=== PATIENT | female | born 1945 | race Caucasian/White ===

== ENCOUNTER → 2018-07-18 01:32 | Outpatient (CLI) | payer MEDICARE, MEDICAID, SELFPAY ==
--- NOTE | 2018-07-18 10:11 | DI.REPORT_ITS ---
SYMPTOM/DIAGNOSIS: SCREENING, Z12.31 MAMMOGRAM: Mammograms were interpreted according to the usual protocol including computer analysis with CAD system, tomosynthesis and C view imaging. Comparison with prior examinations. Breast density B. No masses or microcalcifications are seen. There is nothing to suggest malignancy. IMPRESSION: Negative mammogram. Routine screening is recommended. Category I. MQSA ASSESSMENT OF FINDINGS: Negative. Category 1. Patient will receive a letter notifying them of these results. BI-RADS category B. There are scattered areas of fibroglandular density.
== END ==
PROVIDERS: PCP Family Medicine; Visit Provider Family Medicine
DX: Z12.31 Encounter for screening mammogram for malignant neoplasm of breast (principal)
CPT/HCPCS: 77063; 77067

== ENCOUNTER 2018-08-15 10:25 | Outpatient (CLI) | payer MEDICARE, MEDICAID, SELFPAY ==
[2018-08-15 14:23] LABS: Bilirubin Negative (Negative); Blood Negative (Negative); Clarity Clear; Glucose Negative (Negative); Ketones Negative (Negative); Leukocyte Esterase Negative (Negative); Nitrite Negative (Negative); Urobilinogen 0.2 EU/dL (Up TO 0.2)
== END 2018-08-15 10:45 ==
PROVIDERS: PCP Family Medicine; Visit Provider Family Medicine
DX: R30.0 Dysuria (principal)
CPT/HCPCS: 81003

== ENCOUNTER 2018-08-18 14:23 | Outpatient (CLI) | payer MEDICARE, MEDICAID, SELFPAY ==
[2018-08-18 15:03] LABS: HCT 44.4 % (36.0-46.0); HGB 14.6 g/dL (12.0-15.5); Mean Corp. HGB Concentration 32.9 g/dL (32.0-36.0); Mean Corpuscular Hemoglobin 28.2 pg (27.0-33.0); Mean Corpuscular Volume 85.9 fL (80-95); Mean Platelet Volume 9.8 fL (8.0-11.0); Platelet Count 197 x1000/uL (130-400); RBC 5.17 m/cumm (4.00-5.20); RBC Distribution Width 14.2 % (11.7-14.6); White Blood Cell Count 6.75 k/cumm (4.4-10.8)
[2018-08-18 18:58] LABS: ALT 50 U/L (12-78); AST 33 U/L (15-37); Albumin 4.1 g/dL (3.4-5.0); Alkaline Phosphatase 76 U/L (46-116); Anion Gap 10.8 mmol/L (3-11); BUN 18 mg/dL (7-18); Bilirubin, Total 1.3 mg/dL (0.2-1.0); CO2 28.2 mmol/L (21.0-32.0); CREATININE 0.88 mg/dL (0.55-1.02); Calcium 8.9 mg/dL (8.5-10.1); Chloride 103 mmol/L (98-107); Glucose 118 mg/dL (70-100); Potassium 3.8 mmol/L (3.5-5.1); Sodium 142 mmol/L (136-145); Total Protein 7.2 g/dL (6.4-8.2)
== END 2018-08-18 14:43 ==
PROVIDERS: PCP Family Medicine; Visit Provider Family Medicine
DX: R42 Dizziness and giddiness (principal)
CPT/HCPCS: 36415; 80053; 85027

== ENCOUNTER 2018-08-22 00:48 | Outpatient (CLI) | payer MEDICARE, MEDICAID, SELFPAY ==
--- NOTE | 2018-08-22 13:02 | DI.CT_ITS ---
SYMPTOMS/DIAGNOSIS: PELVIC PAIN ABDOMINAL AND PELVIC CT: CT examination of the abdomen and pelvis was performed with a bolus infusion of 100 cc of Omnipaque 350 and ingestion of dilute barium. Images obtained through the lung bases are unremarkable. Note is made of marked degenerative changes of the lumbosacral spine with multilevel disc degeneration and prominent hypertrophic spurring of the endplates and facet joints. The heart appears enlarged. The liver and spleen are unremarkable in appearance. Gallbladder and bile ducts are CT normal. Pancreas appears normal. Adrenals and kidneys are unremarkable in appearance with no evidence of hydronephrosis or nephrolithiasis. Abdominal aorta is of normal diameter and no major vascular abnormality is seen. No significant abdominal wall hernia is seen. No abdominal or pelvic adenopathy. There is colonic diverticulosis. There is pericolonic fat edema associated with the descending/ sigmoid colon junction region, raising the possibility of acute or chronic diverticulitis. Appendix is unremarkable in appearance. No evidence of bowel obstruction. CONCLUSION: Findings raising the possibility of mild sigmoid/descending colon junction diverticulitis. Please correlate clinically. No additional significant findings.
[2018-08-22] MEDS: Omnipaque 350 MG/ML 100 ML BTL IJ (14:56)
[2018-08-22] MEDS: Omnipaque 350 MG/ML 50 ML BTL PO (14:56)
[2018-08-22] MEDS: Breeza Beverage 473 ML BTL PO ×2 (14:57)
== END 2018-08-22 01:08 ==
PROVIDERS: PCP Family Medicine; Visit Provider Family Medicine
DX: R10.2 Pelvic and perineal pain (principal); K57.32 Diverticulitis of large intestine without perforation or abscess without bleeding; I51.7 Cardiomegaly; K57.30 Diverticulosis of large intestine without perforation or abscess without bleeding
CPT/HCPCS: 74177; J3490; Q9967

== ENCOUNTER 2019-01-11 17:13 | Outpatient (REF) | payer MEDICARE, MEDICAID, SELFPAY ==
[2019-01-11 21:47] LABS: Abs Immature Grans 0.01 k/cumm (0.0-0.09); Absolute Basophil Count 0.01 k/cumm (0.0-0.2); Absolute Eosinophil Count 0.07 k/cumm (0.0-0.7); Absolute Lymphocyte Count 1.09 k/cumm (1.2-3.4); Absolute Monocyte Count 0.57 k/cumm (0.11-0.7); Basophils % 0.1; HCT 43.5 % (36.0-46.0); HGB 14.2 g/dL (12.0-15.5); Immature Grans % 0.1; Lymphocytes % 16.1; Mean Corp. HGB Concentration 32.6 g/dL (32.0-36.0); Mean Corpuscular Hemoglobin 28.1 pg (27.0-33.0); Mean Corpuscular Volume 86.1 fL (80-95); Monocytes % 8.4; Neutrophils % 74.3; Platelet Count 215 x1000/uL (130-400); RBC 5.05 m/cumm (4.00-5.20); RBC Distribution Width 14.3 % (11.7-14.6); White Blood Cell Count 6.75 k/cumm (4.4-10.8)
[2019-01-11 21:59] LABS: Hemoglobin A1C 6.1 % (4.5-6.2)
[2019-01-11 22:06] LABS: ALT 51 U/L (12-78); AST 31 U/L (15-37); Albumin 3.8 g/dL (3.4-5.0); Alkaline Phosphatase 69 U/L (46-116); Anion Gap 9.1 mmol/L (3-11); BUN 21 mg/dL (7-18); Bilirubin, Total 1.1 mg/dL (0.2-1.0); CO2 28.9 mmol/L (21.0-32.0); CREATININE 0.75 mg/dL (0.55-1.02); Calcium 8.8 mg/dL (8.5-10.1); Chloride 103 mmol/L (98-107); Glucose 106 mg/dL (70-100); Potassium 4.2 mmol/L (3.5-5.1); Sodium 141 mmol/L (136-145); TSH (W/Ref FT4) 1.48 uIU/mL (0.358-3.74); Total Protein 7.3 g/dL (6.4-8.2)
[2019-01-13 18:51] LABS: NT-proBNP 1610 pg/mL
== END 2019-01-11 17:33 ==
LOC: NCHCN 17:13
PROVIDERS: PCP Family Medicine; Visit Provider Family Medicine
DX: R06.02 Shortness of breath (principal); R06.09 Other forms of dyspnea; I10 Essential (primary) hypertension; R73.09 Other abnormal glucose
CPT/HCPCS: 80053; 83036; 83880; 84443; 85025

== ENCOUNTER 2019-02-22 11:25 | Outpatient (REF) | payer MEDICARE, MEDICAID, SELFPAY ==
[2019-02-22 12:39] LABS: ALT 52 U/L (12-78); AST 27 U/L (15-37); Albumin 3.8 g/dL (3.4-5.0); Alkaline Phosphatase 66 U/L (46-116); Anion Gap 10.7 mmol/L (3-11); BUN 21 mg/dL (7-18); Bilirubin, Total 1.3 mg/dL (0.2-1.0); CO2 27.3 mmol/L (21.0-32.0); CREATININE 0.75 mg/dL (0.55-1.02); Calcium 8.4 mg/dL (8.5-10.1); Chloride 102 mmol/L (98-107); Glucose 117 mg/dL (70-100); NT-proBNP 519 pg/mL; Potassium 3.9 mmol/L (3.5-5.1); Sodium 140 mmol/L (136-145); Total Protein 6.7 g/dL (6.4-8.2)
== END 2019-02-22 11:45 ==
LOC: NCHCN 11:25
PROVIDERS: PCP Family Medicine; Visit Provider Family Medicine
DX: R06.02 Shortness of breath (principal)
CPT/HCPCS: 80053; 83880

== ENCOUNTER 2019-02-27 00:54 | Outpatient (CLI) | payer MEDICARE, MEDICAID, SELFPAY ==
[2019-02-27] MEDS: Omnipaque 350 MG/ML 100 ML BTL IJ (13:00)
--- NOTE | 2019-02-27 13:00 | DI.CT_ITS ---
SYMPTOMS/DIAGNOSIS: ABDOMINAL DISTENTION, R14.0, ABDOMINAL DISCOMFORT X [address] SCAN OF THE ABDOMEN AND PELVIS: CT scan of the abdomen and pelvis was performed following the uneventful administration of intravenous and oral contrast material. Comparison examination is 08/22/18. Mild dependent atelectatic changes are seen in the lung bases. The liver is unremarkable. No evidence of a hepatic mass is seen. The portal, superior mesenteric and splenic veins are patent. The gallbladder is negative. There is no biliary ductal dilatation. The pancreas, spleen and adrenal glands are unremarkable. Incidental note is made of a small accessory spleen in the hilum. The kidneys are normal in size. Incidental note is made of a duplex right renal collecting system. There is a 2 mm nonobstructing stone in the mid pole of the right kidney. There are bilateral renal cysts. No suspicious solid renal mass is identified. The urinary bladder is intact. The patient appears to be status post hysterectomy. There is atherosclerosis of the abdominal aorta but no aneurysmal dilatation is present. No significant abdominal or pelvic adenopathy, ascites or pneumoperitoneum is present. There is diverticulosis seen throughout the colon, but no evidence of acute diverticulitis is present. There is a normal appendix present. No evidence of bowel obstruction or bowel inflammatory or infectious process is seen. Degenerative changes are seen in the spine. IMPRESSION: 1. No evidence of an acute abdomen. 2. Colonic diverticulosis but no evidence of acute diverticulitis. 3. Right nephrolithiasis. No evidence of hydronephrosis. 4. 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 Bilateral renal cysts.
[2019-02-27] MEDS: Omnipaque 350 MG/ML 50 ML BTL PO (13:01)
[2019-02-27] MEDS: Breeza Beverage 473 ML BTL PO (13:01)
== END 2019-02-27 01:14 ==
PROVIDERS: PCP Family Medicine; Visit Provider Family Medicine
DX: R14.0 Abdominal distension (gaseous) (principal); K57.30 Diverticulosis of large intestine without perforation or abscess without bleeding; N20.0 Calculus of kidney; N28.1 Cyst of kidney, acquired
CPT/HCPCS: 74177; J3490; Q9967

== ENCOUNTER 2019-03-01 21:33 | Outpatient (REF) | payer MEDICARE, MEDICAID, SELFPAY ==
[2019-03-01 21:30] LABS: Abs Immature Grans 0.01 k/cumm (0.0-0.09); Absolute Basophil Count 0.01 k/cumm (0.0-0.2); Absolute Eosinophil Count 0.09 k/cumm (0.0-0.7); Absolute Lymphocyte Count 0.99 k/cumm (1.2-3.4); Absolute Monocyte Count 0.56 k/cumm (0.11-0.7); Absolute Neutrophil Count 4.33 k/cumm (1.2-6.7); Basophils % 0.2; Eosinophils % 1.5; HCT 43.7 % (36.0-46.0); HGB 14.3 g/dL (12.0-15.5); Immature Grans % 0.2; Lymphocytes % 16.5; Mean Corp. HGB Concentration 32.7 g/dL (32.0-36.0); Mean Corpuscular Hemoglobin 27.6 pg (27.0-33.0); Mean Corpuscular Volume 84.2 fL (80-95); Mean Platelet Volume 10.7 fL (8.0-11.0); Monocytes % 9.3; Neutrophils % 72.3; Platelet Count 216 x1000/uL (130-400); RBC 5.19 m/cumm (4.00-5.20); RBC Distribution Width 14.1 % (11.7-14.6); White Blood Cell Count 5.99 k/cumm (4.4-10.8)
[2019-03-01 21:46] LABS: Iron 76 ug/dL (50-175); Total Iron Binding Capacity 348 ug/dL (250-450); Transferrin Sat 22 % (15-50)
[2019-03-01 21:58] LABS: Ferritin 428 ng/mL (8-388); TSH (W/Ref FT4) 1.58 uIU/mL (0.358-3.74)
[2019-03-05 12:07] LABS: CA 125 17 U/mL (0-30)
== END 2019-03-01 21:53 ==
LOC: NCHCN 21:33
PROVIDERS: PCP Family Medicine; Visit Provider Nurse Practitioner Family
DX: R14.0 Abdominal distension (gaseous) (principal); R06.02 Shortness of breath; R19.8 Other specified symptoms and signs involving the digestive system and abdomen; Z12.9 Encounter for screening for malignant neoplasm, site unspecified
CPT/HCPCS: 86304; 82728; 83540; 83550; 84443; 85025

== ENCOUNTER 2019-03-08 01:41 | Outpatient (CLI) | payer MEDICARE, MEDICAID, SELFPAY ==
[2019-03-08] MEDS: Inhaler, Assist Device 1 EACH MC (11:29)
[2019-03-08] MEDS: Albuterol HFA 18 GM 200 PUFF INH IH (11:29)
--- NOTE | 2019-03-12 15:10 | PFT_ITS ---
PULMONARY FUNCTION TEST REPORT DATE OF SERVICE: March 08, 2019 REQUESTING PROVIDER: Edilia Soria N.P. Spirometry shows no evidence of obstructive airways disease, no bronchodilator response. Lung volumes show no evidence of restriction. The slightly low FVC is mostly due to low ERV. This can represent chest wall restriction from underlying obesity or respiratory neuromuscular weakness. Diffusion capacity not measured. Airways resistance mildly elevated. IMPRESSION: No evidence of obstructive airways disease. No evidence of restriction. The slightly low FVC is most likely due to very low ERV. This can be seen in underlying obesity and chest wall restriction, or in respiratory neuromuscular dysfunction. Clinical correlation therefore recommended. MICHEL/shweta D/
== END 2019-03-08 02:01 ==
PROVIDERS: PCP Family Medicine; Visit Provider Nurse Practitioner Family
DX: R06.02 Shortness of breath (principal)
CPT/HCPCS: 94060; 94726

== ENCOUNTER 2019-08-21 00:50 | Emergency (ER) | payer MEDICARE, MEDICAID, SELFPAY ==
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
[2019-08-21 00:55] VITALS: BP 142/80; PULSE 82; RESP 16; TEMP 36.4; O2SAT 98
--- NOTE | 2019-08-21 01:13 | NUR.NOTE ---
Nursing Note: Reports right nare bleeding since 2229 s/p blowing nose.Daily Eliquis and baby asa. Arrives with tissue stuffed in right nare, bleeding controlled. denies posterior bleeding. reports clots when tissue removed. Marcell in to mj, tissue removed from nare with clot, no active bleeding. med a/o.
[2019-08-21 02:06] VITALS: BP 129/83; PULSE 89; RESP 16; O2SAT 98
--- NOTE | 2019-08-21 02:07 | NUR.NOTE ---
Nursing Note: Marcell in to cauterize right nare, no further bleeding. Discharge instructions reviewed with verbal understanding. aware to f/u with pcp as needed, return for new or worsening symptoms. ambulated to exit with steady gait.
== END 2019-08-21 02:04 | disposition home or self-care (01) ==
PROVIDERS: Emergency Provider Emergency Medicine; PCP Nurse Practitioner Family
DX: R04.0 Epistaxis (principal); Z79.01 Long term (current) use of anticoagulants; Z79.82 Long term (current) use of aspirin
CPT/HCPCS: 99282

== ENCOUNTER 2019-08-30 12:18 | Outpatient (REF) | payer MEDICARE, MEDICAID, SELFPAY ==
[2019-08-30 21:57] LABS: ALT 28 U/L (14-59); AST 19 U/L (15-37); Alkaline Phosphatase 63 U/L (46-116); Anion Gap 9.2 mmol/L (3-11); BUN 23 mg/dL (7-18); Bilirubin, Total 1.1 mg/dL (0.2-1.0); CO2 28.8 mmol/L (21.0-32.0); CREATININE 1.04 mg/dL (0.55-1.02); Calcium 8.4 mg/dL (8.5-10.1); Chloride 104 mmol/L (98-107); Glucose 114 mg/dL (70-100); NT-proBNP 888 pg/mL; Potassium 3.6 mmol/L (3.5-5.1); Sodium 142 mmol/L (136-145)
[2019-09-03 11:19] LABS: Hepatitis C Ab w Rflx HCV PCR Negative (NEGAT)
== END 2019-08-30 12:38 ==
LOC: NCHCN 12:18
PROVIDERS: PCP Nurse Practitioner Family; Visit Provider Nurse Practitioner Family
DX: I10 Essential (primary) hypertension (principal); I50.9 Heart failure, unspecified; R06.02 Shortness of breath; R42 Dizziness and giddiness; M19.90 Unspecified osteoarthritis, unspecified site; Z11.59 Encounter for screening for other viral diseases; G89.4 Chronic pain syndrome
CPT/HCPCS: 80053; 86803; 83880

== ENCOUNTER 2019-09-13 00:55 | Outpatient (CLI) | payer MEDICARE, MEDICAID, SELFPAY ==
--- NOTE | 2019-09-13 09:49 | DI.MAMMO_ITS ---
EXAM: MAMMO SCREENING CLINICAL HISTORY: SCREENING Z12.31 TECHNIQUE: Mammograms were interpreted according to the usual protocol including computer analysis w [employer] CAD system, tomosynthesis and C-view imaging. FINDINGS: The breasts are of moderate density with fairly symmetrical distribution of fibroglandular tissue. N o dominant mass or clumped microcalcification is identified either breast. Current examination is co mpared with previous examinations including June 2018 and there has been no gross change in appeara nce in comparison with the previous studies. IMPRESSION: No specific evidence of malignancy at this time. Routine screening examinations are suggested at year ly intervals due to the family history of breast carcinoma. Category 1. Breast density, category B. BI-RADS Cat 1 - Negative. Breast Density - Category B - Scattered areas of fibroglandular density.
== END 2019-09-13 01:15 ==
PROVIDERS: PCP Nurse Practitioner Family; Visit Provider Nurse Practitioner Family
DX: Z12.31 Encounter for screening mammogram for malignant neoplasm of breast (principal); Z80.3 Family history of malignant neoplasm of breast
CPT/HCPCS: 77063; 77067

== ENCOUNTER 2019-12-04 10:59 | Outpatient (REF) | payer MEDICARE, MEDICAID, SELFPAY ==
[2019-12-04 21:20] LABS: Abs Immature Grans 0.01 k/cumm (0.0-0.09); Absolute Basophil Count 0.01 k/cumm (0.0-0.2); Absolute Eosinophil Count 0.08 k/cumm (0.0-0.7); Absolute Lymphocyte Count 1.43 k/cumm (1.2-3.4); Absolute Monocyte Count 0.61 k/cumm (0.11-0.7); Absolute Neutrophil Count 3.99 k/cumm (1.2-6.7); Basophils % 0.2; Eosinophils % 1.3; HCT 44.2 % (36.0-46.0); HGB 14.5 g/dL (12.0-15.5); Immature Grans % 0.2 %; Lymphocytes % 23.3; Mean Corp. HGB Concentration 32.8 g/dL (32.0-36.0); Mean Corpuscular Hemoglobin 28.1 pg (27.0-33.0); Mean Corpuscular Volume 85.7 fL (80-95); Mean Platelet Volume 9.9 fL (8.0-11.0); Platelet Count 232 x1000/uL (130-400); RBC 5.16 m/cumm (4.00-5.20); RBC Distribution Width 14.3 % (11.7-14.6); White Blood Cell Count 6.13 k/cumm (4.4-10.8)
[2019-12-04 21:35] LABS: TSH (W/Ref FT4) 2.75 uIU/mL (0.36-3.74)
[2019-12-04 22:01] LABS: Iron 85 ug/dL (50-170); Total Iron Binding Capacity 336 ug/dL (250-450); Transferrin Sat 25 % (15-50)
== END 2019-12-04 11:19 ==
LOC: NCHCN 10:59
PROVIDERS: PCP Nurse Practitioner Family; Visit Provider Nurse Practitioner Family
DX: I10 Essential (primary) hypertension (principal); R06.02 Shortness of breath; I48.91 Unspecified atrial fibrillation; I50.9 Heart failure, unspecified; G47.00 Insomnia, unspecified; G57.20 Lesion of femoral nerve, unspecified lower limb; E66.9 Obesity, unspecified; G89.4 Chronic pain syndrome
CPT/HCPCS: 83540; 83550; 84443; 85025

== ENCOUNTER 2020-07-11 18:26 | Outpatient (REF) | payer MEDICARE, MEDICAID, SELFPAY ==
[2020-07-11 23:57] LABS: ALT 31 U/L (14-59); AST 19 U/L (15-37); Albumin 4.1 g/dL (3.4-5.0); Alkaline Phosphatase 52 U/L (46-116); Anion Gap 9.4 mmol/L (3-11); BUN 16 mg/dL (7-18); Bilirubin, Total 1.3 mg/dL (0.2-1.0); CO2 29.6 mmol/L (21.0-32.0); CREATININE 0.72 mg/dL (0.55-1.02); Calcium 8.8 mg/dL (8.5-10.1); Chloride 101 mmol/L (98-107); Glucose 106 mg/dL (74-106); Potassium 3.9 mmol/L (3.5-5.1); Sodium 140 mmol/L (136-145); Total Protein 7.1 g/dL (6.4-8.2)
== END 2020-07-11 18:46 ==
LOC: NCHCN 18:26
PROVIDERS: PCP Nurse Practitioner Family; Visit Provider Nurse Practitioner Family
DX: I10 Essential (primary) hypertension (principal); E78.5 Hyperlipidemia, unspecified; R73.03 Prediabetes; I50.9 Heart failure, unspecified; I48.91 Unspecified atrial fibrillation; G57.20 Lesion of femoral nerve, unspecified lower limb; J30.9 Allergic rhinitis, unspecified; E66.9 Obesity, unspecified
CPT/HCPCS: 80053

== ENCOUNTER 2020-10-08 00:53 | Outpatient (CLI) | payer MEDICARE, MEDICAID, SELFPAY ==
--- NOTE | 2020-10-08 | DI.MAMMO_ITS ---
EXAM: MG MAMMO SCREENING CLINICAL HISTORY: SCREENING,Z12.31 TECHNIQUE: Bilateral full field digital CC and MLO mammographic images were obtained with 3D tomosyn thesis and utilizing computer aided detection (CAD). COMPARISON: Available for comparison. FINDINGS: Masses/Architectural Distortion: None seen. Microcalcifications: No suspicious pleomorphic-type are seen. Skin Thickening/Nipple Retraction: None. IMPRESSION: 1. No significant interval change with no specific features of malignancy noted. 2. Unless there is more urgent need, screening mammography is recommended, as per [employer] guidelines. BI-RADS Category 1 - Negative Breast Density - Category B - Scattered areas of fibroglandular density A negative radiographic report should not delay biopsy if a dominant or clinically suspicious mass is present. Up to ten percent of cancers are not identified on mammography. A negative report may reinforce clinical impression. Adenosis and dense breasts may obscure an underlying neoplasm. False positive reports average 6 to 10%. Patient will receive a letter notifying them of these results.
== END 2020-10-08 01:13 ==
PROVIDERS: PCP Nurse Practitioner Family; Visit Provider Nurse Practitioner Family
DX: Z12.31 Encounter for screening mammogram for malignant neoplasm of breast (principal)
CPT/HCPCS: 77063; 77067

== ENCOUNTER 2020-10-14 12:55 | Outpatient (REF) | payer MEDICARE, MEDICAID, SELFPAY ==
[2020-10-14 22:33] LABS: NT-proBNP 1166 pg/mL (<300)
== END 2020-10-14 13:15 ==
LOC: NCHCN 12:55
PROVIDERS: PCP Nurse Practitioner Family; Visit Provider Nurse Practitioner Family
DX: I50.9 Heart failure, unspecified (principal); I10 Essential (primary) hypertension; I48.91 Unspecified atrial fibrillation
CPT/HCPCS: 83880

== ENCOUNTER 2020-10-21 18:46 | Outpatient (REF) | payer MEDICARE, MEDICAID, SELFPAY ==
[2020-10-21 21:19] LABS: Anion Gap 6.6 mmol/L (3-11); BUN 18 mg/dL (7-18); CO2 28.4 mmol/L (21.0-32.0); Calcium 8.8 mg/dL (8.5-10.1); Chloride 105 mmol/L (98-107); Glucose 141 mg/dL (74-106); Potassium 4.2 mmol/L (3.5-5.1); Sodium 140 mmol/L (136-145)
== END 2020-10-21 19:06 ==
LOC: NCHCN 18:46
PROVIDERS: PCP Nurse Practitioner Family; Visit Provider Nurse Practitioner Family
DX: I10 Essential (primary) hypertension (principal); I50.9 Heart failure, unspecified
CPT/HCPCS: 80048

== ENCOUNTER 2020-11-18 18:04 | Outpatient (REF) | payer MEDICARE, MEDICAID, SELFPAY ==
[2020-11-18 21:26] LABS: Anion Gap 6.8 mmol/L (3-11); BUN 21 mg/dL (7-18); CO2 30.2 mmol/L (21.0-32.0); Calcium 8.8 mg/dL (8.5-10.1); Chloride 102 mmol/L (98-107); Glucose 132 mg/dL (74-106); Potassium 3.3 mmol/L (3.5-5.1); Sodium 139 mmol/L (136-145)
== END 2020-11-18 18:24 ==
LOC: NCHCN 18:04
PROVIDERS: PCP Nurse Practitioner Family; Visit Provider Nurse Practitioner Family
DX: J30.9 Allergic rhinitis, unspecified (principal); R60.0 Localized edema; R06.09 Other forms of dyspnea; G89.4 Chronic pain syndrome; E78.5 Hyperlipidemia, unspecified; F32.9 Major depressive disorder, single episode, unspecified; I10 Essential (primary) hypertension
CPT/HCPCS: 80048

== ENCOUNTER 2020-12-04 11:25 | Outpatient (REF) | payer OTHER, MEDICAID, SELFPAY ==
[2020-12-04 13:34] LABS: Potassium 3.7 mmol/L (3.5-5.1)
== END 2020-12-04 11:45 ==
LOC: NCHCN 11:25
PROVIDERS: PCP Nurse Practitioner Family; Visit Provider Nurse Practitioner Family
DX: E87.6 Hypokalemia (principal)
CPT/HCPCS: 84132

== ENCOUNTER 2021-02-12 11:23 | Outpatient (REF) | payer OTHER, MEDICAID, SELFPAY ==
[2021-02-12 13:34] LABS: BUN 18 mg/dL (7-18); CREATININE 0.7 mg/dL (0.55-1.02); Calcium 9.1 mg/dL (8.5-10.1); Chloride 104 mmol/L (98-107); Glucose 124 mg/dL (74-106); Potassium 3.9 mmol/L (3.5-5.1); Sodium 142 mmol/L (136-145)
== END 2021-02-12 11:24 | disposition home or self-care (01) ==
LOC: NCHCN 11:23
PROVIDERS: PCP Nurse Practitioner Family; Visit Provider Nurse Practitioner Family
DX: R53.83 Other fatigue (principal); R73.03 Prediabetes; E87.6 Hypokalemia; I50.9 Heart failure, unspecified
CPT/HCPCS: 80048

== ENCOUNTER 2021-08-21 02:40 | Outpatient (CLI) | payer OTHER, MEDICAID, SELFPAY ==
--- NOTE | 2021-08-21 | DI.RAD_ITS ---
Exam(s) XR SHOULDER RT COMPLETE 2+V EXAM: XR SHOULDER RT COMPLETE 2+V CLINICAL HISTORY: SHOULDER PAIN, M25.511. TECHNIQUE: 2D digital imaging was performed of the right shoulder. Five images were obtained. AP i nternal and external, [place], Y-view and axillary views were obtained. COMPARISON: CR RIGHT SHOULDER COMPLETE from 01/01/2014 CR RIGHT SHOULDER COMPLETE from 01/01/2014 FINDINGS: BONES: No acute fracture is present. No bony destructive lesion is seen. JOINTS: No dislocation present. Moderate degenerative changes are seen at the acromioclavicular joint . Mild degenerative changes are seen at the glenohumeral joint with periarticular spurring present. SOFT TISSUE: Normal. IMPRESSION: Moderate degenerative changes of the right shoulder. DATA REPOSITORY: RADIATION DOSE DELIVERED:
== END 2021-08-21 03:00 ==
PROVIDERS: PCP Nurse Practitioner Family; Visit Provider Family Medicine
DX: M25.511 Pain in right shoulder (principal); M19.011 Primary osteoarthritis, right shoulder
CPT/HCPCS: 73030

== ENCOUNTER 2022-02-14 15:07 | Emergency (ER) | payer MEDICARE, MEDICAID, SELFPAY ==
[2022-02-14] VITALS (16 sets, daily range): BP systolic 118–141; BP diastolic 63–81; PULSE 75–100; RESP 16–26; TEMP 36.6–36.8; O2SAT 95–96
--- NOTE | 2022-02-14 15:15 | RT.EKG_ITS ---
APPROVED REPORT Exam: Resting ECG Reason for Exam: swollen feet Patient Location: E HR:89 bpm ECG Measurements Heart Rate 89 AXIS VA [id number] P [id number] QRSd 83 QRS -8 QT 399 T 44 QTc 485 Conclusion Atrial fibrillation...V-rate 62-102, irreg A-activity. Afib. No STEMI. I have reviewed and interpreted ECG and agree with software generated interpretation.
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
[2022-02-14 15:58] LABS: Abs Immature Grans 0.02 10^3/uL (0.0-0.06); Absolute Basophil Count 0.02 10^3/uL (0.0-0.2); Absolute Eosinophil Count 0.05 10^3/uL (0.0-0.7); Absolute Lymphocyte Count 1.26 10^3/uL (1.2-3.4); Absolute Monocyte Count 0.63 10^3/uL (0.1-0.8); Absolute Neutrophil Count 5.43 10^3/uL (1.2-6.7); Basophils % 0.3; Eosinophils % 0.7; HGB 14.5 g/dL (11.2-15.7); Immature Grans % 0.3; MCH 27.1 pg (27.0-33.0); MCHC 31.5 % (32.0-36.0); MCV 85.8 fL (80-95); MPV 9.6 fL (8.0-11.0); Monocytes % 8.5; Neutrophils % 73.2; Nucleated RBC 0 %; Platelet Count 247 10^3/uL (130-400); RBC 5.36 10^6/uL (3.93-5.22); RDW 13.7 % (11.7-14.6); RDW-SD 42.7 fL; WBC 7.41 10^3/uL (4.4-10.8)
[2022-02-14 16:25] LABS: ALT 36 U/L (14-59); AST 24 U/L (15-37); Albumin 4.2 g/dL (3.4-5.0); Alkaline Phosphatase 68 U/L (46-116); Anion Gap 9.7 mmol/L (3-11); BUN 20 mg/dL (7-18); Bilirubin, Total 1.2 mg/dL (0.2-1.0); CO2 28.3 mmol/L (21.0-32.0); CREATININE 0.8 mg/dL (0.55-1.02); Calcium 9.3 mg/dL (8.5-10.1); Chloride 102 mmol/L (98-107); Glucose 122 mg/dL (74-106); Magnesium 1.8 mg/dL (1.8-2.4); NT-proBNP 849 pg/mL (<300); Potassium 3.9 mmol/L (3.5-5.1); Sodium 140 mmol/L (136-145); Total Protein 8.1 g/dL (6.4-8.2); Troponin I < 50 ng/L (<or=60)
--- NOTE | 2022-02-14 18:23 | DI.RAD_ITS ---
Exam(s) XR CHEST 2V PA LATERAL EXAM: XR CHEST 2V PA LATERAL CLINICAL HISTORY: shortness of breath, r/o acute disease TECHNIQUE: 2D digital imaging was performed. COMPARISON: CR CHEST 2 VIEWS PA,LAT from 07/19/2017 FINDINGS: The heart is enlarged. Leads overlie the chest. There is vascular congestion compared with the prev ious exam. No focal infiltrate, effusion or pneumothorax is seen. IMPRESSION: Cardiomegaly. vascular congestion could indicate mild CHF. DATA REPOSITORY: RADIATION DOSE DELIVERED:
--- NOTE | 2022-02-14 18:55 | DI.VRAD_ITS ---
PROCEDURE INFORMATION: Exam: XR Chest Exam date and time: 02/14/2022 6:10 PM Age: 76 years old Clinical indication: Patient HX: Shortness of breath, R/O acute disease TECHNIQUE: Imaging protocol: XR of the chest. Views: 2 views. COMPARISON: CT CHEST FOR PULMONARY EMBOLUS 07/20/2017 10:13 AM FINDINGS: Lungs: The pulmonary vasculature appears prominent. There is minimal streaky opacity in the left lung base. Pleural spaces: Unremarkable. No pleural effusion. No pneumothorax. Heart/Mediastinum: The cardiac silhouette is enlarged. Bones/joints: Unremarkable. IMPRESSION: 1. Cardiomegaly and pulmonary vascular congestion. 2. Minimal streaky opacity in the left lung base, possibly due to atelectasis or infiltrate. Dictated and Authenticated by: Sanam Orellana MD. Ordering:JAGDISH Galan MD
--- NOTE | 2022-02-14 19:53 | NUR.NOTE ---
referral for leg ultrasound faxed to [facility]. Patient given a copy and instructed to call the number circled on requisition after 7amNursing Note:
== END 2022-02-14 20:34 | disposition home or self-care (01) ==
PROVIDERS: Emergency Provider Physician Assistant; PCP Nurse Practitioner Family
DX: R60.0 Localized edema (principal); R06.02 Shortness of breath; R07.9 Chest pain, unspecified
CPT/HCPCS: 36415; 80053; 93005; 99284; 71046; 83735; 83880; 84484; 85025; 93010

== ENCOUNTER 2022-02-15 10:31 | Outpatient (CLI) | payer MEDICARE, MEDICAID, SELFPAY ==
[2022-02-15 12:49] LABS: Anion Gap 6.8 mmol/L (3-11); BUN 18 mg/dL (7-18); CO2 30.2 mmol/L (21.0-32.0); CREATININE 0.7 mg/dL (0.55-1.02); Calcium 9.4 mg/dL (8.5-10.1); Chloride 101 mmol/L (98-107); Glucose 105 mg/dL (74-106); Potassium 4.2 mmol/L (3.5-5.1); Sodium 138 mmol/L (136-145)
== END 2022-02-15 10:32 | disposition home or self-care (01) ==
LOC: LBO 10:33
PROVIDERS: PCP Nurse Practitioner Family; Visit Provider Nurse Practitioner Family
DX: I10 Essential (primary) hypertension (principal)
CPT/HCPCS: 36415; 80048

== ENCOUNTER 2022-02-15 11:09 | Outpatient (CLI) | payer MEDICARE, MEDICAID, SELFPAY ==
--- NOTE | 2022-02-15 | DI.US_ITS ---
Exam(s) US EXTREMITY VENOUS BI EXAM: US EXTREMITY VENOUS BI CLINICAL HISTORY: AR LEG SWELLING, R22.43. TECHNIQUE: Bilateral lower extremity venous ultrasound performed using grayscale, color-flow, and sp ectral Doppler analysis. COMPARISON: No exams were available for comparison FINDINGS: Exam is somewhat limited by patient body habitus. The bilateral common femoral, femoral and poplitea l veins demonstrate normal compressibility, augmentation, and color Doppler. The posterior tibial vei ns are patent. IMPRESSION: Right: Negative for DVT Left: Negative for DVT DATA REPOSITORY:
== END 2022-02-15 11:29 ==
PROVIDERS: PCP Nurse Practitioner Family; Visit Provider Physician Assistant
DX: R22.43 Localized swelling, mass and lump, lower limb, bilateral (principal)
CPT/HCPCS: 93970

== ENCOUNTER 2022-02-15 12:37 | Emergency (ER) | payer MEDICARE, MEDICAID, SELFPAY ==
[2022-02-15 12:41] VITALS: BP 118/74; PULSE 85; RESP 16; TEMP 36; O2SAT 96
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
== END 2022-02-15 13:13 | disposition home or self-care (01) ==
PROVIDERS: Emergency Provider Physician Assistant; PCP Nurse Practitioner Family
DX: R60.0 Localized edema (principal)

== ENCOUNTER 2022-02-23 17:40 | Outpatient (REF) | payer MEDICARE, MEDICAID, SELFPAY ==
[2022-02-23 21:25] LABS: Anion Gap 15.6 mmol/L (3-11); BUN 25 mg/dL (7-18); CO2 29.4 mmol/L (21.0-32.0); CREATININE 0.8 mg/dL (0.55-1.02); Chloride 98 mmol/L (98-107); Glucose 149 mg/dL (74-106); Potassium 3.1 mmol/L (3.5-5.1); Sodium 143 mmol/L (136-145)
== END 2022-02-23 17:41 | disposition home or self-care (01) ==
LOC: NCHCN 17:40
PROVIDERS: PCP Nurse Practitioner Family; Visit Provider Nurse Practitioner Family
DX: I50.9 Heart failure, unspecified (principal); R60.0 Localized edema; I89.0 Lymphedema, not elsewhere classified
CPT/HCPCS: 80048

== ENCOUNTER 2022-03-01 20:38 | Outpatient (REF) | payer MEDICARE, MEDICAID, SELFPAY ==
[2022-03-01 21:15] LABS: Anion Gap 7.2 mmol/L (3-11); BUN 26 mg/dL (7-18); CO2 30.8 mmol/L (21.0-32.0); CREATININE 0.8 mg/dL (0.55-1.02); Calcium 9.1 mg/dL (8.5-10.1); Chloride 102 mmol/L (98-107); Glucose 155 mg/dL (74-106); Potassium 4.2 mmol/L (3.5-5.1); Sodium 140 mmol/L (136-145)
== END 2022-03-01 20:39 | disposition home or self-care (01) ==
LOC: NCHCN 20:38
PROVIDERS: PCP Nurse Practitioner Family; Visit Provider Nurse Practitioner Family
DX: E87.6 Hypokalemia (principal)
CPT/HCPCS: 80048

== ENCOUNTER 2022-03-19 13:37 | Outpatient (REF) | payer MEDICARE, MEDICAID, SELFPAY | END 2022-03-19 13:38 | disposition home or self-care (01) | LOC: NCHCN 13:37 | PROVIDERS: PCP Nurse Practitioner Family; Visit Provider Nurse Practitioner Family ==

== ENCOUNTER 2022-04-16 12:28 | Outpatient (CLI) | payer MEDICARE, MEDICAID, SELFPAY ==
[2022-04-16 13:08] LABS: Hemoglobin A1C 6.4 % (<5.7)
== END 2022-04-16 12:29 | disposition home or self-care (01) ==
LOC: LBO 12:31
PROVIDERS: PCP Nurse Practitioner Family; Visit Provider Nurse Practitioner Family
DX: R73.03 Prediabetes (principal); E66.9 Obesity, unspecified
CPT/HCPCS: 36415; 83036

== ENCOUNTER → 2022-06-03 01:37 | Outpatient (CLI) | payer MEDICARE, MEDICAID, SELFPAY | PROVIDERS: PCP Nurse Practitioner Family; Visit Provider Nurse Practitioner Family ==

== ENCOUNTER 2022-11-30 17:42 | Outpatient (REF) | payer MEDICARE, MEDICAID, SELFPAY ==
[2022-11-30 16:20] LABS: Anion Gap 5.6 mmol/L (3-11); BUN 18 mg/dL (7-18); CO2 31.4 mmol/L (21.0-32.0); CREATININE 0.8 mg/dL (0.55-1.02); Calcium 9.2 mg/dL (8.5-10.1); Chloride 102 mmol/L (98-107); Estimated GFR 75.84 (mL/min/1.73m2); Glucose 116 mg/dL (74-106); Potassium 4.4 mmol/L (3.5-5.1); Sodium 139 mmol/L (136-145)
== END 2022-11-30 17:43 | disposition home or self-care (01) ==
LOC: NCHCN 17:42
PROVIDERS: PCP Nurse Practitioner Family; Visit Provider Family Medicine
DX: E87.6 Hypokalemia (principal)
CPT/HCPCS: 80048

== ENCOUNTER 2022-12-13 10:21 | Emergency (ER) | payer MEDICARE, MEDICAID, SELFPAY ==
[2022-12-13 10:30] VITALS: BP 138/75; PULSE 101; RESP 18; TEMP 36.8; O2SAT 96
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
[2022-12-13 12:19] VITALS: BP 135/70; PULSE 83; RESP 16; O2SAT 97
== END 2022-12-13 12:15 | disposition home or self-care (01) ==
PROVIDERS: Emergency Provider Nurse Practitioner Family; PCP Family Medicine
DX: R04.0 Epistaxis (principal); I48.91 Unspecified atrial fibrillation; Z79.01 Long term (current) use of anticoagulants
CPT/HCPCS: 30901; 99282

== ENCOUNTER 2022-12-14 07:33 | Emergency (ER) | payer MEDICARE, MEDICAID, SELFPAY ==
[2022-12-14 07:36] VITALS: BP 154/74; PULSE 103; RESP 18; TEMP 36.3; O2SAT 97
[2022-12-14 08:27] LABS: Abs Immature Grans 0.02 10^3/uL (0.0-0.06); Absolute Basophil Count 0.02 10^3/uL (0.0-0.2); Absolute Eosinophil Count 0.04 10^3/uL (0.0-0.7); Absolute Lymphocyte Count 0.95 10^3/uL (1.2-3.4); Absolute Monocyte Count 0.54 10^3/uL (0.1-0.8); Absolute Neutrophil Count 5.71 10^3/uL (1.2-6.7); Basophils % 0.3; Eosinophils % 0.5; HCT 44.3 % (36.0-46.0); HGB 14.3 g/dL (11.2-15.7); Immature Grans % 0.3; MCH 27.9 pg (27.0-33.0); MCHC 32.3 % (32.0-36.0); MCV 86 fL (80-95); MPV 9.6 fL (8.0-11.0); Monocytes % 7.4; Neutrophils % 78.5; Platelet Count 237 10^3/uL (130-400); RBC 5.13 10^6/uL (3.93-5.22); WBC 7.28 10^3/uL (4.4-10.8)
[2022-12-14 08:41] LABS: INR 1.2 (0.9-1.1); PTT Activated 27.9 sec (21.0-27.5); Prothrombin Time 11.8 sec (9.3-11.0)
[2022-12-14 08:42] LABS: ALT 28 U/L (14-59); AST 22 U/L (15-37); Albumin 4.2 g/dL (3.4-5.0); Alkaline Phosphatase 72 U/L (46-116); Anion Gap 8.5 mmol/L (3-11); BUN 18 mg/dL (7-18); Bilirubin, Total 1.4 mg/dL (0.2-1.0); CO2 29.5 mmol/L (21.0-32.0); CREATININE 0.8 mg/dL (0.55-1.02); Calcium 9.5 mg/dL (8.5-10.1); Chloride 100 mmol/L (98-107); Estimated GFR 75.84 (mL/min/1.73m2); Glucose 164 mg/dL (74-106); Potassium 3.9 mmol/L (3.5-5.1); Sodium 138 mmol/L (136-145); Total Protein 7.8 g/dL (6.4-8.2)
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
--- NOTE | 2022-12-14 10:08 | NUR.NOTE ---
Nursing Note: Referral faxed to [facility] ENT for epistaxis; 3 days, patient want Tuesday appt.
[2022-12-14 10:10] VITALS: BP 118/72; PULSE 69; RESP 18; TEMP 36.4; O2SAT 97
--- NOTE | 2022-12-15 15:17 | NUR.NOTE ---
patient called stating rocket rhino was coming out of nares. attempted to return patient's call x 2 with no results. left message regarding possible options to remedy this (i.e. Urgent care, return to ED.)
== END 2022-12-14 10:16 | disposition home or self-care (01) ==
PROVIDERS: Emergency Provider Nurse Practitioner Family; PCP Family Medicine
DX: R04.0 Epistaxis (principal); E80.7 Disorder of bilirubin metabolism, unspecified; R73.9 Hyperglycemia, unspecified; Z79.01 Long term (current) use of anticoagulants
CPT/HCPCS: 36415; 80053; 99283; 85025; 85610; 85730; 99284

== ENCOUNTER 2022-12-15 17:20 | Emergency (ER) | payer MEDICARE, MEDICAID, SELFPAY ==
[2022-12-15 17:24] VITALS: BP 168/70; PULSE 83; RESP 20; TEMP 36.6; O2SAT 97
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
[2022-12-15 18:23] VITALS: BP 147/81; PULSE 93; RESP 20; O2SAT 96
[2022-12-15 21:30] VITALS: RESP 15
== END 2022-12-15 18:26 | disposition home or self-care (01) ==
PROVIDERS: Emergency Provider Registered Nurse Emergency; PCP Family Medicine
DX: R04.0 Epistaxis (principal); I48.91 Unspecified atrial fibrillation; Z79.01 Long term (current) use of anticoagulants
CPT/HCPCS: 99281; 99282

== ENCOUNTER 2023-03-07 16:30 | Outpatient (REF) | payer MEDICARE, MEDICAID, SELFPAY | END 2023-03-07 16:31 | disposition home or self-care (01) | LOC: LBN 16:30 | PROVIDERS: PCP Family Medicine; Visit Provider Nurse Practitioner Family | DX: N30.01 Acute cystitis with hematuria (principal) | CPT/HCPCS: 87077; 87086; 87186 ==

== ENCOUNTER 2023-03-24 15:06 | Outpatient (REF) | payer MEDICARE, MEDICAID, SELFPAY | END 2023-03-24 15:07 | disposition home or self-care (01) | LOC: NCHCN 15:06 | PROVIDERS: PCP Family Medicine; Visit Provider Family Medicine | DX: R30.0 Dysuria (principal); R30.9 Painful micturition, unspecified | CPT/HCPCS: 87077; 87086; 87186 ==

== ENCOUNTER 2023-03-30 00:55 | Outpatient (CLI) | payer MEDICARE, MEDICAID, SELFPAY ==
--- NOTE | 2023-03-30 11:10 | DI.RAD_ITS ---
Exam(s) XR KNEE RT 3V AP,LAT,JUANCARLOS EXAM: XR KNEE RT 3V AP,LAT,JUANCARLOS CLINICAL HISTORY: RT KNEE PAIN, M25.561, S/P TKR. TECHNIQUE: 2D digital imaging was performed. Three views. COMPARISON: CR RIGHT KNEE 3 VIEWS from 04/03/2015 CR LEFT KNEE 3 VIEW COMPLETE from 04/03/2015 CR RIGHT KNEE 3 VIEWS from 04/29/2017 FINDINGS: BONES: There has been no change in the alignment of the knee prosthesis. There are no surrounding ab normal lucencies. No acute fracture is present. No bony destructive lesion is seen. JOINTS: The knee is normally aligned. No joint effusion is seen. A calcification is seen adjacent t o the lower pole of the patella not seen previously. SOFT TISSUE: Anterior edema. IMPRESSION: stable appearance of total knee prosthesis. Calcification now seen beneath the patella. DATA REPOSITORY: RADIATION DOSE DELIVERED:
== END 2023-03-30 01:15 ==
PROVIDERS: PCP Family Medicine; Visit Provider Family Medicine
DX: M25.561 Pain in right knee (principal); M61.461 Other calcification of muscle, right lower leg
CPT/HCPCS: 73562

== ENCOUNTER 2023-06-23 18:56 | Outpatient (REF) | payer MEDICARE, MEDICAID, SELFPAY ==
[2023-06-23 17:07] LABS: ALT 28 U/L (14-59); AST 24 U/L (15-37); Albumin 3.9 g/dL (3.4-5.0); Alkaline Phosphatase 67 U/L (46-116); Anion Gap 5.2 mmol/L (3-11); BUN 17 mg/dL (7-18); Bilirubin, Total 1.2 mg/dL (0.2-1.0); C-Reactive Protein 0.29 mg/dL (0.0-0.3); CO2 28.8 mmol/L (21.0-32.0); CREATININE 0.8 mg/dL (0.55-1.02); Calcium 9.2 mg/dL (8.5-10.1); Chloride 104 mmol/L (98-107); Estimated GFR 75.84 (mL/min/1.73m2); Glucose 136 mg/dL (74-106); NT-proBNP 892 pg/mL (<300); Potassium 4.9 mmol/L (3.5-5.1); Sodium 138 mmol/L (136-145); Total Protein 7.5 g/dL (6.4-8.2)
[2023-06-23 17:14] LABS: Hemoglobin A1C 6.6 % (<5.7)
== END 2023-06-23 18:57 | disposition home or self-care (01) ==
LOC: NCHCN 18:56
PROVIDERS: PCP Family Medicine; Visit Provider Family Medicine
DX: R73.03 Prediabetes (principal); I50.9 Heart failure, unspecified; I10 Essential (primary) hypertension; I25.10 Atherosclerotic heart disease of native coronary artery without angina pectoris; I27.20 Pulmonary hypertension, unspecified
CPT/HCPCS: 80053; 83036; 83880; 86140

== ENCOUNTER → 2023-06-27 08:57 | Outpatient (BNVA) | payer MEDICARE, MEDICAID, SELFPAY | PROVIDERS: PCP Family Medicine; Referring Provider Family Medicine; Visit Provider Student in an Organized Health Care Education/Training Program | DX: M25.561 Pain in right knee (principal); Z96.653 Presence of artificial knee joint, bilateral; R60.0 Localized edema; I50.9 Heart failure, unspecified; I07.1 Rheumatic tricuspid insufficiency; I48.91 Unspecified atrial fibrillation; Z79.01 Long term (current) use of anticoagulants | CPT/HCPCS: 99213 ==

== ENCOUNTER → 2023-07-13 02:10 | Outpatient (CLI) | payer MEDICARE, MEDICAID, SELFPAY ==
--- NOTE | 2023-07-13 07:30 | DI.CT_ITS ---
Exam(s) CT LOWER EXTREMITY RT WO EXAM: CT LOWER EXTREMITY RT WO CLINICAL HISTORY: PAIN,? LOOSENING,t84.84xa. TECHNIQUE: Imaging Protocol: Axial computed tomography images with coronal and sagittal reformatted images were created and reviewed. COMPARISON: CR XR KNEE RT 3V AP,LAT,JUANCARLOS from 03/30/2023 FINDINGS: There is artifact from the patient's total knee replacement. No suspicious lucencies are seen around the orthopedic hardware to suggest loosening. Bones: The osseous structures are intact. Bony alignment is satisfactory. No cellulitic or osteomy elitic changes are identified. There is no joint effusion. No lytic or sclerotic lesions are identi fied. Soft Tissues: There is fatty atrophy of the posterior thigh musculature. No soft tissue mass is appr eciated. IMPRESSION: No CT evidence to suggest loosening or infection. RADIATION DOSE DELIVERED: 331.1mGy.cm Total DLP 331.1mGy.cm Total DLP DATA REPOSITORY: All CT scans at this facility are submitted to the National Radiology Data Registry (NRDR) Dose Index Registry (DIR) with the [employer] (A[employer]). RADIATION OPTIMIZATION: All CT scans at this facility use at least one of these dose optimization te chniques: automated exposure control; mA and/or kV adjustment per patient size (includes targeted exa ms where dose is matched to clinical indication); or iterative reconstruction.
--- NOTE | 2023-07-13 07:30 | DI.NM_ITS ---
Exam(s) NM BONE SCAN 3 PHASE EXAM: DE BONE SCAN 3 PHASE CLINICAL HISTORY: PAIN,?LOOSENING,t84.84xa. TECHNIQUE: Injected Dose: 24 mCi Tc-99m MDP COMPARISON: DE MPI RESTING AND STRESS from 09/12/2017 CR,XR XR CHEST 2V PA LATERAL from 02/14/2022 CR XR KNEE RT 3V AP,LAT,JUANCARLOS from 03/30/[address] LOWER EXTREMITY RT WO from 07/13/2023 FINDINGS: Perfusion: Symmetric. Blood Pool: Symmetric. Delayed: There is a single focus of increased radiotracer uptake appreciated on the frontal view of t he right knee. On the lateral images it appears to lie at the inferior aspect of the patella. Photo penic areas are seen in the knees bilaterally consistent with bilateral total knee replacements. The re is also focus of increased radiotracer uptake overlying the right sternum or right sternoclavicula r joint region. There are foci of increased radiotracer uptake in the feet bilaterally which may be degenerative in nature. There are no comparison x-rays. IMPRESSION: 1. Focus of increased radiotracer uptake on the delayed images over the right knee. On the lateral v iew it appears to lie at the inferior aspect of the patella. The right femoral and tibial components show no abnormal uptake. 2. Increased radiotracer uptake seen at the right sternoclavicular region. Correlation with x-ray of the sternoclavicular joint or CT scan is recommended. DATA REPOSITORY:
[2023-07-13 10:56] LABS: ESR 23 mm/hr (0-30)
[2023-07-13 11:57] LABS: C-Reactive Protein 0.31 mg/dL (0.0-0.3)
== END ==
PROVIDERS: PCP Family Medicine; Visit Provider Student in an Organized Health Care Education/Training Program
DX: T84.84XA Pain due to internal orthopedic prosthetic devices, implants and grafts, initial encounter (principal); Z98.890 Other specified postprocedural states
CPT/HCPCS: 85652; 73700; 78315; 86140

== ENCOUNTER 2023-08-01 12:01 | Outpatient (CLI) | payer MEDICARE, SELFPAY ==
--- NOTE | 2023-08-01 11:09 | DI.RAD_ITS ---
Exam(s) XR PELVIS AP EXAM: XR PELVIS AP CLINICAL HISTORY: eval R hip/thigh pain. TECHNIQUE: 2D digital imaging was performed. AP upright view performed. Patient was unable to lie flat due to vertigo. COMPARISON: CR LUMBAR SPINE AP, LAT from 03/29/2018 FINDINGS: Exam is extremely limited 5 upright imaging and patient body habitus. There is no evidence of displaced fracture. SI joints and pubic symphysis are not widened. There is no gross destructive bony lesion. The hip joint spaces are maintained. There are advanced degenera tive changes well as scoliosis in the lower lumbar spine. IMPRESSION: Severely limited exam. Scoliosis and degenerative changes of the lower lumbar spine. No abnormality of the hips. DATA REPOSITORY: RADIATION DOSE DELIVERED:
== END 2023-08-01 12:02 | disposition home or self-care (01) ==
LOC: DIORS 12:01
PROVIDERS: PCP Family Medicine; Referring Provider Family Medicine; Visit Provider Student in an Organized Health Care Education/Training Program
DX: M70.61 Trochanteric bursitis, right hip (principal); R29.898 Other symptoms and signs involving the musculoskeletal system; T84.84XA Pain due to internal orthopedic prosthetic devices, implants and grafts, initial encounter; Z96.651 Presence of right artificial knee joint
CPT/HCPCS: 99214; 72170

== ENCOUNTER 2023-09-15 12:11 | Outpatient (REF) | payer MEDICARE, SELFPAY | END 2023-09-15 12:12 | disposition home or self-care (01) | LOC: NCHCN 12:11 | PROVIDERS: PCP Family Medicine; Visit Provider Family Medicine | DX: R35.0 Frequency of micturition (principal) | CPT/HCPCS: 87086 ==

== ENCOUNTER → 2023-09-26 10:46 | Outpatient (BNVA) | payer MEDICARE, SELFPAY | PROVIDERS: PCP Family Medicine; Visit Provider Student in an Organized Health Care Education/Training Program | DX: T84.84XA Pain due to internal orthopedic prosthetic devices, implants and grafts, initial encounter (principal); Z96.651 Presence of right artificial knee joint; R29.898 Other symptoms and signs involving the musculoskeletal system; M70.61 Trochanteric bursitis, right hip | CPT/HCPCS: 99213 ==

== ENCOUNTER → 2024-02-29 12:57 | Outpatient (BNVA) | payer MEDICARE, SELFPAY | PROVIDERS: PCP Family Medicine; Referring Provider Family Medicine; Visit Provider Podiatrist | DX: L60.3 Nail dystrophy (principal); L84 Corns and callosities; R60.0 Localized edema; I87.2 Venous insufficiency (chronic) (peripheral); B35.1 Tinea unguium; M89.8X7 Other specified disorders of bone, ankle and foot; M79.672 Pain in left foot | CPT/HCPCS: 11055; 11720 ==

== ENCOUNTER → 2024-03-05 04:18 | Outpatient (CLI) | payer MEDICARE, SELFPAY ==
--- NOTE | 2024-03-05 07:45 | DI.RAD_ITS ---
Exam(s) XR HEEL RT OS CALCIS EXAM: XR HEEL RT OS CALCIS CLINICAL HISTORY: Posterior exostosis,M89,8X7. TECHNIQUE: 2D digital imaging was performed. Two views. COMPARISON: CR XR HEEL LT OS CALCIS from 03/05/2024 FINDINGS: BONES: No acute fracture is present. No bony destructive lesion is seen. Small plantar calcaneal spu r. JOINTS: No dislocation present. SOFT TISSUE: Normal. IMPRESSION: Small plantar calcaneal spur. DATA REPOSITORY: RADIATION DOSE DELIVERED:
--- NOTE | 2024-03-05 07:45 | DI.RAD_ITS ---
Exam(s) XR HEEL LT OS CALCIS EXAM: XR HEEL LT OS CALCIS CLINICAL HISTORY: Posterior exostosis,M89.8X7. TECHNIQUE: 2D digital imaging was performed. COMPARISON: No exams were available for comparison FINDINGS: BONES: No acute fracture is present. No bony destructive lesion is seen. Moderate plantar calcaneal spur. Small dorsal talar beak. JOINTS: [id number] degenerative changes of the intertarsal joint seen on the lateral view. SOFT TISSUE: Normal. IMPRESSION: Plantar calcaneal spur. DATA REPOSITORY: RADIATION DOSE DELIVERED:
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
== END ==
PROVIDERS: PCP Family Medicine; Visit Provider Podiatrist
DX: M89.8X7 Other specified disorders of bone, ankle and foot (principal)
CPT/HCPCS: 73650

== ENCOUNTER 2024-04-06 13:39 | Outpatient (REF) | payer MEDICARE, SELFPAY ==
[2024-04-06 15:14] LABS: HCT 45.7 % (36.0-46.0); HGB 14.4 g/dL (11.2-15.7)
[2024-04-06 15:38] LABS: Hemoglobin A1C 6.6 % (<5.7)
[2024-04-06 15:53] LABS: ALT 37 U/L (14-59); AST 23 U/L (15-37); Alkaline Phosphatase 78 U/L (46-116); Anion Gap 2.7 mmol/L (3-11); BUN 28 mg/dL (7-18); Bilirubin, Total 1.5 mg/dL (0.2-1.0); CO2 33.3 mmol/L (21.0-32.0); CREATININE 0.7 mg/dL (0.55-1.02); Calcium 9.2 mg/dL (8.5-10.1); Calculated LDL 83 mg/dL (<100); Chloride 107 mmol/L (98-107); Cholesterol 146 mg/dL (<200); Estimated GFR 88.47 (mL/min/1.73m2); Glucose 155 mg/dL (74-106); HDL Cholesterol 52 mg/dL (40-60); Sodium 143 mmol/L (136-145); Total Protein 7.2 g/dL (6.4-8.2); Triglyceride 56 mg/dL (<150)
== END 2024-04-06 13:40 | disposition home or self-care (01) ==
LOC: NCHCN 13:39
PROVIDERS: PCP Family Medicine; Visit Provider Family Medicine
DX: E78.5 Hyperlipidemia, unspecified (principal); R73.03 Prediabetes; I10 Essential (primary) hypertension
CPT/HCPCS: 80053; 80061; 83036; 85014; 85018

== ENCOUNTER 2024-04-19 18:19 | Outpatient (REF) | payer MEDICARE, SELFPAY ==
[2024-04-19 21:38] LABS: Anion Gap 11.7 mmol/L (3-11); BUN 17 mg/dL (7-18); CO2 27.3 mmol/L (21.0-32.0); CREATININE 0.9 mg/dL (0.55-1.02); Calcium 9.1 mg/dL (8.5-10.1); Chloride 103 mmol/L (98-107); Estimated GFR 65.44 (mL/min/1.73m2); Glucose 149 mg/dL (74-106); Potassium 4.4 mmol/L (3.5-5.1); Sodium 142 mmol/L (136-145)
== END 2024-04-19 18:20 | disposition home or self-care (01) ==
LOC: NCHCN 18:19
PROVIDERS: PCP Family Medicine; Visit Provider Family Medicine
DX: I10 Essential (primary) hypertension (principal)
CPT/HCPCS: 80048

== ENCOUNTER → 2024-06-27 10:31 | Outpatient (BNVA) | payer MEDICARE, SELFPAY | PROVIDERS: PCP Family Medicine; Referring Provider Family Medicine; Visit Provider Podiatrist | DX: L60.3 Nail dystrophy (principal); L84 Corns and callosities; M79.674 Pain in right toe(s); M79.675 Pain in left toe(s); R60.0 Localized edema; I87.2 Venous insufficiency (chronic) (peripheral); B35.1 Tinea unguium; M89.8X7 Other specified disorders of bone, ankle and foot | CPT/HCPCS: 11721 ==

== ENCOUNTER 2024-08-10 15:19 | Outpatient (REF) | payer MEDICARE, SELFPAY ==
--- NOTE | 2024-08-10 12:40 | SKI_PTH ---
PATIENT: Lisa Worley LOC: [facility]#:[id number] AGE/SX: 79/F ROOM: RE08/10/[address]: Elena Lora V : 1945 BED: DIS: 08/10/2024 SPEC #: [id number] RECD: 08/10/24 18:07 STATUS: BRITANY REJenny #: [id number] DEBBY: 08/10/24 12:[address]: Elena Lora V DEPT: Surgical Specimen RECD BY: Allison Young Tissues: 1 - SKIN BIOPSY(SHAVE/PUNCH) Procedures: SKIN LEVEL 4 Comments: [id number]
--- OUTSIDE RECORDS SUMMARY | 2024-08-10 15:25 | XMS_ITS | Encounter Summary ---
Author Organization [facility] Address [facility] [place] [address] Care Team Providers Care Edi Programmer Analyst Name Role Phone Yana Turner MD Primary Care Provider Encounter Details Date Type Department Care Team (Late st Contact Info) Description 05/05/2022 11:20 AM EDT Office Visit Cardiology at [address] [phone] Christiano Hamlin MD [facility] [place] [address] Chronic atrial fibrillation; MADRIGAL (dyspnea on exertion) Social History Tobacco Use Types Packs/Day Years Used Date Smoking Tobacco: Never Smokeless Tobacco: Never Alcohol Use Standard Drinks/Week Comments Never 0 (1 standard drink = 0.6 oz pur e alcohol) Sex and Gender Information Value Date Recorded Sex Assigned at Not on file Gender Identity Not on file Sexual Orientation Not on file documented as of this encounter Last Filed Vital Signs Vital Sign Reading Time Taken Comments Blood Pressure 105/58 05/05/2022 11:06 AM EDT Pulse 84 05/05/2022 11:06 AM EDT Temperature - - Respiratory Rate - - Oxygen Saturation 97% 05/05/2022 11: 06 AM EDT Inhaled Oxygen Concentration - - Weight 102.5 kg (226 lb) 05/05/2022 11: 06 AM EDT pt stated. refuse wt Height 162.6 cm (5' 4) 05/05/2022 11:0 6 AM EDT Body Mass Index 38.79 05/05/2022 11:06 AM EDT documented in this encounter Progress Notes * Christiano Hamlin MD - 05/05/2022 11:20 AM EDT Images from the original note were not included. [facility] [place] [address] [address] CARDIOLOGY OUTPATIENT FOLLOW-UP NOTE Lisa Worley [id number] PCP: Yana Turner MD 05/05/2022 PRIMARY CARE PROVIDER: Yana Turner MD PROBLEM LIST: Patient Active Problem List Diagnosis ??? Atrial fibrillation ?? Status post cardioversion February 19, 2009 ?? Recurrent atrial fibrillation documented July 17, 2019 initially with rapid ventricular rate ?? Rx with apixaban and diltiazem ??? MADRIGAL (dyspnea on exertion) ?? Onset about July, and accompanied by mild chest pain ?? Echocardiogram through [facility] August 12, 2017 showing mild LVH with normal LV systolic function and ejection fraction of 60-65%; normally sized and functioning right ventricle; severely dilated left atrium; moderate tricuspid regurgitation; moderate to severe pulmonary hypertension with PA systolic pressure 45-55 mmHg ?? Nuclear stress test [facility] September 12, 2017 showing small in size moderately intense partially reversible defect involving the inferolateral jasso suggesting ischemia in the distribution of the left circumflex; calculated ejection fraction of 64% with no wall motion a bnormalities ?? Chest x-ray reportedly unremarkable ??? Hypertension ??? OA (osteoarthritis) ??? Mixed incontinence MEDICATIONS: Current Outpatient Medications: ??? chlorthalidone (Hygroten) 50 mg Tablet, TAKE 1 TABLET BY MOUTH DAILY, Disp: , Rfl: ??? potassium chloride (MICRO-K) 10 mEq Capsule, Sustained Release, TAKE ONE CAPSULE BY MOUTH TWICEDAILY, Disp: , Rfl: ??? dilTIAZem (TIAZAC) 240 mg Capsule,Sustained Action 24 hr, Take 1 capsule by mouth daily., Disp:90 capsule, Rfl: 3 ??? hydroCHLOROthiazide (HYDRODIURIL) 25 mg Tablet, Take 25 mg by mouth daily., Disp: , Rfl: 0 ??? apixaban (ELIQUIS) 5 mg Tablet, Take 1 tablet by mouth 2 times daily., Disp: 60 tablet, Rfl: 3 ??? metoprolol succinate (TOPROL-XL) 100 mg Tablet Sustained Release 24 hr, Take 1.5 tablets by mouth daily., Disp: 135 tablet, Rfl: 3 ??? nitroGLYcerin (NITROSTAT) 0.4 mg Tablet, Sublingual, Place 1 tablet under the tongue every 5 minutes as needed for Chest pain., Disp: 25 tablet, Rfl: 11 ??? acetaminophen (TYLENOL) 325 mg Tablet, Take 650 mg by mouth every 4 hours as needed for Pain., Disp: , Rfl: ??? melatonin 3 mg Tablet, Take 3 mg by mouth nightly as needed., Disp: , Rfl: ??? atorvastatin (LIPITOR) 10 mg Tablet, Take 10 mg by mouth daily., Disp: , Rfl: ??? hydroCODone-acetaminophen (VICODIN) 5-500 mg per tablet, Take 1 tablet by mouth every 6 hours as needed., Disp: , Rfl: SUBJECTIVE: This 76-year-old woman comes for follow-up visit. She has chronic atrial fibrillation for which she is on diltiazem and apixaban. She has longstanding and somewhat unexplained exertional dyspnea. She has had a significantly elevated proBNP so there is a suspicion that she may have diasto lic issues leading to heart failure with preserved ejection fraction. She has been prescribed a diuretic but does not take it regularly. She also has hypertension and arthritis. She has a lot of social stresses. She comes today indicating that things are largely unchanged. She is enjoying her new home. She continues to be somewhat estranged from one of her sons and this makes things difficult. She says her breathing is unchanged and still problematic. Her right leg is weak and achy and this also tends to slow her down and may be contributing to some component of deconditioning. Her weight, unfortunately,has increased and she has had a difficult time turning this around. She reports only rare chest pain and this occurs with no particular pattern or provocation. ROS: CardioVascular Pre Appointment Symptom Review 07/17/2019 Angina (chest discomfort) Frequency: None Shortness of breath: - Palpitations (skipped beats): - Leg swelling: - Dizziness/light headedness: - Loss of consciousness: - Difficulty lying flat (because of breathing): - Chills: - Fatigue: - Fever: - Unintended weight change: - Nosebleeds: - Difficulty swallowing: - Visual disturbances: - Frequent cough: - Wheezing: - Snoring: - Abdominal pain: - Diarrhea: - Blood in bowel movement: - Black, tarry bowel movement: - Nausea/vomiting: - Heat/cold intolerance: - Problems urinating: - Joint pains: - Muscle pain: - Rash: - Weakness/numbness: - Speech problems: - Easy bruising/bleeding: - Depression: - Anxiety: - Poor sleep: - OBJECTIVE: Vital Signs: BP 105/58 Pulse 84 Ht 162.6 cm (5' 4) Wt 102.5 kg (226 lb) Comment: pt stated. refuse wt SpO2 97% BMI 38.79 kg/m?? Physical Exam: On examination today she appeared in no acute distress. She was breathing comfortably at rest. Her vital signs are documented above and were essentially normal. Her neck was notable for an elevated jugular venous pressure. Her lungs were clear. Her heart exam revealed an irregularly irregular rhythm at a controlled rate. She had no murmurs or gallops. Her abdomen was soft and nontender. She had 2+ edema below the knees bilaterally. ASSESSMENT: 1. Chronic atrial fibrillation: This seems fairly stable. She has very little awareness of her heart rhythm other than some rapid beating when she first lays down at night. She is tolerating apixabanand has had no symptoms to suggest stroke or TIA. We reviewed this problem. I recommended no changes for now. 2. Longstanding exertional dyspnea: This continues to be present. She does appear fluid overloaded and this, along with an elevated proBNP in the past, please be feeling that more aggressive use of adiuretic may be helpful. She has a prescription for hydrochlorothiazide and says that it works quite well when she takes it but she tends not to want to take it very often because of the need to urinate frequently. We reviewed this. I strongly suggested that she take the diuretic more often and perhaps regularly for at least a week to see if this provides some relief to her dyspnea. PLAN: 1. Increase frequency of diuretic administration 2. Continue other medications 3. Cardiology follow-up in 6 months documented in this encounter Plan of Treatment Upcoming Encounters Date Type Department Care Team (Late st Contact Info) Description 08/13/2024 11:20 AM EDT Office Visit Cardiology at [address] [phone] Christiano Hamlin MD [facility] [place] [address] documented as of this encounter Visit Diagnoses Diagnosis Chronic atrial fibrillation Atrial fibrillation MADRIGAL (dyspnea on exertion) Other dyspnea and respiratory abnormality documented in this encounter Care Teams Edi Programmer Analyst Relationship Specialty Start Date End Date Yana Turner MD [address] [place] [id number] PCP - General Family Medicine 12/26/18 documented as of this encounter
--- OUTSIDE RECORDS SUMMARY | 2024-08-10 15:25 | XMS_ITS | Encounter Summary ---
Author Organization [facility] [place] [address] Care Team Providers Care Product Support Technician Name Role Phone Yana Turner MD Primary Care Provider [phone] Encounter Details Date Type Department Care Team (Late st Contact Info) Description 08/01/2019 1:30 PM EDT Office Visit Cardiology at [address] [phone] Paroxysmal atrial fibrillation (Primary Dx) Social History Tobacco Use Types Packs/Day Years [...] Sign Reading Time Taken Comments Blood Pressure 123/74 08/01/2019 1:21 PM EDT Pulse 72 08/01/2019 1:21 PM EDT Temperature - - Respiratory Rate - - Oxygen Saturation 98% 08/01/2019 1:21 PM EDT Inhaled Oxygen Concentration - - Weight 102.7 kg (226 lb 8 oz) 08/01/2019 1:21 PM EDT Height 163.8 cm (5' 4.5) 08/01/2019 1:21 PM EDT Body Mass Index 38.28 08/01/2019 1:21 PM EDT documented in this encounter Progress Notes * Hayley Colon RN - 08/01/2019 1:30 PM EDT Nurse visit completed as requested by Dr Hamlin re: increasing diltiazem from 120 mg once daily to180 mg oral once daily,this increase was effective 07/26/19. States she takes this medication between 7-8 am each morning,last dose this morning. ?? She continues to deny lightheadedness,no chest pressure,admits to noting shortness of breath with ambulation not at rest and not worse. She also continues to note epigastric area fluttering sensations,this too is not new for her and occurs only with activity and when lying in bed. No increased edema. She continues to admit to increased stressors and anxiety,we had discussed relaxation techniques ather last Nurse visit,she has not made much progress with this and admits to 2-3 glasses of red wineeach night. Discussed depressant effect of alcohol and the importance of decreasing intake,she is open to considering this,will start by not exceeding 2 glasses per night and work towards a goal of wine only on the weekends and again <2 glasses. She is in the process of establishing with new PCP. ?? EKG completed. Atrial fibrillation (no RVR ) noted today. Ventricular rate 80 BPM ( was 111 BMP 07/25/19). Instructed in importance of ongoing medication compliance,she voices good understanding. The following is his plan for this patient: ?? Plan: 1)Continue diltiazem 180 mg oral once daily. 2) instruct patient to take medications as ordered on day of office visit ,pt expresses good understanding and is agreeable. 3) office visit with Dr Hamlin 08/15/19,she will call sooner with any questions or concerns. documented in this encounter Plan of Treatment Upcoming Encounters Date Type Department Care Team (Late st Contact Info) Description 08/13/2024 11:20 AM EDT Office Visit Cardiology at [address] [phone] Christiano Hamlin MD [facility] [place] [address] documented as of this encounter Procedures Procedure Name Priority Date/Time Associated Diagnosis Comments EKG 12-LEAD Routine 08/01/2019 1:30 PM EDT Paroxysmal atrial fibrillation documented in this encounter Results * EKG 12 Lead (08/01/2019 1:30 PM EDT) Ventricular rate 80 BPM MUSE SYSTEM Atrial Rate 394 BPM MUSE SYSTEM QRS Duration 78 ms MUSE SYSTEM Q-T Interval 390 ms MUSE SYSTEM QTC Calculated (Bezet) 449 ms MUSE SYSTEM Calculated R [place] -11 degrees MUSE SYSTEM Calculated T [place] -102 degrees MUSE SYSTEM INTERPRETATION Atrial fibrillation Nonspecific ST and T wave abnormality , probably digitalis effect Abnormal ECG When compared with ECG of 25-JUL-2019 09:51, No significant change was found Confirmed by MD Dileep, Guillermo ([id number]) on 08/01/2019 2:08:06 PM MUSE SYSTEM 08/01/2019 1:30 PM EDT 08/01/2019 2:08 PM EDT Christiano Hamlin MD ECG ORDERABLES MUSE SYSTEM documented in this encounter Visit Diagnoses Diagnosis Paroxysmal atrial fibrillation- Primary Atrial fibrillation documented in this encounter Care Teams Product Support Technician Relationship Specialty Start Date End Date Yana Turner MD [address] [place] [address] PCP - General Family Medicine 12/26/18 documented as of this encounter
--- OUTSIDE RECORDS SUMMARY | 2024-08-10 15:25 | XMS_ITS | Encounter Summary ---
[place] [address] Care Team Providers Care Construction Site Crossing Guard Name Role Phone Yana Turner MD Primary Care Provider [phone] Reason for Visit * Reason Onset Date Comments Other 02/05/2020 medication quest ion Encounter Details Date Type Department Care Team (Late Contact Info) Description 02/05/2020 Telephone Cardiology at [address] [phone] Hayley Colon RN Other (medication question) Social History Tobacco Use Types Packs/Day Years Used Date Smoking Tobacco: Never Smokeless Tobacco: Never Alcohol Use Standard Drinks/Week Comments Never 0 (1 standard drink = 0.6 oz pur e alcohol) Sex and Gender Information Value Date Recorded Sex Assigned at Not on file Gender Identity Not on file Sexual Orientation Not on file documented as of this encounter Miscellaneous Notes * Telephone Encounter - Hayley Colon RN - 02/05/2020 11:24 AM EDT Call from Mer Collins RN with Olivia Mei [employer] [facility] [place] [phone],requesting current documented dose of metoprolol succinate this patient is taking. Return call to Mer GREEN,voice message left re:documented dose of metoprolol succinate 100 mg take 1.5 tabs daily . Request return call to this RN with any questions or concerns . documented in this encounter Plan of Treatment Upcoming Encounters Date Type Department Care Team (Late st Contact Info) Description 08/13/2024 11:20 AM EDT Office Visit Cardiology at [address] [phone] Christiano Hamlin MD [facility] [place] [address] documented as of this encounter Visit Diagnoses Not on filedocumented in this encounter Care Teams Construction Site Crossing Guard Relationship Specialty Start Date End Date Yana Turner MD [address] [place] [id number] PCP - General Family Medicine 12/26/18 documented as of this encounter
--- OUTSIDE RECORDS SUMMARY | 2024-08-10 15:25 | XMS_ITS | Encounter Summary ---
Author Organization [facility] Address [facility] [place] [address] Care Team Providers Care Subsurface Augmentee Operator Name Role Phone Yana Turner MD Primary Care Provider Encounter Details Date Type Department Care Team (Late st Contact Info) Description 12/01/2020 Orders Only Cardiology at [address] [phone] Rema Scott RN Persistent atrial fibrillation Social History Tobacco Use Types Packs/Day Years Used Date Smoking Tobacco: Never Smokeless Tobacco: Never Alcohol Use Standard Drinks/Week Comments Never 0 (1 standard drink = 0.6 oz pur e alcohol) Sex and Gender Information Value Date Recorded Sex Assigned at Not on file Gender Identity Not on file Sexual Orientation Not on file documented as of this encounter Plan of Treatment Upcoming Encounters Date Type Department Care Team (Late st Contact Info) Description 08/13/2024 11:20 AM EDT Office Visit Cardiology at [address] [phone] Christiano Hamlin MD [facility] [place] [address] documented as of this encounter Results * EKG 12 Lead (12/03/2020 1:38 PM EST) Ventricular rate 61 BPM MUSE SYSTEM Atrial Rate 300 BPM MUSE SYSTEM QRS Duration 84 ms MUSE SYSTEM Q-T Interval 410 ms MUSE SYSTEM QTC Calculated (Bezet) 412 ms MUSE SYSTEM Calculated R [place] -13 degrees MUSE SYSTEM Calculated T [place] -90 degrees MUSE SYSTEM INTERPRETATION Atrial fibrillation Poor R wave progression Nonspecific ST and T wave abnormality Abnormal ECG When compared with ECG of 15-AUG-2019 14:08, No significant change was found Confirmed by Dunia Delcid ([id number]) on 12/03/2020 5:11:33 PM MUSE SYSTEM 12/03/2020 1:38 PM EST 12/03/2020 5:11 PM EST Christiano Hamlin MD ECG ORDERABLES MUSE SYSTEM documented in this encounter Visit Diagnoses Diagnosis Persistent atrial fibrillation Atrial fibrillation documented in this encounter Care Teams Subsurface Augmentee Operator Relationship Specialty Start Date End Date Yana Turner MD [address] [place] [address] PCP - General Family Medicine 12/26/18 documented as of this encounter
--- OUTSIDE RECORDS SUMMARY | 2024-08-10 15:25 | XMS_ITS | Encounter Summary ---
Author Organization Count Includes [facility] Address [facility] [place] [address] Care Team Providers Care Implementation Technician Name Role Phone Yana Turner MD Primary Care Provider [phone] Encounter Details Date Type Department Care Team (Late st Contact Info) Description 10/23/2021 Orders Only Cardiology at [address] [phone] Christiano Hamlin MD [facility] [place] [address] Atrial fibrillation, unspecified type; Hypertension, unspecified type Social History Tobacco Use Types Packs/Day Years [...] 11:20 AM EDT Office Visit Cardiology at [address] [phone] Christiano Hamlin MD [facility] [place] [address] documented as of this encounter Visit Diagnoses Diagnosis Atrial fibrillation, unspecified type Hypertension, unspecified type documented in this encounter Care Teams Implementation Technician Relationship Specialty Start Date End Date Yana Turner MD [address] [place] [address] PCP - General Family Medicine 12/26/18 documented as of this encounter
--- OUTSIDE RECORDS SUMMARY | 2024-08-10 15:25 | XMS_ITS | Encounter Summary ---
Author Organization [facility] Address [facility] [place] [address] Care Team Providers Care Product Marketer Name Role Phone Yana Turner MD Primary Care Provider [phone] Encounter Details Date Type Department Care Team (Late st Contact Info) Description 08/15/2019 2:00 PM EDT Office Visit Cardiology at [address] [address] Christiano Hamlin MD [facility] [place] [address] Persistent atrial fibrillation; MADRIGAL (dyspnea on exertion) Social [...] Sign Reading Time Taken Comments Blood Pressure 111/77 08/15/2019 1:58 PM EDT Pulse 68 08/15/2019 1:58 PM EDT Temperature - - Respiratory Rate - - Oxygen Saturation 99% 08/15/2019 1:58 PM EDT Inhaled Oxygen Concentration - - Weight 101.6 kg (224 lb) 08/15/2019 1:58 PM EDT Height 163.8 cm (5' 4.5) 08/15/2019 1:58 PM EDT Body Mass Index 37.86 08/15/2019 1:58 PM EDT documented in this encounter Progress Notes * Christiano Hamlin MD - 08/15/2019 2:00 PM EDT Images from the original note were not included. [facility] [place] [address] CARDIOLOGY OUTPATIENT FOLLOW-UP NOTE Lisa Worley [id number] PCP: Yana Turner MD 08/15/2019 PRIMARY CARE PROVIDER: Yana Turner MD PROBLEM LIST: Patient Active Problem List Diagnosis ??? Atrial fibrillation ?? Status post cardioversion February 19, 2009 ?? Recurrent atrial fibrillation documented July 17, 2019 initially with rapid ventricular rate ?? Rx with apixaban and diltiazem ??? MADRIGAL (dyspnea on exertion) ?? Onset about July, and accompanied by mild chest pain ?? Echocardiogram through [facility] August 12, 2017 showing mild LVH with normal LV systolic function and ejection fraction of 60-65%; normally sized and functioning right ventricle; severely dilated left atrium; moderate tricuspid regurgitation; moderate to severe pulmonary hypertension with PA systolic pressure 45-55 mmHg ?? Nuclear stress test [facility] September 12, 2017 showing small in size moderately intense partially reversible defect involving the inferolateral jasso suggesting ischemia in the distribution of the left circumflex; calculated ejection fraction of 64% with no wall motion a bnormalities ?? Chest x-ray reportedly unremarkable ??? Hypertension ??? OA (osteoarthritis) ??? Mixed incontinence MEDICATIONS: Current Outpatient Medications Medication Sig Dispense Refill ??? DILT-XR 180 mg Capsule,Degradable Cnt Release Take 180 mg by mouth daily. 0 ??? hydroCHLOROthiazide (HYDRODIURIL) 25 mg Tablet Take 25 mg by mouth daily. 0 ??? apixaban (ELIQUIS) 5 mg Tablet Take 1 tablet by mouth 2 times daily. 60 tablet 3 ??? metoprolol succinate (TOPROL-XL) 100 mg Tablet Sustained Release 24 hr Take 1.5 tablets by mouth daily. 135 tablet 3 ??? nitroGLYcerin (NITROSTAT) 0.4 mg Tablet, Sublingual Place 1 tablet under the tongue every 5 minutes as needed for Chest pain. 25 tablet 11 ??? acetaminophen (TYLENOL) 325 mg Tablet Take 650 mg by mouth every 4 hours as needed for Pain. ??? melatonin 3 mg Tablet Take 3 mg by mouth nightly as needed. ??? atorvastatin (LIPITOR) 10 mg Tablet Take 10 mg by mouth daily. ??? aspirin 81 mg Tablet, Delayed Release (E.C.) Take 81 mg by mouth daily. ??? hydroCODone-acetaminophen (VICODIN) 5-500 mg per tablet Take 1 tablet by mouth every 6 hours asneeded. No current facility-administered medications for this visit. SUBJECTIVE: This 74-year-old woman comes for follow-up visit. She has paroxysmal atrial fibrillation and was cardioverted back in February and was found to have recurrent atrial fibrillation associated with a rapid ventricular rate during a visit in June. Through a couple of outpatient nursing visits we adjusted her diltiazem and she is currently on 180 mg daily with an adequate ventricular rate. She tells me that she is doing only marginally. She continues to have shortness of breath and feelsfatigued. She has occasional tightness in her chest although she was noted to have normal coronary arteries on a relatively recent heart catheterization. ROS: CardioVascular Pre Appointment Symptom Review 07/17/2019 [...] Poor sleep: - OBJECTIVE: Vital Signs: BP 111/77 Pulse 68 Ht 163.8 cm (5' 4.5) Wt 101.6 kg (224 lb) SpO2 99% BMI 37.86 kg/m?? Physical Exam: On exam today she appeared in no acute distress. Her vital signs are documented above. Head exam was generally normal. There was no scleral icterus or corneal arcus. Mucus membranes were moist. Neck was supple and without jugular venous distension, thyromegaly, or carotid bruits. Carotids were easily palpable bilaterally. There was no adenopathy. Lungs were clear to auscultation and percussion, and with normal diaphragmatic excursion. No wheezes or rales were noted. Her heart exam revealed an irregularly irregular rhythm at a controlled rate. She had no peripheral edema. 12 Lead ECG: This showed atrial fibrillation with a mean ventricular rate of 78. She had nonspecific ST and T wave changes. ASSESSMENT: Overall she seems more stable. Her rate control has improved significantly. She is tolerating anticoagulation. We talked about long-term strategies and she would prefer to avoid antiarrhythmic drugs based on the potential risks. PLAN: 1. Continue current medications 2. Cardiology follow-up in 6 months documented in this encounter Plan of Treatment Upcoming Encounters Date Type Department Care Team (Late st Contact Info) Description 08/13/2024 11:20 AM EDT Office Visit Cardiology at [address] [address] Christiano Hamlin MD [facility] [place] [address] documented as of this encounter Procedures Procedure Name Priority Date/Time Associated Diagnosis Comments EKG 12-LEAD Routine 08/15/2019 2:08 PM EDT Persistent atrial fibrillation MADRIGAL (dyspnea on exertion) documented in this encounter Results * EKG 12 Lead (08/15/2019 2:08 PM EDT) Ventricular rate 78 BPM MUSE SYSTEM Atrial Rate 441 BPM MUSE SYSTEM QRS Duration 78 ms MUSE SYSTEM Q-T Interval 344 ms MUSE SYSTEM QTC Calculated (Bezet) 392 ms MUSE SYSTEM Calculated R [place] -10 degrees MUSE SYSTEM Calculated T [place] 126 degrees MUSE SYSTEM INTERPRETATION Atrial fibrillation Nonspecific ST and T wave abnormality Abnormal ECG When compared with ECG of 01-AUG-2019 13:30, No significant change was found Confirmed by MD Dileep, Guillermo ([id number]) on 08/15/2019 2:16:39 PM MUSE SYSTEM 08/15/2019 2:08 PM EDT 08/15/2019 2:16 PM EDT Christiano Hamlin MD ECG ORDERABLES [place] SYSTEM documented in this encounter Visit Diagnoses Diagnosis Persistent atrial fibrillation Atrial fibrillation MADRIGAL (dyspnea on exertion) Other dyspnea and respiratory abnormality documented in this encounter Care Teams Product Marketer Relationship Specialty Start Date End Date Yana Turner MD [address] [place] [address] PCP - General Family Medicine 12/26/18 documented as of this encounter
--- OUTSIDE RECORDS SUMMARY | 2024-08-10 15:25 | XMS_ITS | Encounter Summary ---
Author Organization [facility] Address [facility] [place] [address] Care Team Providers Care Truck Body Repairer Name Role Phone Yana Turner MD Primary Care Provider [phone] Reason for Visit * Reason Onset Date Comments Other 12/01/2020 when is her foll ow up visit Encounter Details Date Type Department Care Team (Late st Contact Info) Description 12/01/2020 Telephone Cardiology at [address] [phone] Ana Rosa Hernandez RN Other (when is her follow up visit) Social History Tobacco Use Types Packs/Day Years [...] encounter Miscellaneous Notes * Telephone Encounter - Ana Rosa Hernandez RN - 12/01/2020 3:39 PM EST Returned Lisa's call- appointment time given. Teach back method. Ana Rosa Hernandez RN 4A Cardiology documented in this encounter Plan of Treatment Upcoming Encounters Date Type Department Care Team (Late st Contact Info) Description 08/13/2024 11:20 AM EDT Office Visit Cardiology at [address] [phone] Christiano Hamlin MD [facility] [place] [address] documented as of this encounter Visit Diagnoses Not on filedocumented in this encounter Care Teams Truck Body Repairer Relationship Specialty Start Date End Date Yana Turner MD [address] [place] [address] PCP - General Family Medicine 12/26/18 documented as of this encounter
--- OUTSIDE RECORDS SUMMARY | 2024-08-10 15:25 | XMS_ITS | Encounter Summary ---
Author Organization [facility] Address [facility] [place] [address] Care Team Providers Care Commercial Parts Professional Name Role Phone Yana Turner MD Primary Care Provider [phone] Encounter Details Date Type Department Care Team (Late st Contact Info) Description 12/03/2020 1:40 PM EST Office Visit Cardiology at [address] [phone] Christiano Hamlin MD [facility] [place] [address] Persistent atrial fibrillation; MADRIGAL (dyspnea on exertion) [...] Sign Reading Time Taken Comments Blood Pressure 127/77 12/03/2020 1:40 PM EST Pulse 78 12/03/2020 1:40 PM EST Temperature - - Respiratory Rate - - Oxygen Saturation 96% 12/03/2020 1:40 PM EST Inhaled Oxygen Concentration - - Weight 103 kg (227 lb) 12/03/2020 1:40 PM EST Height 162.6 cm (5' 4) 12/03/2020 1:40 PM EST Body Mass Index 38.96 12/03/2020 1:40 PM EST documented in this encounter Progress Notes * Christiano Hamlin MD - 12/03/2020 1:40 PM EST Images from the original note were not included. [facility] [place] [address] [place] [address] CARDIOLOGY OUTPATIENT FOLLOW-UP NOTE Lisa Worley [id number] PCP: Yana Turner MD 12/03/2020 PRIMARY CARE PROVIDER: Yana Turner MD PROBLEM LIST: Patient Active Problem List Diagnosis ??? Atrial fibrillation ?? Status post cardioversion February 19, 2009 ?? Recurrent atrial fibrillation documented July 17, 2019 initially with rapid ventricular rate ?? Rx with apixaban and diltiazem ??? MADRIGAL (dyspnea on exertion) ?? Onset about July, and accompanied by mild chest pain ?? Echocardiogram through [facility] August 12, 2017 showing mild LVH with normal LV systolic function and ejection fraction of 60-65%; normally sized and functioning right ventricle; severely dilated left atrium; moderate tricuspid regurgitation; moderate to severe pulmonary hypertension with PA systolic pressure 45-55 mmHg ?? Nuclear stress test [facility] September 12, 2017 showing small in size [...] mouth daily., Disp:90 capsule, Rfl: 3 ??? apixaban (ELIQUIS) 5 mg Tablet, Take [...] 6 hours as needed., Disp: , Rfl: ??? hydroCHLOROthiazide (HYDRODIURIL) 25 mg Tablet, Take 25 mg by mouth daily., Disp: , Rfl: 0 SUBJECTIVE: This 75-year-old woman comes for follow-up visit. She has atrial fibrillation and somewhat unexplained exertional dyspnea as her main issues. She is managed with apixaban, diltiazem, and metoprolol for her atrial fibrillation. She has had some lower extremity edema and issues with her breathing and has been on hydrochlorothiazide. Since her last visit with me she has been switched from hydrochlorothiazide to chlorthalidone. This seems to be working better for her. Today she says that she is doing generally well. Her blood pressure has been better and her heart generally stable. She was thought to be in normal sinus rhythm when last seen by her PCP. She says she is still dyspnea particular with climbing stairs although says this is unchanged. She reports occasional discomfort in her lower chest which has been occurring for quite a while and occurs with no provocation and is not exertional. ROS: CardioVascular Pre Appointment Symptom Review 07/17/2019 [...] Poor sleep: - OBJECTIVE: Vital Signs: BP 127/77 Pulse 78 Ht 162.6 cm (5' 4) Wt 103 kg (227 lb) SpO2 96% BMI 38.96kg/m?? Physical Exam: On exam today she appeared in no acute distress. Her vital signs are documented above. Neck was without JVD. Lungs were clear. Her heart exam revealed an irregularly irregular rhythm at a controlled rate. She had no murmurs, rubs, or gallops. Her abdomen was soft and nontender. She had at most a trace to 1+ lower extremity edema below the knees bilaterally. Twelve lead ECG: This revealed atrial fibrillation with a borderline slow heart rate of 61. She hadsome nonspecific ST and T wave changes. ASSESSMENT: In the big picture, she seems fairly stable. Her main issue is fatigue and fairly stable exertional dyspnea. Her heart rate is on the low side and I wonder if she might benefit with a slight decrease in her beta-ramon (this has already been suggested by her primary care provider, Olivia Soria). PLAN: 1. Agree with recommendation to reduce metoprolol succinate from 150 mg daily to 100 mg daily 2. Continue other medications 3. Cardiology follow-up in 6 months documented in this encounter Plan of Treatment Upcoming Encounters Date Type Department Care Team (Late st Contact Info) Description 08/13/2024 11:20 AM EDT Office Visit Cardiology at [address] [phone] Christiano Hamlin MD [facility] [place] [address] documented as of this encounter Procedures Procedure Name Priority Date/Time Associated Diagnosis Comments EKG 12-LEAD Routine 12/03/2020 1:38 PM EST Persistent atrial fibrillation documented in this encounter Results * EKG 12 Lead (12/03/2020 1:38 PM EST) Ventricular rate 61 BPM MUSE SYSTEM Atrial Rate 300 BPM MUSE SYSTEM QRS Duration 84 ms MUSE SYSTEM Q-T Interval 410 ms MUSE SYSTEM QTC Calculated (Bezet) 412 ms MUSE SYSTEM Calculated R [place] -13 degrees MUSE SYSTEM Calculated T [place] -90 degrees MUSE SYSTEM INTERPRETATION Atrial fibrillation Poor R wave progression Nonspecific ST and T wave abnormality Abnormal ECG When compared with ECG of 15-AUG-2019 14:08, No significant change was found Confirmed by Dunia Delcid ([id number]) on 12/03/2020 5:11:33 PM MUSE SYSTEM 12/03/2020 1:38 PM EST 12/03/2020 5:11 PM EST Christiano Hamlin MD ECG ORDERABLES MUSE SYSTEM documented in this encounter Visit Diagnoses Diagnosis Persistent atrial fibrillation Atrial fibrillation MADRIGAL (dyspnea on exertion) Other dyspnea and respiratory abnormality documented in this encounter Care Teams Commercial Parts Professional Relationship Specialty Start Date End Date Yana Turner MD [address] [place] [id number] PCP - General Family Medicine 12/26/18 documented as of this encounter
--- OUTSIDE RECORDS SUMMARY | 2024-08-10 15:25 | XMS_ITS | Encounter Summary ---
Author Organization [facility] [place] [address] Care Team Providers Care Hims Manager Name Role Phone Yana Turner MD Primary Care Provider [phone] Encounter Details Date Type Department Care Team (Latest Contact Info) Description 03/09/2023 Travel Social History Tobacco Use Types Packs/Day Years [...] 11:20 AM EDT Office Visit Cardiology at [address] [phone] Christiano Hamlin MD [facility] [place] [address] documented as of this encounter Visit Diagnoses Not on filedocumented in this encounter Care Teams Hims Manager Relationship Specialty Start Date End Date Yana Turner MD [address] [place] [address] PCP - General Family Medicine 12/26/18 documented as of this encounter
--- OUTSIDE RECORDS SUMMARY | 2024-08-10 15:25 | XMS_ITS | Encounter Summary ---
Author Organization [facility] Address [facility] [place] [address] Care Team Providers Care Home Theater Installer Name Role Phone Yana Turner MD Primary Care Provider [phone] Encounter Details Date Type Department Care Team (Late st Contact Info) Description 10/27/2021 2:40 PM EST Office Visit Cardiology at [address] [phone] Christiano Hamlin MD [facility] [place] [address] Atrial fibrillation, unspecified type; Hypertension, unspecified type; MADRIGAL (dyspnea on exertion) Social History Tobacco [...] Sign Reading Time Taken Comments Blood Pressure 125/65 10/27/2021 2:37 PM EST Pulse 87 10/27/2021 2:37 PM EST Temperature - - Respiratory Rate - - Oxygen Saturation 97% 10/27/2021 2:37 PM EST Inhaled Oxygen Concentration - - Weight 97.5 kg (215 lb) 10/27/2021 2:37 PM EST Height 162.6 cm (5' 4) 10/27/2021 2:37 PM EST Body Mass Index 36.9 10/27/2021 2:37 PM EST documented in this encounter Progress Notes * Christiano Hamlin MD - 10/27/2021 2:40 PM EST Images from the original note were not included. [facility] [place] [address] CARDIOLOGY OUTPATIENT FOLLOW-UP NOTE Lisa Worley [id number] PCP: Yana Turner MD 10/27/2021 PRIMARY CARE PROVIDER: Yana Turner MD PROBLEM LIST: Patient Active Problem List Diagnosis ??? Atrial fibrillation ?? Status post cardioversion February 19, 2009 ?? Recurrent atrial fibrillation documented July 17, 2019 initially with rapid ventricular rate ?? Rx with apixaban and diltiazem ??? MADRIGAL (dyspnea on exertion) ?? Onset about July, and accompanied by mild chest pain ?? Echocardiogram through [facility] August 12, 2017 showing mild LVH with normal LV systolic function and ejection fraction of 60-65%; normally sized and functioning right ventricle; severely dilated left atrium; moderate tricuspid regurgitation; moderate to severe pulmonary hypertension with PA systolic pressure 45-55 mmHg ?? Nuclear stress test [facility] September 12, 2017 showing small in [...] SUBJECTIVE: This 76-year-old woman comes for follow-up visit today. She has chronic atrial fibrillation and a somewhat unexplained exertional dyspnea. Today she tells me that she is doing fairly well. Since her last visit with me she sold her house of many years and moved into another [facility] and is extremely happy with her new living situation. She says that she is suffering from a lot of aches and pains and has problems with her knees and hips. She says her breathing is unchanged and is still an issue. She does fine at rest but with most activities gets winded. She admits to being fairlyinactive. She ambulates with the assistance of a rolling walker. She is free of chest pain. She reports palpitations only when in bed and sometimes with activities. ROS: CardioVascular Pre Appointment Symptom Review 07/17/2019 [...] Poor sleep: - OBJECTIVE: Vital Signs: BP 125/65 Pulse 87 Ht 162.6 cm (5' 4) Wt 97.5 kg (215 lb) SpO2 97% BMI 36.90 kg/m?? Physical Exam: On exam she appeared in good health and spirits. Vital signs as documented. Skin warm and dry and without overt rashes. Neck without JVD. Lungs clear. Her heart exam revealed an irregularly irregular rhythm without murmurs. Abdomen unremarkable and without evidence of organomegaly, masses, or abdominal aortic enlargement. Twelve lead ECG: This revealed atrial fibrillation with a mean ventricular rate of 82. ASSESSMENT: Overall, she seems stable. I suspect her dyspnea is multifactorial with components related to her atrial fibrillation, her age, her deconditioning, and her overweight condition. I recommended no changes at this point. She may need a dental extraction. I do not think she is at risk of cardiac complications with minorsurgery. If necessary, her Eliquis can be held for 3 to 4 days prior to surgery and should be resumed when feasible thereafter. PLAN: 1. Continue current medications 2. If needed for dental extractions, her Eliquis can be held for 3 to 4 days prior to her surgery and should be resumed when feasible thereafter 3. Cardiology follow-up to reassess in 6 months documented in this encounter Plan of Treatment Upcoming Encounters Date Type Department Care Team (Late st Contact Info) Description 08/13/2024 11:20 AM EDT Office Visit Cardiology at [address] [phone] Christiano Hamlin MD [facility] [place] [address] documented as of this encounter Procedures Procedure Name Priority Date/Time Associated Diagnosis Comments EKG 12-LEAD Routine 10/27/2021 2:42 PM EST Atrial fibrillation, unspecified type Hypertension, unspecified type documented in this encounter Results * EKG 12 Lead (10/27/2021 2:42 PM EST) Ventricular rate 82 BPM MUSE SYSTEM QRS Duration 78 ms MUSE SYSTEM Q-T Interval 386 ms MUSE SYSTEM QTC Calculated (Bezet) 450 ms MUSE SYSTEM Calculated R [place] 17 degrees MUSE SYSTEM Calculated T [place] 69 degrees MUSE SYSTEM INTERPRETATION Atrial fibrillation Nonspecific ST and T wave abnormality Abnormal ECG When compared with ECG of 03-DEC-2020 13:38, No significant change was found Confirmed by MD Cristina, Kamari Geronimo ([id number]) on 10/27/2021 3:07:57 PM MUSE SYSTEM 10/27/2021 2:42 PM EST 10/27/2021 3:07 PM EST Christiano Hamlin MD ECG ORDERABLES MUSE SYSTEM documented in this encounter Visit Diagnoses Diagnosis Atrial fibrillation, unspecified type Hypertension, unspecified type MADRIGAL (dyspnea on exertion) Other dyspnea and respiratory abnormality documented in this encounter Care Teams Home Theater Installer Relationship Specialty Start Date End Date Yana Turner MD [address] [place] [address] PCP - General Family Medicine 12/26/18 documented as of this encounter
--- OUTSIDE RECORDS SUMMARY | 2024-08-10 15:25 | XMS_ITS | Encounter Summary ---
Author Organization Formerly [facility] Address [facility] [place] [address] Care Team Providers Care Security Intern Name Role Phone Yana Turner MD Primary Care Provider [phone] Encounter Details Date Type Department Care Team (Late st Contact Info) Description 07/17/2019 11:00 AM EDT Office Visit Cardiology at [address] [phone] Christiano Hamlin MD [facility] [place] [address] Paroxysmal atrial fibrillation Social History Tobacco Use Types [...] Sign Reading Time Taken Comments Blood Pressure 120/73 07/17/2019 10:53 AM EDT Pulse 51 07/17/2019 10:53 AM EDT 40-5 1 Temperature - - Respiratory Rate - - Oxygen Saturation 99% 07/17/2019 10:53 AM EDT Inhaled Oxygen Concentration - - Weight 101.6 kg (224 lb) 07/17/2019 10:53 AM EDT Height 157.5 cm (5' 2) 07/17/2019 10:53 AM EDT Body Mass Index 40.97 07/17/2019 10:53 AM EDT documented in this encounter Progress Notes * Christiano Hamlin MD - 07/17/2019 11:00 AM EDT Images from the original note were not included. [facility] [place] [address] CARDIOLOGY OUTPATIENT FOLLOW-UP NOTE Lisa Worley [id number] PCP: Yana Turner MD 07/17/2019 PRIMARY CARE PROVIDER: aYna Turner MD PROBLEM LIST: Patient Active Problem List Diagnosis ??? Atrial fibrillation ??? MADRIGAL (dyspnea on exertion) ?? Onset about July, and accompanied by mild chest pain ?? Echocardiogram through [facility] August 12, 2017 showing mild LVH [...] Outpatient Medications Medication Sig Dispense Refill ??? hydroCHLOROthiazide (HYDRODIURIL) 25 mg Tablet Take 25 mg by mouth daily. 0 ??? apixaban (ELIQUIS) 5 mg Tablet Take 1 tablet by mouth 2 times daily. 60 tablet 3 ??? metoprolol succinate (TOPROL-XL) 100 mg Tablet Sustained Release 24 hr Take 1.5 tablets by mouth daily. 135 tablet 3 ??? furosemide (LASIX) 40 mg Tablet Take 1 tablet by mouth 2 times daily. 180 tablet 3 ??? nitroGLYcerin (NITROSTAT) 0.4 mg [...] facility-administered medications for this visit. SUBJECTIVE: This 73-year-old woman comes for follow-up visit. She has unexplained exertional dyspnea, a history of atrial fibrillation for which he underwent outpatient cardioversion, and other problems as listed in her formal problem list. She comes today as a result of recurrent atrial fibrillation. She thinks this may have started when she was in [place] in late April. Since present, shehas noticed her heart pounding, particular at night. She is short of breath with activities and this is not usual for her. She denies any chest pain, lightheadedness, or syncope. She denies any nocturnal breathing problems. ROS: CardioVascular Pre Appointment Symptom Review 07/17/2019 [...] Poor sleep: - OBJECTIVE: Vital Signs: BP 120/73 Pulse 51 Comment: 40-51 Ht 157.5 cm (5' 2) Wt 101.6 kg (224 lb) SpO2 99% BMI 40.97 kg/m?? Physical Exam: Her exam today is notable for a lack of overt distress. Her vital signs are documented above. Her pulse is clearly inaccurate as it did not correlate with my physical exam or her EKG. Her jugular venous pressures appeared normal. Her lungs were clear. Her heart exam revealed an irregularly irregular rhythm at a rapid rate. She had no murmurs. Her abdomen was soft and nontender. Shehad no peripheral edema. Twelve-lead EKG: This revealed atrial fibrillation with a rapid ventricular rate of about 149 bpm. ASSESSMENT: Unfortunately, her atrial fibrillation has recurred. Her rate control is not ideal. Fortunately, she is not feeling much from the arrhythmia other than some mild exertional dyspnea. PLAN: 1. Addition of a long-acting diltiazem 120 mg daily 2. Nursing visit in 1 week with EKG and nursing assessment to determine impact of Cardizem on rate control plan follow-up with me in about 1 month documented in this encounter Plan of Treatment Upcoming Encounters Date Type Department Care Team (Late st Contact Info) Description 08/13/2024 11:20 AM EDT Office Visit Cardiology at [address] [phone] Christiano Hamlin MD [facility] [place] [address] Scheduled Orders Name Type Priority Associated Diagnoses Orde r Schedule EKG 12 Lead ECG Routine Paroxysmal atrial fibrillation Ordered: 07/17/2019 documented as of this encounter Procedures Procedure Name Priority Date/Time Associated Diagnosis Comments EKG 12-LEAD Routine 07/17/2019 10:58 AM EDT Paroxysmal atrial fibrillation documented in this encounter Results * EKG 12 Lead (07/17/2019 10:58 AM EDT) Ventricular rate 149 BPM MUSE SYSTEM Atrial Rate 159 BPM MUSE SYSTEM QRS Duration 80 ms MUSE SYSTEM Q-T Interval 296 ms MUSE SYSTEM QTC Calculated (Bezet) 466 ms MUSE SYSTEM Calculated R [place] 8 degrees MUSE SYSTEM Calculated T [place] 175 degrees MUSE SYSTEM INTERPRETATION Atrial fibrillation with rapid ventricular response with premature ventricular or aberrantly conducted complexes ST depression, consider subendocardial injury or digitalis effect Abnormal QRS-T angle, consider primary T wave abnormality Abnormal ECG When compared with ECG of 14-MAR-2019 12:19, Atrial fibrillation has replaced Sinus rhythm Vent. rate has increased BY [address] now depressed in Inferior leads ST now depressed in Lateral leads Confirmed by MD Hamlin Jon ([id number]) on 07/17/2019 3:30:08 PM MUSE SYSTEM 07/17/2019 10:5 8 AM EDT 07/17/2019 3:30 PM EDT Christiano Hamlin MD ECG ORDERABLES Mobile Location, IP SYSTEM documented in this encounter Visit Diagnoses Diagnosis Paroxysmal atrial fibrillation Atrial fibrillation documented in this encounter Care Teams Security Intern Relationship Specialty Start Date End Date Yana Turner MD [address] [place] [address] PCP - General Family Medicine 12/26/18 documented as of this encounter
--- OUTSIDE RECORDS SUMMARY | 2024-08-10 15:25 | XMS_ITS | Encounter Summary ---
Author Organization [facility] Address [facility] [place] [address] Care Team Providers Care Script Artist Name Role Phone Yana Turner MD Primary Care Provider [phone] Encounter Details Date Type Department Care Team (Late st Contact Info) Description 07/13/2019 Orders Only Cardiology at [address] [phone] Christiano Hamlin MD [facility] [place] [address] Paroxysmal atrial fibrillation (Primary Dx) Social History [...] 11:20 AM EDT Office Visit Cardiology at [address] [phone] Christiano Hamlin MD [facility] [place] [address] documented as of this encounter Results * EKG 12 Lead (07/17/2019 10:58 AM EDT) Ventricular rate 149 BPM MUSE SYSTEM Atrial Rate 159 BPM MUSE SYSTEM QRS Duration 80 ms MUSE SYSTEM Q-T Interval 296 ms MUSE SYSTEM QTC Calculated (Bezet) 466 ms MUSE SYSTEM Calculated R [place] 8 degrees MUSE SYSTEM Calculated T [place] 175 degrees MUSE SYSTEM INTERPRETATION Atrial fibrillation [...] depressed in Lateral leads Confirmed by MD Yakelin, Christiano ([id number]) on 07/17/2019 3:30:08 PM MUSE SYSTEM 07/17/2019 10:5 8 AM EDT 07/17/2019 3:30 PM EDT Christiano Hamlin MD ECG ORDERABLES MUSE SYSTEM documented in this encounter Visit Diagnoses Diagnosis Paroxysmal atrial fibrillation- Primary Atrial fibrillation documented in this encounter Care Teams Script Artist Relationship Specialty Start Date End Date Yana Turner MD [address] [place] [address] PCP - General Family Medicine 12/26/18 documented as of this encounter
--- OUTSIDE RECORDS SUMMARY | 2024-08-10 15:25 | XMS_ITS | Encounter Summary ---
Author Organization [facility] [place] [address] Care Team Providers Care Barbering Instructor Name Role Phone Yana Turner MD Primary Care Provider [phone] Reason for Visit * Reason Onset Date Comments Advice Only 10/20/2020 CHF Encounter Details Date Type Department Care Team (Late st Contact Info) Description 10/20/2020 Telephone Cardiology at [address] [phone] Ana Rosa Hernandez, sneller hand Only (CHF) Social History Tobacco Use Types Packs/Day Years [...] Notes * Telephone Encounter - Ana Rosa Hernandez, RN - 10/20/2020 12:13 PM EST Lengthy VM from Lisa reporting a new diagnosis of HF for which her PCP is changing her medications around. She has asked her PCP to send the records and is calling to request an appointment sooner than 12-03-20. Chart reviewed. Returned call to Lisa. Clear connection established. She was stopped on her HCTZ and placed on Lasix which she was unable to tolerate and is being placed on a new medication today- name unknown- all done by her PCP. She agrees to weigh herself daily, to limit salt intake. She will have all her labs and recent PCP notes faxed to [facility], number given. She is having more lab work done tomorrow in [place], [place]. Meds reviewed and voiced her compliance. Her last ECHO was 01-31-19 Teach back method done on s/sx/tx including emergency for CHF and voices her agreement. Has an appointment scheduled and refuses to see another provider but will route to scheduling to see about earlier availability and to assist with collecting outside records. Ana Rosa Hernandez RN 4A Cardiology documented in this encounter Plan of Treatment Upcoming Encounters Date Type Department Care Team (Late st Contact Info) Description 08/13/2024 11:20 AM EDT Office Visit Cardiology at [address] [phone] Christiano Hamlin MD [facility] [place] [address] documented as of this encounter Visit Diagnoses Not on filedocumented in this encounter Care Teams Barbering Instructor Relationship Specialty Start Date End Date Yana Turner MD [address] [place] [address] PCP - General Family Medicine 12/26/18 documented as of this encounter
--- OUTSIDE RECORDS SUMMARY | 2024-08-10 15:25 | XMS_ITS | Encounter Summary ---
Author Organization [facility] [place] [address] Care Team Providers Care Hairspring Setter Name Role Phone Yana Turner MD Primary Care Provider [phone] Encounter Details Date Type Department Care Team (Late st Contact Info) Description 01/21/2021 Telephone Cardiology at [address] [phone] Rema Scott RN Social History Tobacco Use Types Packs/Day Years [...] encounter Miscellaneous Notes * Telephone Encounter - Rema Hernandez RN - 01/21/2021 4:07 PM EST RTC to pt who called today to ask if she should get the vaccine? Spoke with this pt at length and advised of recommendations to get the vaccine. Pt is satisfied with recommendation and will have her son who got his first vaccine today, help her get in touch with the [place] [facility] health and her PCP toarrange to get the vaccine. No further questions at this time. documented in this encounter Plan of Treatment Upcoming Encounters Date Type Department Care Team (Late st Contact Info) Description 08/13/2024 11:20 AM EDT Office Visit Cardiology at [address] [phone] Christiano Hamlin MD [facility] [address] documented as of this encounter Visit Diagnoses Not on filedocumented in this encounter Care Teams Hairspring Setter Relationship Specialty Start Date End Date Yana Turner MD [address] [place] [address] PCP - General Family Medicine 12/26/18 documented as of this encounter
--- OUTSIDE RECORDS SUMMARY | 2024-08-10 15:25 | XMS_ITS | Encounter Summary ---
Author Organization [facility] [address] Care Team Providers Care International Sales Representative Name Role Phone Yana Turner MD Primary Care Provider [phone] Reason for Visit * Reason Onset Date Comments Atrial Fibrillation 12/13/2022 Encounter Details Date Type Department Care Team (Late st Contact Info) Description 12/13/2022 Telephone Cardiology at [address] [phone] Ana Rosa Hernandez, RN Atrial Fibrillation Social History Tobacco Use Types Packs/Day Years [...] Encounter - Ana Rosa Hernandez RN - 12/13/2022 2:49 PM EST VM that Lisa's appointment was changed to the from the due to weather concerns. She requests a call to discuss the issues she is having with her afib. Chart reviewed. 05-05-[address] Hamlin Call returned. Lisa voices her displeasure that she cannot speak with Dr. Hamlin. She reports vs perfect unable to be more specific, does not know if her breathing or legs are worse since her last visit. Did report an episode of epistaxis and she had to go in to a local ED. She reports also calling PCP but was not able to speak with provider so would not leave a message. Ana Rosa Hernandez RN 4A Cardiology She refuses to see any other provider documented in this encounter Plan of Treatment Upcoming Encounters Date Type Department Care Team (Late st Contact Info) Description 08/13/2024 11:20 AM EDT Office Visit Cardiology at [address] [phone] Christiano Hamlin MD [facility] [place] [address] documented as of this encounter Visit Diagnoses Not on filedocumented in this encounter Care Teams International Sales Representative Relationship Specialty Start Date End Date Yana Turner MD [address] [place] [address] PCP - General Family Medicine 12/26/18 documented as of this encounter
--- OUTSIDE RECORDS SUMMARY | 2024-08-10 15:25 | XMS_ITS | Encounter Summary ---
Author Organization [facility] [place] [address] Care Team Providers Care Advisory Services Associate Name Role Phone Yana Turner MD Primary Care Provider Encounter Details Date Type Department Care Team (Late st Contact Info) Description 2019 9:30 AM EDT Office Visit Cardiology at [address] [phone] Paroxysmal atrial fibrillation (Primary Dx) Social History [...] Sign Reading Time Taken Comments Blood Pressure 132/64 2019 11:09 AM EDT Pulse 112 2019 9:39 AM EDT Temperature - - Respiratory Rate - - Oxygen Saturation 97% 2019 9:39 AM EDT Inhaled Oxygen Concentration - - Weight - - Height - - Body Mass Index - - documented in this encounter Patient Instructions * Patient Instructions* Hayley Colon RN - 2019 9:30 AM EDT See office note documented in this encounter Progress Notes * Hayley Colon RN - 2019 9:30 AM EDT Nurse visit completed as requested by Dr Hmalin,this is a follow up from initiating diltiazem(dilacor XR)120 mg oral once daily on 07/17/19. Lisa states the only medication she took today was the am dose of apixaban. She denies lightheadedness,no chest pressure,admits to noting shortness of breath with ambulation not at rest and not worse. She also continues to note epigastric area fluttering sensations,this too is not new for her and occurs only with activity and when lying in bed. No increased edema. She does admit to increased stressors and anxiety,this was discussed in terms of relaxation techniques and need to establish with new PCP,agreeable to this plan. EKG completed. Manual B/P 132/64 re-assessed 20 minutes following initial reading. Discussed above and reviewed today's ECG with Dr Hamlin and the following is his plan for this patient. Plan: 1) increase diltiazem ( dilacor XR) to 180 mg oral once daily. 2) instruct patient to take medications as ordered on day of office visit ,pt expresses good understanding and is agreeable. 3) schedule Nurse visit in 1 week to assess status. documented in this encounter Plan of Treatment Upcoming Encounters Date Type Department Care Team (Late st Contact Info) Description 08/13/2024 11:20 AM EDT Office Visit Cardiology at [address] [phone] Christiano Hamlin MD [facility] [place] [address] documented as of this encounter Procedures Procedure Name Priority Date/Time Associated Diagnosis Comments EKG 12-LEAD Routine 2019 9:51 AM EDT documented in this encounter Results * EKG 12 Lead (2019 9:51 AM EDT) Ventricular rate 111 BPM MUSE SYSTEM Atrial Rate 111 BPM MUSE SYSTEM QRS Duration 78 ms MUSE SYSTEM Q-T Interval 332 ms MUSE SYSTEM QTC Calculated (Bezet) 451 ms MUSE SYSTEM Calculated R [place] 0 degrees MUSE SYSTEM Calculated T [place] 117 degrees MUSE SYSTEM INTERPRETATION Atrial fibrillation with rapid ventricular response with premature ventricular or aberrantly conducted complexes Nonspecific ST and T wave abnormality Abnormal ECG When compared with ECG of 17-JUL-2019 10:58, Nonspecific T wave abnormality no longer evident in Inferior leads Confirmed by MD Yakelin, Christiano ([id number]) on 2019 12:35:39 PM MUSE SYSTEM 2019 9:51 AM EDT 2019 12:35 PM EDT Unknown ECG ORDERABLES MUSE SYSTEM documented in this encounter Visit Diagnoses Diagnosis Paroxysmal atrial fibrillation- Primary Atrial fibrillation documented in this encounter Care Teams Advisory Services Associate Relationship Specialty Start Date End Date Yana Turner MD [address] [place] [address] PCP - General Family Medicine 12/26/18 documented as of this encounter
--- OUTSIDE RECORDS SUMMARY | 2024-08-10 15:25 | XMS_ITS | Encounter Summary ---
Author Organization [facility] Address [facility] [place] [address] Care Team Providers Care Rn On Site Name Role Phone Yana Turner MD Primary Care Provider [phone] Reason for Visit * Reason Onset Date Comments Medication Refill 08/20/2019 Encounter Details Date Type Department Care Team (Late st Contact Info) Description 08/20/2019 Refill Cardiology at [address] [phone] Christiano Hamlin MD [facility] [place] [address] Medication Refill Social History Tobacco Use Types Packs/Day Years [...] 11:20 AM EDT Office Visit Cardiology at [address] [phone] Christiano Hamlin MD [facility] [place] [address] documented as of this encounter Visit Diagnoses Not on filedocumented in this encounter Care Teams Rn On Site Relationship Specialty Start Date End Date Yana Turner MD [address] [place] [address] PCP - General Family Medicine 12/26/18 documented as of this encounter
--- OUTSIDE RECORDS SUMMARY | 2024-08-10 15:25 | XMS_ITS | Encounter Summary ---
[place] [address] Care Team Providers Care Insulator Tester Name Role Phone Yana Turner MD Primary Care Provider [phone] Reason for Visit * Reason Onset Date Comments Other 03/24/2020 requesting telep anna visit Encounter Details Date Type Department Care Team (Late st Contact Info) Description 03/24/2020 Telephone Cardiology at [address] [phone] Hayley Colon, RN Other (requesting telephone visit ) Social History Tobacco Use Types Packs/Day Years [...] Miscellaneous Notes * Telephone Encounter - Hayley Colon, RN - 03/24/2020 2:40 PM EDT Call from Lisa,states she spoke to a Cardiology Seismic Observer earlier today cancelling a visit w/Dr Hamlin as she wanted to be assessed by her PCP first. Lisa states she was told by her PCP she is in afib,Lisa would like to discuss this with Dr Hamlin once PCP office visit note and ECG from today have been scanned in to her EMR. She is aware she should seek urgent care should she note sudden worsening of her symptoms and/or note sudden onset of chest pain or pressure or increased shortness of breath. PCP Olivia Mei APRN [facility] [place] [phone] Forward above message to Latonya Davenport team Gypsy,request PCP name and contact # be changed in EMR and PCP office notes and ECG be scanned into EMR. Telephone visit will also need to be arranged with Dr Hamlin ,hopefully for tomorrow 03/25/20. Request Gypsy contact Lisa to confirm. documented in this encounter Plan of Treatment Upcoming Encounters Date Type Department Care Team (Late st Contact Info) Description 08/13/2024 11:20 AM EDT Office Visit Cardiology at [address] [phone] Christiano Hamlin MD [facility] [place] [address] documented as of this encounter Visit Diagnoses Not on filedocumented in this encounter Care Teams Insulator Tester Relationship Specialty Start Date End Date Yana Turner MD [address] [place] [address] PCP - General Family Medicine 12/26/18 documented as of this encounter
--- OUTSIDE RECORDS SUMMARY | 2024-08-10 15:25 | XMS_ITS | Encounter Summary ---
Author Organization [facility] Address [facility] [place] [address] Care Team Providers Care Cyber Security Administrator Name Role Phone Yana Turner MD Primary Care Provider [phone] Encounter Details Date Type Department Care Team (Late st Contact Info) Description 08/13/2019 Orders Only Cardiology at [address] [phone] Christiano Hamlin MD [facility] [place] [address] Paroxysmal atrial fibrillation (Primary Dx); MADRIGAL (dyspnea on exertion) Social History Tobacco [...] 11:20 AM EDT Office Visit Cardiology at [address] [phone] Christiano Hamlin MD [facility] [place] [address] documented as of this encounter Results * EKG 12 Lead (08/15/2019 2:08 PM EDT) Ventricular rate 78 BPM MUSE SYSTEM Atrial Rate 441 BPM MUSE SYSTEM QRS Duration 78 ms MUSE SYSTEM Q-T Interval 344 ms MUSE SYSTEM QTC Calculated (Bezet) 392 ms MUSE SYSTEM Calculated R [place] -10 degrees MUSE SYSTEM Calculated T [place] 126 degrees MUSE SYSTEM INTERPRETATION Atrial fibrillation [...] Diagnosis Paroxysmal atrial fibrillation- Primary Atrial fibrillation MADRIGAL (dyspnea on exertion) Other dyspnea and respiratory abnormality documented in this encounter Care Teams Cyber Security Administrator Relationship Specialty Start Date End Date Yana Turner MD [address] [place] [address] PCP - General Family Medicine 12/26/18 documented as of this encounter
--- OUTSIDE RECORDS SUMMARY | 2024-08-10 15:25 | XMS_ITS | Continuity of Care Document ---
Author Organization [place] - [facility], [facility] Address [address] [place] [address] Assessment No assessment recorded. Plan of Treatment Reminders Order Date Submit Date Provider Last Modified By Organization Details Last Modified Time Details Appointments Procedure 40 2023 11:20A M Not available Not available Not available Follow Up 30 2023 11:30A M Not available Not available Not available Lab None recorded. Referral None recorded. Procedures None recorded. Surgeries None recorded. Imaging None recorded. Medication Orders None recorded. Patient TargetsNo targets recorded. Patient InstructionsNo instructions recorded. 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 Referring Physician: Family Emilie Medicine, Encounter Date: 04/06/2024 Physical Therapist Referral for Pain in right lower limb Patient requests to see Tamra Referring Physician: Dank Lora [facility] Medicine, Encounter Date: 05/29/2024 Results Created Date Observation Date Name Description Value Unit Range Abnormal Flag Note LastModifiedBy Organization Detail LastModifiedTime 08/06/20 24 01/31/2019 imagi ng/di agnos tic resul t No observ ation record ed. Not Available 08/06 01:23:51 08/06/20 24 06/28/2019 imagi ng/di agnos tic resul t No observ ation record ed. Not Available 08/06 01:23:54 08/06/20 24 03/28/2020 imagi ng/di agnos tic resul t No observ ation record ed. Not Available 08/06 01:23:55 08/06/20 24 02/14/2022 imagi ng/di agnos tic resul t No observ ation record ed. Not Available 08/06 01:25:43 08/06/20 24 02/14/2022 imagi ng/di agnos tic resul t No observ ation record ed. Not Available 08/06 01:27:53 08/06/20 24 02/15/2022 imagi ng/di agnos tic resul t No observ ation record ed. Not Available 08/06 01:28:19 08/06/20 24 07/13/2023 imagi ng/di agnos tic resul t No observ ation record ed. Not Available 08/06 01:28:20 08/06/20 24 02/27/2019 CT, abdom en No observ ation record ed. Not Available 08/06 01:28:21 08/06/20 24 01/26/2022 XR, shoul khadar No observ ation record ed. Not Available 08/06 01:28:22 08/06/20 24 09/13/2019 MAMMO sen No observ ation record ed. 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 Not Available 08/06 01:28:24 08/06/20 24 07/13/2023 imagi ng/di agnos tic resul t No observ ation record ed. Not Available 08/06 01:28:29 08/06/20 24 08/23/2021 imagi ng/di agnos tic resul t No observ ation record ed. Not Available 08/06 01:28:38 08/06/20 24 02/15/2022 imagi ng/di agnos tic resul t No observ ation record ed. Not Available 08/06 01:28:39 08/06/20 24 03/30/2023 imagi ng/di agnos tic resul t No observ ation record ed. Not Available 08/06 01:28:40 08/06/20 24 08/01/2023 imagi ng/di agnos tic resul t No observ ation record ed. Not Available 08/06 01:28:41 Result Notes None recorded. Problems Name Problem SNOMED Code Status Onset Date Resolution Date Notes Provider Name and Address Organization Details Recorded Time Mixed urinary incontin ence 099397105 Active 201806/27/20 23 - Comments only - Dank Lora MD - , Needs to use pads chronic basis. Problem Code: N39.46; Problem Code Type: ICD-10; Not Available [facility] 4 01:25:21 Osteoart hritis 946618922 Active 2018 Problem Code: M19.90; Problem Code Type: ICD-10; Not Available [facility] 4 01:25:21 Essentia l hyperten luis 15910853 Active 2018 Problem Code: I10; Problem Code Type: ICD-10; Not Available [facility] 4 01:25:22 Dyspnea 267750614 Active 201806/27/20 23 - Comments only - Dank Lora MD - Most likely cardiac related, known pulmonar y hyperten luis. PFTs historic ally showed a slightly low FVC, thought to be potentia lly related to obesity or chest wall muscle abnormal ity. There was no evidence of obstruct ion or restrict ion. Problem Code: R06.09; Problem Code Type: ICD-10; Not Available [facility] 4 01:25:20 Major depressi on, single episode 25153086 Active 2018 Problem Code: F32.9; Problem Code Type: ICD-10; Not Available [facility] 4 01:25:21 Onychomy cosis due to dermatop hyte 525832385 Active 2018 Problem Code: B35.1; Problem Code Type: ICD-10; Not Available [facility] 4 01:25:21 Neck pain 54159640 Active 2018 Problem Code: M54.2; Problem Code Type: ICD-10; Not Available [facility] 4 01:25:22 Low back pain 379312106 Active 2018 Problem Code: M54.5; Problem Code Type: ICD-10; Not Available [facility] 4 01:25:21 Hyperlip idemia 65820696 Active 2018 Problem Code: E78.5; Problem Code Type: ICD-10; Not Available [facility] 4 01:25:22 Shoulder joint pain 176932752 Active 2018 Problem Code: M25.519; Problem Code Type: ICD-10; Not Available [facility] 4 01:25:20 Sensorin eural hearing loss of bilatera l ears 354646929 Active 2018 Problem Code: H90.3; Problem Code Type: ICD-10; Not Available [facility] 4 01:25:20 Dizzines s and giddines s 263789555 Active 201812/03/19 23 - Comments only - Dank Lora MD - will ask PT to work with her on this also. Problem Code: R42; Problem Code Type: ICD-10; Not Available [facility] 4 01:25:20 Insomnia 991823035 Active 2018 Problem Code: G47.00; Problem Code Type: ICD-10; Not Available [facility] 4 01:25:20 Electroc ardiogra m abnormal 190216425 Active 2018 Problem Code: R94.31; Problem Code Type: ICD-10; Not Available [facility] 4 01:25:19 Pain in right hip joint 15672498751 9102 Active 201801/18/20 19 - Comments only - Yana Turner MD - Patient has a history of chronic right hip pain she states that for the most part she can ignore it more during the day when she lays down at night and keeps her awake and she will take 1 Vicodin at bedtime when I last saw her there was a mistake in the prescrip tion she was given 1 for the 300/5 mg her insuranc e does not cover that brand she needs to have this 5/325 scriptio n was given to her today for 20 tablets. 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 Also radicula r symptoms of RLE. She manages the pain during the day with movement /distrac tion. Uses the hydrocod one on occasion :has used about 20 tabs in the past 3 months.. PT to be initiate d which I am hoping will help. 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 Clinical ly this is remainin g stable. She continue s on diltiaze m, metoprol ol, Eliquis. Historic ally she has not tolerate d furosemi de. She has chlortha lidone that she uses as needed currentl y. Problem Code: I48.91; Problem Code Type: ICD-10; Not Available [facility] 4 01:25:21 Heart failure 29519682 Active 201806/07/20 19 - Comments only - Dexter Jones - Patient has some shortnes s of breath on exertion and slight pitting pedal edema on exam. Has experien rahul no angina or neurolog ic symptoms . BP and HR today are acceptab le. Is currentl y taking beta ramon, diuretic , statin, aspirin, and is being followed by cardiolo derrick. Plan to follow, but continue current medicati ons. She should call if she notices swelling in her legs, raid weight gain, orthopne a, or signific ant shortnes s of breath. Problem Code: I50.9; Problem Code Type: ICD-10; Not Available [facility] 4 01:25:22 Simba peguero Completed 201801/21/2019 01/11/20 19 - Comments only - Yana Turner MD - LISA MARTINEZ comes in today to mir galindo herself as a new patient. She is decided to change her primary care because this is much closer to home. She states that her age is more difficul t to get out and about. She has a history of recent onset of atrial fibrilla tion and is being followed by cardiolo gy. She does have an appointm ent to have an echocard iogram done next week. I discusse d with her that her recent shortnes s of breath and fatigue is probably related to the atrial fibrilla tion and she needs to take that up with her cardiolo gist. Her rate is well controll ed at this point. She does have a fair amount of edema in her abdomen and on her her lower limbs. We are going to go ahead and draw some blood work today. She does not have any JVD which she certainl y has some of the signs and symptoms of congesti ve heart failure. We will go ahead and draw a BNP today complete metaboli c profile her thyroid to make sure there is nothing else going on. I will see her back in 1 week after all this blood work is been done and she will call her cardiolo gist if she has any increasi ng shortnes s of breath or chest pain. We discusse d some of her other health concerns includin g her medicati ons and her lipids. She is going to stop the hydrochl orothiaz adalberto for this week and take one half of the Lasix which will be 20 mg every morning. We discusse d keeping her legs elevated . That can be very helpful in helping the fluid to be better processe d. Problem Code: Z71.89; Problem Code Type: ICD-10; Not Available [facility] 3 04:12:29 Abdomina l distensi on, gaseous 918990514 Active 201812/03/19 23 - Comments only - Dank Lora MD - , with a fairly unremark able abd/pelv ic CT in 2019. SHe has a rt renal stone and duplicat e collecti ng system on that side. No evidence of liver steatosi s or other abnormal ity besides diveritu lar dz. I assume this is obesity. Problem Code: R14.0; Problem Code Type: ICD-10; Not Available [facility] 4 01:25:20 Screenin g for cancer Active 2018 Problem Code: Z12.9; Problem Code Type: ICD-10; Not Available [facility] 4 01:25:20 Digestiv e system finding 999504462 Active 2018 Problem Code: R19.8; Problem Code Type: ICD-10; Not Available [facility] 4 01:25:21 Obesity 704767354 Active 201803/04/20 23 - Comments only - Dank Lora MD - She is aware of the importan ce of weight loss. Discusse d some dietary changes she might be able to make. Again I encourag ed her to enroll in PT or cardiac rehab in the future. Problem Code: E66.9; Problem Code Type: ICD-10; Not Available [facility] 4 01:25:21 Screenin g mammogra phy Active 2018 Problem Code: Z12.31; Problem Code Type: ICD-10; Not Available [facility] 4 01:25:20 Acute upper respirat ory infectio n 08800239 Completed 201801/05/2020 10/05/20 19 - Comments only - Edilia Soria APRN - Due to duration , physical findings , comorbid ities suspect this is bacteria l in origin. Is penicill in allergic . Treat with doxycycl ine 100 mg twice a day for 10 days. Tessalon Perles for the cough. Reviewed common side effects of both medicati ons. [facility] ed symptom manageme nt with normal saline sprays, salt water gargles, Vicks VapoRub, vitamin C, good hydratio n, good hand hygiene, adequate rest. Problem Code: J06.9; Problem Code Type: ICD-10; Not Available [facility] 3 04:12:30 Prediabe patricia 494891826 Active 201906/27/20 23 - Comments only - Dank Lora MD - Due for an A1c. Problem Code: R73.03; Problem Code Type: ICD-10; Not Available [facility] 4 01:25:22 Allergic rhinitis 42685341 Active 2019 Problem Code: J30.9; Problem Code Type: ICD-10; Not Available [facility] 4 01:25:22 Localize d edema 270601333 Active 201906/02/20 20 - Comments only - Edilia Soria APRN - suspect that this is a combinat ion of venous stasis, heart failure, possibly r/t previous knee surgery. Encoruag ed compress ion socks; moderate compress ion, knee high. If not improvin g, consider lac hydrin. After discussi on, she will consider referral to derm but not ready yet. Problem Code: R60.0; Problem Code Type: ICD-10; Not Available [facility] 4 01:25:20 Hypokale chandni 18743969 Active 201909/01/20 22 - Comments only - Dank Lora MD - these were WNL in February with her 10mEq of KCl daily. Problem Code: E87.6; Problem Code Type: ICD-10; Not Available [facility] 4 01:25:21 Fatigue 19137576 Active 202009/01/20 22 - Comments only - Dank Lora MD - which was partly stress related, improjanice g. Hg in the spring was WNL. TSH was checked a few years ago and WNL. Problem Code: R53.83; Problem Code Type: ICD-10; Not Available [facility] 4 01:25:22 Pain of right shoulder joint 82104223199 855000 Active 2020 Problem Code: M25.511; Problem Code Type: ICD-10; Not Available [facility] 4 01:25:20 Lung field abnormal 245173352 Active 2021 Problem Code: R91.8; Problem Code Type: ICD-10; Not Available [facility] 4 01:25:20 Lymphede ma 870608327 Active 202103/28/20 23 - Comments only - Dank Lora MD - Again, partly related to cardiac issues as above. I am not sure if there is a componen t of venous insuffic iency as well. As above we will consider trialing her on Lasix. Problem Code: I89.0; Problem Code Type: ICD-10; Not Available [facility] 4 01:25:20 Pulmonar y hyperten luis 68407239 Active 2022 Problem Code: I27.20; Problem Code Type: ICD-10; Not Available [facility] 4 01:25:22 Abnormal results of cardiova scular function studies 917484121 Active 2022 Problem Code: R94.39; Problem Code Type: ICD-10; Not Available [facility] 4 01:25:20 Atherosc lerosis of coronary artery without angina pectoris 15434381379 4103 Active 202206/27/20 23 - Comments only - Dank Lora MD - /Atrial fibrilla tion/pul monary hyperten luis. She does follow with cardiolo gy at [facility]. Currentl y on metoprol ol, diltiaze m, Lipitor, Eliquis, uses chlortha lidone as needed for her edema. She has had adverse reaction s to furosemi de historic ally. I suggeste d adding an lisinopr il when I saw her last but she is a little hesitant , wants to have her echo done and have me touch base with her cardiolo gist. I think she would also benefit from spironol actone and may be using Entresto instead of lisinopr il. Will contact them once her echo results are availabl e. Use of torsemid e may also be helpful. Will check a BNP and BMP. Problem Code: I25.10; Problem Code Type: ICD-10; Not Available [facility] 4 01:25:21 Reduced mobility 7639914 Active 202206/27/20 23 - Comments only - Dank Lora MD - Due to chronic lower extremit y joint pain. Now working with PT and she is feeling that that is going well. She is hoping to be able to improve her mobility and pain level. She continue s to use the hydrocod one sparingl y, mostly before PT sessions and sometime s at at bedtime. Problem Code: Z74.09; Problem Code Type: ICD-10; Not Available [facility] 4 01:25:22 History of fall 309300374 Active 2022 Problem Code: Z91.81; Problem Code Type: ICD-10; Not Available [facility] 4 01:25:21 Disorder of skin and/or subcutan eous tissue 13250635 Active 202212/25/19 23 - Comments only - Dank Lora MD - /Scab overlyin g area where she had a fluid blister. Concerne d that this could become an ulcer. She was amenable to placing an Unna boot today between the ankle and knee. We will have her come back at the beginn g of the week to have it changed, reevalua tanika. Encour ed her to use her chlortha lidone daily to try and have better improvem ent of fluid status. We may need to switch her to furosemi de. Problem Code: L98.9; Problem Code Type: ICD-10; Not Available [facility] 4 01:25:22 Dysuria 56977636 Active 2022 Problem Code: R30.9; Problem Code Type: ICD-10; Not Available [facility] 4 01:25:22 Acute cystitis 09004939 Active 202203/28/20 23 - Comments only - Dank Lora MD - , Inadequa tely treated. Repeat urine culture done today. That did ended up showing Proteus again. I sent in Cipro for her, low-dose . She does have normal renal function currentl y. If she develops any side effects she will let me know. Problem Code: N30.01; Problem Code Type: ICD-10; Not Available [facility] 4 01:25:22 Pain of right knee joint 74063141301 4100 Active 2022 Problem Code: M25.561; Problem Code Type: ICD-10; Not Available [facility] 4 01:25:21 Pain of right thigh 42687657536 9107 Active 2022 Problem Code: M79.651; Problem Code Type: ICD-10; Not Available [facility] 4 01:25:21 Adult health examinat ion Active 202203/28/20 23 - Comments only - Dank Gonzalez is due for mammogra m, ordered. We discusse d the DEXA scan, she wants to hold off on that for the moment. She is not currentl y a good candidat e to undergo colonosc opy given her cardiac status. We will discuss Cologuar d with her at her next appointm ent. Problem Code: Z00.00; Problem Code Type: ICD-10; Not Available [facility] 4 01:25:20 Aftercar e Active 2022 Problem Code: Z51.89; Problem Code Type: ICD-10; Not Available [facility] 4 01:25:21 Pain in lower limb 19020881 Active 2022 Problem Code: M79.606; Problem Code Type: ICD-10; Not Available [facility] 4 01:25:20 Impaired fasting glycemia 077342622 Completed 201908/17/2023 Problem Code: R73.01; Problem Code Type: ICD-10; Not Available [facility] 3 04:12:38 Hypergly cemia 51787181 Completed 202104/20/2022 Problem Code: R73.9; Problem Code Type: ICD-10; Not Available [facility] 3 04:12:39 Cat scratch Completed 202107/23/2022 Problem Code: W55.03xA ; Problem Code Type: ICD-10; Not Available [facility] 3 04:12:39 Dyspnea 625970026 Completed 201807/11/2020 Problem Code: R06.02; Problem Code Type: ICD-10; Not Available [facility] 3 04:12:39 Cellulit is of left lower limb 55177578194 859136 Completed 202107/23/2022 Problem Code: L03.116; Problem Code Type: ICD-10; Not Available [facility] 3 04:12:39 Conjunct ival hemorrha ge of right eye 06579990118 9101 Completed 201907/11/2020 Problem Code: H11.31; Problem Code Type: ICD-10; Not Available [facility] 3 04:12:40 Bleeding from nose 370234879 Completed 201804/20/2022 Problem Code: R04.0; Problem Code Type: ICD-10; Not Available [facility] 3 04:12:40 Exposure to communic able disease Completed 202002/12/2021 Problem Code: Z20.9; Problem Code Type: ICD-10; Not Available [facility] 3 04:12:40 Increase d frequenc y of urinatio n 490553559 Active 202209/15/20 23 - Comments only - Dank Lora MD - We will follow-u p on urine micro. This is likely related to urge incontin ence. Discusse d Kegel exercise s today and provided her some instruct ions. Told her it can take up to a couple of months of doing the exercise s to notice improvem ent. Problem Code: R35.0; Problem Code Type: ICD-10; Not Available [facility] 4 01:25:20 Acute upper respirat ory infectio n 63976254 Active 2022 Problem Code: J06.9; Problem Code Type: ICD-10; Not Available [facility] 4 01:25:22 Chronic vertigo 95787510837 105 Active [address], [place], [address] , [facility] 4 06:24:27 Kandace neil 653905663 Active [address], [place], [address] , [facility] 4 05:35:08 Notes:Some problems listed i n Documents: #[id number], #[id number], #[id number] could not be added to this patient's chart. Please review these documents and add these problems to the patient's chart manually as needed. Problem Notes None recorded. Procedures Surgical History Date Name Laterality Status Provider Name and Address Organization Details Recorded Time 4 Suture/Staple removal completed Sekou Pillai MA [facility] 05/28/2024 10:23:38 4 Excision and closure completed MD [address], [place], [address], [facility] 05/21/2024 05:34:30 Imaging Results None recorded. Procedure Notes None recorded. Medical Equipment None Reported. Medications Name Sig Start Date Stop Date Status Note LastModified by Organization Details LastModified Time Prescript ion - Renewal active DILT-XR 240 mg capsule, ext.rel 24h degradab le[RxRsp ] Not Available Not Available Not Available furosemid e 40 mg tablet Take 2 tabs in the morning and one in the afternoo n. 2018 active Not Available Not Available Not Avai lable potassium chloride ER 10 mEq capsule,e xtended release TAKE TWO CAPSULES BY MOUTH EVERY DAY 04/23 completed Not Available Not Available Not Available acetamino phen 325 mg tablet 2 tabs by mouth q 4 hrs as needed for mild pain. Do not exceed 3 g/day 2018 active Not Available Not Available Not Avai lable doxycycli ne hyclate 100 mg capsule 1 capsule by mouth twice a day 05/29 completed Not Available Not Available Not Available atorvasta tin 10 mg tablet TAKE ONE TABLET BY MOUTH IN THE EVENING active Not Available Not Available No t Available metoprolo l succinate ER 50 mg tablet,ex tended release 24 hr Take 1 tab by mouth daily 2018 active Not Available Not Available Not Avai lable hydrocodo ne 5 mg-acetam inophen 325 mg tablet TAKE 1 TABLET BY MOUTH NEEDED FOR PAIN, SHE CAN TAKE UP TO 4 TABLETS A DAY IF NEEDED active Not Available Not Available No t Available metoprolo l succinate ER 100 mg tablet,ex tended release 24 hr TAKE ONE TABLET BY MOUTH EVERY DAY active Not Available Not Available No t Available Pyridium 200 mg tablet Take 1 tablet by mouth three times a day as needed for burning with urinatio n 03/11 completed Not Available Not Available Not Available potassium chloride ER 10 mEq tablet,ex tended release TAKE TWO TABLETS BY MOUTH EVERY DAY DIRECTED 04/23 completed Not Available Not Available Not Available melatonin 3 mg tablet Take 1 tablet by mouth at bedtime 11/30 completed Not Available Not Available Not Available chlorthal idone 50 mg tablet TAKE ONE TABLET BY MOUTH EVERY DAY active Not Available Not Available No t Available spironola ctone 25 mg tablet Take 1 tablet every day by oral route in the morning. 2023 active Not Available Not Available Not Avai lable Macrobid 100 mg capsule 1 capsule by mouth twice a day 03/12 completed Not Available Not Available Not Available Nitrostat 0.4 mg sublingua l tablet Place 1 tablet under tongue as directed as needed for chest pain. Call 911 after first dose. 1 tablet every 5 minutes, max 3 doses. 2021 active Not Available Not Available Not Avai lable meclizine 25 mg tablet Take 1 tablet by mouth every eight hours as needed for vertigo, can also use before somethin g that might precipta te the vertigo 2022 active Not Available Not Available Not Avai lable benzonata te 100 mg capsule TAKE ONE CAPSULE BY MOUTH THREE TIMES A DAY NEEDED FOR COUGH active Not Available Not Available No t Available cephalexi n 500 mg capsule Take 1 capsule by mouth twice a day for 7 days 03/16 completed Not Available Not Available Not Available hydrochlo rothiazid e 25 mg tablet Take 1 tab by mouth daily 10/14 completed Not Available Not Available Not Available furosemid e 20 mg tablet Take 0.5 tab by mouth once daily 10/20 completed Not Available Not Available Not Available Aspir-81 mg tablet,de layed release Take 1 tab by mouth daily 07/11 completed Not Available Not Available Not Available Cipro 250 mg tablet Take 1 tablet by mouth twice a day 04/01 completed Not Available Not Available Not Available ketoconaz ole 2 % topical cream APPLY TO TOENAILS ONCE DAILY active Not Available Not Available No t Available cefdinir 300 mg capsule TAKE ONE CAPSULE BY MOUTH TWICE A DAY FOR 5 DAYS 01/06 completed Not Available Not Available Not Available lisinopri l 2.5 mg tablet Take 1 tablet by mouth once a day 09/20 completed Not Available Not Available Not Available doxycycli ne hyclate 100 mg tablet Take 1 tab by mouth twice daily 10/15 completed Not Available Not Available Not Available Mucinex 600 mg tablet, extended release 1 tablet by mouth twice a day 01/07 completed Not Available Not Available Not Available DILT-XR 180 mg capsule, extended release Take 1 cap by mouth daily 2018 active [facility] cardiolo gy Not Available Not Available Not Available DILT-XR 240 mg capsule, extended release TAKE ONE CAPSULE BY MOUTH EVERY DAY active Not Available Not Available No t Available Vicodin 5 mg-300 mg tablet q 6 hrs as needed 2018 active Not Available Not Available Not Avai lable Eliquis 5 mg tablet TAKE ONE TABLET BY MOUTH TWICE A DAY active Not Available Not Available No t Available Flonase Allergy Relief 50 mcg/actua tion nasal spray,[facility] [place] 1 spray into both nostrils twice a day 08/31 completed Not Available Not Available Not Available Pads For Women Use 1 each as directed four times a day Change when soiled. Always Medium Number 4 (day) active Not Available Not Available No t Available Lifestyle Comfort Socks Large Apply 1 each as directed once a day On in the morning and off at bedtime 2021 active Not Available Not Available Not Avai lable Vitals None Recorded Social History Question Answer Notes LastModified by Organizat ion Details LastModified Time Tobacco Smoking Status Never Smoker Sekou Pillai MA null, [place] - [facility]. 01/06/2024 11:55:57 What Was The Date Of Your Most Recent Tobacco Screening? 01/06/2024 [email or web address] Information not available 01/06/2024 Has Tobacco Cessation Counseling Been Provided? No [email or web address] Information not available 01/06/2024 Do You Or Have You Ever Used Any Other Forms Of Tobacco Or Nicotine? No [email or web address] Information not available 01/06/2024 Sex: Female Functional Status None recorded. Mental Status None recorded. Family History Relationship Description Onset Age of this Age Resolved Age Notes LastModified by Organization Details LastModified Time Mother Family history of Hypertension [email or web address] Not available 08/2023 03:57:20 Mother Family history of acute medical disorder palpit ations Not available 09/30/2023 03:57:20 Sister Family history of malignant neoplasm unknow n type Not available 09/30/2023 03:57:20 Brother Family history of diabetes mellitus type 1 [email or web address] Not available 2022 03:57:20 Daughter Family history of breast cancer 1 gene mutation [email or web address] Not available 2022 03:57:20 Notes:*Problem: Mom in her 90's - heart issues (may have a-fib, had palpitations), HTN, no h/o MIs Dad late 80's - not sure of medical problems. Sister , 80, with breast CA, in remission, maybe BP problem Another sister is 84 - recent dx of DM, otherwise healthy Brother is 87 - DJD, joint replacements, open heart surgery (not sure what for) Brother due to colon CA Daughter also had breast CA, in remission Medical History No medical history recorded. Gynecological HistoryNo gynecological history recorded. Obstetrics History GPAL:G 0 P 0 0 0 0 Immunizations Vaccine Type Date Status Provider Name and Address Organization Details Recorded Time Tdap 08/31/2015 completed Not Available [facility] 01:25:22 zoster live 05/06/2020 completed Not Available [facility] 12/15/2023 01:25:22 zoster live 06/19/2015 completed Not Available [facility] 12/15/2023 01:25:22 Pneumococcal conjugate PCV 13 01/18/2019 completed Not Available [facility] 12/15/2023 01:25:22 Influenza, high-dose, trivalent, PF 01/11/2019 completed Not Available [facility] 12/15/2023 01:25:22 Influenza, high-dose, trivalent, PF 11/01/2019 completed Not Available [facility] 12/15/2023 01:25:23 Td(adult) unspecified formulation 05/04/2005 completed Not Available [facility] 12/15/2023 01:25:22 zoster recombinant 11/01/2019 completed Not Available [facility] 12/15/2023 01:25:22 Influenza, high-dose, quadrivalent, PF 09/18/2021 completed Not Available [facility] 12/15/2023 01:25:22 Influenza, high-dose, quadrivalent, PF 10/14/2020 completed Not Available [facility] 12/15/2023 01:25:22 COVID-19, mRNA, LNP-S, PF, 100 mcg/0.5mL dose or 50 mcg/0.25mL dose 02/17/2021 completed Not Available [facility] 12/15/2023 01:25:22 COVID-19, mRNA, LNP-S, PF, 100 mcg/0.5mL dose or 50 mcg/0.25mL dose 03/17/2021 completed Not Available [facility] 12/15/2023 01:25:22 pneumococcal polysaccharide PPV23 10/03/2012 completed Not Available [facility] 2023 01:25:22 influenza, unspecified formulation 08/10/2016 completed Not Available [facility] 12/15/2023 01:25:22 Past Encounters Encounter ID Performer Location Encounter Start Date Encounter Closed Date Diagnosis/Indication Diagnosis SNOMED-CT Code Diagnosis ICD10 Code [id number] DANK LORA MD [address] [address] 05/18/2024 10:46:00 05/18/2024 12:22:16 [place] 729261354 D23.9 Localized edema 18459962 4 R60.0 Disorder o f skin and/or subcutaneous tissue 98773874 L98.9 [id number] Sekou Pillai MA [facility] [address] [place] [address] 05/28/2024 09:48:28 05/28/2024 10:31:15 Health Concerns Section Related Observation LastModified by Organization Detai ls LastModified Time None Recorded Concern Status LastModified by Organization Details LastModified Time None Recorded Payers Encounter Date Sequence Insurance Name Policy Number Policy Vazquez Covered Member ID Vazquez Member ID Guarantor Name 05/28/2024 1 [facility] (MEDICARE REPLACEMENT/A DVANTAGE - HMO) [id number] Lisa Martinez [id number] Lisa Martinez OBGyn Episode No OBEpisode recorded.
--- OUTSIDE RECORDS SUMMARY | 2024-08-10 15:25 | XMS_ITS | Encounter Summary ---
Author Organization Replaced By [facility] Address [facility] [place] [address] Care Team Providers Care Psychologist Social Name Role Phone Yana Turner MD Primary Care Provider [phone] Encounter Details Date Type Department Care Team (Late st Contact Info) Description 03/09/2023 11:20 AM EDT Office Visit Cardiology at [address] [address] Christiano Hamlin MD [facility] [address] Chronic atrial fibrillation; MADRIGAL (dyspnea on exertion); Chronic heart failure with preserved ejection fraction Social History Tobacco Use Types Packs/Day Years [...] Sign Reading Time Taken Comments Blood Pressure 125/71 03/09/2023 11:33 AM EDT Pulse 84 03/09/2023 11:33 AM EDT Temperature - - Respiratory Rate - - Oxygen Saturation 95% 03/09/2023 11:33 AM EDT Inhaled Oxygen Concentration - - Weight 99.8 kg (220 lb) 03/09/2023 11:33 AM EDT reported Height 163.8 cm (5' 4.5) 03/09/2023 11:33 AM ED T reported Body Mass Index 37.18 03/09/2023 11:33 AM EDT documented in this encounter Progress Notes * Christiano Hamlin MD - 03/09/2023 11:20 AM EDT Images from the original note were not included. [facility] [place] [address] [address] CARDIOLOGY OUTPATIENT FOLLOW-UP NOTE Lisa Worley [id number] PCP: Yana Turner MD 03/09/2023 PRIMARY CARE PROVIDER: Yana Turner MD PROBLEM LIST: Patient Active Problem List Diagnosis ??? Atrial fibrillation ?? Status post cardioversion February 19, 2009 ?? Recurrent atrial fibrillation documented July 17, 2019 initially with rapid ventricular rate ?? Rx with apixaban and diltiazem ??? MADRIGAL (dyspnea on exertion) ?? Onset about July, and accompanied by mild chest pain ?? Echocardiogram through [facility] August 12, 2017 showing mild LVH with normal LV systolic function and ejection fraction of 60-65%; normally sized and functioning right ventricle; severely dilated left atrium; moderate tricuspid regurgitation; moderate to severe pulmonary hypertension with PA systolic pressure 45-55 mmHg ?? Nuclear stress test [facility] September 12, 2017 showing small [...] 24 hr, Take 1.5 tablets by mouth daily. (Patient taking differently: Take 100 mg by mouth daily.), Disp: 135 tablet, Rfl: 3 ??? nitroGLYcerin [...] as needed., Disp: , Rfl: SUBJECTIVE: This 77-year-old woman comes for follow-up visit. She has no friends. She has atrial fibrillation and is status post cardioversion in February 2009 but had a recurrence. She is managed with Eliquis and metoprolol. She has longstanding exertional dyspnea and is thought to have heart failurewith preserved ejection fraction. She had elevated proBNP. I tried her on escalating doses of furosemide and 40 mg daily she seemed to feel better but had a hard time with the frequent urination back to her chlorthalidone. Today she tells me that her breathing continues to be an issue. It is slightly worse than it was a year ago. She says that the she understands that her deconditioning and overweight condition may also be contributing. She does not have at rest or nocturnal dyspnea. She has moderate lower extremity edema. She reports occasional chest pain but that she feels is fairly superficial in her chest and wonders if this is in her breast. She does not have typical exertional chest discomfort. She had an episode of epistaxis earlier in the year but this has not recurred. ROS: 07/17/2019 10:53 AM CardioVascular Pre Appointment Symptom Review Angina (chest discomfort) Frequency: None OBJECTIVE: Vital Signs: BP 125/71 (BP Location (NBP): Left arm, Patient Position: Sitting) Pulse 84 Ht 163.8 cm (5' 4.5) Comment: reported Wt 99.8 kg (220 lb) Comment: reported SpO2 95% BMI 37.18 kg/m?? Physical Exam: On examination today she appeared in no acute distress. Her vital signs are documented above. She had no JVD. Her lungs were clear. Her heart exam revealed an irregularly irregular rhythm without murmurs. She had 2+ edema below the knees bilaterally. ASSESSMENT: Although generally stable, she continues to struggle with exertional dyspnea. I think this is related to diastolic heart failure. We discussed again the possibility of using a more potentdiuretic regimen but she was reluctant given all of her urinary tract issues. She is about to have another grandchild and inquired about the safety of flying to [place]. I told her that I do not have a problem without although she will need a lot of logistical support given her relative weakness, exertional dyspnea, and need to ambulate with a walker. PLAN: 1. If breathing worsens, consider switching to a more potent diuretic (in the past she has done better on furosemide 40 mg daily) 2. If she can work out the logistics, I do not see any major issues with air travel 3. Cardiology follow-up to reassess in 1 year documented in this encounter Plan of Treatment Upcoming Encounters Date Type Department Care Team (Late st Contact Info) Description 08/13/2024 11:20 AM EDT Office Visit Cardiology at [address] [address] Christiano Hamlin MD [facility] [place] [address] documented as of this encounter Visit Diagnoses Diagnosis Chronic atrial fibrillation Atrial fibrillation MADRIGAL (dyspnea on exertion) Other dyspnea and respiratory abnormality Chronic heart failure with preserved ejection fraction documented in this encounter Care Teams Psychologist Social Relationship Specialty Start Date End Date Yana Turner MD [address] [place] [address] PCP - General Family Medicine 12/26/18 documented as of this encounter
--- OUTSIDE RECORDS SUMMARY | 2024-08-10 15:25 | XMS_ITS | Clinical Summary ---
Author Organization [facility] Address [facility] [place] [address] Care Team Providers Care Material Checker Name Role Phone Yana Turner MD Primary Care Provider [phone] Allergies Active Allergy Reactions Criticality Noted Date Comments Penicillins Other (See Comments) Unknown Medications Medication Sig Dispensed Refills Start Date End Date Status hydroCODone-acetam inophen (VICODIN) 5-500 mg per tablet Take 1 tablet by mouth every 6 hours as needed. Active atorvastatin (LIPITOR) 10 mg Tablet Take 10 mg by mouth daily. Active acetaminophen (TYLENOL) 325 mg Tablet Take 650 mg by mouth every 4 hours as needed for Pain. Active melatonin 3 mg Tablet Take 3 mg by mouth nightly as needed. Active nitroGLYcerin (NITROSTAT) 0.4 mg Tablet, Sublingual Place 1 tablet under the tongue every 5 minutes as needed for Chest pain. 25 tablet 11 12/26/2018 Active metoprolol succinate (TOPROL-XL) 100 mg Tablet Sustained Release 24 hr Take 1.5 tablets by mouth daily. 135 tablet 3 01/31/2019 Active Additional Information Patient taking differently: 100 mgOral DAILY, Reported on 03/09/2023 apixaban (ELIQUIS) 5 mg Tablet Take 1 tablet by mouth 2 times daily. 60 tablet 3 04/26/2019 Active hydroCHLOROthiazid e (HYDRODIURIL) 25 mg Tablet Take 25 mg by mouth daily. 0 04/04/2019 Active dilTIAZem (TIAZAC) 240 mg Capsule,Sustained Action 24 hr Take 1 capsule by mouth daily. 90 capsule 3 03/25/2020 Active chlorthalidone (Hygroten) 50 mg Tablet TAKE 1 TABLET BY MOUTH DAILY 11/18/2020 Active potassium chloride (MICRO-K) 10 mEq Capsule, Sustained Release TAKE ONE CAPSULE BY MOUTH TWICE DAILY 11/19/2020 Active Active Problems Problem Noted Date Diagnosed Date Atrial fibrillation 01/29/2019 Overview (08/15/2019): ?? Status post cardioversion February 19, 2009 ?? Recurrent atrial fibrillation documented July 17, 2019 initially with rapid ventricular rate ?? Rx with apixaban and diltiazem MADRIGAL (dyspnea on exertion) 09/27/2017 Overview (09/27/2017): ?? Onset about July, and accompanied by mild chest pain ?? Echocardiogram through [facility] August 12, 2017 showing mild LVH with normal LV systolic function and ejection fraction of 60- 65%; normally sized and functioning right ventricle; severely dilated left atrium; moderate tricuspid regurgitation; moderate to severe pulmonary hypertension with PA systolic pressure 45-55 mmHg ?? Nuclear stress test [facility] September 12, 2017 showing small in size moderately intense partially reversible defect involving the inferolateral jasso suggesting ischemia in the distribution of the left circumflex; calculated ejection fraction of 64% with no wall motion abnormalities ?? Chest x-ray reportedly unremarkable Hypertension 09/27/2017 OA (osteoarthritis) 09/27/2017 Mixed incontinence 02/27/2012 Immunizations Name Administration Dates Next Due TD Adult 05/04/2005 Social History Tobacco Use Types Packs/Day Years Used Date Smoking Tobacco: Never Smokeless Tobacco: Never Alcohol Use Standard Drinks/Week Comments Never 0 (1 standard drink = 0.6 oz pur e alcohol) Sex and Gender Information Value Date Recorded Sex Assigned at Not on file Gender Identity Not on file Sexual Orientation Not on file Last Filed Vital Signs Vital Sign Reading Time Taken Comments Blood Pressure 125/71 03/09/2023 11:33 AM EDT Pulse 84 03/09/2023 11:33 AM EDT Temperature 36.4 ??C (97.5 ??F) 02/19/2019 10:30 AM E DT Respiratory Rate 16 02/19/2019 11:00 AM EDT Oxygen Saturation 95% 03/09/2023 11:33 AM EDT Inhaled Oxygen Concentration - - Weight 99.8 kg (220 lb) 03/09/2023 11:33 AM EDT reported Height 163.8 cm (5' 4.5) 03/09/2023 11:33 AM ED T reported Body Mass Index 37.18 03/09/2023 11:33 AM EDT Plan of Treatment Upcoming Encounters Date Type Department Care Team (Late st Contact Info) Description 08/13/2024 11:20 AM EDT Office Visit Cardiology at [address] [place] [address] Christiano Hamlin MD [facility] [place] [address] Health Maintenance Due Date Last Done Comments Hepatitis C Screening 1963 Tdap adult 1964 Zoster vaccine (1 of 2) 1995 Advance Directive 2000 Bone Density Scan 2010 Pneumoccocal Vaccine: 65+ (1 of 1 - PCV) 2010 Tetanus vaccine 05/04/2015 05/04/2005 Covid-19 Vaccine ( - season) 2024 Influenza (Flu) vaccine (1 o f 1 - Influenza standard series) 07/22/2024 Advance Directives * Full Code (Latest Code Status on File) Date Activated Date Inactivated Comments 02/19/2019 9:04 AM 02/19/2019 1:43 PM Question Answer Comments Does patient have capacity to make decision: Yes * Full Code Date Activated Date Inactivated Comments 10/11/2017 10:08 AM 10/11/2017 4:38 PM Question Answer Comments Does patient have capacity to make decision: Yes Care Teams Material Checker Relationship Specialty Start Date End Date Yana Turner MD [address] [place] [address] PCP - General Family Medicine 12/26/18
--- OUTSIDE RECORDS SUMMARY | 2024-08-10 15:25 | XMS_ITS | Data Portability ---
Author Organization [place] - [facility], [facility] [place] [address] Assessment No assessment recorded. Plan of Treatment Reminders Order Date Submit Date Provider Last Modified By Organization Details Last Modified Time Details Appointments Procedure 40 2023 11:20A M Not available Not available Not available Follow Up 30 2023 11:30A M Not available Not available Not available Lab HbA1c (hemoglob in A1c), blood 2023 024 [facility] (Registration ), [address] [place] [address] [place], [address], 04/06/2024 13:35:28 CMP, serum or plasma 2023 024 [facility] (Registration ), [address] [place] [address] [place], [address], 04/06/2024 15:58:07 hemoglobi n + hematocri t, blood 2023 024 [facility] (Registration ), [address] [place] [address] [place], [address], 04/06/2024 15:25:40 lipid panel, serum 2023 024 [facility] (Registration ), [address] [place] [address] [place], [address], 04/06/2024 13:35:28 BMP, serum or plasma 2023 024 [facility] (Registration ), [address] [place] [address] [place], [address], 04/19/2024 15:32:24 Referral cardiolog ist referral 2023 024 [email or web address] Christiano Hamlin MD [facility], [address] [place], [address], 07/12/2024 15:42:59 Procedures None recorded. Surgeries None recorded. Imaging None recorded. Medication Orders spironola ctone 25 mg tablet 2023 024 [id number], [address] [place], [address], 04/06/2024 17:09:59 Patient TargetsNo targets recorded. Patient Instructions Encounter Date Encounter Id Patient Instructions Last Modified By Organization Details Last Modified Time 04/06/2024 [id number] Try the probioti c Start the spironolactone 25mg every morning. You can continue the chlorthalidone every AM. If you haven't heard from cardiology in 2 weeks then call them. anamaria Not available 04/06/2024 11:19:25 Lab addendum - I called Lisa - lab results she her K=5.0. Instructed to stop the KCl. She will start the spironolactone in the next few days. Her CMP overall is appropriate. Her A1c is 6.6 - she will continue to monitor her carbs. Lipids under excellent control on the atorvastatin. H/H WNL. anamaria Not available 04/06/2024 17:22:06 Reason for Referral Alterations Sewer Referral for Pred iabetes Referring Physician: Dank Lora, Family Medicine, Encounter Date: 12/16/2023 Stock Speculator Referral for Pu lmonary hypertension she needs f/u for her pulmonary HTN, CHF/MADRIGAL. Referring Physician: Dank Lora Family Medicine, Encounter Date: 04/06/2024 Physical Therapist Referral for Pain in right lower limb Patient requests to see Tamra Referring Physician: Dank Lora Family Medicine, Encounter Date: 05/29/2024 Results Created Date Observation Date Name Description Value Unit Range Abnormal Flag Note LastModifiedBy Organization Detail LastModifiedTime 04/06/20 24 04/06/2024 HEMOG LOBIN /JENNA TOCRI T HGB 14.4 g/dL 11.2-1 5.7 normal Not Available [address] [place] [place], [address] 04/06/2024 15:25:40 04/06/20 24 04/06/2024 HEMOG LOBIN /JENNA TOCRI T HCT 45.7 % 36.0-4 6.0 normal Not Available [address] [place] [place], [address] 04/06/2024 15:25:40 04/06/20 24 04/06/2024 HEMOG LOBIN A1C hemoglobin A1C 6.6 % <5.7 high Refer ence Range s <5.7 Roxana l 5.7-6 .4% Predi abete s 6.5% or great er Diagn ostic for diabe patricia (if confi rmed) Refer ences : 1. Ameri can Diabe patricia Assoc iatio n. Clas sific ation and Diagn osis of Diabe patricia. Diabe patricia Care 2018 2(Sup pleme nt 1):S1 3-s28 . Not Available [address] [place], [address] 04/06/2024 15:40:42 04/06/20 24 04/06/2024 COMPR EHENS JULIA METAB OLIC PANEL calcium 9.2 mg/dL 8.5-10 .1 normal Not Available [address] [place], [address] 04/06/2024 15:58:07 04/06/20 24 04/06/2024 COMPR EHENS JULIA METAB OLIC PANEL glucose 155 mg/dL 74-106 high Not Available Joellen bernstein [address], [address] 04/06/2024 15:58:07 04/06/20 24 04/06/2024 COMPR EHENS JULIA METAB OLIC PANEL BUN 28 mg/dL 7-18 high Not Available Joellen bernstein [address], [address] 04/06/2024 15:58:07 04/06/20 24 04/06/2024 COMPR EHENS JULIA METAB OLIC PANEL creatinine 0.7 mg/dL 0.55-1 .02 normal Not Available [address] [place], [address] 04/06/2024 15:58:07 04/06/20 24 04/06/2024 COMPR EHENS JULIA METAB OLIC PANEL estimated GFR 88.47 mL/min /1.73m 2 The eGFR is calcu lated from a serum creat inine using the CKD-E PI 2020 equat ion. Other varia bles requi red for the equat ion are gende r and age; this equat ion does not inclu de a race coeff icien t. This equat ion has simil ar overa ll perfo rmanc e to previ ous equat ions excep t value s may diffe r, in parti cular , in patie nts with highe r value s of eGFR and young er-ag ed adult s. Not Available [address] [place], [address] 04/06/2024 15:58:07 04/06/20 24 04/06/2024 COMPR EHENS JULIA METAB OLIC PANEL total protein 7.2 g/dL 6.4-8. 2 normal Not Available [address] [place], [address] 04/06/2024 15:58:07 04/06/20 24 04/06/2024 COMPR EHENS JULIA METAB OLIC PANEL albumin 4.0 g/dL 3.4-5. 0 normal Not Available [address] [place], [address] 04/06/2024 15:58:07 04/06/20 24 04/06/2024 COMPR EHENS JULIA METAB OLIC PANEL bilirubin, total 1.5 mg/dL 0.2-1. 0 high Not Available [address] [place] [place], [address] 04/06/2024 15:58:07 04/06/20 24 04/06/2024 COMPR EHENS JULIA METAB OLIC PANEL alk phos 78 U/L 46-116 normal Not Available [address] [place], [address] 04/06/2024 15:58:07 04/06/20 24 04/06/2024 COMPR EHENS JULIA METAB OLIC PANEL sodium 143 mmol/ L 136-14 5 normal Not Available [address] [place], [address] 04/06/2024 15:58:07 04/06/20 24 04/06/2024 COMPR EHENS JULIA METAB OLIC PANEL potassium 5.0 mmol/ L 3.5-5. 1 normal Not Available [address] [place], [address] 04/06/2024 15:58:07 04/06/20 24 04/06/2024 COMPR EHENS JULIA METAB OLIC PANEL chloride 107 mmol/ L 98-107 normal Not Available [address] [place] [place], [address] 04/06/2024 15:58:07 04/06/20 24 04/06/2024 COMPR EHENS JULIA METAB OLIC PANEL CO2 33.3 mmol/ L 21.0-3 2.0 high Not Available [address] [place], [address] 04/06/2024 15:58:07 04/06/20 24 04/06/2024 COMPR EHENS JULIA METAB OLIC PANEL anion gap 2.7 mmol/ L 3-11 low Not Available [address] [place] [place], [address] 04/06/2024 15:58:07 04/06/20 24 04/06/2024 COMPR EHENS JULIA METAB OLIC PANEL AST 23 U/L 15-37 normal Not Available Joellen bernstein [address], [address] 04/06/2024 15:58:07 04/06/20 24 04/06/2024 COMPR EHENS JULIA METAB OLIC PANEL ALT 37 U/L 14-59 normal Not Available Joellen bernstein [address], [address] 04/06/2024 15:58:07 04/06/20 24 04/06/2024 LIPID 2 cholesterol 146 mg/dL <200 Not Available Shawn wilde [address], [address] 04/06/2024 15:58:08 04/06/20 24 04/06/2024 LIPID 2 triglyceride 56 mg/dL <150 Not Available [address] [place], [address] 04/06/2024 15:58:08 04/06/20 24 04/06/2024 LIPID 2 HDL cholesterol 52 mg/dL 40-60 Not Available Asia palmer[address] [place], [address] 04/06/2024 15:58:08 04/06/20 24 04/06/2024 LIPID 2 calculated LDL 83 mg/dL <100 Natio nal Demetria stero l Educa tion Progr am (NCEP -ATPI II) class ifica tions : Demetria stero l <200 mg/dL Ruth able Demetria stero l 200-2 39 mg/dL Borde rline High Demetria stero l >or=2 40 mg/dL High HDL <40 mg/dL Low HDL >or=6 0 mg/dL High LDL <100 mg/dL Optim al LDL 100-1 29 mg/dL Near Optim al/Ab ove Optim al LDL 130-1 59 mg/dL Borde rline High LDL 160-1 89 mg/dL High LDL >or=1 90 mg/dL Very High *The above refer ence range is for adult s 18 years or older . Not Available [address] [place], [address] 04/06/2024 15:58:08 04/19/20 24 04/19/2024 BASIC METAB OLIC PANEL calcium 9.1 mg/dL 8.5-10 .1 normal Not Available [address] [place], [address] 04/19/2024 21:42:04 04/19/20 24 04/19/2024 BASIC METAB OLIC PANEL glucose 149 mg/dL 74-106 high Not Available Joellen [address] [place], [address] 04/19/2024 21:42:04 0504/19/2024 BASIC METAB OLIC PANEL BUN 17 mg/dL 7-18 normal Not Available Joellen bernstein [address], [address] 04/19/2024 21:42:04 04/19/2004/19/2024 BASIC METAB OLIC PANEL creatinine 0.9 mg/dL 0.55-1 .02 normal Not Available [address] [place], [address] 04/19/2024 21:42:04 04/19/20 24 04/19/2024 BASIC METAB OLIC PANEL estimated GFR 65.44 mL/min /1.73m 2 The eGFR is calcu lated from a serum creat inine using the CKD-E PI 2020 equat ion. Other varia bles requi red for the equat ion are gende r and age; this equat ion does not inclu de a race coeff icien t. This equat ion has simil ar overa ll perfo rmanc e to previ ous equat ions excep t value s may diffe r, in parti cular , in patie nts with highe r value s of eGFR and young er-ag ed adult s. Not Available [address] [place], [address] 04/19/2024 21:42:04 04/19/20 24 04/19/2024 BASIC METAB OLIC PANEL sodium 142 mmol/ L 136-14 5 normal Not Available [address] [place], [address] 04/19/2024 21:42:04 04/19/20 24 04/19/2024 BASIC METAB OLIC PANEL potassium 4.4 mmol/ L 3.5-5. 1 normal Not Available [address] [place], [address] 04/19/2024 21:42:04 04/19/20 24 04/19/2024 BASIC METAB OLIC PANEL chloride 103 mmol/ L 98-107 normal Not Available [address] [place] [place], [address] 04/19/2024 21:42:04 04/19/20 24 04/19/2024 BASIC METAB OLIC PANEL CO2 27.3 mmol/ L 21.0-3 2.0 normal Not Available [place] [address] [facility] [place], [address] 04/19/2024 21:42:04 04/19/20 24 04/19/2024 BASIC METAB OLIC PANEL anion gap 11.7 mmol/ L 3-11 high Not Available [place] [address] [facility] [place], [address] 04/19/2024 21:42:04 08/06/20 24 01/31/2019 imagi ng/di agnos tic [...] Not Available 08/06 01:28:22 08/06/20 24 09/13/2019 MAMMsen Motta No observ ation record ed. Not Available 08/06 01:28:23 08/06/20 24 10/08/2020 MAMMO sen No observ ation record ed. Not Available 08/06 01:28:24 08/06/20 24 07/13/2023 imagi ng/di agnos tic resul t No observ ation record ed. Not Available 08/06 01:28:29 08/06/2008/23/2021 imagi ng/di agnos tic resul t No [...] Details Recorded Time Mixed urinary incontin ence 600975744 Active 201806/27/20 23 - Comments only - Dank Lora MD - , Needs to use pads chronic basis. Problem Code: N39.46; Problem Code Type: ICD-10; Not Available [facility] 4 01:25:21 Osteoart hritis 156668104 Active 2018 Problem Code: M19.90; Problem Code Type: ICD-10; Not Available [facility] 4 01:25:21 Essentia l hyperten luis 44859051 Active 2018 Problem Code: I10; Problem Code Type: ICD-10; Not Available [facility] 4 01:25:22 Dyspnea 764880467 Active 201806/27/20 23 - Comments only - Dank Lora MD - Most likely cardiac related, known pulmonar y hyperten luis. PFTs historic ally showed a slightly low FVC, thought to be potentia lly related to obesity or chest wall muscle abnormal ity. There was no evidence of obstruct ion or restrict ion. Problem Code: R06.09; Problem Code Type: ICD-10; Not Available [facility] 4 01:25:20 Major depressi on, single episode 76366134 Active 2018 Problem Code: F32.9; Problem Code Type: ICD-10; Not Available [facility] 4 01:25:21 Onychomy cosis due to dermatop hyte 995998018 Active 2018 Problem Code: B35.1; Problem Code Type: ICD-10; Not Available [facility] 4 01:25:21 Neck pain 38097062 Active 2018 Problem Code: M54.2; Problem Code Type: ICD-10; Not Available [facility] 4 01:25:22 Low back pain 266191432 Active 2018 Problem Code: M54.5; Problem Code Type: ICD-10; Not Available [facility] 4 01:25:21 Hyperlip idemia 52404960 Active 2018 Problem Code: E78.5; Problem Code Type: ICD-10; Not Available [facility] 4 01:25:22 Shoulder joint pain 590447364 Active 2018 Problem Code: M25.519; Problem Code Type: ICD-10; Not Available [facility] 4 01:25:20 Sensorin eural hearing loss of bilatera l ears 381895172 Active 2018 Problem Code: H90.3; Problem Code Type: ICD-10; Not Available [facility] 4 01:25:20 Dizzines s and giddines s 772126048 Active 201812/03/19 23 - Comments only - Dank Lora MD - will ask PT to work with her on this also. Problem Code: R42; Problem Code Type: ICD-10; Not Available [facility] 4 01:25:20 Insomnia 494660204 Active 2018 Problem Code: G47.00; Problem Code Type: ICD-10; Not Available [facility] 4 01:25:20 Electroc ardiogra m abnormal 512781812 Active 2018 Problem Code: R94.31; Problem Code Type: ICD-10; Not Available [facility] 4 01:25:19 Pain in right hip joint 68715685391 9102 Active 201801/18/20 19 - Comments only [...] M25.551; Problem Code Type: ICD-10; Not Available [facility] 4 01:25:21 Chronic pain syndrome 533386745 Active 201812/03/19 23 - Comments only - [...] G89.4; Problem Code Type: ICD-10; Not Available [facility] 4 01:25:21 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 Clinical ly this is remainin g stable. She continue s on diltiaze m, metoprol ol, Eliquis. Historic ally she has not tolerate d furosemi de. She has chlortha lidone that she uses as needed currentl y. Problem Code: I48.91; Problem Code Type: ICD-10; Not Available [facility] 4 01:25:21 Heart failure 14193581 Active 201806/07/20 19 - Comments only - Dexter Jones - Patient has some shortnes s of breath on exertion and slight pitting pedal edema on exam. Has experien rahul no angina or neurolog ic symptoms . BP and HR today are acceptab le. Is currentl y taking beta ramon, diuretic , statin, aspirin, and is being followed by cardiolo gy. Plan to follow, but continue current medicati ons. She should call if she notices swelling in her legs, raid weight gain, orthopne a, or signific ant shortnes s of breath. Problem Code: I50.9; Problem Code Type: ICD-10; Not Available [facility] 4 01:25:22 Counseli sudhir Completed 201801/21/2019 01/11/20 19 - Comments only - Yana Turner MD - LISA WORLEY comes in today to mir galindo herself [...] echocard iogram done next week. I discusse brandyn with her that her recent shortnes s [...] of breath or chest pain. We discusse brandyn some of her other health concerns includin g her medicati ons and her lipids. She is going to stop the hydrochl orothiaz adalberto for this week and take one half of the Lasix which will be 20 mg every morning. We discusse brandyn keeping her legs elevated . That can be very helpful in helping the fluid to be better processe brandyn. Problem Code: Z71.89; Problem Code Type: ICD-10; Not Available [facility] 3 04:12:29 Abdomina l distensi on, gaseous 534589122 Active 201812/03/19 23 - Comments only - [...] R14.0; Problem Code Type: ICD-10; Not Available [facility] 4 01:25:20 Screenin g for cancer Active 2018 Problem Code: Z12.9; Problem Code Type: ICD-10; Not Available [facility] 4 01:25:20 Digestiv e system finding 520159972 Active 2018 Problem Code: R19.8; Problem Code Type: ICD-10; Not Available [facility] 4 01:25:21 Obesity 727197321 Active 201803/04/20 23 - Comments only - Dank Lora MD - She is aware of the importan ce of weight loss. Discusse d some dietary changes she might be able to make. Again I [facility] ed her to enroll in PT or cardiac rehab in the future. Problem Code: E66.9; Problem Code Type: ICD-10; Not Available [facility] 4 01:25:21 Screenin g mammogra phy Active 2018 Problem Code: Z12.31; Problem Code Type: ICD-10; Not Available [facility] 4 01:25:20 Acute upper respirat ory infectio n 02543707 Completed 201801/05/2020 10/05/20 19 - Comments only - Edilia Soria MEDICAL SURGERY NURSE - Due to duration , physical findings , comorbid ities suspect this is bacteria l in origin. Is penicill in allergic . Treat with doxycycl ine 100 mg twice a day for 10 days. Tessalon Perles for the cough. Reviewed common side effects of both medicati ons. [facility] ed symptom manageme nt with normal saline sprays, salt water gargles, Vicks VapoRub, vitamin C, good hydratio n, good hand hygiene, adequate rest. Problem Code: J06.9; Problem Code Type: ICD-10; Not Available [facility] 3 04:12:30 Prediabe patricia 589046395 Active 201906/27/20 23 - Comments only - Dank Lora MD - Due for an A1c. Problem Code: R73.03; Problem Code Type: ICD-10; Not Available [facility] 4 01:25:22 Allergic rhinitis 47115484 Active 2019 Problem Code: J30.9; Problem Code Type: ICD-10; Not Available [facility] 4 01:25:22 Localize d edema 616937832 Active 201906/02/20 20 - Comments only - Edilia Soria MEDICAL SURGERY NURSE - suspect that this is a combinat ion of venous stasis, heart failure, possibly r/t previous knee surgery. Encoruag ed compress ion socks; moderate compress ion, knee high. If not improvin g, consider lac hydrin. After discussi on, she will consider referral to derm but not ready yet. Problem Code: R60.0; Problem Code Type: ICD-10; Not Available [facility] 4 01:25:20 Hypokale chandni 69714950 Active 201909/01/20 22 - Comments only - Dank Lora MD - these were WNL in February with her 10mEq of KCl daily. Problem Code: E87.6; Problem Code Type: ICD-10; Not Available [facility] 4 01:25:21 Fatigue 04224989 Active 202009/01/20 22 - Comments only - Dank Lora MD - which was partly stress related, juan manuel g. Hg in the spring was WNL. TSH was checked a few years ago and WNL. Problem Code: R53.83; Problem Code Type: ICD-10; Not Available [facility] 4 01:25:22 Pain of right shoulder joint 25421350128 456774 Active 2020 Problem Code: M25.511; Problem Code Type: ICD-10; Not Available [facility] 4 01:25:20 Lung field abnormal 232565342 Active 2021 Problem Code: R91.8; Problem Code Type: ICD-10; Not Available [facility] 4 01:25:20 Lymphede ma 683932879 Active 202103/28/20 23 - Comments only - Dank Lora MD - Again, partly related to cardiac issues as above. I am not sure if there is a componen t of venous insuffic iency as well. As above we will consider trialing her on Lasix. Problem Code: I89.0; Problem Code Type: ICD-10; Not Available [facility] 4 01:25:20 Pulmonar y hyperten luis 24723309 Active 2022 Problem Code: I27.20; Problem Code Type: ICD-10; Not Available [facility] 4 01:25:22 Abnormal results of cardiova scular function studies 977623524 Active 2022 Problem Code: R94.39; Problem Code Type: ICD-10; Not Available [facility] 4 01:25:20 Atherosc lerosis of coronary artery without angina pectoris 68782595457 4103 Active 202206/27/20 23 - Comments only - Dank Lora MD - /Atrial fibrilla tion/pul monary hyperten luis. She does follow with cardiolo gy at [facility] y on metoprol ol, diltiaze m, Lipitor, [...] I25.10; Problem Code Type: ICD-10; Not Available [facility] 4 01:25:21 Reduced mobility 2067362 Active 202206/27/20 23 - Comments only - Dank Loar MD - Due to chronic lower extremit [...] Z74.09; Problem Code Type: ICD-10; Not Available [facility] 4 01:25:22 History of fall 294322095 Active 2022 Problem Code: Z91.81; Problem Code Type: ICD-10; Not Available [facility] 4 01:25:21 Disorder of skin and/or subcutan eous tissue 96970167 Active 202212/25/19 23 - Comments only - Dank Lora MD - /Scab overlyin g area where she had a fluid blister. Concerne d that this could become an ulcer. She was amenable to placing an Unna boot today between the ankle and knee. [facility], reevalua tanika. Encour ed her to use her chlortha lidone daily to try and have better improvem ent of fluid status. We may need to switch her to furosemi de. Problem Code: L98.9; Problem Code Type: ICD-10; Not Available [facility] 4 01:25:22 Dysuria 65084038 Active 2022 Problem Code: R30.9; Problem Code Type: ICD-10; Not Available [facility] 4 01:25:22 Acute cystitis 47890523 Active 202203/28/20 23 - Comments only - Dank Lora MD - , Josea televelina treated. Repeat urine culture done today. That did ended up showing Proteus again. I sent in Cipro for her, low-dose . She does have normal renal function currentl y. If she develops any side effects she will let me know. Problem Code: N30.01; Problem Code Type: ICD-10; Not Available [facility] 4 01:25:22 Pain of right knee joint 37611026010 4100 Active 2022 Problem Code: M25.561; Problem Code Type: ICD-10; Not Available [facility] 4 01:25:21 Pain of right thigh 69534333751 9107 Active 2022 Problem Code: M79.651; Problem Code Type: ICD-10; Not Available [facility] 4 01:25:21 Adult health examinat ion Active 202203/28/20 23 - Comments only - Dank Lora MD - [place] is due for mammogra m, ordered. We discusse d the DEXA scan, she wants to hold off on that for the moment. She is not currentl y a good candidat e to undergo colonosc opy given her cardiac status. We will discuss Cologuar d with her at her next appointm ent. Problem Code: Z00.00; Problem Code Type: ICD-10; Not Available [facility] 4 01:25:20 Aftercar e Active 2022 Problem Code: Z51.89; Problem Code Type: ICD-10; Not Available [facility] 4 01:25:21 Pain in lower limb 66157149 Active 2022 Problem Code: M79.606; Problem Code Type: ICD-10; Not Available [facility] 4 01:25:20 Impaired fasting glycemia 186860722 Completed 201908/17/2023 Problem Code: R73.01; Problem Code Type: ICD-10; Not Available [facility] 3 04:12:38 Hypergly cemia 66555414 Completed 202104/20/2022 Problem Code: R73.9; Problem Code Type: ICD-10; Not Available [facility] 3 04:12:39 Cat scratch Completed 202107/23/2022 Problem Code: W55.03xA ; Problem Code Type: ICD-10; Not Available [facility] 3 04:12:39 Dyspnea 715756513 Completed 201807/11/2020 Problem Code: R06.02; Problem Code Type: ICD-10; Not Available [facility] 3 04:12:39 Cellulit is of left lower limb 09110226428 138366 Completed 202107/23/2022 Problem Code: L03.116; Problem Code Type: ICD-10; Not Available [facility] 3 04:12:39 Conjunct ival hemorrha ge of right eye 17554403875 9101 Completed 201907/11/2020 Problem Code: H11.31; Problem Code Type: ICD-10; Not Available [facility] 3 04:12:40 Bleeding from nose 867233855 Completed 201804/20/2022 Problem Code: R04.0; Problem Code Type: ICD-10; Not Available [facility] 3 04:12:40 Exposure to communic able disease Completed 202002/12/2021 Problem Code: Z20.9; Problem Code Type: ICD-10; Not Available [facility] 3 04:12:40 Increase d frequenc y of urinatio n 564154860 Active 202209/15/20 23 - Comments only - Dank Lora MD - We will follow-u p on urine micro. This is likely related to urge incontin ence. Discusse d Eliegel exercise s today and provided her some instruct ions. Told her it can take up to a couple of months of doing the exercise s to notice improvem ent. Problem Code: R35.0; Problem Code Type: ICD-10; Not Available [facility] 4 01:25:20 Acute upper respirat ory infectio n 50512276 Active 2022 Problem Code: J06.9; Problem Code Type: ICD-10; Not Available [facility] 4 01:25:22 Chronic vertigo 48538389046 105 Active [address], [place] [phone] , [facility] 4 06:24:27 Kandace a 614226930 Active [address], [place] [address] , [facility] 4 05:35:08 Notes:Some problems listed i n Documents: #[id number], #[id number], #[id number] could not be added to this patient's chart. Please review these documents and add these problems to the patient's chart manually as needed. Problem Notes None recorded. Procedures Surgical History Date Name Laterality Status Provider Name and Address Organization Details Recorded Time 4 Suture/Staple removal completed Sekou Pillai MA [facility] 05/28/2024 10:23:38 4 Excision and closure completed MD Alfredo [address], [facility] [address], [facility] 05/21/2024 05:34:30 Imaging Results Imaging Date Name Status [facility] Details LastModified Time 01/31/2019 imaging/diagno stic result completed Information not available 08/06/2024 01:23:51 06/28/2019 imaging/diagno stic result completed Information not available 08/06/2024 01:23:54 03/28/2020 imaging/diagno stic result completed Information not available 08/06/2024 01:23:55 02/14/2022 imaging/diagno stic result completed Information not available 08/06/2024 01:25:43 02/14/2022 imaging/diagno stic result completed Information not available 08/06/2024 01:27:53 02/15/2022 imaging/diagno stic result completed Information not available 08/06/2024 01:28:19 07/13/2023 imaging/diagno stic result completed Information not available 08/06/2024 01:28:20 02/27/2019 CT, abdomen completed Information n ot available 08/06/2024 01:28:21 01/26/2022 XR, shoulder completed Information not available 08/06/2024 01:28:22 09/13/2019 MAMMO, screening completed Information not available 08/06/2024 01:28:23 10/08/2020 MAMMO, screening completed Information not available 08/06/2024 01:28:24 07/13/2023 imaging/diagno stic result completed Information not available 08/06/2024 01:28:29 08/23/2021 imaging/diagno stic result completed Information not available 08/06/2024 01:28:38 02/15/2022 imaging/diagno stic result completed Information not available 08/06/2024 01:28:39 03/30/2023 imaging/diagno stic result completed Information not available 08/06/2024 01:28:40 08/01/2023 imaging/diagno stic result completed Information not available 08/06/2024 01:28:41 Procedure Notes None recorded. Medical Equipment None [...] 1 cap by mouth daily 2018 active [facility] cardiolo gy Not Available [...] 50 mcg/actua tion nasal spray,mary b[facility] [place] 1 spray into both nostrils twice a [...] Available Not Available Not Avai lable Vitals Date Recorded Body height Oxygen saturation Oxygen saturation in Arterial blood by Pulse oximetry Heart rate Systolic blood pressure Diastolic blood pressure Provider Name and Address Organization Details Last Updated DateTime 4 159.385 cm 94 % 94 % 76 /min 104 mm[Hg] 60 mm[Hg] Sekou Pillai MA [facility], [facility]. 4 10:28:51 Date Recorded Body height Body mass index (BMI) Body weight Oxygen saturation Oxygen saturation in Arterial blood by Pulse oximetry Heart rate Systolic blood pressure Diastolic blood pressure Provider Name and Address Organization Details Last Updated DateTime 4 159.385 cm 38.6 kg/m2 38037.3 9 g 94 % 94 % 63 /min 100 mm[Hg] 60 mm[Hg] Sekou Pillai MA [facility], [facility]. 4 11:01:21 Date Recorded Body height Oxygen saturation Oxygen saturation in Arterial blood by Pulse oximetry Heart rate Systolic blood pressure Diastolic blood pressure Provider Name and Address Organization Details Last Updated DateTime 4 159.385 cm 95 % 95 % 65 /min 110 mm[Hg] 54 mm[Hg] Sekou Pillai MA [facility] 11:53:20 Social History Question Answer Notes LastModified by Organizat ion Details LastModified Time Tobacco Smoking Status Never Smoker Sekou Pillai MA null, [facility] 01/06/2024 11:55:57 What Was The Date Of Your Most Recent Tobacco Screening? 01/06/2024 [email or web address] Information not available 01/06/2024 Has Tobacco Cessation Counseling Been Provided? No [email or web address] Information not available 01/06/2024 Do You Or Have You Ever Used Any Other Forms Of Tobacco Or Nicotine? No [email or web address] Information not available 01/06/2024 Sex: Female Functional [...] Recorded Time Tdap 08/31/2015 completed Not Available [facility] 01:25:22 zoster live 05/06/2020 completed Not Available [facility] 12/15/2023 01:25:22 zoster live 06/19/2015 completed Not Available [facility] 12/15/2023 01:25:22 Pneumococcal conjugate PCV 13 01/18/2019 completed Not Available [facility] 12/15/2023 01:25:22 Influenza, high-dose, trivalent, PF 01/11/2019 completed Not Available [facility] 12/15/2023 01:25:22 Influenza, high-dose, trivalent, PF 11/01/2019 completed Not Available [facility] 12/15/2023 01:25:23 Td(adult) unspecified formulation 05/04/2005 completed Not Available [facility] 12/15/2023 01:25:22 zoster recombinant 11/01/2019 completed Not Available [facility] 12/15/2023 01:25:22 Influenza, high-dose, quadrivalent, PF 09/18/2021 completed Not Available [facility] 12/15/2023 01:25:22 Influenza, high-dose, quadrivalent, PF 10/14/2020 completed Not Available [facility] 12/15/2023 01:25:22 COVID-19, mRNA, LNP-S, PF, 100 mcg/0.5mL dose or 50 mcg/0.25mL dose 02/17/2021 completed Not Available [facility] 12/15/2023 01:25:22 COVID-19, mRNA, LNP-S, PF, 100 mcg/0.5mL dose or 50 mcg/0.25mL dose 03/17/2021 completed Not Available [facility] 12/15/2023 01:25:22 pneumococcal polysaccharide PPV23 10/03/2012 completed Not Available [facility] 2023 01:25:22 influenza, unspecified formulation 08/10/2016 completed Not Available [facility] 12/15/2023 01:25:22 Past Encounters Encounter ID Performer Location Encounter Start Date Encounter Closed Date Diagnosis/Indication Diagnosis SNOMED-CT Code Diagnosis ICD10 Code [id number] DANK LORA MD [address] [address] 01/06/2024 11:41:50 01/06/2024 12:53:43 Pulmonary hypertension 15206744 I48.20 Essential hypertension 97615971 I10 Lymphedema 278366821 I89 .0 Pain in ri ght hip joint 4204755577 97957 M25.551 Chronic vertigo 16458557 11 9105 R42 Prediabetes 335805940 R7 3.03 [id number] DANK LORA MD [address] [address] 04/06/2024 10:19:47 04/06/2024 11:53:46 Pulmonary hypertension 09883572 I48.20 Essential hypertension 91881433 I10 Lymphedema 442481326 I89 .0 Prediabetes 654212620 R7 3.03 Hyperlipidemia 22898121 E78.5 [id number] Elvia Jin RN [address] [address] 04/19/2024 14:17:36 04/19/2024 14:52:48 Essential hypertension 70424136 I10 [id number] DANK LORA MD [address] [address] 05/18/2024 10:46:00 05/18/2024 12:22:16 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 Localized edema 11027792 4 R60.0 Disorder o f skin and/or subcutaneous tissue 90821035 L98.9 [id number] Sekou Pillai MA [address] [address] 05/28/2024 09:48:28 05/28/2024 10:31:15 [id number] DANK LORA MD [address] [address] 08/10/2024 11:02:10 08/10/2024 13:00:49 Disorder of skin and/or subcutaneous tissue 76121509 L98.9 Pulmonary hypertension 24256427 I48.20 Prediabetes 012626581 R7 3.03 Health Concerns Section Related Observation LastModified by Organization Detai ls LastModified Time None Recorded Concern Status LastModified by Organization Details LastModified Time None Recorded Advance Directives Directive None Recorded Payers Encounter Date Sequence Insurance Name Policy Number Policy Vazquez Covered Member ID Vazquez Member ID Guarantor Name 04/06/2024 1 [facility] (MEDICARE REPLACEMENT/A DVANTAGE - HMO) [id number] Lisa Worley [id number] Lisa Worley 04/19/2024 1 [facility] (MEDICARE REPLACEMENT/A DVANTAGE - HMO) [id number] Lisa Worley [id number] Lisa Worley 05/18/2024 1 [facility] (MEDICARE REPLACEMENT/A DVANTAGE - HMO) [id number] Lisa Worley [id number] Lisa Worley 05/28/2024 1 [facility] (MEDICARE REPLACEMENT/A DVANTAGE - HMO) [id number] Lisa Worley [id number] Lisa Worley Notes Date Note Type Note Provider Name and Address Organization Details Recorded Time 04/06/2024 text/html HPI Notes: Vargas here today for follow-up of hypertension, A-fib, chronic vertigo, incontinence MD Alfredo [address], [place], [address], [facility]. 04/06/2024 17:22:22 05/18/2024 text/html HPI Notes: Charles evans here today for excision of sebaceous cyst on scalp, following up regarding lower extremity edema MD Alfredo [address], [place], [address], [facility]. 05/21/2024 05:41:09 OBGyn Episode No OBEpisode recorded.
--- OUTSIDE RECORDS SUMMARY | 2024-08-10 15:25 | XMS_ITS | Encounter Summary ---
Author Organization [facility] Address [facility] [place] [address] Care Team Providers Care Supervisory Clerk Name Role Phone Yana Turner MD Primary Care Provider [phone] Encounter Details Date Type Department Care Team (Latest Contact Info) Description 03/25/2020 1:40 PM EDT TH Visit (TeleHealth) Cardiology at [address] [address] Christiano Hamlin MD [facility] [place] [address] Chronic atrial fibrillation; Palpitations Social History Tobacco Use Types Packs/Day Years Used Date Smoking Tobacco: Never Smokeless Tobacco: Never Alcohol Use Standard Drinks/Week Comments Never 0 (1 standard drink = 0.6 oz pur e alcohol) Sex and Gender Information Value Date Recorded Sex Assigned at Not on file Gender Identity Not on file Sexual Orientation Not on file documented as of this encounter Progress Notes * Christiano Hamlin MD - 03/25/2020 1:40 PM EDT Images from the original note were not included. CARDIOLOGY VIRTUAL VISIT NOTE Lisa Worley 03/25/20 [id number] PRIMARY CARE PROVIDER: Yana Turner MD VISIT PARAMETERS: 1. The patient consented to this being a virtual visit 2. The visit took place using a telephone CLINICAL HISTORY: This 74-year-old woman was evaluated during a telephone encounter because of the COVID-19 pandemic. She has a chronic persistent atrial fibrillation, hypertension, arthritis, and exertional dyspnea. She is managed with apixaban, diltiazem, and metoprolol succinate for her atrial fibrillation rate control. She has been reluctant to use antiarrhythmic drugs after she failed her first cardioversion back in February 2019. Today she tells me that she is doing okay. She says she is hanging in there. She shares the frustration of most people these days and being isolated in her home. She does leave to go shopping and is getting a lot of support from her children. She apparently feels occasional thumping in her chest,particular at night when she lays down. Because of this, she saw her PCP yesterday who documented that she remains in atrial fibrillation (not unexpected). She is tolerating her apixaban without bleeding problems. She reports no unexplained neurologic symptoms. She says her breathing is basically unchanged and not terrible. MEDICATIONS: Current Outpatient Medications Medication Sig Dispense Refill ??? DILT-XR 180 mg Capsule,Degradable Cnt Release Take 1 capsule by mouth daily. 30 capsule 11 ??? hydroCHLOROthiazide (HYDRODIURIL) 25 mg Tablet Take [...] tablet by mouth every 6 hours asneeded. OBJECTIVE DATA: Home Vital Signs if available: Not Available Other Data: No additional data ASSESSMENT: I reviewed her EKG from yesterday and it continues to show atrial fibrillation. If she is feeling about the same as usual but for the fact that she does have occasional awareness of her heart rhythm, particular at night. We reviewed this. We talked about the possibility of use of an antiarrhythmic drug to sustained sinus rhythm (she would need to be cardioverted again) but she did notwant to go this direction being aware of the fact that there are some risks associated with antiarrhythmic drugs. I suggested that we push her medicines a little bit and see if this might make her atrial fibrillation less symptomatic. She was agreeable to this. PLAN: 1. Increase diltiazem to 240 mg daily 2. Continue other medications 3. Cardiology follow-up in 6 months Christiano Hamlin MD, [facility], [facility] Time Attestation: I spent a total of 15 minutes associated with this encounter, including chart review, the patient encounter, and documentation. documented in this encounter Plan of Treatment Upcoming Encounters Date Type Department Care Team (Late st Contact Info) Description 08/13/2024 11:20 AM EDT Office Visit Cardiology at [address] [address] Christiano Hamlin MD [facility] [place] [address] documented as of this encounter Visit Diagnoses Diagnosis Chronic atrial fibrillation Atrial fibrillation Palpitations documented in this encounter Care Teams Supervisory Clerk Relationship Specialty Start Date End Date Yana Turner MD [address] [place] [address] PCP - General Family Medicine 12/26/18 documented as of this encounter
--- OUTSIDE RECORDS SUMMARY | 2024-08-10 15:26 | XMS_ITS | Encounter Summary ---
Author Organization [facility] Address [facility] [place] [address] Care Team Providers Care Vmware Systems Administrator Name Role Phone Alissa Baxter MD Primary Care Provider [phone] Encounter Details Date Type Department Care Team (Late st Contact Info) Description 11/20/2018 Orders Only Cardiology at [address] [phone] Christiano Hamlin MD [facility] [place] [address] Hypertension, unspecified type (Primary Dx); MADRIGAL (dyspnea on exertion) Social History Tobacco Use Types Packs/Day Years Used Date Smoking Tobacco: Never Smokeless Tobacco: Never Sex and Gender Information Value Date Recorded Sex Assigned at Not on file Gender Identity Not on file Sexual Orientation Not on file documented as of this encounter Plan of Treatment Upcoming Encounters Date Type Department Care Team (Late st Contact Info) Description 08/13/2024 11:20 AM EDT Office Visit Cardiology at [address] [address] Christiano Hamlin MD [facility] [place] [address] documented as of this encounter Visit Diagnoses Diagnosis Hypertension, unspecified type- Primary MADRIGAL (dyspnea on exertion) Other dyspnea and respiratory abnormality documented in this encounter Care Teams Vmware Systems Administrator Relationship Specialty Start Date End Date Alissa Baxter MD [address] [place] [address] [address] [place] [address] PCP - General 10/13/10 12/25/18 documented as of this encounter
--- OUTSIDE RECORDS SUMMARY | 2024-08-10 15:26 | XMS_ITS | Encounter Summary ---
Author Organization [facility] Address [facility] [address] Care Team Providers Care Senior Geotechnical Engineer Name Role Phone Alissa Baxter MD Primary Care Provider [phone] Reason for Visit * Reason Onset Date Comments Medication Refill 12/13/2018 Encounter Details Date Type Department Care Team (Late st Contact Info) Description 12/13/2018 Refill Cardiology at [address] [address] Christiano Hamlin MD [facility] [place] [address] Medication Refill Social History Tobacco Use Types [...] AM EDT Office Visit Cardiology at [address] [address] Christiano Hamlin MD [facility] [place] [address] documented as of this encounter Visit Diagnoses Not on filedocumented in this encounter Care Teams Senior Geotechnical Engineer Relationship Specialty Start Date End Date Alissa Baxter MD [address] [place] [id number] PCP - General 10/13/10 12/25/18 documented as of this encounter
--- OUTSIDE RECORDS SUMMARY | 2024-08-10 15:26 | XMS_ITS | Encounter Summary ---
Author Organization [facility] Address [facility] [place] [address] Care Team Providers Care Riveter Pneumatic Name Role Phone Yana Turner MD Primary Care Provider [phone] Encounter Details Date Type Department Care Team (Late st Contact Info) Description 02/16/2019 Orders Only Cardiology at [address] [phone] Michael Babin PA [facility] [place] [address] Atrial fibrillation, unspecified type Social History Tobacco Use Types [...] 11:20 AM EDT Office Visit Cardiology at [address] [phone] Christiano Hamlin MD [facility] [place] [address] documented as of this encounter Results * EKG 12 Lead (02/19/2019 8:27 AM EDT) Ventricular rate 94 BPM MUSE SYSTEM Atrial Rate 94 BPM MUSE SYSTEM QRS Duration 78 ms MUSE SYSTEM Q-T Interval 366 ms MUSE SYSTEM QTC Calculated (Bezet) 457 ms MUSE SYSTEM Calculated R [place] 6 degrees MUSE SYSTEM Calculated T [place] 46 degrees MUSE SYSTEM INTERPRETATION Atrial fibrillation Nonspecific ST and T wave abnormality Abnormal ECG When compared with ECG of 31-JAN-2019 14:27, No significant change was found I personally reviewed the tracing and edited the fellows interpretation Confirmed by fellow MD Garcia, Alpa Meehan ([id number]) on 02/19/2019 12:39:41 PM Confirmed by MD Kb, Donovan ([id number]) on 02/19/2019 5:19:18 PM MUSE SYSTEM 02/19/2019 8:27 AM EDT 02/19/2019 5:19 PM EDT Saman Honeycutt MD ECG ORDERABLES Performing Organization Address City/[facility]/ZIP Co de Phone Number MUSE SYSTEM * Magnesium (02/19/2019 7:36 AM EDT) Magnesium 0.85 0.69 - 1.07 mmol/L [facility] Blood specimen (specimen) 02/19/2019 7:36 AM EDT 02/19/2019 7:43 AM EDT Narrative Resulting Agency Comment Spec In Lab Saman Honeycutt MD CHEMISTRY ORDERABLES Performing Organization Address City/[facility] Co de Phone Number [facility] [place] [address] * (ABNORMAL) Basic Metabolic Panel (non-fasting) (02/19/2019 7:36 AM EDT) Glucose 128 65 - 199 mg/dL [facility] Comment:Diabetes: >=200 mg/d L plus symptoms Blood Urea Nitrogen 23(H) 8 - 18 mg/dL [facility] Creatinine 0.71 0.70 - 1.20 mg/dL [facility] Sodium 142 135 - 145 mmol/L [facility] Potassium 4.4 3.5 - 5.0 mmol/L [facility] Comment: Please note: ??Patients with WBC >100,000 may have falsely elevated Potassium levels. ??For accurate Potassium quantification in these patients send serum separator tube (gold top) for subsequent determinations. ??Contact the Clinical Chemistry Laboratory if there are any questions. Chloride 102 98 - 107 mmol/L [facility] Carbon Dioxide 28 22 - 31 mmol/L [facility] Anion Gap 12 5 - 15 mmol/L [facility] Calcium 8.8 8.5 - 10.5 mg/dL [facility] Est Glomerular Filtration Rate 84 >=60 mL/min/1. 73 m?? [facility] Comment: The eGFR was calculated using the CKD-EPI equation. As with all creatinine based estimates of kidney function, eGFR values calculated with the CKD-EPI equation are not accurate in patients with acute kidney failure, extremes of body mass or the acutely ill. http://CHNL/[employer] Carenkf eGFR 98 >=60 mL/min/1. 73 m?? [facility] Comment: The eGFR was calculated using the CKD-EPI equation. As with all creatinine based estimates of kidney function, eGFR values calculated with the CKD-EPI equation are not accurate in patients with acute kidney failure, extremes of body mass or the acutely ill. [email or web address]/DHnkf Blood specimen (specimen) 02/19/2019 7:36 AM EDT 02/19/2019 7:43 AM EDT Narrative Resulting Agency Comment Spec In Lab Saman Honeycutt MD CHEMISTRY ORDERABLES [facility] [place] [address] documented in this encounter Visit Diagnoses Diagnosis Atrial fibrillation, unspecified type documented in this encounter Care Teams Riveter Pneumatic Relationship Specialty Start Date End Date Yana Turner MD [address] [place] [address] PCP - General Family Medicine 12/26/18 documented as of this encounter
--- OUTSIDE RECORDS SUMMARY | 2024-08-10 15:26 | XMS_ITS | Encounter Summary ---
Author Organization [facility] [place] [address] Care Team Providers Care Digital Marketing Apprentice Name Role Phone Yana Turner MD Primary Care Provider [phone] Encounter Details Date Type Department Care Team (Late st Contact Info) Description 02/01/2019 Telephone Cardiology at [address] [phone] Nina Lyons RN Social History Tobacco Use Types Packs/Day Years Used Date Smoking Tobacco: Never Smokeless Tobacco: Never Sex and Gender Information Value Date Recorded Sex Assigned at Not on file Gender Identity Not on file Sexual Orientation Not on file documented as of this encounter Miscellaneous Notes * Telephone Encounter - Nina Lyons RN - 02/21/2019 3:07 PM EDT Patient is calling again wondering if she has HF. She says she already had her blood test but no one got back to her about the results. She says she spoke to another nurse yesterday a couple of timesbut did not get a call back and a note does not appear to have been put in chart. Nina Lyons library circulation technician [facility] General Team-[place] * Telephone Encounter - Christiano Hamlin MD - 02/15/2019 4:19 PM EDT An order for a pro-BNP was placed in eD-H. * Telephone Encounter - Nina Lyons RN - 02/01/2019 10:04 AM EDT Patient called and reported that she had her appt.yesterday with Dr. Hamlin and her kids wereupset with her because she didn't have or ask for heart failure labs. It was explained to patient that there did not appear to be any mention of labs in OV note yesterday. Also that labs and procedures are not ordered based on family member wishes, they need to be directed by the provider and be medically necessary. Patient will also be scheduled for a cardioversion soon. Patient was assured message would be sent to checking clerk for review. Nina Lyons library circulation technician [facility] General Team-[place] documented in this encounter Plan of Treatment Upcoming Encounters Date Type Department Care Team (Late st Contact Info) Description 08/13/2024 11:20 AM EDT Office Visit Cardiology at [address] [address] Christiano Hamlin MD [facility] [place] [address] documented as of this encounter Results * (ABNORMAL) pro-Brain Natriuretic Peptide (02/19/2019 7:36 AM EDT) NT-proBNP 1,436(H) <=125 pg/mL [facility] Blood specimen (specimen) 02/19/2019 7:36 AM EDT 02/19/2019 7:43 AM EDT Narrative Resulting Agency Comment Spec In Lab Christiano Hamlin MD CHEMISTRY ORDERABLES [facility] [place] [address] documented in this encounter Visit Diagnoses Diagnosis MADRIGAL (dyspnea on exertion) Other dyspnea and respiratory abnormality documented in this encounter Care Teams Digital Marketing Apprentice Relationship Specialty Start Date End Date Yana Turner MD [address] [place] [address] PCP - General Family Medicine 12/26/18 documented as of this encounter
--- OUTSIDE RECORDS SUMMARY | 2024-08-10 15:26 | XMS_ITS | Encounter Summary ---
Author Organization [facility] Address [address] [place] [address] Care Team Providers Care Logistics Planner Name Role Phone Unavailable Primary Care Provider Unavailabl e Encounter Details Date Type Department Care Team (Late st Contact Info) Description 09/07/2011 Results Only [facility] ([facility]) [address], [place] [id number] Anju Yip MD [address] [place] [address] Social History Tobacco Use Types Packs/Day Years Used Date Smoking Tobacco: Never Assessed Sex and Gender Information Value Date Recorded Sex Assigned at Not on file Gender Identity Not on file Sexual Orientation Not on file documented as of this encounter Plan of Treatment Not on file documented as of this encounter Procedures Procedure Name Priority Date/Time Associated Diagnosis Comments SURGICAL PATHOLOGY Routine 09/07/2011 0:00 EDT documented in this encounter Results * SURGICAL PATHOLOGY (09/07/2011 0:00 EDT) Pathology Report: SURGICAL PATHOLOGY REPORT Reports generated via electronic interface contain original data; however they are lacking the format of the original report. Caution should be taken when reading/interpreting unformatted reports. Name: ? LISA MARTINEZ ? Accession #: ? [id number] ? : ? 1945 (Age: 66) ??F ? Collect Date: ? 09/07/2011 ? Location: ? [facility] ? Receive Date: ? 09/08/2011 ? Provider: ANJU YIP MD Copy to: ? Final Pathologic Diagnosis: ? Soft tissue of wrist, left, resection: - Ganglion cyst with focal brown pigment deposition, favor hemosiderin pigment. Comment: ? This case has been reviewed at intradepartmental consultation conference. (Dr. Lofton)/ Document reviewed and electronically signed by: Cornelius Lofton MD Report ??Date: 09/09/2011 17:06 By the signature above, the attending physician certifies that he/she has personally conducted a gross and/or microscopic examination of the described specimens and rendered or confirmed the above diagnosis. Specimen(s) Received: ? Mass left wrist Clinical History: ? Looks like ganglion cyst, but some darker area; clinical diagnosis code: 719.63 Gross Description: ? Received in formalin labelled Martinez, Lisa and mass left wrist are four espinoza-white fibrous unoriented soft tissues ranging from 0.2 x 0.2 x 0.2 cm to 0.7 x 0.5 x 0.3 cm. ??The specimen is inked and entirely submitted in one cassette. ??(Sonia Allen)/[facility] End of Report RAFAEL HUANG 09/07/2011 09/08/2011 8:5 2 EDT Anju Yip MD PATHOLOGY ORDERABLES RAFAEL HUANG [address] [place] [address] documented in this encounter Visit Diagnoses Not on filedocumented in this encounter
--- OUTSIDE RECORDS SUMMARY | 2024-08-10 15:26 | XMS_ITS | Encounter Summary ---
Author Organization [facility] Address [facility] [place] [address] Care Team Providers Care Airways Control Specialist Name Role Phone Alissa Baxter MD Primary Care Provider [phone] Encounter Details Date Type Department Care Team (Late st Contact Info) Description 12/06/2017 11:20 AM EST Office Visit Cardiology at [address] [address] Christiano Hamlin MD [facility] [place] [address] MADRIGAL (dyspnea on exertion) Social History Tobacco Use Types Packs/Day Years Used Date Smoking Tobacco: Never Smokeless Tobacco: Never Sex and Gender Information Value Date Recorded Sex Assigned at Not on file Gender Identity Not on file Sexual Orientation Not on file documented as of this encounter Last Filed Vital Signs Vital Sign Reading Time Taken Comments Blood Pressure 150/69 12/06/2017 11:04 AM EST Pulse 77 12/06/2017 11:04 AM EST Temperature - - Respiratory Rate - - Oxygen Saturation 97% 12/06/2017 11:04 AM EST room air Inhaled Oxygen Concentration - - Weight 98.4 kg (217 lb) 12/06/2017 11:04 AM EST Height 162.6 cm (5' 4) 12/06/2017 11:04 AM EST Body Mass Index 37.25 12/06/2017 11:04 AM EST documented in this encounter Progress Notes * Christiano Hamlin MD - 12/06/2017 11:20 AM EST Images from the original note were not included. [facility] [place] [address] [address] CARDIOLOGY OUTPATIENT FOLLOW-UP NOTE Lisa Worley [id number] PCP: Alissa Baxter MD 12/06/2017 PRIMARY CARE PROVIDER: Alissa Baxter MD PROBLEM LIST: Patient Active Problem List Diagnosis ??? MADRIGAL (dyspnea on exertion) ?? Onset [...] (osteoarthritis) ??? Mixed incontinence MEDICATIONS: Current Outpatient Prescriptions Medication Sig Dispense Refill ??? acetaminophen (TYLENOL) 325 mg Tablet Take 650 mg by mouth every 4 hours as needed for Pain. ??? melatonin 3 mg Tablet Take by mouth nightly as needed. ??? atorvastatin (LIPITOR) 10 mg Tablet Take 10 mg by mouth daily. ??? meTOPROLOL succinate (TOPROL-XL) 50 mg Tablet Sustained Release 24 hr Take 50 mg by mouth daily. ??? aspirin 81 mg Tablet, Delayed Release (E.C.) Take 81 mg by mouth daily. ??? hydroCODone-acetaminophen (VICODIN) 5-500 mg per tablet Take 1 tablet by mouth every 6 hours asneeded. ??? nitroGLYcerin (NITROSTAT) 0.4 mg Tablet, Sublingual Place 0.4 mg under the tongue every 5 minutes as needed for Chest pain. No current facility-administered medications for this visit. SUBJECTIVE: This 72-year-old woman comes for follow-up visit. She has unexplained exertional dyspnea and some chest discomfort. She was evaluated with an echocardiogram which showed moderate mitral regurgitation and some pulmonary hypertension. A nuclear stress test showed inferolateral ischemia. She was set up for heart catheterization which took place at [facility] on October 11, 2017. This was surprisingly unremarkable. Her filling pressures were low with a wedge of 6 and a LVEDP of 15. Her cardiac output and index were normal at 6 3 respectively. Her coronary arteries were essentially normal with the exception of the right coronary artery which had some mild diffuse disease. She comes today indicating that she is fairly stable. She still experiences some dyspnea, sometimeswith exertion and sometimes at rest. She has increasingly come to realize that she is very stressed. Ever since her she has been fairly overwhelmed with issues related to her home and property. She knows she needs to sell her house but there are a lot of complications at this point. OBJECTIVE: Vital Signs: BP 150/69 Pulse 77 Ht 162.6 cm (5' 4) Wt 98.4 kg (217 lb) SpO2 97% Comment: room air BMI 37.25 kg/m2 Physical Exam: On exam she appeared in good health and spirits. Vital signs as documented. Skin warm and dry and without overt rashes. Neck without JVD. Lungs clear. Heart exam notable for regular rhythm, normal sounds and absence of murmurs, rubs or gallops. Abdomen unremarkable and without evidence of organomegaly, masses, or abdominal aortic enlargement. Extremities non-edematous. ASSESSMENT: Overall she is doing well. On the basis of her heart catheterization findings, I think it highly unlikely that her exertional dyspnea and chest discomfort are related to underlying cardiac issues. We reviewed the situation in detail. We specifically reviewed her heart catheterization findings. I suspect that anxiety is, in fact, a component of her symptom complex. PLAN: 1. Increase metoprolol to 75 mg daily (blood pressure little elevated and heart sometimes pounds) 2. Routine cardiology follow-up in 6 months documented in this encounter Plan of Treatment Upcoming Encounters Date Type Department Care Team (Late st Contact Info) Description 08/13/2024 11:20 AM EDT Office Visit Cardiology at [address] [place] [address] Christiano Hamlin MD [facility] [place] [address] documented as of this encounter Visit Diagnoses Diagnosis MADRIGAL (dyspnea on exertion) Other dyspnea and respiratory abnormality documented in this encounter Care Teams Airways Control Specialist Relationship Specialty Start Date End Date Alissa Baxter MD [address] [place] [address] PCP - General 10/13/10 12/25/18 documented as of this encounter
--- OUTSIDE RECORDS SUMMARY | 2024-08-10 15:26 | XMS_ITS | Encounter Summary ---
Author Organization [facility] [place] [place] [address] Care Team Providers Care Commercial Production Editor Name Role Phone Yana Turner MD Primary Care Provider [phone] Encounter Details Date Type Department Care Team (Latest Contact Info) Description 02/19/2019 8:59 AM EDT - 02/19/2019 11:35 AM EDT Hospital Encounter [place] [id number] Christiano Hamlin MD [facility] [place] [address] Paroxysmal atrial fibrillation; Atrial fibrillation, unspecified type Discharge Disposition: Home Social History Tobacco Use Types Packs/Day Years [...] Sign Reading Time Taken Comments Blood Pressure 114/74 02/19/2019 11:00 AM EDT Pulse 55 02/19/2019 11:00 AM EDT Temperature 36.4 ??C (97.5 ??F) 02/19/2019 10:30 AM E DT Respiratory Rate 16 02/19/2019 11:00 AM EDT Oxygen Saturation 97% 02/19/2019 11:00 AM EDT Inhaled Oxygen Concentration - - Weight - - Height - - Body Mass Index - - documented in this encounter Discharge Instructions * Discharge Instructions* Marie Langley RN - 02/19/2019 11:20 AM EDT CARDIOVERSION INFORMATION What are the risks of cardioversion? Cardioversion is a frequently performed procedure with a low risk of serious side effects. Serious complications occur in less than one out of a hundred patients. These complications include: ? A very slow heartbeat (bradycardia) ? A very fast heartbeat (tachycardia) ? Stroke ? Pneumonia You may have redness, burning, stinging, or itching on the skin where the pads were placed. If you go home and are uncomfortable, there are several ointments that you can purchase over the counter touse on your skin. For example: ? Anesthetic ointment, such as Lanacaine ? Hydrocortisone 1% (steroid) cream in the form of Cortaid or Kericort Some patients report that applying ice packs to the pad sites decreases the discomfort. Call the cardiologists who performed the test if you need a prescription for a stronger medication. What instructions should I follow for the next few days after the cardioversion? Activity: ? Rest after the procedure. You may be sleepy for several hours. ? Be careful on the stairs during the remainder of the day; you may be unsteady on your feet. ? Do not smoke at home if you are alone for 24 hours following your procedure. ? Do not drive, operate machinery, drink alcoholic beverages, or make important decisions for 24 hours. The medications may change your reaction time or judgment without your awareness. Diet: ? Follow your regular diet as tolerated. If nausea occurs, start with clear liquids, and progress slowly to your regular diet. Medications: ? Your heart medications may not be the same after your cardioversion. Check with your doctor aboutwhat medicines to take. Follow-up care: ? If you have return of the symptoms associated with your abnormal heartbeat, contact your doctor. ? If you need a stronger medicine to treat your skin where the adhesive pads were placed, call the polymerization oven tender television technician at . ? We will schedule a follow-up appointment with the polymerization oven tender here, or you will be scheduled to see your local doctor soon. Any specific instructions that apply to you will be given to you prior to discharge from the hospital. If you have any questions about this procedure, call the Cardiology Department at: Tuesday through Tuesday 8:00 a.m. to 4:30 p.m. documented in this encounter Medications at Time of Discharge Medication Sig Dispensed Refills Start Date End Date metoprolol succinate (TOPROL-XL) 100 mg Tablet Sustained Release 24 hr Take 1.5 tablets by mouth daily. 135 tablet 3 01/31/2019 nitroGLYcerin (NITROSTAT) 0.4 mg Tablet, Sublingual Place 1 tablet under the tongue every 5 minutes as needed for Chest pain. 25 tablet 11 12/26/2018 acetaminophen (TYLENOL) 325 mg Tablet Take 650 mg by mouth every 4 hours as needed for Pain. melatonin 3 mg Tablet Take 3 mg by mouth nightly as needed. atorvastatin (LIPITOR) 10 mg Tablet Take 10 mg by mouth daily. hydroCODone-acetaminoph en (VICODIN) 5-500 mg per tablet Take 1 tablet by mouth every 6 hours as needed. furosemide (LASIX) 40 mg Tablet Take 1 tablet by mouth 2 times daily. 180 tablet 3 01/31/2019 08/15/2019 apixaban (ELIQUIS) 5 mg Tablet Take 1 tablet by mouth 2 times daily. 60 tablet 3 12/26/2018 04/26/2019 aspirin 81 mg Tablet, Delayed Release (E.C.) Take 81 mg by mouth daily. 12/03/2020 documented as of this encounter Progress Notes * Marie Langley RN - 02/19/2019 11:34 AM EDT Post CV EKG ordered and obtained. reviewed EKG and came to see pt. Pt continues to have slight SOB; denies CP, N/V. AVS reviewed with pt and family. All acknowledged understanding of d/c instructions. Pt d/c'd to home with all belongings. documented in this encounter Procedure Notes * Blanca Copeland PA - 02/19/2019 10:17 AM EDTAssociated Order(s): CARDIOVERSION-OR Procedure(s): CARDIOVERSION-OR Pre-Procedure Diagnose(s): PAF (paroxysmal atrial fibrillation) Post-Procedure Diagnose(s): Paroxysmal atrial fibrillation Direct Current Cardioversion Procedure Note: Date of Procedure: 02/19/2019 Attending: Saman Honeycutt MD PA: Blanca Copeland PA-C; Michael Babin PA-C Indication: Atrial fibrillation, paroxysmal Patient Active Problem List Diagnosis ??? Atrial fibrillation ??? MADRIGAL (dyspnea on exertion) ?? Onset about July, and accompanied by mild chest pain ?? Echocardiogram through [facility] August 12, 2017 showing mild LVH with normal LV systolic function and ejection fraction of 60-65%; normally sized and functioning right ventricle; severely dilated left atrium; moderate tricuspid regurgitation; moderate to severe pulmonary hypertension with PA systolic pressure 45-55 mmHg ?? Nuclear stress test [facility] September 12, 2017 showing small in size moderately intense partially reversible defect involving the inferolateral jasso suggesting ischemia in the distribution of the left circumflex; calculated ejection fraction of 64% with no wall motion a bnormalities ?? Chest x-ray reportedly unremarkable ??? Hypertension ??? OA (osteoarthritis) ??? Mixed incontinence The patient was brought to the procedure room in the fasting state with an intravenous line in place. A time-out was conducted just before the start of the procedure to verify the correct patient andprocedure, and relevant critical information, including allergies. After answering all of the patient's questions and assuring informed consent, and with the anesthesiology service assisting with sedation and airway management, the patient transiently was anesthetized. The electrode pads were placed in the following position: ([]) Right anterior, left scapular ([]) Left anterior, left scapular ([]) Right upper parasternal and apical ([]) Other: central sternal anterior, posterior left scapular The patient received #1synchronized discharge(s) and the maximal discharge at 200 joules. NSR restored successfully: ([x]) Yes, to NSR in the high 50s-low 60s ([]) Yes, but with early relapse ([]) No Complications: The patient subsequently awoke with no memory of the cardioversion, and there were no apparent complications. Provider Instructions: A follow up 12-lead ECG will be obtained. DICK Rutledge 10:19 AM 02/19/19 documented in this encounter Nursing Notes * Dave Moreno, RN - 02/19/2019 10:12 AM EDT 1009 DCCV at 200J x1 SR Pad sites pink blanchable documented in this encounter Plan of Treatment Upcoming Encounters Date Type Department Care Team (Late st Contact Info) Description 08/13/2024 11:20 AM EDT Office Visit Cardiology at [address] [address] Christiano Hamlin MD [facility] [place] [address] Scheduled Orders Name Type Priority Associated Diagnoses Orde r Schedule EKG 12 Lead ECG STAT Atrial fibrillation, unspecified type One Time for 1 Occurrences starting 02/19/2019 until 02/19/2019 documented as of this encounter Procedures Procedure Name Priority Date/Time Associated Diagnosis Comments EKG 12-LEAD STAT 02/19/2019 10:38 AM EDT Paroxysmal atrial fibrillation CARDIOVERSION-OR Routine 02/19/2019 10:1 7 AM EDT CARDIOVERSION-ELEC TIVE (WRVU 2) 02/19/2019 9:59 AM EDT atrial fibrillation documented in this encounter Results * EKG 12 Lead (02/19/2019 10:38 AM EDT) Ventricular rate 54 BPM MUSE SYSTEM Atrial Rate 54 BPM MUSE SYSTEM P-R Interval 176 ms MUSE SYSTEM QRS Duration 84 ms MUSE SYSTEM Q-T Interval 502 ms MUSE SYSTEM QTC Calculated (Bezet) 476 ms MUSE SYSTEM Calculated P [place] 85 degrees MUSE SYSTEM Calculated R [place] -7 degrees MUSE SYSTEM Calculated T [place] -3 degrees MUSE SYSTEM INTERPRETATION Electronic artifact present Sinus bradycardia with Premature supraventricular complexes Nonspecific T wave abnormality Abnormal ECG When compared with ECG of 19-FEB-2019 08:27, (unconfirmed) Sinus rhythm has replaced Atrial fibrillation Vent. rate has decreased BY ??40 BPM I personally reviewed the tracing and edited the fellows interpretation Confirmed by fellow MD Price, Belén ([id number]) on 02/19/2019 12:15:19 PM Confirmed by MD Kb, Donovan ([id number]) on 02/19/2019 5:19:54 PM MUSE SYSTEM 02/19/2019 10:3 8 AM EDT 02/19/2019 5:19 PM EDT Saman Honeycutt MD ECG ORDERABLES MUSE SYSTEM documented in this encounter Visit Diagnoses Diagnosis Paroxysmal atrial fibrillation Atrial fibrillation Atrial fibrillation, unspecified type documented in this encounter Active and Recently Administered Medications Care Teams Commercial Production Editor Relationship Specialty Start Date End Date Yana Turner MD [address] [place] [address] PCP - General Family Medicine 12/26/18 documented as of this encounter
--- OUTSIDE RECORDS SUMMARY | 2024-08-10 15:26 | XMS_ITS | Encounter Summary ---
Author Organization [facility] Address [facility] [place] [address] Care Team Providers Care Bull Wheel Worker Name Role Phone Alissa Baxter MD Primary Care Provider Reason for Visit * Reason Comments Shortness of Breath Chest Pain * Consultation (Urgent) - Closed Specialty Diagnoses / Procedures Referred By Contac t Referred To Contact Cardiology Diagnoses abnormal stress test, pulmonary HTN, tricuspid valve insufficiency Alissa Baxter MD [address] [place] [address] [address] [place] [address] Christiano Hamlin MD [facility] [place] [address] Referral ID Status Reason Start Date Expiration Date V isits Requested Visits Authorized [id number] Closed Consult, [facility] 09/14/2017 09/14/2018 1 1 Encounter Details Date Type Department Care Team (Late st Contact Info) Description 09/27/2017 11:00 AM EST Office Visit Cardiology at [address] [place] [address] Christiano Hamlin MD [facility] [place] [address] Abnormal stress test; MADRIGAL (dyspnea on exertion); Chest pain, unspecified type Social History Tobacco Use Types Packs/Day Years Used Date Smoking Tobacco: Never Smokeless Tobacco: Never Sex and Gender Information Value Date Recorded Sex Assigned at Not on file Gender Identity Not on file Sexual Orientation Not on file documented as of this encounter Last Filed Vital Signs Vital Sign Reading Time Taken Comments Blood Pressure 144/80 09/27/2017 11:01 AM EST Pulse 73 09/27/2017 11:01 AM EST Temperature - - Respiratory Rate - - Oxygen Saturation 99% 09/27/2017 11:01 AM EST room air Inhaled Oxygen Concentration - - Weight 98.9 kg (218 lb) 09/27/2017 11:01 AM EST Height 162.6 cm (5' 4) 09/27/2017 11:01 AM EST Body Mass Index 37.42 09/27/2017 11:01 AM EST documented in this encounter Patient Instructions * Patient Instructions* Christiano Hamlin MD - 09/27/2017 11:00 AM EST 1. No change in medications 2. No food or fluids after midnight 10/10 (OK to take meds with a sip of water) 3. Arrive Same Day Program at [facility] at 8:00 am on 10/11/17 Procedure: Heart Catheterization Shroudman: Greg Mason MD documented in this encounter Progress Notes * Christiano Hamlin MD - 09/27/2017 11:00 AM EST Images from the original note were not included. [facility] [place] [address] CARDIOLOGY OUTPATIENT CONSULTATION [facility] Mat Office Lisa Worley [id number] 09/27/2017 REFERRING PROVIDER: Alissa Baxter CHIEF COMPLAINT: Chief Complaint Patient presents with ??? Shortness of Breath ??? Chest Pain PROBLEM LIST Patient Active Problem List Diagnosis ??? MADRIGAL (dyspnea on exertion) ?? Onset about July, and accompanied by mild chest pain ?? Echocardiogram through [facility] August 12, 2017 showing mild LVH with normal LV systolic function and ejection fraction of 60-65%; normally sized and functioning right ventricle; severely dilated left atrium; moderate tricuspid regurgitation; moderate to severe pulmonary hypertension with PA systolic pressure 45-55 mmHg ?? Nuclear stress test [facility] September 12, 2017 showing small in size moderately intense partially reversible defect involving the inferolateral jasso suggesting ischemia in the distribution of the left circumflex; calculated ejection fraction of 64% with no wall motion a bnormalities ?? Chest x-ray reportedly unremarkable ??? Hypertension ??? OA (osteoarthritis) ??? Mixed incontinence HISTORY OF PRESENT ILLNESS: This 72-year-old woman was kindly referred by Dr. Alissa Baxter for evaluation of shortness of breath. She said her symptoms started about 2 months ago. She says they are most noticeable climbing stairs, walking up hills, and other moderate activities. Her shortness ofbreath is sometimes accompanied by some discomfort in her chest. She has been okay at rest and nocturnally. After her symptoms were brought to the attention of her PCP, arrangements were made for a chest x-ray which was apparently unremarkable. She had an echocardiogram which showed moderate mitralregurgitation, moderate pulmonary hypertension, and some mild LVH. A nuclear stress test was done at [facility] and showed inferolateral ischemia. Her medicines are largely stable. She has been switched from atenolol to metoprolol and does take ababy aspirin and atorvastatin. She has no prior history of heart issues. She has long-term secondhand smoke exposure, hypertension, and hyperlipidemia as her risk factors. PAST MEDICAL HISTORY: Reviewed and updated as appropriate in the medical record. Please refer to detailed Problem List above for current listing of active medical problems. MEDICATIONS: Current Outpatient Prescriptions Medication Sig Dispense Refill ??? atorvastatin (LIPITOR) 10 mg Tablet Take 10 mg by mouth daily. ??? meTOPROLOL succinate (TOPROL-XL) 50 mg Tablet Sustained Release 24 hr Take 50 mg by mouth daily. ??? aspirin 81 mg Tablet, Delayed Release (E.C.) Take 81 mg by mouth daily. ??? gabapentin (NEURONTIN) 100 mg Capsule Take 100 mg by mouth 3 times daily. ??? hydroCODone-acetaminophen (VICODIN) 5-500 mg per tablet Take 1 tablet by mouth every 6 hours asneeded. ??? nitroGLYcerin (NITROSTAT) 0.4 mg Tablet, Sublingual Place 0.4 mg under the tongue every 5 minutes as needed for Chest pain. No current facility-administered medications for this visit. ALLERGIES: Penicillins SOCIAL HISTORY: She is (her was a former patient of mine). And lives in [place], [place]. 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 She never smoked although had significant secondhand smoke exposure through her . She enjoys drinking 2 glasses of wine on a nightly basis. She typically has1 caffeinated beverage per day. FAMILY HISTORY: Her father of old age at 82. Her mother at 95. She lost a brother to colon cancer and has another brother who is undergone open heart surgery for some type of valvular disease. She has 2 sisters who are healthy. She has 4 children, all healthy. REVIEW OF SYSTEMS: General: [No weight loss, fatigue, anorexia, insomnia, or fever.] Eyes: [No visual loss, double vision, drainage, eye pain, or dry eyes.] ENT: [No sore throat or dry mouth.] Pulmonary: Shortness of breath as described above. She denies cough or hemoptysis. Hem/Lymph: [No swollen glands, fever, or bleeding.] GI: [No abdominal pain, change in bowel habits, melena, nausea, vomiting or dysphagia.] : [No urethral discharge, dysuria, frequency, or nocturia.] Endocrine: [No hot spells, cold spells.] Musculoskeletal: [No limb pain, joint pain, or joint swelling.] Neuro: [No focal weakness, ataxia, confusion, paresthesias or headache.] Skin: [No rashes or dry skin.] Psych: [No depression, anxiety, suicidal ideation.] Cardiac: See HPI PHYSICAL EXAMINATION: Vital Signs: BP 144/80 Pulse 73 Ht 162.6 cm (5' 4) Wt 98.9 kg (218 lb) SpO2 99% Comment: room air BMI 37.42 kg/m2 Exam Details: On physical examination she was a moderately overweight elderly woman in no acute distress. Her vital signs are summarized above. Head exam was generally normal. There was no scleral icterus or corneal arcus. Mucus membranes were moist. Neck was supple and without jugular venous distension, thyromegaly, or carotid bruits. Carotids were easily palpable bilaterally. There was no adenopathy. Lungs were clear to auscultation and percussion, and with normal diaphragmatic excursion. No wheezes or rales were noted. Cardiac exam revealed the PMI to be normally situated and sized. The rhythm was regular and no extrasystoles were noted during several minutes of auscultation. The first and second heart sounds were normal and physiologic splitting of the second heart sound was noted. There were no murmurs, rubs, clicks, or gallops. Her abdomen was soft and nontender. She had no significant peripheral edema. DATA: Lead EKG: This revealed normal sinus rhythm at a rate of 75 ASSESSMENT: In summary, this is a 72-year-old woman with about 2 months of new and unexplained exertional dyspnea. She has moderate tricuspid regurgitation and moderate pulmonary hypertension on echocardiographic evaluation but no evidence of systolic or diastolic issues involving her left ventricle. She has a reported inferolateral ischemia on a stress test. It is certainly possible that her dysp xochilt is an ischemic equivalent. It is conceivable, as well, that she has pulmonary hypertension and this is contributing to her dyspnea. RECOMMENDATIONS: 1. No change in medications 2. Routine pre-heart catheterization labs today at [facility] 3. She is formally scheduled for right and left heart catheterization on October 11, 2017 with an 8 AM arrival time Thank you for requesting this consultation. For questions, please feel free to contact me via any of the following mechanisms: Email: [email or web address] documented in this encounter Miscellaneous Notes * Addendum Note - Kenyatta Ulloa - 09/27/2017 12:11 PM ESTAddended by: KENYATTA ULLOA on: 09/27/2017 12:11 PM Modules accepted: Orders documented in this encounter Plan of Treatment Upcoming Encounters Date Type Department Care Team (Late st Contact Info) Description 08/13/2024 11:20 AM EDT Office Visit Cardiology at [address] [address] Christiano Hamlin MD [facility] [place] [address] documented as of this encounter Procedures Procedure Name Priority Date/Time Associated Diagnosis Comments CARDIAC CATHETERIZATION Routine 10/11/20 11:35 AM EST Abnormal stress test MADRIGAL (dyspnea on exertion) Chest pain, unspecified type HEMOGRAM Routine 09/27/2017 12:23 PM EST Abnormal stress test MADRIGAL (dyspnea on exertion) Chest pain, unspecified type DIFFERENTIAL, AUTOMATED Routine 09/27/20 12:23 PM EST Abnormal stress test MADRIGAL (dyspnea on exertion) Chest pain, unspecified type PROTHROMBIN TIME Routine 09/27/2017 12:2 3 PM EST Abnormal stress test MADRIGAL (dyspnea on exertion) Chest pain, unspecified type CBC (WITH DIFF) Routine 09/27/2017 12:23 PM EST Abnormal stress test MADRIGAL (dyspnea on exertion) Chest pain, unspecified type BASIC METABOLIC PANEL Routine 09/27/2017 12:23 PM EST Abnormal stress test MADRIGAL (dyspnea on exertion) Chest pain, unspecified type EKG 12-LEAD Routine 09/27/2017 11:10 AM EST Abnormal stress test documented in this encounter Results * CARDIAC CATHETERIZATION (10/11/2017 11:35 AM EST) Anatomical Region Laterality Modality Other Narrative 10/11/2017 11:53 AM EST ?[facility] ? Cardiac Catheterization/Intervention Report ? Patient Name: Worley, Lisa ? Procedure Date: 10/11/2017 ? A #: [id number] ? Primary Physician: Greg Mason ? Case #: [id number] ? File Name: [id number] ? Catheterization Order Number: [id number] ? [facility] ? Final Report [place], [place] ? Patient Name: ? Lisa Worley ? ID#: ?[id number] ? : ?1945 ? Procedure Date: ? October 11, 2017 ?Case #: ? [id number] ? Room: ? 5 ? Case Physician: ? Greg Mason M.D. ? Start: ?10:33 ?Fellow: ? Jorge Le M.D. ? Admission: ??10/11/2017 ?Milka De Paz D.O. ? Referring Physician: ??Alissa Baxter M.D. ? Procedures: ?* Coronary Angiography ?* Left Heart Catheterization ?* Right Heart Catheterization ?* Oximetry ? History ?Lisa Worley is a 72 year old woman. She has hypertension. The patient ?has hypercholesterolemia managed with lipid therapy. She has atypical ?symptoms for coronary artery disease. The patient has a history of ?dyspnea with NYHA functional class III and pulmonary hypertension. She ?has tricuspid regurgitation. The patient also has a history of an ?abnormal stress test and an abnormal echocardiogram. Prior to the ?initiation of this procedure, the patient was designated as ASA Class II. ? Patient Status at Catheterization: ?The patient presented with: stable angina (w/i [address]). [place] ?Cardiovascular Society angina class was III. This patient was on beta ?blockers prior to the procedure. A SPECT stress test was performed and ?results were Positive and Unavailable ischemia assessment. ? Technique: ?A 6 SLFr sheath was inserted in the right radial artery utilizing the ?Seldinger technique. A 7Fr sheath was inserted in the right median ?antecubital vein utilizing the Seldinger technique. The left coronary ?artery was injected utilizing a 5Fr TIG 4.0 catheter. A 5Fr JR 4 catheter ?was used to inject the right coronary artery. Right heart catheterization ?was performed utilizing a 7Fr Altamont-Scooby catheter. Left ventricular ?pressure was performed with a 5Fr TIG 4.0 catheter. 5,000 units of ?heparin were administered. A total of 100cc of Omnipaque were opened, ?85cc of Omnipaque were administered and 15cc of Omnipaque were wasted. ?Radiation: Fluoro time was 9.2 minutes, dose area product was 54,078 ?mGYcm2 and air kerma was 1,383 mGY. ?The patient received the following medications prior to and during the ?procedure: Aspirin (any) and Unfractionated Heparin (any). ? Hemodynamics: ?Right Heart Pressures ? Hemodynamics: ? Syst Diast ? EDP ?a ?v ? m ?RA ? 8 ?6 ? 3 ?RV 35 ?5 ?PA 30 ?12 ?17 ?PCW ?8 ?9 ? 6 ? Hemodynamic Profile: ?Profile 1 ? Profile 2 ?CO ? 6.18 ?6.91 ?CI ? 3.04 ?3.40 ?TSR ? 1,294 ? 1,158 ?SVR ? 1,256 ? 1,123 ?TPR ?220 ? 197 ?PVR ?142 ? 127 ?Technique ?Estimated Roger ?Thermodilution ?Left Heart Pressures ? Resting: ? Syst Diast ? EDP ?a ?v ? m ?Ao 142 ?? 70 ?100 ?LV 142 ? 15 ? Oximetry: ?Location ? %Sat ?Location ?%Sat ?Superior Vena Cava ? 74.0 ?Main Pulmonary Artery ?? 72.0 ?Peripheral Arterial ?94.0 ?No evidence of a significant shunt was noted. ? Coronary Angiography: ?Dominance: Right ?Left Main ? The left main was normal. ?Left Anterior Descending ? The left anterior descending (LAD) was normal. ?Left Circumflex ? The left circumflex (LCX) was normal. ?Right Coronary Artery ? There was mild diffuse disease of the entire vessel segment of the ? right coronary artery (RCA). ??The RCA was large. ? Indication for Selected Procedures: ?Right Heart catheterization was initiated for Pulmonary Hypertension ?(127.2). ? Vascular Access: ?Vascular Access Management: ? Manual Compression of the right median antecubital vein access site ? was performed. ? Mechanical Compression of the right radial artery access site was ? performed. ? Conclusions: ?* Nonobstructive coronary artery disease ?* No evidence of a significant shunt ?* Normal right heart pressures and PCWP. ? Complications/Events: ?The patient had no complications during these procedures. ?The attending physician was present for the entire procedure. ?Dr. Greg Mason M.D. was present during the moderate sedation ?intraservice time as documented by the sedation nurse. ??Case time = 00:43. ?Dr. Greg Mason M.D. performed the coronary angiography, left heart ?catheterization, right heart catheterization and oximetry. ? Greg Mason M.D. ? Electronically Signed by: Greg Mason M.D. ? Report Finalized: 10/11/2017 ??11:41 ? Procedure Note Greg Mason MD - 10/11/2017 [facility] Cardiac Catheterization/Intervention Report Patient Name: Lisa Worley Procedure Date: 10/11/2017 A #: [id number] Primary Physician: Greg Mason Case #: [id number] File Name: [id number] Catheterization Order Number: [id number] [facility] FinalReport [place], [place] Patient Name: Lisa Worley ID#:[id number] :1945 Procedure Date: October 11, 2017 Case #: [id number] Room: 5 Case Physician: Greg Mason M.D. Start: 10:33 Fellow: Jorge Le M.D. Admission:10/11/2017 Milka De Paz D.O. Referring Physician: Alissa Baxter M.D. Procedures: * Coronary Angiography * Left Heart Catheterization * Right Heart Catheterization * Oximetry History Lisa Worley is a 72 year old woman. She has hypertension. Thepatient has hypercholesterolemia managed with lipid therapy. She hasatypical symptoms for coronary artery disease. The patient has a history of dyspnea with NYHA functional class III and pulmonary hypertension.She has tricuspid regurgitation. The patient also has a history of an abnormal stress test and an abnormal echocardiogram. Prior to the initiation of this procedure, the patient was designated as ASAClass II. Patient Status at Catheterization: The patient presented with: stable angina (w/i 42 days). [place] Cardi[employer] Society angina class was III. This patient was onbeta blockers prior to the procedure. A SPECT stress test was performedand results were Positive and Unavailable ischemia assessment. Technique: A 6 SLFr sheath was inserted in the right radial artery utilizingthe Seldinger technique. A 7Fr sheath was inserted in the right median antecubital vein utilizing the Seldinger technique. The leftcoronary artery was injected utilizing a 5Fr TIG 4.0 catheter. A 5Fr JR 4catheter was used to inject the right coronary artery. Right heartcatheterization was performed utilizing a 7Fr Altamont-Scooby catheter. Left ventricular pressure was performed with a 5Fr TIG 4.0 catheter. 5,000 units of heparin were administered. A total of 100cc of Omnipaque wereopened, 85cc of Omnipaque were administered and 15cc of Omnipaque werewasted. Radiation: Fluoro time was 9.2 minutes, dose area product was 54,078 mGYcm2 and air kerma was 1,383 mGY. The patient received the following medications prior to and duringthe procedure: Aspirin (any) and Unfractionated Heparin (any). Hemodynamics: Right Heart Pressures Hemodynamics: Syst Diast EDP a v m RA 8 6 3 RV 35 5 PA 30 12 17 PCW 8 9 6 Hemodynamic Profile: Profile 1 Profile 2 CO 6.18 6.91 CI 3.04 3.40 TSR 1,294 1,158 SVR 1,256 1,123 TPR 220 197 PVR 142 127 Technique Estimated Roger Thermodilution Left Heart Pressures Resting: Syst Diast EDP a v m Ao 142 70 100 LV 142 15 Oximetry: Location %Sat Location %Sat Superior Vena Cava 74.0 Main Pulmonary Artery 72.0 Peripheral Arterial 94.0 No evidence of a significant shunt was noted. Coronary Angiography: Dominance: Right Left Main The left main was normal. Left Anterior Descending The left anterior descending (LAD) was normal. Left Circumflex The left circumflex (LCX) was normal. Right Coronary Artery There was mild diffuse disease of the entire vessel segment ofthe right coronary artery (RCA). The RCA was large. Indication for Selected Procedures: Right Heart catheterization was initiated for Pulmonary Hypertension (127.2). Vascular Access: Vascular Access Management: Manual Compression of the right median antecubital vein accesssite was performed. Mechanical Compression of the right radial artery access sitewas performed. Conclusions: * Nonobstructive coronary artery disease * No evidence of a significant shunt * Normal right heart pressures and PCWP. Complications/Events: The patient had no complications during these procedures. The attending physician was present for the entire procedure. Dr. Greg Mason M.D. was present during the moderate sedation intraservice time as documented by the sedation nurse. Case time =00:43. Dr. Grge Mason M.D. performed the coronary angiography, left heart catheterization, right heart catheterization and oximetry. Greg Mason M.D. Electronically Signed by: Greg Mason M.D. Report Finalized: 10/11/2017 11:41 Christiano Hamlin MD CARDIAC CATH ORDERAB LES * Differential, Automated (09/27/2017 12:23 PM EST) Neutrophil % 69.3 % [facility] Neutrophil Absolute 4.72 1.70 - 6.10 x10(3)/[facility] Lymph % 19.9 % [facility] Lymphocytes Abs 1.4 0.9 - 3.2 x10(3)/[facility] Monocyte % 8.8 % [facility] Monocyte Abs 0.6 0.3 - 0.9 x10(3)/[facility] Eos % 1.3 % [facility] Eosinophils Abs 0.1 0.0 - 0.4 x10(3)/[facility] Basophil % 0.3 % [facility] Baso Absolute 0.0 0.0 - 0.1 x10(3)/[facility] Immature Gran % 0.40 % [facility] Comment: Immature granulocytes(IG's)percentage and absolute count will include metamyelocytes, myelocytes, and promyelocytes. Blood smears from CBCs yielding IG's will be scanned manually for concordance. If this scan disagrees with the automated IG or if promyelocytes are noted, a manual differential will be performed. Immature Gran Absolute 0.03 0.00 - 0.04 x10(3)/[facility] Blood specimen (specimen) 09/27/2017 12:23 PM EST 09/27/2017 12:32 PM EST Narrative Resulting Agency Comment Spec In Lab Christiano Hamlin MD HEMATOLOGY ORDERABLE S [facility] [place] [address] * Hemogram (09/27/2017 12:23 PM EST) [facility] White Blood Cell 6.8 4.0 - 9.5 x10(3)/[facility] Red Blood Cell 5.18 4.00 - 5.21 x10(6)/[facility] Hemoglobin 14.6 11.7 - 15.5 gm/dL [facility] Hematocrit 44.4 35.7 - 45.8 % [facility] Mean Cell Volume 85.7 82.6 - 94.4 fL [facility] Mean Cell Hemoglobin 28.2 27.1 - 32.0 pg [facility] Mean Cell Hemoglobin Concentration 32.9 31.7 - 35.0 gm/dL [facility] Platelet 204 145 - 357 x10(3)/[facility] RDW Standard Deviation 40.9 37.0 - 46.0 [facility] RDW coefficient of variation 13.0 11.5 - 14.1 % [facility] Mean Platelet Volume 9.6 7.6 - 12.9 [facility] NRBC% auto 0.0 % [facility] NRBC Absolute 0.000 0.000 - 0.000 x10(3)/[facility] Blood specimen (specimen) 09/27/2017 12:23 PM EST 09/27/2017 12:32 PM EST Narrative Resulting Agency Comment Spec In Lab Christiano Hamlin MD HEMATOLOGY ORDERABLE S [facility] [place] [address] * Basic Metabolic Panel (non-fasting) (09/27/2017 12:23 PM EST) [facility] Glucose 101 65 - 199 mg/dL [facility] Comment:Diabetes: >=200 mg/d L plus symptoms Blood Urea Nitrogen 17 8 - 18 mg/dL [facility] Creatinine 0.74 0.70 - 1.20 mg/dL [facility] Sodium 139 135 - 145 mmol/L [facility] Potassium 4.2 3.5 - 5.0 mmol/L [facility] Comment: Please note: ??Patients with WBC >100,000 may have falsely elevated Potassium levels. ??For accurate Potassium quantification in these patients send serum separator tube (gold top) for subsequent determinations. ??Contact the Clinical Chemistry Laboratory if there are any questions. Chloride 99 98 - 107 mmol/L [facility] Carbon Dioxide 25 22 - 31 mmol/L [facility] Anion Gap 15 5 - 15 mmol/L [facility] Calcium 9.3 8.5 - 10.5 mg/dL [facility] Est Glomerular Filtration Rate >60 >=60 [facility] Comment: The reported eGFR should be multiplied by 1.2 for patients. The MDRD is not an appropriate measure of renal function for patients with body mass extremes or in patients with acute kidney failure. http://[employer]DHnkdep [email or web address]://[employer]/DHMCnkf Blood specimen (specimen) 09/27/2017 12:23 PM EST 09/27/2017 12:32 PM EST Narrative Resulting Agency Comment Spec In Lab Christiano Hamlin MD CHEMISTRY ORDERABLES [facility] [place] [address] * Prothrombin Time (09/27/2017 12:23 PM EST) Prothrombin Time 14.0 11.8 - 14.0 sec [facility] International Normalization Ratio 1.1 0.9 - 1.1 [facility] Comment: An INR <2.0 indicates adequate procoagulant activity for hemostasis in most patients without underlying bleeding disorders, though the INR may not adequately reflect hemostatic capacity in patients with liver disease and synthetic impairment. The recommended target INR range for therapeutic anticoagulation is 2.0 ? 3.0 for most applications, though lower and higher ranges may be appropriate depending on clinical circumstances. Blood specimen (specimen) 09/27/2017 12:23 PM EST 09/27/2017 12:33 PM EST Narrative Resulting Agency Comment Spec In Lab Christiano Hamlin MD HEMATOLOGY ORDERABLE S Performing Organization Address [facility] Co de Phone Number [facility] [place] [address] * EKG 12 Lead (09/27/2017 11:10 AM EST) Ventricular rate 75 BPM MUSE SYSTEM Atrial Rate 75 BPM MUSE SYSTEM P-R Interval 178 ms MUSE SYSTEM QRS Duration 72 ms MUSE SYSTEM Q-T Interval 394 ms MUSE SYSTEM QTC Calculated (Bezet) 439 ms MUSE SYSTEM Calculated P [place] 57 degrees MUSE SYSTEM Calculated R [place] -16 degrees MUSE SYSTEM Calculated T [place] 47 degrees MUSE SYSTEM INTERPRETATION Normal sinus rhythm Normal ECG No previous ECGs available Confirmed by MD ALEXANDRIA, WANG ([id number]) on 09/27/2017 5:08:42 PM MUSE SYSTEM 09/27/2017 11:1 0 AM EST 09/27/2017 5:08 PM EST Christiano Hamlin MD ECG ORDERABLES Performing Organization Address [facility] Co de Phone Number MUSE SYSTEM documented in this encounter Visit Diagnoses Diagnosis Abnormal stress test Other nonspecific abnormal cardiovascular system function study MADRIGAL (dyspnea on exertion) Other dyspnea and respiratory abnormality Chest pain, unspecified type MADRIGAL (dyspnea on exertion) Other dyspnea and respiratory abnormality Abnormal stress test Other nonspecific abnormal cardiovascular system function study Chest pain, unspecified type documented in this encounter Care Teams Bull Wheel Worker Relationship Specialty Start Date End Date Alissa Baxter MD [address] [place] [address] PCP - General 10/13/10 12/25/18 documented as of this encounter
--- OUTSIDE RECORDS SUMMARY | 2024-08-10 15:26 | XMS_ITS | Encounter Summary ---
Author Organization [facility] Address [facility] [place] [address] Care Team Providers Care Pain Management Nurse Practitioner Name Role Phone Yana Turner MD Primary Care Provider [phone] Encounter Details Date Type Department Care Team (Late st Contact Info) Description 01/31/2019 2:20 PM EDT Office Visit Cardiology at [address] [phone] Christiano Hamlin MD [facility] [place] [address] Atrial fibrillation, unspecified type (Primary Dx); Hypertension, unspecified type; MADRIGAL (dyspnea on exertion) Social History Tobacco Use Types Packs/Day Years Used Date Smoking Tobacco: Never Smokeless Tobacco: Never Sex and Gender Information Value Date Recorded Sex Assigned at Not on file Gender Identity Not on file Sexual Orientation Not on file documented as of this encounter Last Filed Vital Signs Vital Sign Reading Time Taken Comments Blood Pressure 116/64 01/31/2019 2:19 PM EDT Pulse 91 01/31/2019 2:19 PM EDT Temperature - - Respiratory Rate - - Oxygen Saturation 98% 01/31/2019 2:19 PM EDT Inhaled Oxygen Concentration - - Weight - - Height 163.8 cm (5' 4.5) 01/31/2019 2:19 PM EDT Body Mass Index - - documented in this encounter Patient Instructions * Patient Instructions* Christiano Hamlin MD - 01/31/2019 2:20 PM EDT 1. Increase furosemide to 40 mg twice daily (morning and mid afternoon) 2. Increase metoprolol to 150 mg daily 3. Cardioversion to be scheduled (you will get a call from scheduling regarding timing) documented in this encounter Progress Notes * Christiano Hamlin MD - 01/31/2019 2:20 PM EDT Images from the original note were not included. [facility] [place] [address] [address] CARDIOLOGY OUTPATIENT FOLLOW-UP NOTE Lisa Worley [id number] PCP: Yana Turner MD 01/31/2019 PRIMARY CARE PROVIDER: Yana Turner MD PROBLEM LIST: Patient Active Problem List Diagnosis ??? Atrial fibrillation ??? MADRIGAL (dyspnea on exertion) ?? Onset about July, and accompanied by mild chest pain ?? Echocardiogram through [facility] August 12, 2017 showing mild [...] Outpatient Medications Medication Sig Dispense Refill ??? furosemide (LASIX) 40 mg Tablet take 1 tablet by mouth once daily 0 ??? nitroGLYcerin (NITROSTAT) 0.4 mg Tablet, Sublingual Place 1 tablet under the tongue every 5 minutes as needed for Chest pain. 25 tablet 11 ??? metoprolol succinate (TOPROL-XL) 100 mg Tablet Sustained Release 24 hr Take 1 tablet by mouth daily. 90 tablet 3 ??? apixaban (ELIQUIS) 5 mg Tablet Take 1 tablet by mouth 2 times daily. 60 tablet 3 ??? acetaminophen (TYLENOL) 325 mg Tablet Take [...] by mouth every 6 hours asneeded. ??? hydroCHLOROthiazide (HYDRODIURIL) 25 mg Tablet Take 25 mg by mouth daily. No current facility-administered medications for this visit. SUBJECTIVE: This 73-year-old woman comes for follow-up visit. She has chronic somewhat unexplained exertional dyspnea. Beginning around Homero her breathing worsened and she developed abdominal bloating and lower extremity edema. She initially responded to some furosemide but for unexplained reasons was later put back on hydrochlorothiazide. When I last saw her on December 26, 2018 she appearedfluid overloaded and was in atrial fibrillation with a slightly rapid ventricular rate of 112. She was advised to increase her metoprolol from 50-100 mg daily for rate control, was started on apixaban, and was scheduled for this follow-up visit with an echocardiogram. She comes today indicating that she is doing only marginally. She is still short of breath. She is a particular bothered by abdominal bloating. When walking and engage in activities, she can feel fluid sloshing around in her belly. She is free of chest pain. She denies orthopnea or PND. She has a vigorous response to the Lasix in the morning. OBJECTIVE: Vital Signs: BP 116/64 Pulse 91 Ht 163.8 cm (5' 4.5) SpO2 98% BMI 37.52 kg/m?? Physical Exam: On exam today she appeared in no acute distress. Her color was good. Her vital signsare documented above. She had a mildly elevated jugular venous pressure of about 12 cm water. Her lungs were clear. Her heart exam revealed an irregularly irregular rhythm at a slightly rapid rate. Her abdomen was protruded and nontender. She had 1+-2+ edema below the legs bilaterally. Twelve-lead EKG: This revealed atrial fibrillation with a ventricular rate of 107. It was otherwisenotable only for some minimal nonspecific T wave changes. Echo (today): SUMMARY: ?? 1. The left ventricular chamber size is normal. There is mild septal hypertrophy of the left ventricle. There is no evidence of LVOT obstruction. There are no left ventricular segmental wall motion abnormalities. There is normal global left ventricular systolic function. Ejection fraction is estimated to be 55%. 2. The right ventricle is normal in size. Right ventricular wall thickness is normal. Right ventricular global systolic function is mildly reduced. 3. The left atrium is mildly dilated. The right atrium is mildly dilated. 4. There is no hemodynamically significant valve disease. 5. The estimated pulmonary artery systolic pressure is 29 mmHg plus right atrial pressure. 6. See remainder of report for additional findings. ?? ASSESSMENT: Unfortunately, she remains in atrial fibrillation and her rate control is still not ideal. She is clearly fluid overloaded. Whether the atrial fibrillation was a cause or consequence of her fluid overload is not entirely clear. PLAN: 1. Double Lasix to 40 mg twice daily 2. Increase metoprolol to 150 mg daily for rate control 3. Continue apixaban 3. She was scheduled for outpatient cardioversion with the timing to be determined and the patient will be notified about this 4. Cardiology follow-up a few weeks after cardioversion documented in this encounter Plan of Treatment Upcoming Encounters Date Type Department Care Team (Late st Contact Info) Description 08/13/2024 11:20 AM EDT Office Visit Cardiology at [address] [phone] Christiano Hamlin MD [facility] [place] [address] documented as of this encounter Procedures Procedure Name Priority Date/Time Associated Diagnosis Comments EKG 12-LEAD Routine 01/31/2019 2:27 PM EDT Hypertension, unspecified type MADRIGAL (dyspnea on exertion) Atrial fibrillation, unspecified type documented in this encounter Results * CARDIOVERSION-OR (02/19/2019 10:17 AM EDT) Narrative Blanca Copeland PA - 02/19/2019 10:17 AM EDT Blanca Coepland PA ? 02/19/2019 10:19 AM Direct Current Cardioversion Procedure Note: Date of Procedure: 02/19/2019 Attending: Saman Honeycutt MD PA: Blanca Copeland PA-C; Michael Babin PA-C Indication: Atrial fibrillation, paroxysmal Patient Active Problem List Diagnosis ? ? Atrial fibrillation ? ? MADRIGAL (dyspnea on exertion) ? Onset about July, and accompanied by mild chest pain ?? Echocardiogram through [facility] August 12, 2017 showing mild [...] motion abnormalities ?? Chest x-ray reportedly unremarkable ? ? Hypertension ? ? OA (osteoarthritis) ? ? Mixed incontinence The patient was brought to the procedure room in the fasting state with an intravenous line in place. A time-out was conducted just before the start of the procedure to verify the correct patient and procedure, and relevant critical information, including allergies. After [...] Other: central sternal anterior, posterior left scapular ? The patient received #1synchronized discharge(s) and the [...] be obtained. DICK Rutledge 10:19 AM 02/19/19 Christiano Hamlin MD GENSURG ORDERS NO PO STOP PAIN QUESTION * EKG 12 Lead (01/31/2019 2:27 PM EDT) Ventricular rate 107 BPM MUSE SYSTEM Atrial Rate 113 BPM MUSE SYSTEM QRS Duration 76 ms MUSE SYSTEM Q-T Interval 338 ms MUSE SYSTEM QTC Calculated (Bezet) 451 ms MUSE SYSTEM Calculated R [place] 3 degrees MUSE SYSTEM Calculated T [place] 59 degrees MUSE SYSTEM INTERPRETATION Atrial fibrillation with rapid ventricular response with premature ventricular or aberrantly conducted complexes Nonspecific ST and T wave abnormality Abnormal ECG When compared with ECG of 26-DEC-2018 12:49, Nonspecific T wave abnormality, worse in Inferior leads Confirmed by MD Dileep, Guillermo ([id number]) on 01/31/2019 2:49:49 PM MUSE SYSTEM 01/31/2019 2:27 PM EDT 01/31/2019 2:49 PM EDT Christiano Hamlin MD ECG ORDERABLES MUSE SYSTEM documented in this encounter Visit Diagnoses Diagnosis Atrial fibrillation, unspecified type- Primary Hypertension, unspecified type MADRIGAL (dyspnea on exertion) Other dyspnea and respiratory abnormality documented in this encounter Care Teams Pain Management Nurse Practitioner Relationship Specialty Start Date End Date Yana Turner MD [address] [place] [address] PCP - General Family Medicine 12/26/18 documented as of this encounter
--- OUTSIDE RECORDS SUMMARY | 2024-08-10 15:26 | XMS_ITS | Encounter Summary ---
Author Organization [facility] Address [facility] [place] [address] Care Team Providers Care Head Gauge Unit Operator Name Role Phone Yana Turner MD Primary Care Provider [phone] Reason for Referral * Diagnostic Test (Routine) - Closed Specialty Diagnoses / Procedures Referred By Contac t Referred To Contact Cardiology Diagnoses MADRIGAL (dyspnea on exertion) Hypertension, unspecified type Atrial fibrillation, unspecified type Procedures Echocardiogram Transthoracic(Leb) Christiano Hamlin MD [facility] [place] [address] [facility] [place] [address] Referral ID Status Reason Start Date Expiration Date V isits Requested Visits Authorized [id number] Closed Specialty Service Requested 12/26/2018 12/26/2019 1 1 Reason for Visit * Diagnostic Test (Routine) - Closed Specialty Diagnoses / Procedures Referred By Contac t Referred To Contact Cardiology Diagnoses MADRIGAL (dyspnea on exertion) Hypertension, unspecified type Atrial fibrillation, unspecified type Procedures Echocardiogram Transthoracic(Leb) Christiano Hamlin MD [facility] [place] [address] [facility] [place] [address] Referral ID Status Reason Start Date Expiration Date V isits Requested Visits Authorized [id number] Closed Specialty Service Requested 12/26/2018 12/26/2019 1 1 Encounter Details Date Type Department Care Team (Latest Contact Info) Description 01/31/2019 11:25 AM EDT - 01/31/2019 11:59 PM EDT Hospital Encounter Non-Invasive Cardiology Lab [facility] [address] Christiano Hamlin MD [facility] [place] [address] MADRIGAL (dyspnea on exertion); Hypertension, unspecified type; Atrial fibrillation, unspecified type Discharge Disposition: Home Social History Tobacco Use Types Packs/Day Years Used Date Smoking Tobacco: Never Smokeless Tobacco: Never Sex and Gender Information Value Date Recorded Sex Assigned at Not on file Gender Identity Not on file Sexual Orientation Not on file documented as of this encounter Medications at Time of Discharge [...] times daily. 180 tablet 3 01/31/2019 08/15/2019 hydroCHLOROthiazide (HYDRODIURIL) 25 mg Tablet Take 25 mg by mouth daily. 02/16/2019 apixaban (ELIQUIS) 5 mg Tablet Take 1 tablet by mouth 2 times daily. 60 tablet 3 12/26/2018 04/26/2019 aspirin 81 mg Tablet, Delayed Release (E.C.) Take 81 mg by mouth daily. 12/03/2020 documented as of this encounter Plan of Treatment Upcoming Encounters Date Type Department Care Team (Late st Contact Info) Description 08/13/2024 11:20 AM EDT Office Visit Cardiology at [address] [phone] Christiano Hamlin MD [facility] [place] [address] documented as of this encounter Procedures Procedure Name Priority Date/Time Associated Diagnosis Comments ECHO COMPLETE W CONTRAST Routine 01/31/2019 1:02 PM EDT MADRIGAL (dyspnea on exertion) Hypertension, unspecified type Atrial fibrillation, unspecified type documented in this encounter Results * ECHO COMPLETE W CONTRAST (01/31/2019 1:02 PM EDT) EF 55 HEARTLAB SYSTEM Anatomical Region Laterality Modality Other 01/31/2019 Narrative 01/31/2019 1:16 PM EDT Procedure: ?Transthoracic Echocardiogram Patient: ?MICHELLE RDZ ?(Age): 1945(73y) Med Rec#: ? [id number] ?Sex: ?F ? [place] [facility] [place]Ht / Wt: ??163(cm)/100(kg) Pt. Loc: ?Echo Lab ?BSA: ?2.04 Study Date: ?? 01/31/2019 ?Pt. Type: Outpatient Tape: ? Referring: FRED Reading: Kamari Wade ([id number]) Speech Correction Assistant: Dafne Bradley [facility] Nurse: Jessica Ventura Diagnosis: *Other forms of dyspnea (R06.09) *Essential (primary) hypertension (I10) *Unspecified atrial fibrillation (I48.91) BP: ? 158/100 SUMMARY: 1. The left ventricular chamber size is normal. There is mild septal hypertrophy of the left ventricle. ??There is no evidence of LVOT obstruction. There are no left ventricular segmental wall motion abnormalities. There is normal global left ventricular systolic function. ??Ejection fraction is estimated to be 55%. 2. [...] See remainder of report for additional findings. Findings ? : Study Quality: ? Technically limited Left Ventricle: ? The left ventricular chamber size is normal. ?There is mild septal hypertrophy of the left ventricle. ?There is no evidence of LVOT obstruction. ?There is normal global left ventricular systolic function. ??Ejection fraction is estimated to be 55%. ?There are no left ventricular segmental wall motion abnormalities. ?Left ventricular diastolic function is probably normal. Left Atrium: ? The left atrium is mildly dilated. Right Ventricle: ? The right ventricle is normal in size. ?Right ventricular wall thickness is normal. ?Right ventricular global systolic function is mildly reduced. ?The estimated pulmonary artery systolic pressure is 29 mmHg.plus RAP. ?? Right Atrium: ? The right atrium is mildly dilated. Aortic Valve: ? The aortic valve is not well visualized. ?The aortic valve is tricuspid. ?The aortic valve leaflets are mildly thickened. ?Systolic excursion of the aortic valve is normal. ?There is no evidence of aortic valve stenosis. ?There is no evidence of aortic regurgitation. Mitral Valve: ? The mitral valve leaflets appear normal. ?There is trace mitral regurgitation present. Tricuspid Valve: ? The tricuspid valve leaflets are morphologically normal. ?There is trace tricuspid regurgitation present. Pulmonic Valve: ? The pulmonic valve is not well visualized. Pericardium: ? The pericardium appears normal and there is no evidence of a pericardial effusion. Aorta: ? The aortic root is normal in size. ?There is mild dilatation of the ascending aorta. Pulmonary Artery: ? The main pulmonary artery appears normal. Venous: ? The inferior vena cava is poorly visualized. Misc: ? Two-dimensional echo, spectral Doppler and color Doppler performed. ?Definity contrast (one 1.5 ml vial)was used to enhance endocardial definition. Excess contrast was discarded. Chambers 2D ?Value ?Units (Range) ? IVSd (2D) ? 1.4 ?cm ? LVPWd (2D) ?1 ?cm ? IVS:LVPW ratio (2D) 1.4 ?ratio ? RWT (2D) ?0.6 ?ratio ? RWT PW (2D) ? 0.5 ?ratio ? LVIDd (2D) ?3.9 ?cm ? LVIDs (2D) ?3.1 ?cm ? LVIDd (2D) index ?1.9 ?cm/m2 ? LVIDs (2D) index ?1.5 ?cm/m2 ? LV FS (2D) ?22 ? % ? EF Teichholz (2D) ?? 46 ? % ? Ao root diameter (2D3 ?cm (2.1 - 3.6) ? Ascending Ao ?3.6 ?cm (2 - 3.5) ? Volumes/Mass ?Value ?Units (Range) ? LA Area 4 CH ?27 ? cm2 (<21) ? LA ESV BP (A/L) inde33.8 ? ml/m2 ? RA AREA 4CH ? 21.3 ? cm2 ? LA ESV BP (MOD) inde39.3 ? ml/m2 ? LV mass (2D) ?154.1 ?g ? LV mass (2D) index ??75.5 ? g/m2 ? Diastolic/Systolic Function ?Value ?Units (Range) ? MV E-wave Vmax ?0.9 ?m/sec ? LV septal e' Vmax ?? 0.1 ?m/sec ? LV lateral e' Vmax ??0.1 ?m/sec ? LV average e' Vmax ??0.1 ?m/sec ? LV E:e' septal ratio13.1 ? ratio ? LV E:e' lateral rati9.2 ?ratio ? LV average E:e' rati11.5 ? ratio ? Tricuspid Valve ?Value ?Units (Range) ? TR Vmax ? 2.7 ?m/sec ? TR peak gradient ?28.5 ? mmHg ? RVSP ?29 ? mmHg ? Wall Motion: Segment Name ?Rest ? Base-Anteroseptal ?? Normal ? Base-Anterior ? Normal ? Base-Anterolateral ??Normal ? Base-Posterolateral Normal ? Base-Inferior ? Normal ? Base-Inferoseptal ?? Normal ? Mid-Anteroseptal ?Normal ? Mid-Anterior ?Normal ? Mid-Anterolateral ?? Normal ? Mid-Posterolateral ??Normal ? Mid-Inferior ?Normal ? Mid-Inferoseptal ?Normal ? [place]-Septal ? Normal ? [place]-Anterior ? Normal ? [place]-Lateral ?Normal ? [place]-Inferior ? Normal ? [place]-Tip ?Normal ? This report has been electronically signed by: Kamari Wade MD ? 01/31/2019 13:15:37 Images reviewed and interpretation verified [facility] Procedure Note Kamari Wade MD - 01/31/2019 Procedure: Transthoracic Echocardiogram Patient: MICHELLE MARY(Age): 1945(73y) [facility] Rec#: [id number] Sex: F [place] [facility] [place]t / Wt: 163(cm)/100(kg) Pt. Loc: Echo Lab BSA: 2.04 Study Date: 01/31/2019 Pt. Type: Outpatient Tape: Referring: FRED Reading: Kamari Wade ([id number]) Speech Correction Assistant: Dafne Bradley [facility] Nurse: Jessica Ventura Diagnosis: *Other forms of dyspnea (R06.09) *Essential (primary) hypertension (I10) *Unspecified atrial fibrillation (I48.91) BP: 158/100 SUMMARY: 1. The left ventricular chamber size is [...] See remainder of report for additional findings. Findings : Study Quality: Technically limited Left Ventricle: The left ventricular chamber size is normal. There is mild septal hypertrophy of the left ventricle. There is no evidence of LVOT obstruction. There is normal global left ventricular systolic function. Ejection fraction is estimated to be 55%. There are no left ventricular segmental wall motion abnormalities. Left ventricular diastolic function is probably normal. Left Atrium: The left atrium is mildly dilated. Right Ventricle: The right ventricle is normal in size. Right ventricular wall thickness is normal. Right ventricular global systolic function is mildly reduced. The estimated pulmonary artery systolic pressure is 29 mmHg.plus RAP. Right Atrium: The right atrium is mildly dilated. Aortic Valve: The aortic valve is not well visualized. The aortic valve is tricuspid. The aortic valve leaflets are mildly thickened. Systolic excursion of the aortic valve is normal. There is no evidence of aortic valve stenosis. There is no evidence of aortic regurgitation. Mitral Valve: The mitral valve leaflets appear normal. There is trace mitral regurgitation present. Tricuspid Valve: The tricuspid valve leaflets are morphologically normal. There is trace tricuspid regurgitation present. Pulmonic Valve: The pulmonic valve is not well visualized. Pericardium: The pericardium appears normal and there is no evidence of a pericardial effusion. Aorta: The aortic root is normal in size. There is mild dilatation of the ascending aorta. Pulmonary Artery: The main pulmonary artery appears normal. Venous: The inferior vena cava is poorly visualized. Misc: Two-dimensional echo, spectral Doppler and color Doppler performed. Definity contrast (one 1.5 ml vial)was used to enhance endocardial definition. Excess contrast was discarded. Chambers 2D Value Units (Range) IVSd (2D) 1.4 cm LVPWd (2D) 1 cm IVS:LVPW ratio (2D) 1.4 ratio RWT (2D) 0.6 ratio RWT PW (2D) 0.5 ratio LVIDd (2D) 3.9 cm LVIDs (2D) 3.1 cm LVIDd (2D) index 1.9 cm/m2 LVIDs (2D) index 1.5 cm/m2 LV FS (2D) 22 % EF Teichholz (2D) 46 % Ao root diameter (2D3 cm (2.1 - 3.6) Ascending Ao 3.6 cm (2 - 3.5) Volumes/Mass Value Units (Range) LA Area 4 CH 27 cm2 (<21) LA ESV BP (A/L) inde33.8 ml/m2 RA AREA 4CH 21.3 cm2 LA ESV BP (MOD) inde39.3 ml/m2 LV mass (2D) 154.1 g LV mass (2D) index 75.5 g/m2 Diastolic/Systolic Function Value Units (Range) MV E-wave Vmax 0.9 m/sec LV septal e' Vmax 0.1 m/sec LV lateral e' Vmax 0.1 m/sec LV average e' Vmax 0.1 m/sec LV E:e' septal ratio13.1 ratio LV E:e' lateral rati9.2 ratio LV average E:e' rati11.5 ratio Tricuspid Valve Value Units (Range) TR Vmax 2.7 m/sec TR peak gradient 28.5 mmHg RVSP 29 mmHg Wall Motion: Segment Name Rest Base-Anteroseptal Normal Base-Anterior Normal Base-Anterolateral Normal Base-Posterolateral Normal Base-Inferior Normal Base-Inferoseptal Normal Mid-Anteroseptal Normal Mid-Anterior Normal Mid-Anterolateral Normal Mid-Posterolateral Normal Mid-Inferior Normal Mid-Inferoseptal Normal [place]-Septal Normal [place]-Anterior Normal [place]-Lateral Normal [place]-Inferior Normal [place]-Tip Normal This report has been electronically signed by: Kamari Wade MD 01/31/2019 13:15:37 Images reviewed and interpretation verified [facility] Christiano Hamlin MD ECHO ORDERABLES documented in this encounter Visit Diagnoses Diagnosis MADRIGAL (dyspnea on exertion) Other dyspnea and respiratory abnormality Hypertension, unspecified type Atrial fibrillation, unspecified type documented in this encounter Administered Medications Inactive Administered Medications - up to 3 most recent administrations Medication Order MAR Action Action Date Dose Rate Site perflutren lipid microspheres (DEFINITY) injection 0.8 mL 0.8 mL (rounded from 0.75 mL), Intravenous, ONCE PRN, 1 dose, Starting on Tue01/31/19 at 1302, Until Tue01/31/19 at 1200, Other, Routine Given 01/31/2019 12:00 PM EDT 0.8 mLs documented in this encounter Care Teams Head Gauge Unit Operator Relationship Specialty Start Date End Date Yana Turner MD [address] [place] [address] PCP - General Family Medicine 12/26/18 documented as of this encounter
--- OUTSIDE RECORDS SUMMARY | 2024-08-10 15:26 | XMS_ITS | Encounter Summary ---
Author Organization [facility] Address [address] [place] [address] Care Team Providers Care Potash Flaker Name Role Phone Unavailable Primary Care Provider Unavailabl e Encounter Details Date Type Department Care Team (Late st Contact Info) Description 03/07/2003 Results Only [facility] conversion [address] [place] [address] Marshall Starks MD [address] [place] [id number] Social History Tobacco Use Types Packs/Day Years Used Date Smoking Tobacco: Never Assessed Sex and Gender Information Value Date Recorded Sex Assigned at Not on file Gender Identity Not on file Sexual Orientation Not on file documented as of this encounter Plan of Treatment Not on file documented as of this encounter Procedures Procedure Name Priority Date/Time Associated Diagnosis Comments CYTOPATHOLOGY Routine 03/07/2003 0:00 EDT SURGICAL PATHOLOGY Routine 03/07/2003 0:00 EDT documented in this encounter Results * CYTOPATHOLOGY (03/07/2003 0:00 EDT) Pathology Report: CYTOPATHOLOGY REPORT Reports generated via electronic interface contain original data; however they are lacking the format of the original report. Caution should be taken when reading/interpreti ng unformatted reports. Name: ? LISA MARTINEZ ? Accession #: ? [id number] : ? 1945 (Age: 57) ??F ?Collect Date: ? 03/07/2003 Location: ? [facility] ? Receive Date: ? 03/08/2003 Provider: ? MARSHALL STARKS MD Copy to: ?LEANN BELTRÁN MD ? CYTOLOGIC DIAGNOSIS: ? Breast, left, palpable mass at 6:00, fine needle aspiration: - Abundant hemosiderin laden macrophages and old blood. ??See comment. ? COMMENT: ? The specimen consists entirely of histiocytes and degenerated blood. Several of the histiocytes contain hemosiderin. ??There are no epithelial cells identified. ??The pattern is not typical of fibrocystic change and, therefore, clinical correlation is recommended. ??See also the concurrent core biopsy ([id number]) (Dr. Urbina)/[facility] Document reviewed and electronically signed by: ? Araseli Urbina MD Report Date: ??03/12/2003 09:50 By the signature above, the attending physician certifies that he/she has personally conducted a gross and/or microscopic examination of the described specimens and rendered or confirmed the above diagnosis. Specimen Type: ? Left Breast, Fine Needle Aspiration Clinical History: ? Palpable mass 6 o'clock 1cm from areolar margin left breast. ? Gross Description: ? 1 tube of Cytolyt was received and processed by concentration technique. ? End of Report [facility] 03/07/2003 03/08/2003 15: 17 EDT Marshall Starks MD PATHOLOGY ORDERABLE S Performing Organization Address City/State/[place] Co de Phone Number [facility] [address] [place] [address] * SURGICAL PATHOLOGY (03/07/2003 0:00 EDT) Pathology Report: SURGICAL PATHOLOGY REPORT Reports generated via electronic interface contain original data; however they are lacking the format of the original report. Caution should be taken when reading/interpreting unformatted reports. Name: ? LISA MARTINEZ ? Accession #: ? [id number] ? : ? 1945 (Age: 57) ??F ? Collect Date: ? 03/07/2003 ? Location: ? [facility] ? Receive Date: ? 03/08/2003 ? Provider: MARSHALL STARKS MD Copy to: LEANN WEEKS MD ? Final Pathologic Diagnosis: ? Breast, left, needle core biopsy: 1. ?Marked chronic inflammation with granulation tissue formation. 2. ?Cholesterol granuloma with associated hemorrhage. 3. ?Foci of fat regeneration. 4. ?One apocrine duct. Comment: ? Changes are compatible with the results of old hemorrhage. ??This case was reviewed at the intradepartmental consultation conference. ??(Dr. Lezama)/[facility] Document reviewed and electronically signed by: HAWA LEZAMA MD Report ??Date: 03/11/2003 17:27 By the signature above, the attending physician certifies that he/she has personally conducted a gross and/or microscopic examination of the described specimens and rendered or confirmed the above diagnosis. Specimen(s) Received: ? L breast core bx, 6 o' clock, 1.0 cm from areolar margin Clinical History: ? Palp mass, ? mammo status, U/S -> indeterminate; clinical diagnosis code: 611.72 Gross Description: ? Received in formalin labelled Martinez and left breast core biopsy are three cylindrical cores of fibrofatty breast tissue ranging from 0.9 x 0.1 x 0.1 cm to 1.3 x 0.1 x 0.1 cm. ??One core is fragmented. ??Entirely submitted in one cassette. ??(Ailyn Sullivan/[facility] End of Report [facility] 03/07/2003 03/08/2003 14: 58 EDT Marshall Starks MD PATHOLOGY ORDERABLE S [facility] [address] [place] [address] documented in this encounter Visit Diagnoses Not on filedocumented in this encounter
--- OUTSIDE RECORDS SUMMARY | 2024-08-10 15:26 | XMS_ITS | Encounter Summary ---
Author Organization [facility] Address [facility] [place] [address] Care Team Providers Care Cnc Milling Machine Operator Name Role Phone Yana Turner MD Primary Care Provider [phone] Encounter Details Date Type Department Care Team (Latest Contact Info) Description 02/19/2019 7:35 AM EDT Laboratory Appointment Lab [address] [place] [phone] MADRIGAL (dyspnea on exertion); Atrial fibrillation, unspecified type Social History Tobacco [...] 11:20 AM EDT Office Visit Cardiology at [address] [phone] Christiano Hamlin MD [facility] [place] [address] documented as of this encounter Procedures Procedure Name Priority Date/Time Associated Diagnosis Comments PRO-BRAIN NATRIURETIC PEPTIDE Routine 02/19/2019 7:36 AM EDT MADRIGAL (dyspnea on exertion) MAGNESIUM Routine 02/19/2019 7:36 AM EDT Atrial fibrillation, unspecified type BASIC METABOLIC PANEL Routine 02/19/2019 7:36 AM EDT Atrial fibrillation, unspecified type documented in this encounter Results * (ABNORMAL) Basic Metabolic Panel (non-fasting) (02/19/2019 7:36 AM EDT) Glucose 128 65 - 199 mg/dL [facility] Comment:Diabetes: >=200 mg/d L plus symptoms Blood Urea Nitrogen 23(H) 8 - 18 mg/dL [facility] Creatinine 0.71 0.70 - 1.20 mg/dL [facility] Sodium 142 135 - 145 mmol/L [facility] Potassium 4.4 3.5 - 5.0 mmol/L [facility] Comment: Please note: ??Patients with WBC >100,000 may have falsely elevated Potassium levels. ??For accurate Potassium quantification in these patients send serum separator tube (gold top) for subsequent determinations. ??Contact the Clinical Chemistry Laboratory if there are any questions. Chloride 102 98 - 107 mmol/L [facility] Carbon Dioxide 28 22 - 31 mmol/L [facility] Anion Gap 12 5 - 15 mmol/L [facility] Calcium 8.8 8.5 - 10.5 mg/dL [facility] Est Glomerular Filtration Rate 84 >=60 mL/min/1. 73 m?? [facility] Comment: The eGFR was calculated using the CKD-EPI equation. As with all creatinine based estimates of kidney function, eGFR values calculated with the CKD-EPI equation are not accurate in patients with acute kidney failure, extremes of body mass or the acutely ill. http://[employer]/[facility] eGFR 98 >=60 mL/min/1. 73 m?? [facility] Comment: The eGFR was calculated using the CKD-EPI equation. As with all creatinine based estimates of kidney function, eGFR values calculated with the CKD-EPI equation are not accurate in patients with acute kidney failure, extremes of body mass or the acutely ill. http://[employer]/[facility] Blood specimen (specimen) 02/19/2019 7:36 AM EDT 02/19/2019 7:43 AM EDT Narrative Resulting Agency Comment Spec In Lab Saman Honeycutt MD CHEMISTRY ORDERABLES Performing Organization Address City/[facility]/ZIP Co de Phone Number [facility] [place] [address] * Magnesium (02/19/2019 7:36 AM EDT) Magnesium 0.85 0.69 - 1.07 mmol/L [facility] Blood specimen (specimen) 02/19/2019 7:36 AM EDT 02/19/2019 7:43 AM EDT Narrative Resulting Agency Comment Spec In Lab Saman Honeycutt MD CHEMISTRY ORDERABLES Performing Organization Address [facility] Co de Phone Number [facility] [place] [address] * (ABNORMAL) pro-Brain Natriuretic Peptide (02/19/2019 7:36 AM EDT) NT-proBNP 1,436(H) <=125 pg/mL [facility] Blood specimen (specimen) 02/19/2019 7:36 AM EDT 02/19/2019 7:43 AM EDT Narrative Resulting Agency Comment Spec In Lab Christiano Hamlin MD CHEMISTRY ORDERABLES Performing Organization Address City/[facility] Co de Phone Number [facility] [place] [address] documented in this encounter Visit Diagnoses Diagnosis MADRIGAL (dyspnea on exertion) Other dyspnea and respiratory abnormality Atrial fibrillation, unspecified type documented in this encounter Care Teams Cnc Milling Machine Operator Relationship Specialty Start Date End Date Yana Turner MD [address] [place] [address] PCP - General Family Medicine 12/26/18 documented as of this encounter
--- OUTSIDE RECORDS SUMMARY | 2024-08-10 15:26 | XMS_ITS | Encounter Summary ---
Author Organization [facility] Address [address] [place] [address] Care Team Providers Care Ladle Liner Helper Name Role Phone Unavailable Primary Care Provider Unavailabl e Encounter Details Date Type Department Care Team (Late st Contact Info) Description 04/04/2003 Results Only [facility] conversion [address] [place] [address] Marshall Starks MD [address] [place] [phone] Social History Tobacco Use Types Packs/Day Years Used Date Smoking Tobacco: Never Assessed Sex and Gender Information Value Date Recorded Sex Assigned at Not on file Gender Identity Not on file Sexual Orientation Not on file documented as of this encounter Plan of Treatment Not on file documented as of this encounter Procedures Procedure Name Priority Date/Time Associated Diagnosis Comments SURGICAL PATHOLOGY Routine 04/04/2003 0:00 EDT documented in this encounter Results * SURGICAL PATHOLOGY (04/04/2003 0:00 EDT) Pathology Report: SURGICAL PATHOLOGY REPORT Reports generated via electronic interface contain original data; however they are lacking the format of the original report. Caution should be taken when reading/interpreti ng unformatted reports. Name: ? LISA MARTINEZ ? Accession #: ? [id number] ? : ? 1945 (Age: 57) ??F ? Collect Date: ? 04/04/2003 ? Location: ? [facility] ? Receive Date: ? 04/05/2003 ? Provider: MARSHALL STARKS MD Copy to: LEANN WEEKS MD ? Final Pathologic Diagnosis: ? Left breast, 6 o' clock, excisional biopsy: 1. ?Fibrocystic changes with moderate epithelial hyperplasia, apocrine metaplasia, cyst formation, and fibrosis. 2. ?Localized old hematoma with chronic inflammation and giant cell reaction. ??See comment. Comment: ? These results were telephoned to Dr. Marshall Starks at his office on April 08, 2003 at approximately 3:15 pm. ??(Dr. Dykes)/[facility] Document reviewed and electronically signed by: KIKO DYKES MD Report ??Date: 04/08/2003 16:38 By the signature above, the attending physician certifies that he/she has personally conducted a gross and/or microscopic examination of the described specimens and rendered or confirmed the above diagnosis. Specimen(s) Received: ? L breast mass 6 o' clock, 8 cm from areola Clinical History: ? L breast mass core bx benign but not consistent with hx Gross Description: ? Received in formalin labelled Martinez and left breast mass biopsy is a 3.2 x 2.1 x 1.5 cm, 6.0 gram portion of fibrofatty breast tissue. ??The specimen is sectioned revealing an ill-defined, 1.5 x 1.0 x 0.9 cm, espinoza-clemens nodule with central areas of hemorrhage. ??The adipose tissue surrounding the nodule is indurated with areas of degeneration. ??The nodule extends to an inked margin. No other lesions or masses are grossly evident. ??The specimen is serially sectioned and entirely submitted sequentially as blocks (A1) ??(A8). ??(Ailyn Villagomez)/[facility]idi End of Report [facility] 04/04/2003 04/05/2003 9:2 3 EDT Marshall Starks MD PATHOLOGY ORDERABLE S Performing Organization Address City/State/[facility] Co de Phone Number [facility] [address] [place] [address] documented in this encounter Visit Diagnoses Not on filedocumented in this encounter
--- OUTSIDE RECORDS SUMMARY | 2024-08-10 15:26 | XMS_ITS | Encounter Summary ---
Author Organization [facility] Address [facility] [place] [address] Care Team Providers Care Animal Rescuer Name Role Phone Alissa Baxter MD Primary Care Provider [phone] Encounter Details Date Type Department Care Team (Late st Contact Info) Description 09/26/2017 Orders Only Cardiology at [address] [phone] Christiano Hamlin MD [facility] [place] [address] Abnormal stress test Social History Tobacco Use Types Packs/Day Years Used Date Smoking Tobacco: Never Sex and Gender Information Value Date Recorded Sex Assigned at Not on file Gender Identity Not on file Sexual Orientation Not on file documented as of this encounter Plan of Treatment Upcoming Encounters Date Type Department Care Team (Late st Contact Info) Description 08/13/2024 11:20 AM EDT Office Visit Cardiology at [address] [phone] Christiano Hamlin MD [facility] [place] [address] documented as of this encounter Results * EKG 12 Lead (09/27/2017 11:10 AM EST) Ventricular rate 75 BPM MUSE SYSTEM Atrial Rate 75 BPM MUSE SYSTEM P-R Interval 178 ms MUSE SYSTEM QRS Duration 72 ms MUSE SYSTEM Q-T Interval 394 ms MUSE SYSTEM QTC Calculated (Bezet) 439 ms MUSE SYSTEM Calculated P [place] 57 degrees MUSE SYSTEM Calculated R [place] -16 degrees MUSE SYSTEM Calculated T [place] 47 degrees MUSE SYSTEM INTERPRETATION Normal sinus rhythm Normal ECG No previous ECGs available Confirmed by MD ALEXANDRIA, WANG ([id number]) on 09/27/2017 5:08:42 PM MUSE SYSTEM 09/27/2017 11:1 0 AM EST 09/27/2017 5:08 PM EST Christiano Hamlin MD ECG ORDERABLES MUSE SYSTEM documented in this encounter Visit Diagnoses Diagnosis Abnormal stress test Other nonspecific abnormal cardiovascular system function study documented in this encounter Care Teams Animal Rescuer Relationship Specialty Start Date End Date Alissa Baxter MD [address] [place] [address] PCP - General 10/13/10 12/25/18 documented as of this encounter
--- OUTSIDE RECORDS SUMMARY | 2024-08-10 15:26 | XMS_ITS | Encounter Summary ---
Author Organization [facility] Address [facility] [place] [address] Care Team Providers Care Urgent Care Nurse Practitioner Name Role Phone Yana Turner MD Primary Care Provider [phone] Reason for Referral * Diagnostic Test (Routine) - Closed Specialty Diagnoses / Procedures Referred By Contac t Referred To Contact Cardiology Diagnoses MADRIGAL (dyspnea on exertion) Hypertension, unspecified type Atrial fibrillation, unspecified type Procedures Echocardiogram Transthoracic(Leb) Christiano Hamlin MD [facility] [place] [address] [facility] [place] [address] Referral ID Status Reason Start Date Expiration Date V isits Requested Visits Authorized [id number] Closed Specialty Service Requested 12/26/2018 12/26/2019 1 1 Encounter Details Date Type Department Care Team (Late st Contact Info) Description 12/26/2018 1:00 PM EST Office Visit Cardiology at [address] [phone] Christiano Hamlin MD [facility] [place] [address] MADRIGAL (dyspnea on exertion); Hypertension, unspecified type; Atrial fibrillation, unspecified type Social History Tobacco Use Types Packs/Day Years Used Date Smoking Tobacco: Never Smokeless Tobacco: Never Sex and Gender Information Value Date Recorded Sex Assigned at Not on file Gender Identity Not on file Sexual Orientation Not on file documented as of this encounter Last Filed Vital Signs Vital Sign Reading Time Taken Comments Blood Pressure 138/80 12/26/2018 12:41 PM EST Pulse 82 12/26/2018 12:41 PM EST Temperature - - Respiratory Rate - - Oxygen Saturation 95% 12/26/2018 12:41 PM EST Inhaled Oxygen Concentration - - Weight 100.7 kg (222 lb) 12/26/2018 12:41 PM EST Height 162.6 cm (5' 4) 12/26/2018 12:41 PM EST Body Mass Index 38.11 12/26/2018 12:41 PM EST documented in this encounter Patient Instructions * Patient Instructions* Christiano Hamlin MD - 12/26/2018 1:00 PM EST 1. Increase metoprolol to 100 mg daily 2. Begin apixaban (Eliquis) 5 mg twice daily for blood thinning and stroke prevention 3. Echocardiogram and follow-up appointment in one month documented in this encounter Progress Notes * Christiano Hamlin MD - 12/26/2018 1:00 PM EST Images from the original note were not included. [facility] [place] [phone] CARDIOLOGY OUTPATIENT FOLLOW-UP NOTE Lisa Worley [id number] PCP: Yana Turner MD 12/26/2018 PRIMARY CARE PROVIDER: Yana Turner MD PROBLEM LIST: Patient Active Problem List Diagnosis ??? MADRIGAL (dyspnea on exertion) ?? Onset about July, and accompanied by mild chest pain ?? Echocardiogram through [facility] August 12, 2017 showing mild LVH with normal LV systolic function and ejection fraction of 60-65%; normally sized and functioning right ventricle; severely dilated left atrium; moderate tricuspid regurgitation; moderate to severe pulmonary hypertension with PA systolic pressure 45-55 mmHg ?? Nuclear stress test [facility] September 12, 2017 showing small [...] Tablet Take 25 mg by mouth daily. ??? nitroGLYcerin (NITROSTAT) 0.4 mg Tablet, Sublingual Place 1 tablet under the tongue every 5 minutes as needed for Chest pain. 25 tablet 11 ??? metoprolol succinate (TOPROL-XL) 100 mg Tablet Sustained Release 24 hr Take 1 tablet by mouth daily. 90 tablet 3 ??? acetaminophen (TYLENOL) 325 mg [...] by mouth every 6 hours asneeded. ??? apixaban (ELIQUIS) 5 mg Tablet Take 1 tablet by mouth 2 times daily. 60 tablet 3 No current facility-administered medications for this visit. SUBJECTIVE: Incontinence, osteoarthritis, and dyspnea. The workup for her dyspnea had been relatively unremarkable and she had normal LV function with a dilated left atrium on her last echo a year and a half ago. I tried her on some hydrochlorothiazide without any great improvement. Her PCP at the time later stopped this and put her on a combination of metoprolol and Lipitor. She did not feel anydifferent on this. Just before Riddle her breathing became acutely worsened and she had abdominal bloating and edema. She saw her PCP and was given furosemide daily over the weekend and improved fairly dramatically.She was later put back on the hydrochlorothiazide. She continues to be wicked short of breath. She reports occasional chest pain. She denies orthopnea or PND. She has no specific awareness of her heart rhythm. OBJECTIVE: Vital Signs: BP 138/80 Pulse 82 Ht 162.6 cm (5' 4) Wt 100.7 kg (222 lb) SpO2 95% BMI 38.11 kg/m?? Physical Exam: On exam today she appeared in no acute distress. Her vital signs are documented above. She had no JVD. Her lungs were clear. Her heart exam revealed an irregularly irregular rhythm at a somewhat rapid rate. She had a benign abdomen and a trace to 1+ lower extremity edema. Twelve-lead EKG: This revealed atrial fibrillation with a mean ventricular rate of 112. She has some nonspecific ST segment changes. ASSESSMENT: 1. Newly diagnosed atrial fibrillation: To my knowledge, this is a new diagnosis for her. This is likely contributing to her dyspnea and possibly contributed to the heart failure she experienced backin October. Her rate control is not ideal. She has an elevated STACQ1Ibnw score. She needs better rate control, anticoagulation, and consideration for cardioversion. 2. Dyspnea: This is likely related to heart failure, possibly aggravated by her atrial fibrillation. PLAN: 1. Increase metoprolol succinate to 100 mg daily for better rate control 2. Begin apixaban 5 mg twice daily 3. Schedule follow-up and echocardiogram in 1 month or so 4. Eventual cardioversion 5. There will likely be a role for use of a more potent diuretic, but I do not want to change too much at one time documented in this encounter Plan of Treatment Upcoming Encounters Date Type Department Care Team (Late st Contact Info) Description 08/13/2024 11:20 AM EDT Office Visit Cardiology at [address] [address] Christiano Hamlin MD [facility] [place] [address] documented as of this encounter Procedures Procedure Name Priority Date/Time Associated Diagnosis Comments EKG 12-LEAD Routine 12/26/2018 12:49 PM EST MADRIGAL (dyspnea on exertion) Hypertension, unspecified type documented in this encounter Results * ECHO COMPLETE W CONTRAST (01/31/2019 1:02 PM EDT) EF 55 [facility] Anatomical Region Laterality Modality Other 01/31/2019 Narrative 01/31/2019 1:16 PM EDT Procedure: ?Transthoracic Echocardiogram Patient: ?MICHELLE RDZ ?(Age): 1945(73y) Med Rec#: ? [id number] ?Sex: ?F ? Site Loc: ? [facility] ?Ht / Wt: ??163(cm)/100(kg) Pt. Loc: ?Echo Lab ?BSA: ?2.04 Study Date: ?? 01/31/2019 ?Pt. Type: Outpatient Tape: ? Referring: FRED Reading: Kamari Wade ([id number]) Buckle Sewer Machine: Dafne Bradley Nurse: Jessica Ventura Diagnosis: *Other forms of [...] ? Mid-Inferior ?Normal ? Mid-Inferoseptal ?Normal ? Louise-Septal ? Normal ? Louise-Anterior ? Normal ? Louise-Lateral ?Normal ? Louise-Inferior ? Normal ? Louise-Tip ?Normal ? This report has been electronically signed by: Kamari Wade MD ? 01/31/2019 13:15:37 Images reviewed and interpretation verified [facility] Cardiac Ultrasound Laboratory Procedure Note Kamari Wade MD - 01/31/2019 Procedure: Transthoracic Echocardiogram Patient: MICHELLE MARY(Age): 1945(73y) Med Rec#: [id number] Sex: F Site Loc: [facility] Ht / Wt: 163(cm)/100(kg) Pt. Loc: Echo Lab BSA: 2.04 Study Date: 01/31/2019 Pt. Type: Outpatient Tape: Referring: FRED Reading: Kamari Wade ([id number]) Buckle Sewer Machine: Dafne Bradley Nurse: Jessica Ventura Diagnosis: *Other forms of [...] Normal Mid-Posterolateral Normal Mid-Inferior Normal Mid-Inferoseptal Normal Louise-Septal Normal Louise-Anterior Normal Louise-Lateral Normal Louise-Inferior Normal Louise-Tip Normal This report has been electronically signed by: Kamari Wade MD 01/31/2019 13:15:37 Images reviewed and interpretation verified [facility] Cardiac Ultrasound Laboratory Christiano Hamlin MD ECHO ORDERABLES * EKG 12 Lead (12/26/2018 12:49 PM EST) Ventricular rate 112 BPM MUSE SYSTEM Atrial Rate 102 BPM MUSE SYSTEM QRS Duration 80 ms MUSE SYSTEM Q-T Interval 342 ms MUSE SYSTEM QTC Calculated (Bezet) 466 ms MUSE SYSTEM Calculated R [place] 2 degrees MUSE SYSTEM Calculated T [place] 77 degrees MUSE SYSTEM INTERPRETATION Atrial fibrillation with rapid ventricular response with premature ventricular or aberrantly conducted complexes Nonspecific ST and T wave abnormality , probably digitalis effect Abnormal ECG When compared with ECG of 27-SEP-2017 11:10, Atrial fibrillation has replaced Sinus rhythm Vent. rate has increased BY ??37 BPM Nonspecific T wave abnormality now evident in Lateral leads Confirmed by MD Yakelin, Christiano ([id number]) on 12/26/2018 4:36:00 PM MUSE SYSTEM 12/26/2018 12:4 9 PM EST 12/26/2018 4:36 PM EST Christiano Hamlin MD ECG ORDERABLES MUSE SYSTEM documented in this encounter Visit Diagnoses Diagnosis MADRIGAL (dyspnea on exertion) Other dyspnea and respiratory abnormality Hypertension, unspecified type Atrial fibrillation, unspecified type MADRIGAL (dyspnea on exertion) Other dyspnea and respiratory abnormality Hypertension, unspecified type Atrial fibrillation, unspecified type documented in this encounter Care Teams Urgent Care Nurse Practitioner Relationship Specialty Start Date End Date Yana Turner MD [address] [place] [address] PCP - General Family Medicine 12/26/18 documented as of this encounter
--- OUTSIDE RECORDS SUMMARY | 2024-08-10 15:26 | XMS_ITS | Encounter Summary ---
Author Organization [facility] Address [facility] [place] [address] Care Team Providers Care Ear Muff Assembler Name Role Phone Alissa Baxter MD Primary Care Provider [phone] Encounter Details Date Type Department Care Team (Late st Contact Info) Description 11/02/2018 Orders Only Cardiology at [address] [phone] Christiano Hamlin MD [facility] [address] Hypertension, unspecified type (Primary Dx) Social History Tobacco Use Types [...] 11:20 AM EDT Office Visit Cardiology at [address] [address] Christiano Hamlin MD [facility] [place] [address] documented as of this encounter Visit Diagnoses Diagnosis Hypertension, unspecified type- Primary documented in this encounter Care Teams Ear Muff Assembler Relationship Specialty Start Date End Date Alissa Baxter MD [address] [place] [address] PCP - General 10/13/10 12/25/18 documented as of this encounter
--- OUTSIDE RECORDS SUMMARY | 2024-08-10 15:26 | XMS_ITS | Referral Summary ---
Author Organization [facility] Address [address] [place] [address] Care Team Providers Care Accounts Payable Payroll Coordinator Name Role Phone Alissa Baxter MD Primary Care Provider [phone] Social History Tobacco Use Types Packs/Day Years Used Date Smoking Tobacco: Never Assessed Sex and Gender Information Value Date Recorded Sex Assigned at Not on file Gender Identity Not on file Sexual Orientation Not on file Plan of Treatment Not on file Care Teams Accounts Payable Payroll Coordinator Relationship Specialty Start Date End Date Alissa Baxter MD [address] [place] [address] [address] [place] [id number] PCP - General 02/27/14
--- OUTSIDE RECORDS SUMMARY | 2024-08-10 15:26 | XMS_ITS | Encounter Summary ---
Author Organization [facility] Address [address] [place] [address] Care Team Providers Care Crime Data Specialist Name Role Phone Unavailable Primary Care Provider Unavailabl e Encounter Details Date Type Department Care Team (Late st Contact Info) Description 08/29/2001 Results Only [facility] Medicine [address] [id number] Leidy Agarwal MD [address] [place] [id number] Social History Tobacco Use Types Packs/Day Years Used Date Smoking Tobacco: Never Assessed Sex and Gender Information Value Date Recorded Sex Assigned at Not on file Gender Identity Not on file Sexual Orientation Not on file documented as of this encounter Plan of Treatment Not on file documented as of this encounter Procedures Procedure Name Priority Date/Time Associated Diagnosis Comments CYTOPATHOLOGY Routine 08/29/2001 0:00 EDT documented in this encounter Results * CYTOPATHOLOGY (08/29/2001 0:00 EDT) Pathology Report: CYTOPATHOLOGY REPORT Reports generated via electronic interface contain original data; however they are lacking the format of the original report. Caution should be taken when reading/interpreti ng unformatted reports. Name: ? LISA MARTINEZ ? Accession #: ? [id number] : ? 1945 (Age: 56) ??F ?Collect Date: ? 08/29/2001 Location: ? [facility] ? Receive Date: ? 08/31/2001 Provider: ?LEIDY AGARWAL MD Copy to: ? Specimen/Source: ?ThinPrep Pap Test, Vagina Last Menstrual Period: ? Treatment History: ? TITA Other: ? Additional clinical information: Nodule left superior vaginal fornix HPVL - HPV testing requested if LSIL/ASCUS/SHALINI on the current ThinPrep Pap test. Colposcopy Pap and/or biopsy in progress ? SPECIMEN ADEQUACY ? Satisfactory for evaluation. GENERAL CATEGORIZATION ? Within Normal Limits ? Document reviewed and electronically signed by: ? NOE Rivera(ASCP) ? Report Date: ??08/31/2001 15:00 End of Report RAFAEL HUANG 08/29/2001 08/31/2001 Leidy Agarwal MD PATHOLOGY ORDERABLES RAFAEL HUANG [address] [place] [address] documented in this encounter Visit Diagnoses Not on filedocumented in this encounter
--- OUTSIDE RECORDS SUMMARY | 2024-08-10 15:26 | XMS_ITS | Encounter Summary ---
Author Organization [facility] Address [facility] [place] [address] Care Team Providers Care Access Representative Name Role Phone Alissa Baxter MD Primary Care Provider [phone] Encounter Details Date Type Department Care Team (Late st Contact Info) Description 10/11/2017 9:00 AM EST - 10/11/2017 10:00 AM EST Surgery [employer] [place] [id number] Greg Mason MD [facility] [place] [address] CARDIAC CATHETERIZATION Social History Tobacco Use Types Packs/Day Years Used Date Smoking Tobacco: Never Smokeless Tobacco: Never Sex and Gender Information Value Date Recorded Sex Assigned at Not on file Gender Identity Not on file Sexual Orientation Not on file documented as of this encounter Last Filed Vital Signs Vital Sign Reading Time Taken Comments Blood Pressure 163/89 10/11/2017 8:24 AM EST Pulse 91 10/11/2017 8:24 AM EST Temperature 36.7 ??C (98.1 ??F) 10/11/2017 8:24 AM ES T Respiratory Rate 16 10/11/2017 8:24 AM EST Oxygen Saturation 98% 10/11/2017 8:24 AM EST Inhaled Oxygen Concentration - - Weight 98.9 kg (218 lb) 10/11/2017 8:24 AM EST Height 162.6 cm (5' 4) 10/11/2017 8:24 AM EST Body Mass Index 37.42 10/11/2017 8:24 AM EST documented in this encounter Discharge Instructions * Discharge Instructions* Heidy Robertson RN - 10/11/2017 1:29 PM EST Activity If you are discharged the same day as your procedure, do not drive yourself home. Arrange to have another person drive. You may walk around when you get home, but keep your activity at a minimum until the morning. Do not bend over, strain, or lift heavy objects for 24 hours after the procedure. Do not participate in active sports for 48 hours. You may engage in sexual activity after 48 hours. These restrictions will not apply if the catheter was placed in a blood vessel in your arm. Catheter Insertion Area Care Take the band-aid off the catheter insertion area the morning following the procedure. You may takea shower if you wish. Wash the area with soap and water. Look for signs of infection over the next several days. A little spot of blood at the catheter insertion area is not unusual. A bruise or small lump under the skin is normal; they generally disappear in 3-4 days. For the first several days at home if you cough or sneeze, hold your groin to help prevent bleeding. Expect some mild tenderness over the area where the catheter was inserted. You will notice this after the local anesthetic (numbing medicine) wears off. This should improve during the 24-48 hours after the procedure. Take tylenol if needed. Contact your doctor if the discomfort worsens. Problems to Watch For If there is bright red blood flowing from the catheter insertion area: *stop what you are doing and lie down *Hold pressure steadily on the area for 15 minutes *Call for Help *If the bleeding does not stop in 15 minutes call 911 for an ambulance. If there is swelling with black and blue color at the catheter insertion area, there may be bleeding inside. Contact the doctor if there is any increase in size. Look at the insertion site for the first few days at home. Signs of infection are: *redness *Swelling *Yellow, white, green or brown foul smelling drainage. *increased soreness If you think there is an infection, take your temperature. Then call your doctor. The limb on the side where you had your catheterization should look and feel normal in its color, sensation, and temperature. If your leg becomes cool, pale, blue or changing color with numbness and tingling, contact your doctor. If you feel faint or dizzy, lie down with your feet elevated. Have someone call the doctor. If you are alert, drink fluids. How to Deal with Chest pain If you had only the cardiac catheterization, treat any angina or chest discomfort as instructed. Stop what you are doing, and sit or lie down. If prescribed, take nitroglycerin under your tongue. If the angina isn't relieved, take another nitroglycerine in 5 minutes. After another 5 minutes, a third nitroglycerine may be taken. If the angina isn't improved you should call for an ambulance to bring you to the nearest hospital emergency room. If your angina is more frequent or more sever than before, contact your doctor. We usually would not expect to have angina after an angioplasty. If you do get angina, treat it as you did before but also contact your doctor. Return to Work The doctor will usually have told you when to return to work. If you do not perform heavy physical labor, most people can return to work in a few days. Diet Follow your previous diet unless otherwise instructed. Cardiac Risk Factors If you have coronary artery disease, it is important that you help control it by reducing your cardiac risk factors. If you smoke, we urge you to stop now. If you think this is going to be a problem,let us know so that we may help you. We have dieticians who can help you learn about low fat, low cholesterol diet. Cardiac rehabilitation programs can help you set up a regular exercise program. Work with your doctor if you have high blood pressure or sugar diabetes to keep these under control. Medications ____Take your usual medications ____Medication changes: If you are taking medicines prescribed by your doctor, do not take any qscr-tqt-acrnedp medicines or herbal preparations without first discussing this with your doctor or pharmacist. There is the possibility of side effect and interactions when these are combined. Follow up Care Who to Call with Questions or Problems If there are any questions or problems that you think might be related to your cardiac cath or angioplasty, contact the trading analyst guest relations officer by calling [facility] at . POST ANESTHESIA INSTRUCTIONS Go home, rest, use caution on stairs. Change positions slowly. Do not smoke if you are alone. Diet light to regular as tolerated today. If nausea occurs start with clear liquids and progress slowly. No driving, operating machinery, alcoholic beverages and no important decisions for 24 hours. Monitor IV site for signs and symptoms of infection: increasing redness, swelling, foul drainage, if occurs contact M.D. Patients who have had endotrachial tubes (this tube, used by anesthesia department, is passed down your throat after you are asleep, to ensure safe air passage during your operation). A sore throat is normal due to the tube. Cold liquids or soothing lozenges will help ease the discomfort. The generalized muscle aches are due to the medication given to you just before the tube is inserted. As the medication wears off, you may develop muscle soreness, which usually goes away in 12-24 hours. documented in this encounter Medications at Time of Discharge Medication Sig Dispensed Refills Start Date End Date atorvastatin (LIPITOR) 10 mg Tablet Take 10 mg by mouth daily. hydroCODone-acetaminophe n (VICODIN) 5-500 mg per tablet Take 1 tablet by mouth every 6 hours as needed. meTOPROLOL succinate (TOPROL-XL) 50 mg Tablet Sustained Release 24 hr Take 50 mg by mouth daily. 12/06/2017 aspirin 81 mg Tablet, Delayed Release (E.C.) Take 81 mg by mouth daily. 12/03/2020 gabapentin (NEURONTIN) 100 mg Capsule Take 100 mg by mouth 3 times daily. 12/06/2017 nitroGLYcerin (NITROSTAT) 0.4 mg Tablet, Sublingual Place 0.4 mg under the tongue every 5 minutes as needed for Chest pain. 12/26/2018 documented as of this encounter Progress Notes * Heidy Robertson RN - 10/11/2017 1:59 PM EST 1400- dc instructions reviewed with patient and patients children. Pt verbalized understanding. Pt denies pain or nausea. Tolerating po. Dressings are CDI. 2+ pulse to right radial. * Neema Leon RN - 10/11/2017 8:38 AM EST Images from the original note were not included. Patient Name: Lisa Worley Patient Age: 72 y.o. Birthdate: 1945 Admit date: 10/11/2017 Attending Physician: Greg Mason MD Skin: documented in this encounter H&P Notes * Jorge Le MD - 10/11/2017 10:08 AM EST Lisa Worley is a 72 y.o. female with hx of Htn and HLD who is referred for cardiac catheterizationby Dr. Hamlin for evaluation of exertional chest discomfort. She reports a progressively worsening dyspnea on exertion over the past 12 months, which has been notably worsening in the past 6 months. She denies any chest discomfort with exertion. She was subsequently referred for a nuclear stress test which demonstrated inferolateral ischemia. An echocardiogram demonstrated moderate TR with suggested pulmonary hypertension (PASP 45-55mmHg) and a normal LVEF at 65% with no RWMA. She is now referred for right and left heart catheterization with coronary angiography for further assessment of cardiac filling pressures, cardiac output, and coronary anatomy and disease. There have not been any changes in health status since last seen in clinic. No fevers, no chills, no bleeding. Outpatient Prescriptions Marked as Taking for the 10/11/17 encounter (Hospital Encounter) Medication Sig Dispense Refill ??? atorvastatin (LIPITOR) 10 mg Tablet Take 10 mg by mouth daily. ??? aspirin 81 mg Tablet, Delayed Release (E.C.) Take 81 mg by mouth daily. ??? gabapentin (NEURONTIN) 100 mg Capsule Take 100 mg by mouth 3 times daily. ??? hydroCODone-acetaminophen (VICODIN) 5-500 mg per tablet Take 1 tablet by mouth every 6 hours asneeded. BP 163/89 Pulse 91 Temp 36.7 ??C (98.1 ??F) (Temporal) Resp 16 Ht 162.6 cm (5' 4) Wt 98.9 kg (218 lb) SpO2 98% BMI 37.42 kg/m2 Gen: Alert, comfortable appearing, WF in NAD HEENT: EOMI, MMM, Mallampati Class II Neck: Supple, no JVD CV: RRR, no M/R/G appreciated, normal S1/S2, PMI not palpated Resp: CTAB, no W/R/R Abd: Soft, NT/ND, +BS Ext: No edema, clubbing, or cyanosis. Warm and well perfused. Neuro: CN grossly intact, moving all extremities Psych: Appropriate affect Pulses: 2+ bilateral radial pulses, Type B Barbeau test on the right, 2+ bilateral femoral pulses, no femoral bruit appreciated, 2+ bilateral DP pulses Labs reviewed and notable for: Lab Results Component Value Date WBC 6.8 09/27/2017 HGB 14.6 09/27/2017 HCT 44.4 09/27/2017 MCV 85.7 09/27/2017 PLATELET 204 09/27/2017 Lab Results Component Value Date CREATININE 0.74 09/27/2017 BUN 17 09/27/2017 NA 139 09/27/2017 K 4.2 09/27/2017 CL 99 09/27/2017 CO2 25 09/27/2017 Lab Results Component Value Date INR 1.1 09/27/2017 A/P 72 y.o. female here for cardiac catheterization for evaluation of exertional dyspnea. Will proceed with right and left heart catheterization with coronary angiography for further assessment of cardiac filling pressures, cardiac output, and coronary anatomy and disease. - proceed as planned - consent signed - FULL code Jorge Le MD Fellow, Interventional Cardiology 10/11/2017 10:12 AM documented in this encounter Plan of Treatment Upcoming Encounters Date Type Department Care Team (Late st Contact Info) Description 08/13/2024 11:20 AM EDT Office Visit Cardiology at [address] [phone] Christiano Hamlin MD [facility] [place] [address] documented as of this encounter Visit Diagnoses Diagnosis Abnormal stress test Other nonspecific abnormal cardiovascular system function study MADRIGAL (dyspnea on exertion) Other dyspnea and respiratory abnormality Chest pain, unspecified type MADRIGAL (dyspnea on exertion) Other dyspnea and respiratory abnormality Abnormal stress test Other nonspecific abnormal cardiovascular system function study Chest pain, unspecified type documented in this encounter Administered Medications Inactive Administered Medications - up to 3 most recent administrations Medication Order MAR Action Action Date Dose Rate Site fentaNYL 50 mcg/mL multi-dose injection ONCE PRN, Starting on Tue10/11/17 at 1032, Until Tue10/11/17 at 1131, Intra-Operative (Intra-Procedure), Routine Given 10/11/2017 10:32 AM EST 25 mcg heparin (porcine) injection ONCE PRN, Starting on Tue10/11/17 at 1104, Until Tue10/11/17 at 1131, Cath (Intra-Procedure), Routine Given 10/11/2017 11:04 AM EST 5,000 Units iohexol (OMNIPAQUE) 350 mg/mL solution ONCE PRN, Starting on Tue10/11/17 at 1130, Until Tue10/11/17 at 1131, Cath (Intra-Procedure), Routine Given 10/11/2017 11:30 AM EST 85 mLs lidocaine (XYLOCAINE) 10 mg/mL (1 %) injection 3 mg 3 mg (0.3 mL), Subcutaneous, ONCE PRN, 1 dose, Starting on Tue10/11/17 at 0830, Until Tue10/11/17 at 1633, with discomfort with PIV insertion, Cath (Day of Procedure), Routine midazolam (PF) (VERSED) 1 mg/mL multi-dose injection ONCE PRN, Starting on Tue10/11/17 at 1032, Until Tue10/11/17 at 1131, Cath (Intra-Procedure), Routine Given 10/11/2017 10:32 AM EST 1 mg nitroGLYcerin 100 mcg/mL intracoronary dilution ONCE PRN, Starting on Tue10/11/17 at 1047, Until Tue10/11/17 at 1131, Cath (Intra-Procedure), Routine Given 10/11/2017 10:47 AM EST 150 mcg sodium chloride 0.9 % flush 5 mL 5 mL, Intravenous, EVERY 12 HOURS, First dose on Tue10/11/17 at 0900, Until Discontinued, Cath (Day of Procedure), Routine Given 10/11/2017 9:00 AM EST 5 mLs sodium chloride 0.9 % flush 5-20 mL 5-20 mL, Intravenous, EVERY 1 MIN PRN, Starting on Tue10/11/17 at 0830, Until Tue10/11/17 at 1633, flush, Flush pertains to all indwelling lines. Flush per protocol found in the job aid using the link provided on this medication record., Cath (Day of Procedure), Routine sodium chloride 0.9% infusion 200 mL/hr, Intravenous, CONTINUOUS, Starting on Tue10/11/17 at 0900, Until Tue10/11/17 at 1633, Cath (Day of Procedure) Rate/Dose Verify 10/11/2017 1:19 PM EST 125 mL/hr 125 mL/hr Rate/Dose Change 10/11/2017 12:15 PM EST 125 mL/hr 125 mL /hr New Bag 10/11/2017 9:00 AM EST 200 mL/hr 200 mL/hr sodium chloride 0.9% infusion 100 mL/hr, Intravenous, CONTINUOUS, Starting on Tue10/11/17 at 1215, Until Tue10/11/17 at 1414, Recovery (Recovery-Hospital Unit) New Bag 10/11/2017 12:15 PM EST 100 mL/hr 100 m L/hr sodium chloride 0.9% infusion 125 mL/hr, Intravenous, CONTINUOUS, Starting on Tue10/11/17 at 1430, Until Tue10/11/17 at 1633, Recovery (Recovery-Hospital Unit) verapamil (ISOPTIN) injection ONCE PRN, Starting on Tue10/11/17 at 1047, Until Tue10/11/17 at 1131, Administer over 2 Minutes, Cath (Intra-Procedure) Given 10/11/2017 10:47 AM EST 2.5 mg documented in this encounter Active and Recently Administered Medications Times are shown in EST. Scheduled Medication Order 10/09/2017 10/10/2017 10/11/2017 sodium chloride 0.9 % flush 5 mL 5 mL, Intravenous, EVERY 12 HOURS, First dose on Tue10/11/17 at 0900, Until Discontinued, Cath (Day of Procedure), Routine 0900 (Given - Provid er: Neema Leon RN) Continuous Medication Order 10/09/2017 10/10/2017 10/11/2017 sodium chloride 0.9% infusion 200 mL/hr, Intravenous, CONTINUOUS, Starting on Tue10/11/17 at 0900, Until Tue10/11/17 at 1633, Cath (Day of Procedure) 0900 (New Bag - Prov ider: Neema Leon RN)1215 (Rate/Dose Change - Provider: Heidy Robertson RN)1319 (Rate/Dose Verify - Provider: Heidy Robertson RN) sodium chloride 0.9% infusion 100 mL/hr, Intravenous, CONTINUOUS, Starting on Tue10/11/17 at 1215, Until Tue10/11/17 at 1414, Recovery (Recovery-Hospital Unit) 1215 (New Bag - Prov ider: Sonam Jasso RN) sodium chloride 0.9% infusion 125 mL/hr, Intravenous, CONTINUOUS, Starting on Tue10/11/17 at 1430, Until Tue10/11/17 at 1633, Recovery (Recovery-Hospital Unit) 1430 (Due) PRN Medication Order 10/09/2017 10/10/2017 10/11/2017 fentaNYL 50 mcg/mL multi-dose injection (CANCELED) ONCE PRN, Starting on Tue10/11/17 at 1032, Until Tue10/11/17 at 1131, Intra-Operative (Intra-Procedure), Routine 1032 (Given - Provid er: Shantelle Hebert RN) heparin (porcine) injection (CANCELED) ONCE PRN, Starting on Tue10/11/17 at 1104, Until Tue10/11/17 at 1131, Cath (Intra-Procedure), Routine 1104 (Given - Provid er: Jorge Le MD) iohexol (OMNIPAQUE) 350 mg/mL solution (CANCELED) ONCE PRN, Starting on Tue10/11/17 at 1130, Until Tue10/11/17 at 1131, Cath (Intra-Procedure), Routine 1130 (Given - Provid er: Greg Mason MD) lidocaine (XYLOCAINE) 10 mg/mL (1 %) injection 3 mg 3 mg (0.3 mL), Subcutaneous, ONCE PRN, 1 dose, Starting on Tue10/11/17 at 0830, Until Tue10/11/17 at 1633, with discomfort with PIV insertion, Cath (Day of Procedure), Routine midazolam (PF) (VERSED) 1 mg/mL multi-dose injection (CANCELED) ONCE PRN, Starting on Tue10/11/17 at 1032, Until Tue10/11/17 at 1131, Cath (Intra-Procedure), Routine 1032 (Given - Provid er: Shantelle Hebert RN) nitroGLYcerin 100 mcg/mL intracoronary dilution (CANCELED) ONCE PRN, Starting on Tue10/11/17 at 1047, Until Tue10/11/17 at 1131, Cath (Intra-Procedure), Routine 1047 (Given - Provid er: Jorge Le MD) sodium chloride 0.9 % flush 5-20 mL 5-20 mL, Intravenous, EVERY 1 MIN PRN, Starting on Tue10/11/17 at 0830, Until Tue10/11/17 at 1633, flush, Flush pertains to all indwelling lines. Flush per protocol found in the job aid using the link provided on this medication record., Cath (Day of Procedure), Routine verapamil (ISOPTIN) injection (CANCELED) ONCE PRN, Starting on Tue10/11/17 at 1047, Until Tue10/11/17 at 1131, Administer over 2 Minutes, Cath (Intra-Procedure) 1047 (Given - Provid er: Jorge Le MD) documented in this encounter Care Teams Access Representative Relationship Specialty Start Date End Date Alissa Baxter MD [address] [place], [place] [id number] [facility] [address] [place] [address] PCP - General 10/13/10 12/25/18 documented as of this encounter
--- OUTSIDE RECORDS SUMMARY | 2024-08-10 15:26 | XMS_ITS | Encounter Summary ---
Author Organization [facility] Address [facility] [place] [address] Care Team Providers Care Front Counter Attendant Name Role Phone Alissa Baxter MD Primary Care Provider [phone] Reason for Referral * Physical Therapy (Routine) - Closed Specialty Diagnoses / Procedures Referred By Feng colindres Referred To Contact Physical Therapy Diagnoses Urinary incontinence Myla Laguerre MD [facility] [place] [address] [place] [address] [facility] [place] [address] Referral ID Status Reason Start Date Expiration Date V isits Requested Visits Authorized [id number] Closed Evaluate and Treat 02/22/2012 08/20/2012 1 1 Reason for Visit * Reason Comments Urinary Incontinence Encounter Details Date Type Department Care Team (Late st Contact Info) Description 02/22/2012 1:30 PM EDT [place] [address] Myla Laguerre MD [facility] [place] [place] [address] Urinary incontinence (Primary Dx); Mixed incontinence Discharge Disposition: Home Social History Tobacco Use Types Packs/Day Years Used Date Smoking Tobacco: Never Sex and Gender Information Value Date Recorded Sex Assigned at Not on file Gender Identity Not on file Sexual Orientation Not on file documented as of this encounter Last Filed Vital Signs Vital Sign Reading Time Taken Comments Blood Pressure 136/74 02/22/2012 1:38 PM EDT Pulse 59 02/22/2012 1:38 PM EDT Temperature - - Respiratory Rate - - Oxygen Saturation - - Inhaled Oxygen Concentration - - Weight 90.7 kg (200 lb) 02/22/2012 1:38 PM EDT Height 162.6 cm (5' 4) 02/22/2012 1:38 PM EDT Body Mass Index 34.33 02/22/2012 1:38 PM EDT documented in this encounter Patient Instructions * Patient Instructions* Myla Laguerre MD - 02/22/2012 2:26 PM EDT We will set you up to see the physical therapist here for pelvic muscle exercise teaching. It is important that you improve the pelvic floor before we consider an operation. I will see you back in 6 months after you have learned how and have done the exercises for at least4-5 months. documented in this encounter Progress Notes * Myla Laguerre MD - 02/22/2012 2:11 PM EDT Urinary Incontinence New Patient Workup - Female Reason for Visit: This is a female 66 y.o. seen at the request of ALISSA BAXTER MD with incontinence times 26 years. She had a hysterectomy soon after her last delivery 26 yr ago in [facility] by Dr. Abreu. She has been wet since. Notes from ALISSA BAXTER MD on file have been received and reviewed. She has seen Dr. Castellano and Dr. Rhodes in the past. Dr. Rhodes discussed pelvic muscle exercises with her in 2007. She did them. HPI Features of incontinence: The patient leaks with the following stress maneuvers: coughing , laughing, sneezing, lifting and straining. She does not leak when walking, when getting out of a chair and when bending over. The patient has features of urge including: leakage without warning, leakage on the way to the toilet and when full. She does not leak around water and in cold weather. Pad use: Type: pads- mini pad Number: 2 -3 per day; 1 per night. Frequency: Every 1 hour(s). Nocturia: x q 30 min - up to 3 hr. Nocturnal enuresis: No. Usual Fluid Intake: Type of Fluid Quantity Consumed Unit Coffee 1 Large cups per day Tea 0 cups per day Coke 1 cans per day Juice 1 glasses per day Water 4 Very large glasses per day Last UTI: None recently. Bowel Problems: Normal - daily BM Gyne: G 4 P 4 # 4 Menopause: age 40 hysterectomy - ovaries retained , has hot flashes occasionally. HRT: No. No past medical history on file. Depression Hypertension No past surgical history on file. 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 Smokes none Etoh - quit 1 month ago- was having 2+ or more per night. Review of Systems: General Health: fair. 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 RS - No cough or breathing difficulties. CVS No chest pain or MADRIGAL. No claudication. GI - Normal appetite and bowels. MUSCULOSKELETAL:arthritis/bursitis -hip Physical Exam Pleasant woman in no acute distress. Oriented to Person, place and time. Healthy appearance. Color normal. No significant skin lesions. Abdomen: The abdomen is soft, non-tender, without masses or organomegaly. There is no hepatosplenomegaly. The bladder is not palpable. There is no CV angle tenderness. Pelvic: The external genitalia are normal with normal hair distribution and no lesions. The meatus is in a normal location with a normal configuration. There is min mobility of the bladder neck. The urethra is not tender. There are no urethral masses. The patient leaks in the supine position with valsalva and with coughing. There is a Gr. 0 cystocele and a Gr. 1 rectocele. There are no pelvic masses. The patient cannot Kegel effectively. The uterus and adenexa are absent. The uterus is well supported. Rectal: The anus and perineum are normal. Rectal sphincter tone is normal. There are no rectal masses. PVR: 0 cc measured in the supine position with the bladder scanner shortly after the patient had voided. U/A: positive for RBC. - not enough to send Impression: Pt with poor ability to do pelvic muscle exercises and stress and urge incontinence. She leaks with a valsalva Plan: Refer to PT RTC 6 months documented in this encounter Plan of Treatment Upcoming Encounters Date Type Department Care Team (Late st Contact Info) Description 08/13/2024 11:20 AM EDT Office Visit Cardiology at [address] [phone] Christiano Hamlin MD [facility] [place] [address] Scheduled Referrals Name Type Priority Associated Diagnoses Orde r Schedule REFERRAL TO PHYSICAL THERAPY Outpatient Referral Routine Urinary incontinence Ordered: 02/22/2012 documented as of this encounter Visit Diagnoses Diagnosis Urinary incontinence- Primary Unspecified urinary incontinence Mixed incontinence Mixed incontinence urge and stress (male)(female) documented in this encounter Care Teams Front Counter Attendant Relationship Specialty Start Date End Date Alissa Baxter MD [address] [place] [address] [address] PCP - General 10/13/10 12/25/18 documented as of this encounter
--- OUTSIDE RECORDS SUMMARY | 2024-08-10 15:26 | XMS_ITS | Encounter Summary ---
Author Organization [facility] Address [facility] [place] [address] Care Team Providers Care Starbucks Barista Name Role Phone Yana Turner MD Primary Care Provider [phone] Reason for Visit * Reason Onset Date Comments Medication Refill 04/26/2019 Encounter Details Date Type Department Care Team (Late st Contact Info) Description 04/26/2019 Refill Cardiology at [address] [phone] Christiano Hamlin MD [facility] [place] [address] Medication Refill Social History Tobacco Use Types [...] AM EDT Office Visit Cardiology at [address] [phone] Christiano Hamlin MD [facility] [place] [address] documented as of this encounter Visit Diagnoses Not on filedocumented in this encounter Care Teams Starbucks Barista Relationship Specialty Start Date End Date Yana Turner MD [address] [place] [address] PCP - General Family Medicine 12/26/18 documented as of this encounter
--- OUTSIDE RECORDS SUMMARY | 2024-08-10 15:26 | XMS_ITS | Encounter Summary ---
Author Organization [facility] Address [facility] [place] [address] Care Team Providers Care Geomagnetician Name Role Phone Alissa Baxter MD Primary Care Provider [phone] Encounter Details Date Type Department Care Team (Latest Contact Info) Description 10/11/2017 8:06 AM EST - 10/11/2017 2:33 PM EST Hospital En[place] [address] Greg Mason MD [facility] [address] Abnormal stress test; MADRIGAL (dyspnea on exertion); Chest pain, unspecified type Discharge Disposition: Home Social History Tobacco Use Types Packs/Day Years Used Date Smoking Tobacco: Never Smokeless Tobacco: Never Sex and Gender Information Value Date Recorded Sex Assigned at Not on file Gender Identity Not on file Sexual Orientation Not on file documented as of this encounter Last Filed Vital Signs Vital Sign Reading Time Taken Comments Blood Pressure 179/95 10/11/2017 1:45 PM EST Pulse 77 10/11/2017 1:15 PM EST Temperature 36.8 ??C (98.2 ??F) 10/11/2017 1:15 PM ES T Respiratory Rate 18 10/11/2017 2:00 PM EST Oxygen Saturation 96% 10/11/2017 2:00 PM EST Inhaled Oxygen Concentration - - [...] by your doctor, do not take any wsft-iph-tnucpbs medicines or herbal preparations without first discussing this with your doctor or pharmacist. There is the possibility of side effect and interactions when these are combined. Follow up Care Who to Call with Questions or Problems If there are any questions or problems that you think might be related to your cardiac cath or angioplasty, contact the child and family counselor chronic manager by calling [facility] at . POST ANESTHESIA INSTRUCTIONS [...] 11:20 AM EDT Office Visit Cardiology at [address] [phone] Christiano Hamlin MD [facility] [address] documented as of this encounter Visit Diagnoses Diagnosis Abnormal stress test Other nonspecific abnormal cardiovascular system function study MADRIGAL (dyspnea on exertion) Other dyspnea and respiratory abnormality Chest pain, unspecified type documented in this encounter Administered Medications Inactive Administered Medications - up to 3 most recent administrations Medication Order MAR Action Action Date Dose Rate Site lidocaine (XYLOCAINE) 10 mg/mL (1 %) injection 3 mg 3 mg (0.3 mL), Subcutaneous, ONCE PRN, 1 dose, Starting on Tue10/11/17 at 0830, Until Tue10/11/17 at 1633, with discomfort with PIV insertion, Cath (Day of Procedure), Routine sodium chloride 0.9 % flush 5 mL [...] Until Tue10/11/17 at 1633, Recovery (Recovery-Hospital Unit) documented in this encounter Active and Recently [...] 0900 (New Bag - Prov ider: Neema Leon, PETER)1215 (Rate/Dose Change - Provider: Heidy Robertson, RN)1319 (Rate/Dose Verify - Provider: Heidy Robertson [...] MD) documented in this encounter Care Teams Geomagnetician Relationship Specialty Start Date End Date Alissa Baxter MD [address] [place], [place] [address]Y [facility] [address] [place] [address] PCP - General 10/13/10 12/25/18 documented as of this encounter
--- OUTSIDE RECORDS SUMMARY | 2024-08-10 15:26 | XMS_ITS | Clinical Summary ---
Author Organization [facility] Address [address] [place] [address] Care Team Providers Care Vertical Punch Operator Name Role Phone Alissa Baxter MD Primary Care Provider [phone] Social History Tobacco Use Types Packs/Day Years Used Date Smoking Tobacco: Never Assessed Sex and Gender Information Value Date Recorded Sex Assigned at Not on file Gender Identity Not on file Sexual Orientation Not on file Plan of Treatment Health Maintenance Due Date Last Done Comments Hepatitis C Screen 1945 RSV Immunization ( o r 60+ Years) (1 - 1-dose 60+ series) 2005 Fall Risk Screening 2010 COVID-19 Vaccine (2022-24 season) 2023 Care Teams Vertical Punch Operator Relationship Specialty Start Date End Date Alissa Baxter MD [address] [place] [address] [address] [place] [address] PCP - General 02/27/14
--- OUTSIDE RECORDS SUMMARY | 2024-08-10 15:26 | XMS_ITS | Encounter Summary ---
Author Organization [facility] Address [address] [place] [address] Care Team Providers Care Cdl Service Technician Name Role Phone Unavailable Primary Care Provider Unavailabl e Encounter Details Date Type Department Care Team (Late st Contact Info) Description 04/17/2009 Orders Only [facility] Laboratory Services - [facility] ([facility]) [address] [place] [address] Alissa Baxter MD [address] [place] [address] [address] [place] [address] Social History Tobacco Use Types Packs/Day Years Used Date Smoking Tobacco: Never Assessed Sex and Gender Information Value Date Recorded Sex Assigned at Not on file Gender Identity Not on file Sexual Orientation Not on file documented as of this encounter Plan of Treatment Not on file documented as of this encounter Procedures Procedure Name Priority Date/Time Associated Diagnosis Comments HPV DETECTION, HIGH RISK TYPES Routine 04/17/2009 8:40 EDT CYTOPATHOLOGY Routine 04/17/2009 0:00 EDT documented in this encounter Results * HUMAN PAPILLOMA VIRUS DNA TEST (04/17/2009 8:40 EDT) Specimen Description Cervix, ThinPrep vial [facility] Result Negative for HPV types 16, 18, 31, 33, 35, 39, 45, 51, 52, 56, 58, 59, and 68. [facility] Report Status Final 04/29/2009 [facility] 04/17/2009 8:40 EDT 04/23/2009 8:40 EDT Alissa Baxter MD MICROBIOLOGY - GENE RAL ORDERABLES [facility] [address] [address] * CYTOPATHOLOGY (04/17/2009 0:00 EDT) Pathology Report: CYTOPATHOLOGY REPORT ? Reports generated via electronic interface contain original data; ? however they are lacking the format of the original report. ? Caution should be taken when reading/interpreti ng unformatted reports. ? Name: ? LIAS MARTINEZ ? Accession #: ? [id number] ? : ? 1945 (Age: 63) ??F ?Collect Date: ? 04/17/2009 ? Location: ? [facility] ? Receive Date: ? 04/21/2009 ? Provider: ?ALISSA M DOBBERTIN MD ? Copy to: ? Specimen/Source: ?Pap Test, Vagina, ThinPrep Imaging System with manual ?? evaluation ? Last Menstrual Period: ? Treatment History: ? Hysterectomy: partial ? Other: ? HPVDX - HPV testing requested regardless of diagnosis on current ThinPrep Pap ?? test. ? SPECIMEN ADEQUACY ? Satisfactory for Evaluation ? - assessment of transformation zone component not applicable ( e.g. atrophy, ? vaginal sample, hysterectomy) ? GENERAL CATEGORIZATION ? Negative for Intraepithelial Lesion or Malignancy ? Document reviewed and electronically signed by: ? Lynan Scout, CT(ASCP) ? Report Date: ??04/22/2009 13:09 ? End of Report ? [facility] 04/17/2009 04/21/2009 Alissa Baxter MD PATHOLOGY ORDERABLE S Performing Organization Address City/State/[facility] [[email or web address]] Co de Phone Number [facility] [address] [place] [address] documented in this encounter Visit Diagnoses Not on filedocumented in this encounter
--- OUTSIDE RECORDS SUMMARY | 2024-08-10 15:26 | XMS_ITS | Encounter Summary ---
Author Organization [facility] Address [address] [place] [address] Care Team Providers Care Diesel Locomotive Firer/Fireman Name Role Phone Unavailable Primary Care Provider Unavailabl e Encounter Details Date Type Department Care Team (Late st Contact Info) Description 04/04/2008 Results Only [facility] - Map conversion [address] [place] [address] Alissa Baxter MD [address] [place] [phone] Social History Tobacco Use Types Packs/Day Years [...] Comments HPV DETECTION, HIGH RISK TYPES Routine 04/04/2008 10:31 EDT CYTOPATHOLOGY Routine 04/04/2008 0:00 EDT documented in this encounter Results * HUMAN PAPILLOMA VIRUS DNA TEST (04/04/2008 10:31 EDT) Specimen Description Cervix, ThinPrep vial [facility] Result Quantity not sufficient. [facility] Report Status Final [id number] [facility] 04/04/2008 10:3 1 EDT 04/10/2008 10:31 EDT Alissa Baxter MD MICROBIOLOGY - GENE RAL ORDERABLES [facility] [address] [place] [address] * CYTOPATHOLOGY (04/04/2008 0:00 EDT) Pathology Report: CYTOPATHOLOGY REPORT Reports generated via electronic interface contain original data; however they are lacking the format of the original report. Caution should be taken when reading/interpreti ng unformatted reports. Name: ? LISA MARTINEZ ? Accession #: ? [id number] : ? 1945 (Age: 62) ??F ?Collect Date: ? 04/04/2008 Location: ? [facility] ? Receive Date: ? 04/08/2008 Provider: ?ALISSA BAXTER MD Copy to: ? [facility] ?[address] ?[place], [place] [address] ? Specimen/Source: ?ThinPrep Pap Test, Vagina, processed on Send Word Now ThinPrep Imaging System, with manual evaluation Last Menstrual Period: ? Treatment History: ? Hysterectomy Other: ? HPVDX - HPV testing requested regardless of diagnosis on current ThinPrep Pap test. ? SPECIMEN ADEQUACY ? Satisfactory for Evaluation - assessment of transformation zone component not applicable ( e.g. atrophy, vaginal sample, hysterectomy) GENERAL CATEGORIZATION ? Negative for Intraepithelial Lesion or Malignancy ? Document reviewed and electronically signed by: ? NOE Tavera(ASCP) ? Report Date: ??04/09/2008 15:21 End of Report [facility] 04/04/2008 04/08/2008 Alissa Baxter MD PATHOLOGY ORDERABLE S [facility] [address] [place] [address] documented in this encounter Visit Diagnoses Not on filedocumented in this encounter
--- OUTSIDE RECORDS SUMMARY | 2024-08-10 15:26 | XMS_ITS | Encounter Summary ---
Author Organization [facility] Address [facility] [address] [place] [address] Care Team Providers Care Cotton Grower Name Role Phone Alissa Baxter MD Primary Care Provider [phone] Encounter Details Date Type Department Care Team (Late st Contact Info) Description 07/19/2017 - 07/19/2017 11:59 PM EDT Hospital Encounter Radiology Library at [facility] [place] [address] Severiano Lopes MD [facility] [place] [address] Discharge Disposition: Home Social History Tobacco Use Types Packs/Day Years Used Date Smoking Tobacco: Never Sex and Gender Information Value Date Recorded Sex Assigned at Not on file Gender Identity Not on file Sexual Orientation Not on file documented as of this encounter Medications at Time of Discharge Medication Sig Dispensed Refills Start Date End Date hydroCODone-acetaminophen (VICODIN) 5-500 mg per tablet Take 1 tablet by mouth every 6 hours as needed. atenolol (TENORMIN) 25 mg tablet Take 25 mg by mouth daily. 09/27/2017 hydrochlorothiazide (HYDRODIURIL) 25 mg tablet 25MG = 1 Tablet(s), PO, Once daily 08/20/2008 09/27/2017 documented as of this encounter Plan of Treatment Upcoming Encounters Date Type Department Care Team (Late st Contact Info) Description 08/13/2024 11:20 AM EDT Office Visit Cardiology at [address] [place] [address] Christiano Hamlin MD [facility] [place] [address] documented as of this encounter Procedures Procedure Name Priority Date/Time Associated Diagnosis Comments FILM LIBRARY STORAGE ONLY DX CHEST Routine 07/19/2017 12:00 AM EDT documented in this encounter Results * Film Library- Storage Only DX Chest (07/19/2017 12:00 AM EDT) Narrative [facility] - 09/13/2017 8:38 PM EDT This exam is for storage only and is auto-finalizing. Severiano Lopes MD IMG FILM LIBRARY OR DERABLES [place], [place] documented in this encounter Visit Diagnoses Not on filedocumented in this encounter Care Teams Cotton Grower Relationship Specialty Start Date End Date Alissa Baxter MD [address] [place] [address] [address] [place] [address] PCP - General 10/13/10 12/25/18 documented as of this encounter
--- OUTSIDE RECORDS SUMMARY | 2024-08-10 15:26 | XMS_ITS | Encounter Summary ---
Author Organization [facility] Address [address] [place] [address] Care Team Providers Care Equity Holder Name Role Phone Unknown, Provider Primary Care Provider Encounter Details Date Type Department Care Team (Late st Contact Info) Description 02/25/2014 Results Only [facility] Laboratory Services - [facility] ([facility]) [address] [place], [place] [address] Alissa Baxter MD [address] [place] [address] [address] [place] [address] Social History Tobacco Use Types [...] Date/Time Associated Diagnosis Comments SURGICAL PATHOLOGY Routine 02/25/2014 8:36 EDT documented in this encounter Results * SURGICAL PATHOLOGY (02/25/2014 8:36 EDT) Pathology Report: SURGICAL PATHOLOGY REPORT Reports generated via electronic interface contain original data; however they are lacking the format of the original report. Caution should be taken when reading/interpreti ng unformatted reports. Name: ? LISA MARTINEZ ? Accession #: ? [id number] ? : ? 1945 (Age: 68) ??F ? Collect Date: ? 02/25/2014 ? Location: ? [facility] ? Receive Date: ? 02/26/2014 ? Provider: ALISSA BAXTER MD Copy to: ? Final Pathologic Diagnosis: SKIN OF BACK, LEFT UPPER, PUNCH BIOPSY: - Blue nevus. ??- Lesion extends to peripheral edge and base of biopsy specimen. ??See microscopic and comment. Comment: The features are those of a blue nevus. ??The lesion is associated with extensive sclerosis that extends to the biopsy edge and base. This case was shown in intradepartmental consultation. (Dr. Calabrese)/[facility] Microscopic Description: Sections are of a low papule. ??The epidermis is generally unremarkable. ??The junctional melanocytes are normal in number and morphology. ??Within the reticular dermis, there is a proliferation of spindle-shaped melanocytes including bipolar and dendritic forms. ??The latter have elongate cytoplasmic processes containing abundant coarse melanin pigment. ??The nuclei are relatively uniform, elongate, and have tapered ends. ??The melanocytes are associated with thickened collagen bundles and clusters of melanophages. ??The proliferation is overall symmetric.. Deeper levels have been examined. (Dr. Calabrese)/[facility] Document reviewed and electronically signed by: ANDREA CALABRESE MD Report ??Date: 03/01/2014 13:41 By the signature above, the attending physician certifies that he/she has personally conducted a gross and/or microscopic examination of the described specimens and rendered or confirmed the above diagnosis. Specimen(s) Received: L upper back 3.0 mm punch Clinical History: L upper back, multicolored mole; DDX: sebaceous cyst w/oxidized fat vs melanoma Gross Description: ? Received in formalin labelled with proper patient identification (initials H, E) and L upper back is a punch biopsy of espinoza-white, focally clemens skin (0.3 cm in diameter and 0.4 cm in thickness). ??Submitted intact in 1. Courtney Hyacinth 02/26/2014 09:12 AM End of Report [facility] 02/25/2014 8:36 EDT 02/26/2014 8:36 EDT Alissa Baxter MD PATHOLOGY ORDERABLE S Performing Organization Address City/State/[facility] Co de Phone Number [facility] [address] [place] [address] documented in this encounter Visit Diagnoses Not on filedocumented in this encounter Care Teams Equity Holder Relationship Specialty Start Date End Date Unknown, Provider, PCP - General 09/10/11 02/26/14 documented as of this encounter
--- OUTSIDE RECORDS SUMMARY | 2024-08-10 15:26 | XMS_ITS | Encounter Summary ---
Author Organization [facility] Address [facility] [place] [address] Care Team Providers Care Structural Manager Name Role Phone Yana Turner MD Primary Care Provider [phone] Encounter Details Date Type Department Care Team (Late st Contact Info) Description 02/19/2019 8:30 AM EDT Office Visit Cardiology at [address] [phone] Blanca Copeland PA [facility] [place] [address] Atrial fibrillation, unspecified type Social History Tobacco [...] Sign Reading Time Taken Comments Blood Pressure 133/83 02/19/2019 7:49 AM EDT Pulse 87 02/19/2019 7:49 AM EDT Temperature - - Respiratory Rate - - Oxygen Saturation 99% 02/19/2019 7:49 AM EDT Inhaled Oxygen Concentration - - Weight 100.7 kg (222 lb) 02/19/2019 7:49 AM EDT Height 163.8 cm (5' 4.5) 02/19/2019 7:49 AM EDT Body Mass Index 37.52 02/19/2019 7:49 AM EDT documented in this encounter Progress Notes * Blanca Copeland PA - 02/19/2019 8:30 AM EDT Day of Cardioversion History and Physical Subjective: Patient ID: Lisa Worley is a 73 y.o. female. CC: Presents for pre-cardioversion evaluation HPI: 73 y.o. female with past medical history of OA, HTN, and atrial fibrillation on Eliquis followed by Dr. Hamlin who presents today for elective cardioversion. There have not been any medication changes since the last visit. This morning, all medications were taken except lasix. she has been NPO since 0 on 02/18 (water with meds this morning). she is anticoagulated with Eliquis (is adamant there have been no missed doses in the last 3 weeks). Patient Active Problem List Diagnosis ??? Atrial fibrillation ??? MADRIGAL (dyspnea on exertion) Overview Note: ?? Onset about July, and accompanied by mild chest pain ?? Echocardiogram through [facility] August 12, 2017 showing mild [...] Hypertension ??? OA (osteoarthritis) ??? Mixed incontinence Interval ROS: Patient denies cough, fever, PND, orthopnea, activity intolerance, leg swelling, change in bowel habit, presyncope or syncope. Medications: Current Outpatient Medications Medication Sig Dispense Refill ??? metoprolol succinate (TOPROL-XL) 100 mg Tablet Sustained Release 24 hr Take 1.5 tablets by mouth daily. 135 tablet 3 ??? furosemide (LASIX) 40 mg Tablet Take 1 tablet by mouth 2 times daily. 180 tablet 3 ??? nitroGLYcerin (NITROSTAT) 0.4 mg Tablet, Sublingual Place 1 tablet under the tongue every 5 minutes as needed for Chest pain. 25 tablet 11 ??? apixaban (ELIQUIS) 5 mg Tablet Take [...] tablet by mouth every 6 hours asneeded. Allergies Allergies Allergen Reactions ??? Penicillins Other (See Comments) Unknown Objective: Vitals: Vitals: 02/19/19 0749 BP: 133/83 Pulse: 87 SpO2: 99% Weight: 100.7 kg (222 lb) Height: 163.8 cm (5' 4.5) Physical Exam: General- anxious, sitting comfortably in exam room chair Skin- Warm and dry Cardiovascular- soft S1, S2 irregular rate and irregular rhythm. No murmur, rub or gallop Lungs- Clear to auscultation bilaterally Extremities- Pulses equal bilaterally (radial 2+, DP 1+, PT not palpable bilaterally). 1-2+ pittingedema to high cordova Neuro- A&Ox3 ECG in office today shows atrial fibrillation with a ventricular rate of ~90bpm. Lab data: Recent Labs 02/19/19 0736 NA 142 K 4.4 CL 102 CO2 28 BUN 23* CREATININE 0.71 GLUCOSE 128 Assessment and Plan: 73 y.o. with a past medical history of OA, HTN, and atrial fibrillation on Eliquis who presents forDCCV. No contraindication to planned cardioversion today. Plan: 1. The cardioversion procedure was discussed and questions answered. We discussed possible risks including but not limited to: skin irritation or tirado, bradycardia or rhythm abnormalities (arrhythmia), stroke(CVA), aspiration, cardiac arrest. Written consent was obtained and scanned. 2. Code Status: FULL CODE 3. Patient to proceed to Same Day Program 4. Follow up will be dependent on the results of the cardioversion. I appreciate the opportunity to be involved with Ms. Worley's care. Please do not hesitate to contact EP with any further questions (pager [phone]). DICK Rutledge Pager: [phone] documented in this encounter Plan of Treatment Upcoming Encounters Date Type Department Care Team (Late st Contact Info) Description 08/13/2024 11:20 AM EDT Office Visit Cardiology at [address] [phone] Christiano Hamlin MD [facility] [place] [address] documented as of this encounter Procedures Procedure Name Priority Date/Time Associated Diagnosis Comments EKG 12-LEAD Routine 02/19/2019 8:27 AM EDT Atrial fibrillation, unspecified type documented in this encounter Results * EKG 12 Lead (02/19/2019 8:27 AM EDT) Ventricular rate 94 BPM MUSE SYSTEM Atrial Rate 94 BPM MUSE SYSTEM QRS Duration 78 ms MUSE SYSTEM Q-T Interval 366 ms MUSE SYSTEM QTC Calculated (Bezet) 457 ms MUSE SYSTEM Calculated R [place] 6 degrees MUSE SYSTEM Calculated T [place] 46 degrees MUSE SYSTEM INTERPRETATION Atrial fibrillation [...] type documented in this encounter Care Teams Structural Manager Relationship Specialty Start Date End Date Yana Turner MD [address] [place] [address] PCP - General Family Medicine 12/26/18 documented as of this encounter
--- OUTSIDE RECORDS SUMMARY | 2024-08-10 15:26 | XMS_ITS | Encounter Summary ---
Author Organization [facility] Address [address] [place] [address] Care Team Providers Care Test Rack Operator Name Role Phone Unknown, Provider Primary Care Provider Encounter Details Date Type Department Care Team (Latest Contact Info) Description 02/25/2014 15:25 EDT - 02/25/2014 23:59 EDT Hospital Encounter [address] [address] Unknown, Provider, Discharge Disposition: Home or Self Care Social History Tobacco Use Types Packs/Day Years Used Date Smoking Tobacco: Never Assessed Sex and Gender Information Value Date Recorded Sex Assigned at Not on file Gender Identity Not on file Sexual Orientation Not on file documented as of this encounter Discharge Disposition Disposition Code Departure Means Destination Home or Self Intermediate documented in this encounter Plan of Treatment Not on file documented as of this encounter Visit Diagnoses Not on filedocumented in this encounter Care Teams Test Rack Operator Relationship Specialty Start Date End Date Unknown, Provider, PCP - General 09/10/11 02/26/14 documented as of this encounter
--- OUTSIDE RECORDS SUMMARY | 2024-08-10 15:26 | XMS_ITS | Encounter Summary ---
Author Organization [facility] Address [facility] [place] [address] Care Team Providers Care Molecular Biology Professor Name Role Phone Alissa Baxter MD Primary Care Provider [phone] Encounter Details Date Type Department Care Team (Late st Contact Info) Description 11/02/2018 External Results Cardiology at [address] [phone] Social History Tobacco Use Types Packs/Day Years [...] 11:20 AM EDT Office Visit Cardiology at [address] [address] Christiano Hamlin MD [facility] [place] [address] documented as of this encounter Procedures Procedure Name Priority Date/Time Associated Diagnosis Comments EXTERNAL LAB RESULTS Routine 08/18/2018 EXTERNAL LAB RESULTS Routine 08/18/2018 EXTERNAL LAB RESULTS Routine 08/18/2018 documented in this encounter Results * External Lab Results (08/18/2018) Historical Provider CHEMISTRY ORDERAB LES * External Lab Results (08/18/2018) Historical Provider CHEMISTRY ORDERAB LES * External Lab Results (08/18/2018) Historical Provider CHEMISTRY ORDERAB LES documented in this encounter Visit Diagnoses Not on filedocumented in this encounter Care Teams Molecular Biology Professor Relationship Specialty Start Date End Date Alissa Baxter MD [address] [facility] [address] [place] [address] PCP - General 10/13/10 12/25/18 documented as of this encounter
--- OUTSIDE RECORDS SUMMARY | 2024-08-10 15:26 | XMS_ITS | Encounter Summary ---
Author Organization [facility] Address [facility] [place] [address] Care Team Providers Care Billing Administrator Name Role Phone Yana Turner MD Primary Care Provider [phone] Encounter Details Date Type Department Care Team (Late st Contact Info) Description 06/28/2019 Telephone Cardiology at [address] [phone] Nina Lyons, RN Social History Tobacco Use Types Packs/Day [...] Miscellaneous Notes * Telephone Encounter - Nina Lyons, RN - 06/28/2019 12:02 PM EDT Patient called and left 2 messages on team nurse line today that her PCP told her she is still in AF and that she should be seen. This is a carry over issue from yesterday's calls. Patient stated she had expected someone to call her today but had not received any call or who she was expecting to call. Patient states she is still SOB and is not sure what to be doing. 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 Message was left that she could call team rehabilitation aide/scheduler ( number provided) for an appt.though it was not known if anything would be available today.Shewas also told she could see her PCP if they had access or she can go to the ED if her sx had worsened since yesterday. In any event her sx could not be best managed over phone calls so she was advised to try and be seen today. Patient was asked to call team back if she had any further questions/concerns. Nina Lyons back sewer [facility] General TeamBaileySummer Shade documented in this encounter Plan of Treatment Upcoming Encounters Date Type Department Care Team (Late st Contact Info) Description 08/13/2024 11:20 AM EDT Office Visit Cardiology at [address] [phone] Christiano Hamlin MD [facility] [place] [address] documented as of this encounter Visit Diagnoses Not on filedocumented in this encounter Care Teams Billing Administrator Relationship Specialty Start Date End Date Yana Turner MD [address] [place] [address] PCP - General Family Medicine 12/26/18 documented as of this encounter
--- OUTSIDE RECORDS SUMMARY | 2024-08-10 15:26 | XMS_ITS | Encounter Summary ---
Author Organization [facility] Address [facility] Anju mendoz[place] [address] Care Team Providers Care Customer Supply Chain Analyst Name Role Phone Alissa Baxter MD Primary Care Provider [phone] Encounter Details Date Type Department Care Team (Late st Contact Info) Description 07/20/2017 - 07/20/2017 11:59 PM EDT Hospital Encounter Radiology Library at [facility] [place] [address] Severiano Lopes MD [facility] [place] [address] Discharge Disposition: Home Social History Tobacco Use [...] 11:20 AM EDT Office Visit Cardiology at [address] [place] [address] Christiano Hamlin MD [facility] [place] [address] documented as of this encounter Procedures Procedure Name Priority Date/Time Associated Diagnosis Comments FILM LIBRARY STORAGE ONLY CT CHEST Routine 07/20/2017 12:00 AM EDT documented in this encounter Results * Film Library- Storage Only CT Chest (07/20/2017 12:00 AM EDT) Narrative [facility] - 09/13/2017 8:37 PM EDT This exam is for storage only and is auto-finalizing. Severiano Lopes MD IMG FILM LIBRARY OR DERABLES [place], [place] documented in this encounter Visit Diagnoses Not on filedocumented in this encounter Care Teams Customer Supply Chain Analyst Relationship Specialty Start Date End Date Alissa Baxter MD [address] [place] [address] [address] [place] [address] PCP - General 10/13/10 12/25/18 documented as of this encounter
--- OUTSIDE RECORDS SUMMARY | 2024-08-10 15:26 | XMS_ITS | Encounter Summary ---
Author Organization [facility] Address [facility] [place] [address] Care Team Providers Care Vacuum Worker Name Role Phone Yana Turner MD Primary Care Provider [phone] Encounter Details Date Type Department Care Team (Late st Contact Info) Description 02/19/2019 9:59 AM EDT Anesthesia Event [place] [address] Donovan Ventura MD [facility] [place] [place] [address] Pauline Mosley CRNA [facility] [place] [address] Anesthesia Record Procedure Summary Procedure Name Responsible Anesthesiologist Anesthesia Start Time Anesthesia Stop Time CARDIOVERSION-ELECT JULIA (WRVU 2) Donovan Ventura MD 02/19/19 0959 02/19/19 1016 Events Date Time Event Comment 02/19/2019 0951 0956 an stephanie now 0959 AN Verify 0959 Start 1001 An Start Data 1009 Anesthesia Ready 1009 Quick Note Patient cardiov erted times one, tolerated well 1016 an stop data 1016 Recovery or ICU Handoff Shannon ent care was transferred to the destination unit staff after review of the patient's medical history, current anesthetic/surgical status and plan, according to the Provider Handoff Checklist. 1016 Stop Meds Name Total Propofol 50 mg Lactated Ringers 150 mL * Agents Name O2 Auxiliary Flowmeter 1 * Blood No blood administrations on file. Lines, Drains, and Airways Type Details Placement Removal (RETIRED) Peripheral IV Line - Single Lumen 02/19/19; 0943; median cubital vein (antecubital fossa), right; hioo-jie-smbtra catheter system; 18 gauge, 1 in length; Norah Ivan RN ; distraction, intradermal injection, tolerated well, appears comfortable; cephalic vein (lateral side of arm), right; 02/19/19; 1133 02/19/19 0943 by Norah Ivan RN 02/19/19 1133 by Marie Langley RN documented in this encounter Social History Tobacco Use Types Packs/Day Years Used Date Smoking Tobacco: Never Smokeless Tobacco: Never Alcohol Use Standard Drinks/Week Comments Never 0 (1 standard drink = 0.6 oz pur e alcohol) Sex and Gender Information Value Date Recorded Sex Assigned at Not on file Gender Identity Not on file Sexual Orientation Not on file documented as of this encounter OR Notes * Anesthesia Postprocedure Evaluation - Donovan Ventura MD - 02/19/2019 10:39 AM EDT [facility] Department of Anesthesiology Post-procedure Note Patient: Lisa Worley Procedure Summary Date: 02/19/19 Room / Location: [facility] MINOR SURGERY / [facility] MAIN OR Anesthesia Start: 958 Anesthesia Stop: 1016 Procedure: CARDIOVERSION-ELECTIVE (WRVU 2.25) (N/A ) Diagnosis: (atrial fibrillation) Surgeon: Stephanie Babin PA Responsible Provider: Donovan Ventura MD Anesthesia Type: general ASA Status: 3 All Anesthesia Providers: Anesthesiologist: Donovan Ventura MD CP BLEACHER OPERATOR: Pauline Mosley CRNA Vitals Value Taken Time BP 104/83 02/19/2019 10:30 AM Temp Pulse 55 02/19/2019 10:36 AM Resp 18 02/19/2019 10:30 AM SpO2 97 % 02/19/2019 10:36 AM Pain Level 0 02/19/2019 10:30 AM Vitals shown include unvalidated device data. Patient Location: PACU/[facility] Level of Consciousness: Awake and Alert Pain Management: Satisfactory Analgesia PONV: None Cardiovascular Status: At Baseline Respiratory Status: At Baseline Postoperative Fluid Status: Intravascular EUvolemia Possible Anesthetic Complications: NONE apparent at time of evaluation Final Primary Anesthesia Type: General (The anesthetic type performed was the same as planned.) Comments: * Anesthesia Preprocedure Evaluation - Donovan Ventura MD - 02/19/2019 6:47 AM EDT Pre-Anesthesia Evaluation for: Lisa Worley a 73 y.o. female. Procedure(s): CARDIOVERSION-ELECTIVE (WRVU 2.25) Patient Active Problem List Diagnosis ??? Atrial [...] pressure 45-55 mmHg ?? Nuclear stress test [facility] September 12, 2017 showing small in size moderately intense partially reversible defect involving the inferolateral jasso suggesting ischemia in the distribution of the left circumflex; calculated ejection fraction of 64% with no wall motion a bnormalities ?? Chest x-ray reportedly unremarkable ??? Hypertension ??? OA (osteoarthritis) ??? Mixed incontinence No past medical history on file. No past surgical history on file. Social History Tobacco Use ??? Smoking status: Never Smoker ??? Smokeless tobacco: Never Used Substance Use Topics ??? Alcohol use: Not on file Social History Substance and Sexual Activity Drug Use Not on file Allergies Allergen Reactions ??? Penicillins Medications: MAR and/or home medications have been reviewed. Physical Exam: There were no vitals filed for this visit. There is no height or weight on file to calculate BMI. Airway Assessment: Mallampati: II TM distance: <3 FB Cardiovascular Assessment: Rhythm: irregular Pulmonary Assessment: pulmonary exam normal Dental Assessment: Misc Assessment: Anesthesia Plan: ASA 3 general, with a(n) intravenous induction MADRIGAL, hypertension, OA and Afib On metoprolol and elaquis Echo is normal except mildly dilated left atrium Region - Other Informed Consent: PAT Clinic Note Copy from 2016 ?? Echocardiogram through [facility] August 12, 2017 showing mild LVH with normal LV systolic function and ejection fraction of 60-65%; normally sized and functioning right ventricle; severely dilated left atrium; moderate tricuspid regurgitation; moderate to severe pulmonary hypertension with PA systolic pressure 45-55 mmHg ?? Nuclear stress test [facility] September 12, 2017 showing small in size moderately intense partially reversible defect involving the inferolateral jasso suggesting ischemia in the distribution of the left circumflex; calculated ejection fraction of 64% with no wall motion a bnormalities ?? Chest x-ray reportedly unremarkable MADRIGAL and fluid overload doubled lasix dose and increased metoprolol No lytes here since 2016. Scanned labs in October K=3.8 and normal hgb documented in this encounter Plan of Treatment Upcoming Encounters Date Type Department Care Team (Late st Contact Info) Description 08/13/2024 11:20 AM EDT Office Visit Cardiology at [address] [phone] Christiano Hamlin MD [facility] [place] [address] documented as of this encounter Visit Diagnoses Not on filedocumented in this encounter Administered Medications Inactive Administered Medications - up to 3 most recent administrations Medication Order MAR Action Action Date Dose Rate Site lactated ringers infusion CONTINUOUS PRN, Starting on Tue02/19/19 at 0959, Until Tue02/19/19 at 1016, Anesthesia Intra-op New Bag 02/19/2019 9:59 AM EDT propofol (DIPRIVAN) 10 mg/mL bolus injection (Anesthesia) PRN, Starting on Tue02/19/19 at 1009, Until Tue02/19/19 at 1016, Anesthesia Intra-op Given 02/19/2019 10:09 AM EDT 50 mg documented in this encounter Care Teams Vacuum Worker Relationship Specialty Start Date End Date Yana Turner MD [address] [place] [address] PCP - General Family Medicine 12/26/18 documented as of this encounter
--- OUTSIDE RECORDS SUMMARY | 2024-08-10 15:26 | XMS_ITS | Encounter Summary ---
Author Organization [facility] Address [facility] [place] [address] Care Team Providers Care Ski Patrol Officer Name Role Phone Yana Turner MD Primary Care Provider [phone] Encounter Details Date Type Department Care Team (Late st Contact Info) Description 12/21/2018 Orders Only Cardiology at [address] [phone] Christiano Hamlin MD [facility] [place] [address] MADRIGAL (dyspnea on exertion) (Primary Dx); Hypertension, unspecified type Social History Tobacco Use [...] 11:20 AM EDT Office Visit Cardiology at [address] [phone] Christiano Hamlin MD [facility] [place] [address] documented as of this encounter Results * EKG 12 Lead (12/26/2018 12:49 PM EST) Ventricular rate 112 BPM MUSE SYSTEM Atrial Rate 102 BPM MUSE SYSTEM QRS Duration 80 ms MUSE SYSTEM Q-T Interval 342 ms MUSE SYSTEM QTC Calculated (Bezet) 466 ms MUSE SYSTEM Calculated R [place] 2 degrees MUSE SYSTEM Calculated T [place] 77 degrees MUSE SYSTEM INTERPRETATION Atrial fibrillation with rapid ventricular response with premature ventricular or aberrantly conducted complexes Nonspecific ST and T wave abnormality , probably digitalis effect Abnormal ECG When compared with ECG of 27-SEP-2017 11:10, Atrial fibrillation has replaced Sinus rhythm Vent. rate has increased BY ??37 BPM Nonspecific T wave abnormality now evident in Lateral leads Confirmed by MD Hamlin Jon ([id number]) on 12/26/2018 4:36:00 PM MUSE SYSTEM 12/26/2018 12:4 9 PM EST 12/26/2018 4:36 PM EST Christiano Hamlin MD ECG ORDERABLES MUSE SYSTEM documented in this encounter Visit Diagnoses Diagnosis MADRIGAL (dyspnea on exertion)- Primary Other dyspnea and respiratory abnormality Hypertension, unspecified type documented in this encounter Care Teams Ski Patrol Officer Relationship Specialty Start Date End Date Yana Turner MD [address] [place] [address] PCP - General Family Medicine 12/26/18 documented as of this encounter
--- OUTSIDE RECORDS SUMMARY | 2024-08-10 15:26 | XMS_ITS | Encounter Summary ---
Author Organization [facility] Address [facility] [place] [address] Care Team Providers Care Regulatory Attorney Name Role Phone Yana Turner MD Primary Care Provider Reason for Visit * Reason Onset Date Comments Advice Only 06/27/2019 Encounter Details Date Type Department Care Team (Late st Contact Info) Description 06/27/2019 Telephone Cardiology at [address] [phone] Christiano Hamlin MD [facility] [place] [address] Advice Only Social History Tobacco Use Types Packs/Day Years [...] Telephone Encounter - Hayley Colon RN - 06/29/2019 8:40 AM EDT 06/29/19 Call to patient,states she is not feeling worse,continues to deny chest pain and no chest pressure or shortness of breath. Denies lightheadedness,no worsening of fatigue ,denies increased palpitations. Taking medications without issue. Instructed in need to seek ED assessment with any worsening /onset of above symptoms ,she is aware that she should call 911 and not transport herself. She is planning to contact her PCP office later today to discuss arranging a follow up appointment early next week. She will await update from Cardiology chief mechanical officer re: moving up of appointment with Dr Hamlin . She is appreciative of this call,contact number for [facility] team here at [facility] given to patient . Update 07/13/19: Call to PCP office to obtain office visit note from week of 07/02/19,spoke to greenhouse florist who states Lisa was not seen,states she did have a cardiogram done but PCP office did not follow up. Call to Lisa ,states she is not feeling any worse,continues to note exertional shortness of breath ,denies chest pain ,no increased palpitations. Seeing Dr Hamlin 07/17/19 ,will seek urgent local ED care should her symptoms worsen/change. Lisa is appreciative of this call . * Telephone Encounter - Hayley Colon RN - 06/27/2019 4:08 PM EDT Call from Lisa to this RN: Questioning why she has not been called today I am in afib and no one has called me back. Return call to patient,states she was seen by her PCP this morning ,no ECG was done,she was told tocall her Airplane Patrol Pilot for appointment. Denies chest pain or pressure,no lightheadedness,has noted some shortness of breath with exertion and increased fatigue . States these symptoms have been present for weeks,not worse,states she is tired of feeling the fatigue. Advised her to seek urgent assessment in her local ED (not to drive herself)should her symptoms worsen,she voices good understanding . Requesting Cardiology chief mechanical officer follow up with her 06/28/19 to discuss moving her appointment up,she will discuss this w/Dr Hamlin. Forward to Nabila Davis and Dr Hamlin , * Telephone Encounter - Nabila Davis - 06/27/2019 11:[address] aHmlin, Lisa is back in a fib, she wants to know if its ok for her to wait till her 07/17 appointment to see you, or should she come in sooner? Please advise. Thanks documented in this encounter Plan of Treatment Upcoming Encounters Date Type Department Care Team (Late st Contact Info) Description 08/13/2024 11:20 AM EDT Office Visit Cardiology at [address] [phone] Christiano Hamlin MD [facility] [place] [address] documented as of this encounter Visit Diagnoses Not on filedocumented in this encounter Care Teams Regulatory Attorney Relationship Specialty Start Date End Date Yana Turner MD [address] [place] [address] PCP - General Family Medicine 12/26/18 documented as of this encounter
--- OUTSIDE RECORDS SUMMARY | 2024-08-10 15:26 | XMS_ITS | Encounter Summary ---
Author Organization [facility] Address [facility] [place] [address] Care Team Providers Care Coding And Reimbursement Specialist Name Role Phone Yana Turner MD Primary Care Provider [phone] Encounter Details Date Type Department Care Team (Late st Contact Info) Description 02/19/2019 9:55 AM EDT - 02/19/2019 10:46 AM EDT Surgery [place] [phone] Michael Babin PA [facility] [place] [address] CARDIOVERSION-ELECTIVE (WRVU 2) Social History Tobacco Use Types Packs/Day Years [...] Sign Reading Time Taken Comments Blood Pressure 116/74 02/19/2019 10:45 AM EDT Pulse 53 02/19/2019 10:45 AM EDT Temperature 36.4 ??C (97.5 ??F) 02/19/2019 10:30 AM E DT Respiratory Rate 16 02/19/2019 10:45 AM EDT Oxygen Saturation 97% 02/19/2019 10:45 AM EDT Inhaled Oxygen Concentration - - [...] the adhesive pads were placed, call the data entry associate geothermal operations manager at . ? We will schedule a follow-up appointment with the data entry associate here, or you will be scheduled to [...] by mild chest pain ?? Echocardiogram through [facility] August 12, 2017 showing mild [...] in this encounter Nursing Notes * Dave Moreno RN - 02/19/2019 10:12 AM EDT 1009 DCCV at 200J x1 SR Pad sites pink blanchable documented in this encounter Plan of Treatment Upcoming Encounters Date Type Department Care Team (Late st Contact Info) Description 08/13/2024 11:20 AM EDT Office Visit Cardiology at [address] [phone] Christiano Hamlin MD [facility] [place] [address] Scheduled Orders Name Type Priority Associated Diagnoses [...] (Bezet) 476 ms MUSE SYSTEM Calculated P [place] 85 degrees MUSE SYSTEM Calculated R [place] -7 degrees MUSE SYSTEM Calculated T [place] -3 degrees MUSE SYSTEM INTERPRETATION Electronic artifact present Sinus bradycardia with Premature supraventricular complexes Nonspecific T wave abnormality Abnormal ECG When compared with ECG of 19-FEB-2019 08:27, (unconfirmed) Sinus rhythm has replaced Atrial fibrillation Vent. rate has decreased BY ??40 BPM I personally reviewed the tracing and edited the fellows interpretation Confirmed by fellow MD Thrasher Danette ([id number]) on 02/19/2019 12:15:19 PM Confirmed by MD Kb, Donovan ([id number]) on 02/19/2019 5:19:54 PM MUSE SYSTEM 02/19/2019 10:3 8 AM EDT 02/19/2019 5:19 PM EDT Saamn Honeycutt MD ECG ORDERABLES MUSE SYSTEM documented in this encounter Visit Diagnoses Not on filedocumented in this encounter Active and Recently Administered Medications Care Teams Coding And Reimbursement Specialist Relationship Specialty Start Date End Date Yana Turner MD [address] [place] [address] PCP - General Family Medicine 12/26/18 documented as of this encounter
--- OUTSIDE RECORDS SUMMARY | 2024-08-10 15:26 | XMS_ITS | Encounter Summary ---
Author Organization [facility] Address [facility] [place] [address] Care Team Providers Care Perishable Fruit Inspector Name Role Phone Alissa Baxter MD Primary Care Provider Encounter Details Date Type Department Care Team (Late st Contact Info) Description 03/08/2012 2:00 PM EDT Office Visit [place] [phone] Jerica Parry, PT [facility] PHYSICAL MEDICINE & [place] [address] Alissa Baxter MD [address] [place] [address] Incontinence (Primary Dx) Discharge Disposition: Home Social History Tobacco Use Types Packs/Day Years Used Date Smoking Tobacco: Never Sex and Gender Information Value Date Recorded Sex Assigned at Not on file Gender Identity Not on file Sexual Orientation Not on file documented as of this encounter Progress Notes * Jerica Parry, PT - 03/08/2012 2:44 PM EDT Physical Therapy Initial Evaluation Note: Outpatient Date of Exam/First Treatment: 03/08/2012 Date of onset: 26 years ago Referring Provider: Myla Laguerre MD Diagnosis: 1. Incontinence (788.30H) Medicare Certification period: 03/08/2012 - 06/07/12 History of current problem: Lisa Worley is a 66 y.o. female referred to physical therapy for incontinence Patient's expressed goals for treatment: teach me how to do the exercises myself. Previous treatment/self care: none Gynecologic/Obstetric History: : 4 Para: 4 Episiotomy/Tearing/Repair: No weight of largest baby: Difficulty healing after delivery: No : No Difficult Childbirth: No History of sexual abuse or trauma: No Regular menstrual cycles: No Frequent urinary tract infections: No Sexual Dysfunction/Pain: Sexually Active: Yes Pain level with intercourse: No Level 1: painful, but able to have penetration at same frequency Level 2: painful and limits frequency Level 3: painful and prevents penetration Pain with: Pelvic exam: No Tampon use: No Back, leg, groin and/or abdominal: Yes If she has to hold her urine for a long time. Test Results: Urodynamics: Cystoscope: Urine Tests: Bowel Tests: Bladder Function: Leaks with: bending, coughing, lifting, walking, laughing, sneezing, exercise, intercourse Number of episodes: daily Severity of leakage: wet outerwear Pain or burning with urination:No Difficulty starting urine stream: Yes Strain to empty bladder: No Feel unable to fully empty bladder: No Have a feeling of pelvic heaviness, pressure or falling out: No Have pain with a full bladder: Yes Have urgency of urination: Yes Pad use and Type (per day): 2-3 # daytime voids: many # episodes of nocturia: 2 Bowel Dysfunction: Frequency of bowel movements: 1 day Consistency of stool: normal Currently strain to void: No Include fiber in diet: Yes Take laxatives/enema regularly: No Have a strong urge to move bowels:No History of Constipation: No Have diarrhea often: No Ignore the urge to defecate: No Feel you have not completely emptied your bowels at the end of a BM: Yes Do you have to push on the vagina or rectum to have or complete a BM: No Fecal incontinence: gas, liquid, formed stool Fluid Intake: 6 glasses per day: 3 caffeinated beverages: none Alcoholic beverages: Outcome Measure: Incontinence Severity Index (SARAH): Bothersomeness scale: 10/10 How much does this bother you? 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 Medical/Surgical History: refer to electronic medical record Prior Level of Function: had been dry until had last child when she had uterus removed Functional Limitations: can't walk as you liked to, can't take a long car ride, can't go to movies,can't exercise as she'd like to. OBJECTIVE: OBSERVATION: Patient is a quiet woman POSTURE: R hip bursitis, gettingbetter, forward flexion in standing. STRENGTH: lower extremity grossly 4/5 Patient gives verbal consent to external and internal exam. External Exam: Introitus: open to cm at rest, , , Introitus: with cough Pelvic Floor Contraction: levator ani activity none perineal body elevation, Valsalva: exam deferred, pelvic floor excursion signs of anterior and posterior laxity Palpation: refused exam Internal Exam: Levator ani muscle strength: 3:00 /5, 6:00 /5, and 9:00 /5, Levator ani muscle tone: /5, Hold Time: seconds, # of reps: Valsalva: exam deferred pelvic floor excursion signs of anterior and posterior laxity Rectal Exam: External anal sphincter: strength /5, tone: /5, hold time: seconds SEMG: with internal electrode in supine: Resting Rate: uV Quick flicks: uV x reps Long Hold: uV x seconds x reps Assessment: These findings are consistent with mixed urinary incontinence, per verbal of pt. Patient presents with: Underactive pelvic floor muscles, Impaired strength, Impaired coordination and Impaired endurance Pt did not want an internal evaluation and feels she can do the exercises on her own at home, will call for follow up if she feels she needs this. Physical therapy is indicated to: increase strength, improve balance, increase pelvic floor strength, increase endurance and increase coordination Goals: Short term goals (2 weeks) 1. Patient to be indep in the performance of a home program of pelvic floor muscle exercises on a daily basis. 2. Patient will demonstrate an increase in pelvic floor strength. 3. Patient to complete 48 hour bladder diary. 4. Goals: communication studies professor goals (3 months) 1. Patient to be independent with ongoing self management. 2. Patient will have decreased number of Leaks to weekly. 3. ADL???s not limited by UI, urgency or frequency. 4. Frequency: 1 time in 2 weeks for 6 sessions Plan of care: therapeutic exercise, pelvic floor muscle exercises, SEMG patient/family education, home exercise program, relaxation/downtraining, Informed Consent: The patient Did not Consent to the physical therapy evaluation. The patient agrees to and understands the physical therapy treatment plan and goals. Interventions completed today: initial evaluation and home exercise program including quick flicks and endurance 10 reps each 4X aday Total Treatment time: 35 minutes: eval, and 1 unit of ex Total Timed Code Treatment: 30 minutes JERICA PARRY PT Subjective: Patient ID: Lisa Worley is a 66 y.o. female. Objective: Ortho Exam Neurologic Exam Assessment and Plan: No problem-specific visit notes found for this encounter. * Jerica Parry PT - 03/08/2012 2:06 PM EDT PHYSICAL THERAPY EVALUATION Objective: Ortho Exam Neurologic Exam Assessment and Plan: No problem-specific visit notes found for this encounter. documented in this encounter Miscellaneous Notes * Miscellaneous - Donnie Receiver Dispatcher - 04/11/2012 5:42 PM EDT documented in this encounter Plan of Treatment Upcoming Encounters Date Type Department Care Team (Late st Contact Info) Description 08/13/2024 11:20 AM EDT Office Visit Cardiology at [address] [phone] Christiano Hamlin MD [facility] [place] [address] documented as of this encounter Visit Diagnoses Diagnosis Incontinence- Primary Unspecified urinary incontinence documented in this encounter Care Teams Perishable Fruit Inspector Relationship Specialty Start Date End Date Alissa Baxter MD [address] [facility] [address] [place] [address] PCP - General 10/13/10 12/25/18 documented as of this encounter
--- OUTSIDE RECORDS SUMMARY | 2024-08-10 15:26 | XMS_ITS | Encounter Summary ---
Author Organization [facility] Address [facility] [place] [address] Care Team Providers Care Seed Technician Name Role Phone Yana Turner MD Primary Care Provider [phone] Encounter Details Date Type Department Care Team (Late st Contact Info) Description 03/14/2019 11:40 AM EDT Office Visit Cardiology at [address] [phone] Christiano Hamlin MD [facility] [place] [address] PAF (paroxysmal atrial fibrillation) Social History Tobacco Use Types Packs/Day Years [...] Sign Reading Time Taken Comments Blood Pressure 136/55 03/14/2019 11:41 AM EDT Pulse 48 03/14/2019 11:41 AM EDT Temperature - - Respiratory Rate - - Oxygen Saturation 95% 03/14/2019 11:41 AM EDT Inhaled Oxygen Concentration - - Weight 100.7 kg (222 lb) 03/14/2019 11:41 AM EDT Height 157.5 cm (5' 2) 03/14/2019 11:41 AM EDT Body Mass Index 40.6 03/14/2019 11:41 AM EDT documented in this encounter Progress Notes * Christiano Hamlin MD - 03/14/2019 11:40 AM EDT Images from the original note were not included. [place] [address] CARDIOLOGY OUTPATIENT FOLLOW-UP NOTE Lisa Worley [id number] PCP: Yana Turner MD 03/14/2019 PRIMARY CARE PROVIDER: Yana Turner MD PROBLEM [...] woman comes for follow-up visit. She has had somewhat chronic and unexplained exertional dyspnea. Although a nuclear stress test was abnormal in August 2017, heart catheterization at [facility] in September 2017 showed normal coronary arteries. She has had atrial fibrillationand since her last visit with me underwent outpatient cardioversion. She comes today indicating that her breathing is a bit improved. Her main complaint at this point is episodes of epigastric discomfort which occur with exertion and when otherwise a dyspnea. She sometimes gets this climbing into bed. Otherwise, things are going fairly well at this point. She does have some lower extremity edema and wonders if she should be back on the hydrochlorothiazide (she has subsequently been started on furosemide). ROS: CardioVascular Pre Appointment Symptom Review 03/14/2019 Angina (chest discomfort) Frequency: Occasional Shortness of breath: Occurs with minor activity during the day Palpitations (skipped beats): No Leg swelling: Yes Dizziness/light headedness: No Loss of consciousness: No Difficulty lying flat (because of breathing): No Chills: No Fatigue: No Fever: No Unintended weight change: No Nosebleeds: No Difficulty swallowing: No Visual disturbances: No Frequent cough: No Wheezing: No Snoring: No Abdominal pain: No Diarrhea: No Blood in bowel movement: No Black, tarry bowel movement: No Nausea/vomiting: No Heat/cold intolerance: No Problems urinating: No Joint pains: No Muscle pain: No Rash: No Weakness/numbness: No Speech problems: No Easy bruising/bleeding: No Depression: No Anxiety: Yes Poor sleep: No OBJECTIVE: Vital Signs: BP 136/55 Pulse (!) 48 Ht 157.5 cm (5' 2) Wt 100.7 kg (222 lb) SpO2 95% BMI40.60 kg/m?? Physical Exam: On exam she appeared in good health and spirits. Vital signs as documented. Skin warm and dry and without overt rashes. Neck without JVD. Lungs clear. Heart exam notable for regular rhythm, normal sounds and absence of murmurs, rubs or gallops. Abdomen unremarkable and without evidence of organomegaly, masses, or abdominal aortic enlargement. Extremities are notable for a trace to 1+ edema bilaterally below the knees. Twelve-lead EKG: This revealed sinus bradycardia at a rate of 48. ASSESSMENT: 1. Atrial fibrillation: She has done better clinically since her cardioversion and appears to be insinus rhythm today. 2. Unexplained exertional dyspnea: The atrial fibrillation may have played a part in this although her symptoms clearly preceded her atrial arrhythmia. At this point I do not have any other ideas about her shortness of breath beyond possibility that this may be related to her overweight condition and deconditioning. 3. Epigastric discomfort: Although this is exertional, she has undergone heart catheterization lastcouple of years it did not show obstructive coronary artery disease (she had frankly normal coronary arteries). At this point I do not know what is causing her symptoms but do not think that it is cardiac. PLAN: 1. No change in medications 2. I counseled her about elevating her legs and using compression stockings 3. Cardiology follow-up to reassess in 4 months documented in this encounter Plan of Treatment Upcoming Encounters Date Type Department Care Team (Late st Contact Info) Description 08/13/2024 11:20 AM EDT Office Visit Cardiology at [address] [phone] Christiano Hamlin MD [facility] [place] [address] documented as of this encounter Procedures Procedure Name Priority Date/Time Associated Diagnosis Comments EKG 12-LEAD Routine 03/14/2019 12:19 PM EDT PAF (paroxysmal atrial fibrillation) documented in this encounter Results * EKG 12 Lead (03/14/2019 12:19 PM EDT) Ventricular rate 48 BPM MUSE SYSTEM Atrial Rate 48 BPM MUSE SYSTEM P-R Interval 184 ms MUSE SYSTEM QRS Duration 72 ms MUSE SYSTEM Q-T Interval 482 ms MUSE SYSTEM QTC Calculated (Bezet) 430 ms MUSE SYSTEM Calculated P [place] 63 degrees MUSE SYSTEM Calculated R [place] 0 degrees MUSE SYSTEM Calculated T [place] 43 degrees MUSE SYSTEM INTERPRETATION Marked sinus bradycardia Occasional Premature ventricular complexes Abnormal ECG When compared with ECG of 19-FEB-2019 10:38, Premature ventricular complexes are now Present Premature supraventricular complexes are no longer Present Confirmed by MD ALEXANDRIA, WANG ([id number]) on 03/14/2019 4:56:36 PM MUSE SYSTEM 03/14/2019 12:1 9 PM EDT 03/14/2019 4:56 PM EDT Christiano Hamlin MD ECG ORDERABLES MUSE SYSTEM documented in this encounter Visit Diagnoses Diagnosis PAF (paroxysmal atrial fibrillation) Atrial fibrillation documented in this encounter Care Teams Seed Technician Relationship Specialty Start Date End Date Yana Turner MD [address] [place] [address] PCP - General Family Medicine 12/26/18 documented as of this encounter
[2024-08-10 16:13] LABS: ALT 35 U/L (14-59); AST 25 U/L (15-37); Albumin 4.1 g/dL (3.4-5.0); Alkaline Phosphatase 71 U/L (46-116); Anion Gap 8.3 mmol/L (3-11); BUN 18 mg/dL (7-18); Bilirubin, Total 1.95 mg/dL (0.2-1.0); CO2 29.7 mmol/L (21.0-32.0); CREATININE 0.8 mg/dL (0.55-1.02); Calcium 9.4 mg/dL (8.5-10.1); Chloride 103 mmol/L (98-107); Glucose 121 mg/dL (74-106); Potassium 5.1 mmol/L (3.5-5.1); Sodium 141 mmol/L (136-145); Total Protein 7.6 g/dL (6.4-8.2)
[2024-08-10 17:00] LABS: Hemoglobin A1C 6.5 % (<5.7)
== END 2024-08-10 15:20 | disposition home or self-care (01) ==
LOC: NCHCN 15:19
PROVIDERS: PCP Family Medicine; Visit Provider Family Medicine
DX: R73.03 Prediabetes (principal); I48.20 Chronic atrial fibrillation, unspecified
CPT/HCPCS: 80053; 83036; 88305

== ENCOUNTER 2024-11-09 16:30 | Outpatient (REF) | payer MEDICARE, SELFPAY ==
[2024-11-09 16:25] LABS: Hemoglobin A1C 6.9 % (<5.7)
--- OUTSIDE RECORDS SUMMARY | 2024-11-09 16:34 | XMS_ITS | Encounter Summary ---
Author Organization [facility] Address [facility] [place] [address] Care Team Providers Care Camera Prototyping Engineer Name Role Phone Yana Turner MD Primary Care Provider [phone] Encounter Details Date Type Department Care Team (Late st Contact Info) Description 12/03/2020 1:40 PM EST Office Visit Cardiology at [address] [address] Christiano Hamlin MD [facility] [place] [address] Persistent atrial fibrillation; MADRIGAL (dyspnea on exertion) [...] original note were not included. [facility] [place] [address] CARDIOLOGY OUTPATIENT FOLLOW-UP NOTE Lisa Worley [id number] PCP: Yana Turner MD 12/03/2020 PRIMARY CARE [...] mild chest pain ?? Echocardiogram through [facility] August 12, 2017 showing mild LVH with normal LV systolic function and ejection fraction of 60-65%; normally sized and functioning right ventricle; severely dilated left atrium; moderate tricuspid regurgitation; moderate to severe pulmonary hypertension with PA systolic pressure 45-55 mmHg ?? Nuclear stress test [facility] September 12, 2017 showing small [...] Care Team (Late st Contact Info) Description 12/19/2024 9:30 AM EST Appointment Non-Invasive [place] [phone] Christiano Hamlin MD [facility] [place] [address] 12/19/2024 10:40 AM EST Office Visit Cardiology at [address] [phone] Christiano Hamlin MD [facility] [place] [address] documented as of this encounter Procedures Procedure [...] (Bezet) 412 ms MUSE SYSTEM Calculated R [place] -13 degrees MUSE SYSTEM Calculated T [place] -90 degrees MUSE SYSTEM INTERPRETATION Atrial fibrillation Poor R wave progression Nonspecific ST and T wave abnormality Abnormal ECG When compared with ECG of 15-AUG-2019 14:08, No significant change was found Confirmed by Dunia Delcid ([id number]) on 12/03/2020 5:11:33 PM MUSE SYSTEM 12/03/2020 1:38 PM EST 12/03/2020 5:11 PM EST Christiano Hamlin MD ECG ORDERABLES MUSE SYSTEM documented in this encounter Visit Diagnoses Diagnosis Persistent atrial fibrillation Atrial fibrillation MADRIGAL (dyspnea on exertion) Other dyspnea and respiratory abnormality documented in this encounter Care Teams Camera Prototyping Engineer Relationship Specialty Start Date End Date Yana Turner MD [address] [place] [address] PCP - General Family Medicine 12/26/18 documented as of this encounter
--- OUTSIDE RECORDS SUMMARY | 2024-11-09 16:34 | XMS_ITS | Encounter Summary ---
Author Organization [facility] Address [facility] [place] [address] Care Team Providers Care Gerentological Physiotherapist Name Role Phone Yana Turner MD Primary Care Provider [phone] Encounter Details Date Type Department Care Team (Late st Contact Info) Description 08/13/2019 Orders Only Cardiology at [address] [phone] Christiano Hamlin MD [facility] [place] [address] Paroxysmal atrial fibrillation (Primary Dx); MADRIGAL (dyspnea [...] 9:30 AM EST Appointment Non-Invasive [place] [address] Christiano Hamlin MD [facility] [place] [address] 12/19/2024 10:40 AM EST Office Visit Cardiology at [address] [phone] Christiano Hamlin MD [facility] [place] [address] documented as of this encounter Results * EKG 12 Lead (08/15/2019 2:08 PM EDT) Ventricular rate 78 BPM MUSE SYSTEM Atrial Rate 441 BPM MUSE SYSTEM QRS Duration 78 ms MUSE SYSTEM Q-T Interval 344 ms MUSE SYSTEM QTC Calculated (Bezet) 392 ms MUSE SYSTEM Calculated R [place] -10 degrees MUSE SYSTEM Calculated T [place] 126 degrees MUSE SYSTEM INTERPRETATION Atrial fibrillation [...] abnormality documented in this encounter Care Teams Gerentological Physiotherapist Relationship Specialty Start Date End Date Yana Turner MD [address] [place] [address] PCP - General Family Medicine 12/26/18 documented as of this encounter
--- OUTSIDE RECORDS SUMMARY | 2024-11-09 16:34 | XMS_ITS | Encounter Summary ---
Author Organization [facility] Address [facility] [place] [address] Care Team Providers Care Lab Assistant Name Role Phone Yana Turner MD Primary Care Provider [phone] Reason for Visit * Reason Onset Date Comments Other 12/01/2020 when is her foll ow up visit Encounter Details Date Type Department Care Team (Late st Contact Info) Description 12/01/2020 Telephone Cardiology at [address] [phone] Ana Rosa Hernandez RN Other [...] 9:30 AM EST Appointment Non-[place] [address] Christiano Hamlin MD [facility] [address] 12/19/2024 10:40 AM EST Office Visit Cardiology at [address] [phone] Christiano Hamlin MD [facility] [place] [address] documented as of this encounter Visit Diagnoses Not on filedocumented in this encounter Care Teams Lab Assistant Relationship Specialty Start Date End Date Yana Turner MD [address] [place] [address] PCP - General Family Medicine 12/26/18 documented as of this encounter
--- OUTSIDE RECORDS SUMMARY | 2024-11-09 16:34 | XMS_ITS | Encounter Summary ---
Author Organization [facility] Address [facility] [place] [address] Care Team Providers Care Rehab Therapy Manager Name Role Phone Yana Turner MD Primary Care Provider [phone] Reason for Visit * Reason Onset Date Comments Medication Refill 04/26/2019 Encounter Details Date Type Department Care Team (Late st Contact Info) Description 04/26/2019 Refill Cardiology at [address] [phone] Christiano Hamlin MD [facility] [place] [address] Medication Refill Social History Tobacco Use Types [...] 9:30 AM EST Appointment Non-[place]vasive [place] [phone] Christiano Hamlin MD [facility] [address] [place], [place] [id number] 12/19/2024 10:40 AM EST Office Visit Cardiology at [address] [phone] Christiano Hamlin MD [facility] [place] [address] documented as of this encounter Visit Diagnoses Not on filedocumented in this encounter Care Teams Rehab Therapy Manager Relationship Specialty Start Date End Date Yana Turner MD [address] [place] [address] PCP - General Family Medicine 12/26/18 documented as of this encounter
--- OUTSIDE RECORDS SUMMARY | 2024-11-09 16:34 | XMS_ITS | Encounter Summary ---
Author Organization [facility] [place] [address] Care Team Providers Care Supervisor Home Energy Consultant Name Role Phone Yana Turner MD Primary Care Provider [phone] Reason for Visit * Reason Onset Date Comments Advice Only 10/20/2020 CHF Encounter Details Date Type Department Care Team (Late st Contact Info) Description 10/20/2020 Telephone Cardiology at [address] [phone] Ana Rosa Hernandez, elevator inspector Only (CHF) Social History Tobacco Use Types [...] labs and recent PCP notes faxed to [facility], number given. She is having more lab work done tomorrow in [place], [place]. Meds reviewed and voiced her compliance. [...] 9:30 AM EST Appointment Non-[place] [address] Christiano Hamlin MD [facility] [place] [address] 12/19/2024 10:40 AM EST Office Visit Cardiology at [address] [phone] Christiano Hamlin MD [facility] [place] [address] documented as of this encounter Visit Diagnoses Not on filedocumented in this encounter Care Teams Supervisor Home Energy Consultant Relationship Specialty Start Date End Date Yana Turner MD [address] [place] [address] PCP - General Family Medicine 12/26/18 documented as of this encounter
--- OUTSIDE RECORDS SUMMARY | 2024-11-09 16:34 | XMS_ITS | Encounter Summary ---
Author Organization [facility] Address [facility] [place] [address] Care Team Providers Care Gate Keeper Name Role Phone Yana Turner MD Primary Care Provider [phone] Encounter Details Date Type Department Care Team (Late st Contact Info) Description 10/27/2021 2:40 PM EST Office Visit Cardiology at [address] [address] Christiano Hamlin MD [facility] [place] [address] Atrial fibrillation, unspecified type; Hypertension, unspecified type; [...] original note were not included. [facility] [place] [address] CARDIOLOGY OUTPATIENT FOLLOW-UP NOTE Lisa Worley [id number] PCP: Yana Turner MD 10/27/2021 PRIMARY CARE PROVIDER: aYna Turner MD PROBLEM [...] pressure 45-55 mmHg ?? Nuclear stress test [facility] September 12, 2017 showing small in [...] of many years and moved into another [facility] and is extremely happy with her new [...] 9:30 AM EST Appointment Non-Invasive [place] [address] Christiano Hamlin MD [facility] [place] [address] 12/19/2024 10:40 AM EST Office Visit Cardiology at [address] [phone] Christiano Hamlin MD [facility] [place] [address] documented as of this encounter Procedures Procedure [...] (Bezet) 450 ms MUSE SYSTEM Calculated R [place] 17 degrees MUSE SYSTEM Calculated T [place] 69 degrees MUSE SYSTEM INTERPRETATION Atrial fibrillation [...] abnormality documented in this encounter Care Teams Gate Keeper Relationship Specialty Start Date End Date Yana Turner MD [address] [place] [address] PCP - General Family Medicine 12/26/18 documented as of this encounter
--- OUTSIDE RECORDS SUMMARY | 2024-11-09 16:34 | XMS_ITS | Encounter Summary ---
Author Organization [facility] Address [facility] [place] [address] Care Team Providers Care Carbonation Equipment Tender Name Role Phone Yana Turner MD Primary Care Provider [phone] Encounter Details Date Type Department Care Team (Late st Contact Info) Description 03/09/2023 11:20 AM EDT Office Visit Cardiology at [address] [phone] Christiano Hamlin MD [facility] [place] [address] Chronic atrial fibrillation; MADRIGAL (dyspnea on exertion); [...] from the original note were not included. [facility] [address] CARDIOLOGY OUTPATIENT FOLLOW-UP NOTE Lisa Worley [id number] PCP: Yana Turner MD 03/09/2023 PRIMARY CARE [...] by mild chest pain ?? Echocardiogram through [facility] August 12, 2017 showing mild LVH [...] inquired about the safety of flying to [place]. I told her that I do not [...] 9:30 AM EST Appointment Non-Invasive [place] [address] Christiano Hamlin MD [facility] [place] [address] 12/19/2024 10:40 AM EST Office Visit Cardiology at [address] [phone] Christiano Hamlin MD [facility] [place] [address] documented as of this encounter Visit Diagnoses Diagnosis Chronic atrial fibrillation Atrial fibrillation MADRIGAL (dyspnea on exertion) Other dyspnea and respiratory abnormality Chronic heart failure with preserved ejection fraction documented in this encounter Care Teams Carbonation Equipment Tender Relationship Specialty Start Date End Date Yana Turner MD [address] [place] [address] PCP - General Family Medicine 12/26/18 documented as of this encounter
--- OUTSIDE RECORDS SUMMARY | 2024-11-09 16:34 | XMS_ITS | Encounter Summary ---
Author Organization [facility] Address [facility] [place] [address] Care Team Providers Care Magneto Repairer Name Role Phone Yana Turner MD Primary Care Provider Encounter Details Date Type Department Care Team (Latest Contact Info) Description 08/13/2024 Travel Social History Tobacco Use Types Packs/Day [...] 9:30 AM EST Appointment Non-[place]vasive [place] [phone] Christiano Hamlin MD [facility] [place] [address] 12/19/2024 10:40 AM EST Office Visit Cardiology at [address] [phone] Christiano Hmalin MD [facility] [place] [address] documented as of this encounter Visit Diagnoses Not on filedocumented in this encounter Care Teams Magneto Repairer Relationship Specialty Start Date End Date Yana Turner MD [address] [place] [address] PCP - General Family Medicine 12/26/18 documented as of this encounter
--- OUTSIDE RECORDS SUMMARY | 2024-11-09 16:34 | XMS_ITS | Encounter Summary ---
Author Organization [facility] Address [facility] [place] [address] Care Team Providers Care Nursing Professor Name Role Phone Yana Turner MD Primary Care Provider [phone] Encounter Details Date Type Department Care Team (Late st Contact Info) Description 07/13/2019 Orders Only Cardiology at [address] [phone] [facility] [place] [address] Paroxysmal atrial fibrillation (Primary Dx) Social History [...] 9:30 AM EST Appointment Non-Invasive [place] [phone] [facility] [place] [address] 12/19/2024 10:40 AM EST Office Visit Cardiology at [address] [phone] [facility] [place] [address] documented as of this encounter Results * EKG 12 Lead (07/17/2019 10:58 AM EDT) Ventricular rate 149 BPM MUSE SYSTEM Atrial Rate 159 BPM MUSE SYSTEM QRS Duration 80 ms MUSE SYSTEM Q-T Interval 296 ms MUSE SYSTEM QTC Calculated (Bezet) 466 ms MUSE SYSTEM Calculated R [place] 8 degrees MUSE SYSTEM Calculated T [place] 175 degrees MUSE SYSTEM INTERPRETATION Atrial fibrillation [...] fibrillation documented in this encounter Care Teams Nursing Professor Relationship Specialty Start Date End Date Yana Turner MD [address] [place] [address] PCP - General Family Medicine 12/26/18 documented as of this encounter
--- OUTSIDE RECORDS SUMMARY | 2024-11-09 16:34 | XMS_ITS | Encounter Summary ---
[place] [address] Care Team Providers Care Glass Curvature Gauger Name Role Phone Yana Turner MD Primary Care Provider Reason for Visit * Reason Onset Date Comments Other 02/05/2020 medication quest ion Encounter Details Date Type Department Care Team (Late Contact Info) Description 02/05/2020 Telephone Cardiology at [address] [phone] Hayley Colon RN Other (medication question) Social [...] from Mer Collins RN with Olivia Mei WOOL CLEANER [facility] [place] [phone],requesting current documented dose of metoprolol succinate this [...] 9:30 AM EST Appointment Non[place] [address] Christiano Hamlin MD [facility] [place] [address] 12/19/2024 10:40 AM EST Office Visit Cardiology at [address] [phone] Christiano Hamlin MD [facility] [place] [address] documented as of this encounter Visit Diagnoses Not on filedocumented in this encounter Care Teams Glass Curvature Gauger Relationship Specialty Start Date End Date Yana Turner MD [address] [place] [address] PCP - General Family Medicine 12/26/18 documented as of this encounter
--- OUTSIDE RECORDS SUMMARY | 2024-11-09 16:34 | XMS_ITS | Encounter Summary ---
Author Organization [facility] Address [facility] [place] [address] Care Team Providers Care Solar Installation Manager Name Role Phone Yana Turner MD Primary Care Provider [phone] Encounter Details Date Type Department Care Team (Late st Contact Info) Description 05/05/2022 11:20 AM EDT Office Visit Cardiology at [address] [phone] Christiano Hamlin MD [facility] [place] [address] Chronic atrial fibrillation; MADRIGAL (dyspnea on exertion) [...] [facility] [place] [address] CARDIOLOGY OUTPATIENT FOLLOW-UP NOTE Lisa Worley [id number] PCP: Yana Turner MD 05/05/2022 PRIMARY CARE [...] pressure 45-55 mmHg ?? Nuclear stress test [facility] September 12, 2017 showing [...] 9:30 AM EST Appointment Non-Invasive [place] [address] Christiano Hamlin MD [facility] [place] [address] 12/19/2024 10:40 AM EST Office Visit Cardiology at [address] [phone] Christiano Hamlin MD [facility] [place] [address] documented as of this encounter Visit Diagnoses Diagnosis Chronic atrial fibrillation Atrial fibrillation MADRIGAL (dyspnea on exertion) Other dyspnea and respiratory abnormality documented in this encounter Care Teams Solar Installation Manager Relationship Specialty Start Date End Date Yana Turner MD [address] [place] [address] PCP - General Family Medicine 12/26/18 documented as of this encounter
--- OUTSIDE RECORDS SUMMARY | 2024-11-09 16:34 | XMS_ITS | Encounter Summary ---
Author Organization [facility] Address [facility] [place] [address] Care Team Providers Care Miller Wood Flour Name Role Phone Yana Turner MD Primary Care Provider [phone] Reason for Referral * Diagnostic Test (Routine) - Pending Review Specialty Diagnoses / Procedures Referred By Contac t Referred To Contact Cardiology Diagnoses Persistent atrial fibrillation Bilateral edema of lower extremity MADRIGAL (dyspnea on exertion) Procedures Echocardiogram Transthoracic Christiano Hamlin MD [facility] [place] [address] [facility] [place] [address] Referral ID Status Reason Start Date Expiration Date Visits Requested Visits Authorized [id number] Pending Review Specialty Service Requested 08/13/2024 08/13/2025 1 1 * Diagnostic Test (Routine) - Pending Review Specialty Diagnoses / Procedures Referred By Contac t Referred To Contact Cardiology Diagnoses Persistent atrial fibrillation Bilateral edema of lower extremity MADRIGAL (dyspnea on exertion) Procedures Echocardiogram Transthoracic Christiano Hamlin MD [facility] [place] [address] [facility] [place] [address] Referral ID Status Reason Start Date Expiration Date Visits Requested Visits Authorized [id number] Pending Review Specialty Service Requested 08/13/2024 08/13/2025 1 1 Encounter Details Date Type Department Care Team (Late st Contact Info) Description 08/13/2024 11:20 AM EDT Office Visit Cardiology at [address] [phone] Christiano Hamlin MD [facility] [place] [address] Persistent atrial fibrillation; Bilateral edema of lower extremity; MADRIGAL (dyspnea on exertion) Social History Tobacco [...] Sign Reading Time Taken Comments Blood Pressure 109/63 08/13/2024 11:12 AM EDT Pulse 74 08/13/2024 11:12 AM EDT Temperature - - Respiratory Rate - - Oxygen Saturation 97% 08/13/2024 11:12 AM EDT Inhaled Oxygen Concentration - - Weight - - Height 162.6 cm (5' 4) 08/13/2024 11:12 AM EDT Body Mass Index - - documented in this encounter Patient Instructions * Patient Instructions* Christiano Hamlin MD - 08/13/2024 11:20 AM EDT Reduce diltiazem to 120 mg daily (hopefully will reduce swelling in legs) Echocardiogram (heart ultrasound) to be scheduled If needed for atrial fibrillation rate control, may use digoxin in future Cardiology follow-up at time of echo documented in this encounter Progress Notes * Christiano Hamlin MD - 08/13/2024 11:20 AM EDT Images from the original note were not included. [facility] [address] CARDIOLOGY OUTPATIENT FOLLOW-UP NOTE Lisa Worley [id number] PCP: Yana Turner MD 08/13/2024 PRIMARY CARE PROVIDER: Yana Turner MD PROBLEM LIST: Patient Active Problem List Diagnosis Atrial fibrillation Status post cardioversion February 19, 2009 Recurrent atrial fibrillation documented July 17, 2019 initially with rapid ventricular rate Rx with apixaban, diltiazem and metoprolol MADRIGAL (dyspnea on exertion) Onset about July, and accompanied by mild chest pain Echocardiogram through [facility] August 12, 2017 showing mild LVH with normal LV systolic function and ejection fraction of 60- 65%; normally sized and functioning right ventricle; severely dilated left atrium; moderate tricuspid regurgitation; moderate to severe pulmonary hypertension with PA systolic pressure 45-55 mmHg Nuclear stress test [facility] September 12, 2017 showing small in size moderately intense partially reversible defect involving the inferolateral jasso suggesting ischemia in the distribution of the left circumflex; calculated ejection fraction of 64% with no wall motion abno rmalities Chest x-ray reportedly unremarkable Hypertension OA (osteoarthritis) Mixed incontinence MEDICATIONS: Current Outpatient Medications: spironolactone (Aldactone) 25 mg tablet, Take 25 mg by mouth daily., Disp: , Rfl: chlorthalidone (Hygroten) 50 mg Tablet, TAKE 1 TABLET BY MOUTH DAILY, Disp: , Rfl: potassium chloride (MICRO-K) 10 mEq Capsule, Sustained Release, TAKE ONE CAPSULE BY MOUTH TWICE DAILY, Disp: , Rfl: hydroCHLOROthiazide (HYDRODIURIL) 25 mg Tablet, Take 25 mg by mouth daily., Disp: , Rfl: 0 apixaban (ELIQUIS) 5 mg Tablet, Take 1 tablet by mouth 2 times daily., Disp: 60 tablet, Rfl: 3 metoprolol succinate (TOPROL-XL) 100 mg Tablet Sustained Release 24 hr, Take 1.5 tablets by mouth daily. (Patient taking differently: Take 100 mg by mouth daily.), Disp: 135 tablet, Rfl: 3 nitroGLYcerin (NITROSTAT) 0.4 mg Tablet, Sublingual, Place 1 tablet under the tongue every 5 minutes as needed for Chest pain., Disp: 25 tablet, Rfl: 11 acetaminophen (TYLENOL) 325 mg Tablet, Take 650 mg by mouth every 4 hours as needed for Pain., Disp: , Rfl: melatonin 3 mg Tablet, Take 3 mg by mouth nightly as needed., Disp: , Rfl: atorvastatin (LIPITOR) 10 mg Tablet, Take 10 mg by mouth daily., Disp: , Rfl: hydroCODone-acetaminophen (VICODIN) 5-500 mg per tablet, Take 1 tablet by mouth every 6 hours as needed., Disp: , Rfl: dilTIAZem (Tiazac) 120 mg ER 24 hr capsule, Take 1 capsule by mouth daily., Disp: 90 capsule, Rfl: 3 SUBJECTIVE: This 79-year-old woman was seen today in a follow-up encounter. She has chronic atrial fibrillation and recurred fairly soon after a cardioversion back in 2008. She has been managed with apixaban, metoprolol, and diltiazem. She has longstanding dyspnea which is of unclear etiology. She has fairly significant lower extremity edema which is managed with a combination of medications including hydrochlorothiazide, spironolactone (added recently) and for low potassium potassium supplementation. Today she says she is doing terrible. She tells me that my body is falling apart. She describesbeing able to ambulate fairly easily with a rolling walker but when ambulating with a cane gets winded fairly quickly. She is not experiencing chest discomfort. She has ongoing lower extremity edema which is fairly severe although which she says has been a lot better since being started on the spironolactone. She has no major awareness of her heart rhythm. ROS: 07/17/2019 10:53 AM CardioVascular Pre Appointment Symptom Review Angina (chest discomfort) Frequency: None OBJECTIVE: Vital Signs: BP 109/63 Pulse 74 Ht 162.6 cm (5' 4) SpO2 97% BMI 37.76 kg/m?? Physical Exam: On exam today she appeared in no acute distress. Her color was good. Her vital signsare listed above. She had no JVD. Her lungs were clear. Her heart exam revealed an irregularly irregular rhythm without murmurs or gallops. She had 2+ to 3+ edema below the knees bilaterally. She hadlots of changes of chronic venous stasis. ASSESSMENT: Unfortunately, she is feeling fairly awful. She has very little strength in her legs and ambulates without problems. She has a lot of lower extremity edema. Whether this is a manifestation of heart failure with preserved ejection fraction, a consequence of the diltiazem being used for rate control of her atrial fibrillation, or other factors is not entirely clear. I recommended backing down on the diltiazem. If needed for rate control, digoxin can be added. She has not had an echocardiogram in 5 years and this may be helpful in better understanding the nature of her potential heart failure. Although she might benefit from a more aggressive diuretic regimen, she is already struggling to keep up with her potassium (although this may be better in the context of recently started spironolactone by her PCP). PLAN: 1. Diltiazem to 120 mg daily; consider discontinuing completely during a future visit 2. Continue other medications 3. Schedule echocardiogram 4. Cardiology follow-up to reassess in 1 month documented in this encounter Plan of Treatment Upcoming Encounters Date Type Department Care Team (Late st Contact Info) Description 12/19/2024 9:30 AM EST Appointment Non-[place] [address] Christiano Hamlin MD [facility] [place] [address] 12/19/2024 10:40 AM EST Office Visit Cardiology at [address] [phone] Christiano Hamlin MD [facility] [place] [address] Scheduled Orders Name Type Priority Associated Diagnoses Order Schedule Echocardiogram Transthoracic Echocardiography Routine Persistent atrial fibrillation Bilateral edema of lower extremity MADRIGAL (dyspnea on exertion) Expected: 08/13/2024, Expires: 02/12/2025 Echocardiogram Transthoracic Echocardiography Routine Persistent atrial fibrillation Bilateral edema of lower extremity MADRIGAL (dyspnea on exertion) Expected: 08/13/2024, Expires: 02/12/2025 documented as of this encounter Visit Diagnoses Diagnosis Persistent atrial fibrillation Atrial fibrillation Bilateral edema of lower extremity Edema MADRIGAL (dyspnea on exertion) Other dyspnea and respiratory abnormality documented in this encounter Care Teams Miller Wood Flour Relationship Specialty Start Date End Date Yana Turner MD [address] [place] [address] PCP - General Family Medicine 12/26/18 documented as of this encounter
--- OUTSIDE RECORDS SUMMARY | 2024-11-09 16:34 | XMS_ITS | Encounter Summary ---
Author Organization [facility] Address [facility] [place] [address] Care Team Providers Care Child Support Agent Name Role Phone Yana Turner MD Primary Care Provider [phone] Encounter Details Date Type Department Care Team (Late st Contact Info) Description 12/01/2020 Orders Only Cardiology at [address] [phone] Rema Scott RN Persistent atrial fibrillation Social [...] 9:30 AM EST Appointment Non-[place] [address] Christiano Hamlin MD [facility] [place] [address] 12/19/2024 10:40 AM EST Office Visit Cardiology at [address] [phone] Christiano Hamlin MD [facility] [place] [address] documented as of this encounter Results * EKG 12 Lead (12/03/2020 1:38 PM EST) Ventricular rate 61 BPM MUSE SYSTEM Atrial Rate 300 BPM MUSE SYSTEM QRS Duration 84 ms MUSE SYSTEM Q-T Interval 410 ms MUSE SYSTEM QTC Calculated (Bezet) 412 ms MUSE SYSTEM Calculated R [place] -13 degrees MUSE SYSTEM Calculated T [place] -90 degrees MUSE SYSTEM INTERPRETATION Atrial fibrillation Poor R wave progression Nonspecific ST and T wave abnormality Abnormal ECG When compared with ECG of 15-AUG-2019 14:08, No significant change was found Confirmed by Dunia Delcid ([id number]) on 12/03/2020 5:11:33 PM MUSE SYSTEM 12/03/2020 1:38 PM EST 12/03/2020 5:11 PM EST Christiano Hamlin MD ECG ORDERABLES MUSE SYSTEM documented in this encounter Visit Diagnoses Diagnosis Persistent atrial fibrillation Atrial fibrillation documented in this encounter Care Teams Child Support Agent Relationship Specialty Start Date End Date Yana Turner MD [address] [place] [address] PCP - General Family Medicine 12/26/18 documented as of this encounter
--- OUTSIDE RECORDS SUMMARY | 2024-11-09 16:34 | XMS_ITS | Encounter Summary ---
Author Organization [place] [address] Care Team Providers Care Operational Trainer Name Role Phone Yana Turner MD Primary Care Provider [phone] Encounter Details Date Type Department Care Team (Late st Contact Info) Description 08/01/2019 1:30 PM EDT Office Visit Cardiology at [address] [phone] Paroxysmal atrial fibrillation (Primary Dx) Social History [...] 9:30 AM EST Appointment Non-[place]vasive [place] [address] Christiano Hamlin MD [facility] [place] [address] 12/19/2024 10:40 AM EST Office Visit Cardiology at [address] [phone] Christiano Hamlin MD [facility] [place] [address] documented as of this encounter Procedures Procedure [...] (Bezet) 449 ms MUSE SYSTEM Calculated R [place] -11 degrees MUSE SYSTEM Calculated T [place] -102 degrees MUSE SYSTEM INTERPRETATION Atrial fibrillation [...] fibrillation documented in this encounter Care Teams Operational Trainer Relationship Specialty Start Date End Date Yana Turner MD [address] [place] [address] PCP - General Family Medicine 12/26/18 documented as of this encounter
--- OUTSIDE RECORDS SUMMARY | 2024-11-09 16:34 | XMS_ITS | Encounter Summary ---
Author Organization [facility] Address [facility] [place] [address] Care Team Providers Care Women Designer Name Role Phone Yana Turner MD Primary Care Provider [phone] Encounter Details Date Type Department Care Team (Late st Contact Info) Description 08/15/2019 2:00 PM EDT Office Visit Cardiology at [address] [phone] Christiano Hamlin MD [facility] [place] [address] Persistent atrial fibrillation; MADRIGAL (dyspnea on exertion) [...] from the original note were not included. [facility] [place] [address] CARDIOLOGY OUTPATIENT FOLLOW-UP NOTE Lisa Worley [id number] PCP: Yana Turner MD 08/15/2019 PRIMARY CARE [...] pressure 45-55 mmHg ?? Nuclear stress test [facility] September 12, 2017 showing small in [...] 9:30 AM EST Appointment Non[place] [address] Christiano Hamlin MD [facility] [place] [address] 12/19/2024 10:40 AM EST Office Visit Cardiology at [address] [phone] Christiano Hamlin MD [facility] [place] [address] documented as of this encounter Procedures Procedure [...] (Bezet) 392 ms MUSE SYSTEM Calculated R [place] -10 degrees MUSE SYSTEM Calculated T [place] 126 degrees MUSE SYSTEM INTERPRETATION Atrial fibrillation [...] abnormality documented in this encounter Care Teams Women Designer Relationship Specialty Start Date End Date Yana Turner MD [address] [place] [address] PCP - General Family Medicine 12/26/18 documented as of this encounter
--- OUTSIDE RECORDS SUMMARY | 2024-11-09 16:34 | XMS_ITS | Continuity of Care Document ---
Author Organization [place] - [facility], [facility] Address [address] [place] [address] Assessment No assessment recorded. Plan of Treatment Reminders Order Date Submit Date Provider Last Modified By Organization Details Last Modified Time Details Appointments Follow Up 2023 11:30A M DANK AUGUSTIN Not available Not available Not available Follow Up 2024 10:40A M DANK AUGUSTIN Not available Not available Not available Lab pathology , skin [address] [facility] (Registration ), [address] [place] [address] [place], [address], 08/20/2024 14:39:53 HbA1c (hemoglob in A1c), blood 2023 024 [facility] (Registration ), [address] [place] [address] [place], [address], 08/10/2024 15:15:54 CMP, serum or plasma [address] [facility] (Registration ), [address] [place] [address] [place], [address], 08/10/2024 16:15:50 Referral None recorded. Procedures None recorded. Surgeries None recorded. Imaging None recorded. Medication Orders hydrocodo ne 5 mg-acetam inophen 325 mg tablet 2023 024 [facility], [address] [facility], [place], [address], 08/10/2024 20:34:36 spironola ctone 25 mg tablet 2023 024 [facility], [address] [place], [address], 08/10/2024 12:08:29 Patient TargetsNo targets recorded. Patient InstructionsNo instructions recorded. Reason for Referral None Reported. Results Created Date Observation Date Name Description [...] Not Available 08/06 01:28:22 08/06/20 24 09/13/2019 sen GRANADOS No observ ation record ed. Not Available 08/06 01:28:23 08/06/20 24 10/08/2020 sen GRANADOS No observ ation record ed. Not Available [...] ation record ed. Not Available 08/06 01:28:40 08/06/2008/01/2023 imagi ng/di agnos tic resul t No observ ation record ed. Not Available 08/06 01:28:41 Result Notes None recorded. Problems Name Problem SNOMED Code Status Onset Date Resolution Date Notes Provider Name and Address Organization Details Recorded Time Mixed urinary incontin ence 255345738 Active 201806/27/20 23 - Comments only - Dank Augustin MD - , Needs to use pads chronic basis. Problem Code: N39.46; Problem Code Type: ICD-10; Not Available On license of [facility] 4 01:25:21 Osteoart hritis 807461187 Active 2018 Problem Code: M19.90; Problem Code Type: ICD-10; Not Available On license of [facility] 4 01:25:21 [facility] l hyperten luis 59834953 Active 2018 Problem Code: I10; Problem Code Type: ICD-10; Not Available On license of [facility] 4 01:25:22 Dyspnea 419271370 Active 201806/27/20 23 - Comments only - Dank Augustin MD - Most likely cardiac related, known pulmonar y hyperten luis. PFTs historic ally showed a slightly low FVC, thought to be potentia lly related to obesity or chest wall muscle abnormal ity. There was no evidence of obstruct ion or restrict ion. 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 hyte 063308203 Active 2018 Problem Code: B35.1; Problem Code Type: ICD-10; Not Available [facility] 4 01:25:21 Neck pain 64595834 Active 2018 Problem Code: M54.2; Problem Code Type: ICD-10; Not Available [facility] 4 01:25:22 Low back pain 840877903 Active 2018 Problem Code: M54.5; Problem Code Type: ICD-10; Not Available [facility] 4 01:25:21 Hyperlip idemia 41990938 Active 2018 Problem Code: E78.5; Problem Code Type: ICD-10; Not Available [facility] 4 01:25:22 Shoulder joint pain 536169423 Active 2018 Problem Code: M25.519; Problem Code Type: ICD-10; Not Available [facility] 4 01:25:20 Sensorin eural hearing loss of bilatera l ears 480330702 Active 2018 Problem Code: H90.3; Problem Code Type: ICD-10; Not Available [facility] 4 01:25:20 Dizzines s and giddines s 586156754 Active 201812/03/19 23 - Comments only - Dank Augustin MD - will ask PT to work with her on this also. Problem Code: R42; Problem Code Type: ICD-10; Not Available [facility] 4 01:25:20 Insomnia 153012054 Active 2018 Problem Code: G47.00; Problem Code Type: ICD-10; Not Available [facility] 4 01:25:20 Electroc bj carrillo abnormal 184876828 Active 2018 Problem Code: R94.31; Problem Code Type: ICD-10; Not Available [facility] 4 01:25:19 Pain in right hip joint 08662097748 9102 Active 201801/18/20 19 - Comments only [...] M25.551; Problem Code Type: ICD-10; Not Available [facility] 4 01:25:21 Chronic pain syndrome 439755791 Active 201812/03/19 23 - Comments only - Dank Augustin MD - 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 Also radicula r symptoms of RLE. She manages the pain during the day with movement /distrac tion. Uses the hydrocod one on occasion :has used about 20 tabs in the past 3 months.. PT to be initiate d which I am hoping will help. 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 Clinical ly this is remainin g stable. She continue s on diltiaze m, metoprol ol, Eliquis. Historic ally she has not tolerate d furosemi de. She has chlortha lidone that she uses as needed currentl y. Problem Code: I48.91; Problem Code Type: ICD-10; Not Available On license of [facility] 4 01:25:21 Heart failure 02069805 Active 201806/07/20 19 - Comments only - [...] I50.9; Problem Code Type: ICD-10; Not Available On license of [facility] 4 01:25:22 Counseli sudhir Completed 201801/21/2019 01/11/20 19 - Comments only - Yana Turner MD - LISASTEPHEN MARTINEZ comes in today to mir galindo [...] Z71.89; Problem Code Type: ICD-10; Not Available [facility] 3 04:12:29 Abdomina l distensi on, gaseous 711244261 Active 201812/03/19 23 - Comments only - Dank Augustin MD - , with a fairly unremark [...] [facility] 4 01:25:20 Digestiv e system finding 222693989 Active 2018 Problem Code: R19.8; Problem Code Type: ICD-10; Not Available [facility] 4 01:25:21 Obesity 749670391 Active 201803/04/20 23 - Comments only - Dank Augustin MD - [facility]. Discusse d some dietary changes she might be able to make. Again I [facility] ed her to enroll in PT or cardiac rehab in the future. Problem Code: E66.9; Problem Code Type: ICD-10; Not Available On license of [facility] 4 01:25:21 Screenin g mammogra phy Active 2018 Problem Code: Z12.31; Problem Code Type: ICD-10; Not Available [facility] 4 01:25:20 Acute upper respirat ory infectio n 20606155 Completed 201801/05/2020 10/05/20 19 - Comments only - Edilia Soria APRN - Due to duration , physical findings , comorbid ities suspect this is bacteria l in origin. Is penicill in allergic . Treat with doxycycl ine 100 mg twice a day for 10 days. Tessalon Perles for the cough. Reviewed common side effects of both medicati ons. [facility] ed symptom manageme nt with normal saline sprays, salt water gargles, Vicks VapoRub, vitamin C, good hydratio n, good hand hygiene, adequate rest. Problem Code: J06.9; Problem Code Type: ICD-10; Not Available On license of [facility] 3 04:12:30 Prediabe patricia 783068207 Active 201906/27/20 23 - Comments only - Dank Augustin MD - Due for an A1c. Problem Code: R73.03; Problem Code Type: ICD-10; Not Available [facility] 4 01:25:22 Allergic rhinitis 35868485 Active 2019 Problem Code: J30.9; Problem Code Type: ICD-10; Not Available On license of [facility] 4 01:25:22 Localize d edema 198706755 Active 201906/02/20 20 - Comments only - Edilia Soria CLINICAL ADMINISTRATIVE COORDINATOR - suspect that this is a combinat ion of venous stasis, heart failure, possibly r/t previous knee surgery. Encoruag ed compress ion socks; moderate compress ion, knee high. If not improvin g, consider lac hydrin. After discussi on, she will consider referral to derm but not ready yet. Problem Code: R60.0; Problem Code Type: ICD-10; Not Available [facility] 4 01:25:20 Hypokale chandni 51563108 Active 201909/01/20 22 - Comments only - Dank Augustin MD - these were WNL in February with her 10mEq of KCl daily. Problem Code: E87.6; Problem Code Type: ICD-10; Not Available [facility] 4 01:25:21 Fatigue 25216509 Active 202009/01/20 22 - Comments only - Dank Augustin MD - which was partly stress related, improvin g. Hg in the spring was WNL. TSH was checked a few years ago and WNL. Problem Code: R53.83; Problem Code Type: ICD-10; Not Available [facility] 4 01:25:22 Pain of right shoulder joint 50798396598 791942 Active 2020 Problem Code: M25.511; Problem Code Type: ICD-10; Not Available [facility] 4 01:25:20 Lung field abnormal 845557142 Active 2021 Problem Code: R91.8; Problem Code Type: ICD-10; Not Available [facility] 4 01:25:20 Lymphede ma 173486830 Active 202103/28/20 23 - Comments only - Dank Augustin MD - Again, partly related to cardiac issues as above. I am not sure if there is a componen t of venous insuffic iency as well. As above we will consider trialing her on Lasix. Problem Code: I89.0; Problem Code Type: ICD-10; Not Available [facility] 4 01:25:20 Pulmonar y hyperten luis 74324618 Active 2022 Problem Code: I27.20; Problem Code Type: ICD-10; Not Available [facility] 4 01:25:22 Abnormal results of cardiova scular function studies 563422308 Active 2022 Problem Code: R94.39; Problem Code Type: ICD-10; Not Available [facility] 4 01:25:20 Atherosc lerosis of coronary artery without angina pectoris 00769664911 4103 Active 202206/27/20 23 - Comments only - Dank Augustin MD - /Atrial fibrilla tion/pul monary hyperten luis. She does follow with cardiolo gy at [facility]. Currentl y on metoprol ol, diltiaze m, [...] I25.10; Problem Code Type: ICD-10; Not Available [facility] 4 01:25:21 Reduced mobility 1670769 Active 202206/27/20 23 - Comments only - Dank Augustin MD - Due to chronic lower extremit [...] Z74.09; Problem Code Type: ICD-10; Not Available [facility] 4 01:25:22 History of fall 423266385 Active 2022 Problem Code: Z91.81; Problem Code Type: ICD-10; Not Available [facility] 4 01:25:21 Disorder of skin and/or subcutan eous tissue 77740379 Active 202212/25/19 23 - Comments only - Dank Augustin MD - /Scab overlyin g area where she had a fluid blister. Concerne d that this could become an ulcer. She was amenable to placing an Unna boot today between the ankle and knee. We will have her come back at the beginnin g of the week to have it changed, reevalua tanika. [facility] ed her to use her chlortha lidone daily to try and have better improvem ent of fluid status. We may need to switch her to furosemi de. Problem Code: L98.9; Problem Code Type: ICD-10; Not Available [facility] 4 01:25:22 Dysuria 09600336 Active 2022 Problem Code: R30.9; Problem Code Type: ICD-10; Not Available [facility] 4 01:25:22 Acute cystitis 03093000 Active 202203/28/20 23 - Comments only - Dank Augustin MD - , Chasity elliott treated. Repeat urine culture done today. That did ended up showing Proteus again. I sent in Cipro for her, low-dose . She does have normal renal function currentl y. If she develops any side effects she will let me know. Problem Code: N30.01; Problem Code Type: ICD-10; Not Available [facility] 4 01:25:22 Pain of right knee joint 21471123663 4100 Active 2022 Problem Code: M25.561; Problem Code Type: ICD-10; Not Available [facility] 4 01:25:21 Pain of right thigh 48598237129 9107 Active 2022 Problem Code: M79.651; Problem Code Type: ICD-10; Not Available [facility] 4 01:25:21 Adult health examinat ion Active 202203/28/20 23 - Comments only - Dank Augustin MD - Lisa is due for mammogra m, ordered. We discusse d the DEXA scan, she wants to hold off on that for the moment. She is not currentl y a good candidat e to undergo colonosc opy given her cardiac status. We will discuss Cologuar d with her at her next appointm ent. Problem Code: Z00.00; Problem Code Type: ICD-10; Not Available [facility] 4 01:25:20 Aftercar e Active 2022 Problem Code: Z51.89; Problem Code Type: ICD-10; Not Available [facility] 4 01:25:21 Pain in lower limb 16890013 Active 2022 Problem Code: M79.606; Problem Code Type: ICD-10; Not Available [facility] 4 01:25:20 Impaired fasting glycemia 935311070 Completed 201908/17/2023 Problem Code: R73.01; Problem Code Type: ICD-10; Not Available [facility] 3 04:12:38 Hypergly cemia 50776696 Completed 202104/20/2022 Problem Code: R73.9; Problem Code Type: ICD-10; Not Available [facility] 3 04:12:39 Cat scratch Completed 202107/23/2022 Problem Code: W55.03xA ; Problem Code Type: ICD-10; Not Available [facility] 3 04:12:39 Dyspnea 680279256 Completed 201807/11/2020 Problem Code: R06.02; Problem Code Type: ICD-10; Not Available On license of [facility] 3 04:12:39 Cellulit is of left lower limb 88306976183 067748 Completed 202107/23/2022 Problem Code: L03.116; Problem Code Type: ICD-10; Not Available [facility] 3 04:12:39 Conjunct ival hemorrha ge of right eye 44994109243 9101 Completed 201907/11/2020 Problem Code: H11.31; Problem Code Type: ICD-10; Not Available [facility] 3 04:12:40 Bleeding from nose 125472853 Completed 201804/20/2022 Problem Code: R04.0; Problem Code Type: ICD-10; Not Available [facility] 3 04:12:40 Exposure to communic able disease Completed 202002/12/2021 Problem Code: Z20.9; Problem Code Type: ICD-10; Not Available [facility] 3 04:12:40 Increase d frequenc y of urinatio n 393288685 Active 202209/15/20 23 - Comments only - Dank Augustin MD - We will follow-u p on urine micro. This is likely related to urge incontin ence. Discusse brandyn Morales exercise s today and provided her some instruct ions. Told her it can take up to a couple of months of doing the exercise s to notice improvem ent. Problem Code: R35.0; Problem Code Type: ICD-10; Not Available On license of [facility] 4 01:25:20 Acute upper respirat ory infectio n 28835615 Active 2022 Problem Code: J06.9; Problem Code Type: ICD-10; Not Available On license of [facility] 4 01:25:22 Chronic vertigo 90998872478 105 Active [address], [place] [id number] , [facility] 4 06:24:27 Gomezyannajoselo a 683210682 Active [address], [facility] [address] , [facility] 4 05:35:08 Notes:Some problems listed i n Documents: #[id number], #[id number], #[id number] could not be added to this patient's chart. Please review these documents and add these problems to the patient's chart manually as needed. Problem Notes None recorded. Procedures Surgical History Date Name Laterality Status Provider Name and Address Organization Details Recorded Time 4 Suture/Staple removal completed Sekou Pillai MA [facility] 05/28/2024 10:23:38 4 Excision and closure completed MD Alfredo [address], [facility] [address], [facility] 05/21/2024 05:34:30 Imaging Results None recorded. Procedure Notes None recorded. Medical Equipment None Reported. Medications Name Sig Start Date Stop Date Status Note LastModified by Organization Details LastModified Time furosemid e 40 mg tablet Take 2 [...] ne 5 mg-acetam inophen 325 mg tablet Take 1 tablet by mouth as needed for pain She can take up to 4 tablets a day if needed active Not Available Not Available No t [...] t Available spironola ctone 25 mg tablet TAKE ONE TABLET BY MOUTH EVERY MORNING active Not Available Not Available No t Available Macrobid 100 mg capsule 1 capsule by mouth twice a day 03/12 completed Not Available Not Available Not Available Nitrostat 0.4 mg sublingua l tablet Place 1 tablet under tongue as directed as needed for chest pain. Call 911 after first dose. 1 tablet every 5 minutes, max 3 doses. 2021 active Not Available Not Available Not Avai lable diltiazem ER 120 mg capsule,2 4 hr,extend ed release TAKE ONE CAPSULE BY MOUTH EVERY DAY 11/09 completed Not Available Not Available Not Available meclizine 25 mg tablet Take 1 tablet [...] completed Not Available Not Available Not Available digoxin 125 mcg (0.125 mg) tablet TAKE ONE TABLET BY MOUTH EVERY DAY active Not Available Not Available No t Available furosemid e 20 mg tablet Take [...] Not Available Not Available Not Available DILT-XR 120 mg capsule, extended release Take 1 capsule every day by oral route. active Rx managed by [facility] Cardiolo gy Not Available Not Available Not Available DILT-XR 180 mg capsule, extended release Take 1 cap by mouth daily 2018 active [facility] cardiolo gy Not Available Not Available Not Available DILT-XR 240 mg capsule, extended release TAKE ONE CAPSULE BY MOUTH EVERY DAY 08/13 completed Not Available Not Available Not Available Vicodin 5 mg-300 mg tablet q 6 hrs as needed 2018 active Not Available Not Available Not Avai lable Eliquis 5 mg tablet TAKE ONE TABLET BY MOUTH TWICE A DAY active Not Available Not Available No t Available Flonase Allergy Relief 50 mcg/actua tion nasal spray,mary b[employer] [place] 1 spray into both nostrils twice a [...] 110 mm[Hg] 54 mm[Hg] Sekou Pillai MA [facility] 4 11:53:20 Social History Question Answer Notes LastModified by Organizat ion Details LastModified Time Tobacco Smoking Status Never Smoker Sekou Pillai MA null, [facility] 01/06/2024 11:55:57 What Was The Date Of Your Most Recent Tobacco Screening? 01/06/2024 [email or web address] Information not available 01/06/2024 Has Tobacco Cessation Counseling Been Provided? No [email or web address] Information not available 01/06/2024 Do You Or Have You Ever Used Any Other Forms Of Tobacco Or Nicotine? No [email or web address] Information not available 01/06/2024 Sex: Female Functional [...] 0 0 Immunizations Vaccine Type Date Status Note Provider Nam e and Address Organization Details Recorded Time Tdap 5 completed Not Available [facility] 12/15/2023 01:25:22 zoster live 0 completed Not Available [facility] 12/15/2023 01:25:22 zoster live 5 completed Not Available [facility] 12/15/2023 01:25:22 Pneumococcal conjugate PCV 13 9 completed Not Available [facility] 12/15/2023 01:25:22 Influenza, high-dose, trivalent, PF 9 completed Not Available [facility] 12/15/2023 01:25:22 Influenza, high-dose, trivalent, PF 9 completed Not Available [facility] 12/15/2023 01:25:23 Td(adult) unspecified formulation 5 completed Not Available [facility] 12/15/2023 01:25:22 zoster recombinant 9 completed Not Available [facility] 12/15/2023 01:25:22 Influenza, high-dose, quadrivalent, PF 1 completed Not Available [facility] 12/15/2023 01:25:22 Influenza, high-dose, quadrivalent, PF 0 completed Not Available [facility] 12/15/2023 01:25:22 COVID-19, mRNA, LNP-S, PF, 100 mcg/0.5mL dose or 50 mcg/0.25mL dose 1 completed Not Available [facility] 12/15/2023 01:25:22 COVID-19, mRNA, LNP-S, PF, 100 mcg/0.5mL dose or 50 mcg/0.25mL dose 1 completed Not Available [facility] 12/15/2023 01:25:22 pneumococcal polysaccharide PPV23 2 completed Not Available [facility] 12/15/2023 01:25:22 influenza, unspecified formulation 6 completed Not Available [facility] 12/15/2023 01:25:22 Past Encounters Encounter ID Performer Location Encounter Start Date Encounter Closed Date Diagnosis/Indication Diagnosis SNOMED-CT Code Diagnosis ICD10 Code [id number] DANK AUGUSTIN MD [address] [address] 08/10/2024 11:02:10 08/10/2024 13:00:49 Disorder of skin and/or subcutaneous tissue 17306908 L98.9 Pulmonary hypertension 91983534 I48.20 Prediabetes 803983275 R7 3.03 Heart failure 64428727 I 50.9 Pain in lower limb 45065 006 M79.606 Pain in ri ght hip joint 8869267141 65606 M25.551 Health Concerns Section Related Observation LastModified by Organization Detai ls LastModified Time None Recorded Concern Status LastModified by Organization Details LastModified Time None Recorded Payers Encounter Date Sequence Insurance Name Policy Number Policy Vazquez Covered Member ID Vazquez Member ID Guarantor Name 08/10/2024 1 [facility] (MEDICARE REPLACEMENT/A DVANTAGE - HMO) [id number] Lisa Martinez [id number] Lisa Martinez Notes Date Note Type Note Provider Name and Address Organization Details Recorded Time 08/10/2024 text/html Lisa here today for f/u of a-fib/CHF, lesion excision, LLE sciatica DANK AUGUSTIN MD [address], [place], [address], [facility]. 08/10/2024 20:37:39 OBGyn Episode No OBEpisode recorded.
--- OUTSIDE RECORDS SUMMARY | 2024-11-09 16:34 | XMS_ITS | Clinical Summary ---
Author Organization [facility] Address [facility] [place] [address] Care Team Providers Care Personal Property Appraiser Name Role Phone Yana Turner MD Primary Care Provider [phone] Allergies Active Allergy Reactions Criticality Noted Date [...] mg by mouth daily. 0 04/04/2019 Active chlorthalidone (Hygroten) 50 mg Tablet TAKE 1 TABLET BY MOUTH DAILY 11/18/2020 Active potassium chloride (MICRO-K) 10 mEq Capsule, Sustained Release TAKE ONE CAPSULE BY MOUTH TWICE DAILY 11/19/2020 Active spironolactone (Aldactone) 25 mg tablet Take 25 mg by mouth daily. 08/10/2024 Active dilTIAZem (Tiazac) 120 mg ER 24 hr capsule Take 1 capsule by mouth daily. 90 capsule 3 08/13/2024 Active digoxin (Lanoxin) 125 mcg (0.125 mg) tablet Take 1 tablet by mouth daily. 90 tablet 3 09/18/2024 Active Active Problems Problem Noted Date Diagnosed Date Atrial fibrillation 01/29/2019 Overview (08/13/2024): Status post cardioversion February 19, 2009 Recurrent atrial fibrillation documented July 17, 2019 initially with rapid ventricular rate Rx with apixaban, diltiazem and metoprolol MADRIGAL (dyspnea on exertion) 09/27/2017 Overview (09/27/2017): [...] pressure 45-55 mmHg ?? Nuclear stress test [facility] September 12, 2017 showing small in size moderately intense partially reversible defect involving the inferolateral jasso suggesting ischemia in the distribution of the left circumflex; calculated ejection fraction of 64% with no wall motion abnormalities ?? Chest x-ray reportedly unremarkable Hypertension 09/27/2017 OA (osteoarthritis) 09/27/2017 Mixed incontinence 02/27/2012 Encounters Date Type Department Care Team Description 09/18/2024 11:20 AM EDT Office Visit Cardiology at [address] [phone] Christiano Hamlin MD Chronic atrial fibrillation 09/18/2024 Travel 08/13/2024 11:20 AM EDT Office Visit Cardiology at [address] [phone] Christiano Hamlin MD Persistent atrial fibrillation; Bilateral edema of lower extremity; MADRIGAL (dyspnea on exertion) 08/13/2024 Travel from Last 3 Months Immunizations Name Administration Dates Next Due Td Adult (not absorbed) 05/04/2005 Social History Tobacco Use Types Packs/Day [...] Sign Reading Time Taken Comments Blood Pressure 107/67 09/18/2024 11:25 AM EDT Pulse 83 09/18/2024 11:25 AM EDT Temperature 36.4 ??C (97.5 ??F) 02/19/2019 10:30 AM E DT Respiratory Rate 16 02/19/2019 11:00 AM EDT Oxygen Saturation 95% 09/18/2024 11:25 AM EDT Inhaled Oxygen Concentration - - Weight 103.4 kg (228 lb) 09/18/2024 11:25 AM EDT Height 162.6 cm (5' 4) 09/18/2024 11:25 AM EDT Body Mass Index 39.14 09/18/2024 11:25 AM EDT Plan of Treatment Upcoming Encounters Date Type Department Care Team (Late st Contact Info) Description 12/19/2024 9:30 AM EST Appointment Non-[place]vasive [place] [address] Christiano Hamlin MD [facility] [place] [address] 12/19/2024 10:40 AM EST Office Visit Cardiology at [address] [phone] Christiano Hamlin MD [facility] [place] [address] Health Maintenance Due Date Last Done Comments Hepatitis C Screening 1963 Zoster vaccine (1 of 2) 1995 Advance Directive 2000 Tetanus/Diphtheria/Pertussis Vaccines (1 - Tdap) 05/0505/04/2005 Bone Density Scan 2010 Pneumoccocal Vaccine: 65+ (1 of 1 - PCV) 2010 RSV Vaccine (1 - 1-dose 75+ series) 2020 Covid-19 Vaccine ( - season) 2024 Influenza (Flu) vaccine (1 o f 1 - Influenza standard series) 07/22/2024 Procedures Procedure Name Priority Date/Time Associated Diagnosis Comments LAB SCAN 08/10/2024 12:00 AM EDT from Last 3 Months Results * Scan Doc: Lab (08/10/2024 12:00 AM EDT) Narrative 08/10/2024 12:00 AM EDT Ordered by an unspecified provider. Scanning Provider MEDIA MGR SCAN EXT O RDR/RSLT from Last 3 Months Advance Directives * Full Code (Latest Code Status on File) Date Activated Date Inactivated Comments 02/19/2019 9:04 AM 02/19/2019 1:43 PM Question Answer Comments Does patient have capacity to make decision: Yes * Full Code Date Activated Date Inactivated Comments 10/11/2017 10:08 AM 10/11/2017 4:38 PM Question Answer Comments Does patient have capacity to make decision: Yes Care Teams Personal Property Appraiser Relationship Specialty Start Date End Date Yana Turner MD [address] [place] [address] PCP - General Family Medicine 12/26/18
--- OUTSIDE RECORDS SUMMARY | 2024-11-09 16:34 | XMS_ITS | Encounter Summary ---
Author Organization [facility] Address [facility] [place] [address] Care Team Providers Care Manager Industrial Name Role Phone Yana Turner MD Primary Care Provider [phone] Encounter Details Date Type Department Care Team (Late st Contact Info) Description 07/17/2019 11:00 AM EDT Office Visit Cardiology at [address] [address] Christiano Hamlin MD [facility] [place] [address] Paroxysmal atrial fibrillation Social History Tobacco Use [...] from the original note were not included. [facility] [place] [address] CARDIOLOGY OUTPATIENT FOLLOW-UP NOTE Lisa Worley [phone] PCP: Yana Turner MD 07/17/2019 PRIMARY CARE PROVIDER: Yana Turner MD PROBLEM [...] may have started when she was in [place] in late April. Since present, shehas noticed [...] 9:30 AM EST Appointment Non-[place] [address] Christiano Hamlin MD [facility] [place] [address] 12/19/2024 10:40 AM EST Office Visit Cardiology at [address] [phone] Christiano Hamlin MD [facility] [place] [address] Scheduled Orders Name Type Priority Associated Diagnoses [...] (Bezet) 466 ms MUSE SYSTEM Calculated R [place] 8 degrees MUSE SYSTEM Calculated T [place] 175 degrees MUSE SYSTEM INTERPRETATION Atrial fibrillation [...] fibrillation documented in this encounter Care Teams Manager Industrial Relationship Specialty Start Date End Date Yana Turner MD [address] [place] [address] PCP - General Family Medicine 12/26/18 documented as of this encounter
--- OUTSIDE RECORDS SUMMARY | 2024-11-09 16:34 | XMS_ITS | Data Portability ---
Author Organization [place] - [facility], [facility] [place] [address] Assessment Encounter Date Assessment Date Assessment LastModified by Organization Details LastModified Time 09/25/2024 09/25/2024 Subjective: Patient consented to the use of [employer] to record and transcribe notes during this visit. The patient, Lisa Worley, presented for a follow-up visit concerning her AFib, lower extremity edema, and pulmonary hypertension. She reported a recent switch to digoxin due to side effects from higher dose diltiazem, such as fatigue and heart racing. Lisa noted an improvement in her heart rate and no lightheadedness since changing medications. Lisa described ongoing pain and mobility issues in her lower extremities, particularly severe and constant pain in her right knee, attributed to previous surgery (TKR). She mentioned occasional aches in her left knee. Currently, she is undergoing physical therapy to address these concerns. The patient also expressed uncertainty about the cause of her lightheadedness, questioning whether it was related to her heart condition, medication, or blood pressure. She owns two blood pressure monitors but is unsure of their operation. However, the lightheadedness has resolved since she started digoxin so it may have been a-fib related. Lisa voiced concerns about her financial situation, especially regarding the costs of medication and copays. Regarding her weight, Lisa stated she is attempting weight loss through dietary control, focusing on vegetable intake and protein sources like peanut butter. She is not considering weight loss injections at this time. Objective: - Vital Signs: - Heart rate: Documented as 70 or 74 during the visit. - Physical Examination: - General: No current lightheadedness - Cardiovascular: slightly irregular, rate well controlled. No murmur. Le edema has improved significantly - no current significant edema but has the presistent venous stasis skin changes. - Musculoskeletal: reviewed her most recent ortho notes. - Dermatological: Reports of a scab and dry skin on the back. This is where a lesion was excised at last visit (melanocytic nevus). It is currently a 1cm dry, slightly scaly area, pink but no d/c. - Diagnostic Test Results and Labs: - July 2024 Labs: - Hemoglobin A1c: 6.5, suggestive of a borderline prediabetic condition. - Kidney function tests: Results within normal limits. - Liver function tests: Results within normal limits. - March 2024 Labs: - Cholesterol levels: Described as good; patient is taking atorvastatin. - Imaging: - CAT scan (last fall): did not indicate loosening of the cement around the kneecap. Assessment & Plan: Assessment and Plan: 1. Atrial Fibrillation: - Patient recently switched from diltiazem to digoxin due to side effects. Reports improvement in symptoms since starting digoxin. HR well controlled - Plan: Continue digoxin and monitor heart rate. Check digoxin level and electrolytes on November 09 appointment. 2. Lower Extremity Edema: - Patient reports improvement in swelling in LEs, likely related to the spironolactone use, maybe also to the addition of digoxin. She also continues the chlorthalidone. - Plan: Continue current management and monitor for any changes. 3. Pulmonary Hypertension: - Patient reports breathlessness and lightheadedness, which has improved since starting digoxin. - Plan: Continue monitoring symptoms and consider further evaluation if symptoms worsen. 4. Prediabetes: - A1c of 6.5 in July, borderline prediabetic/diabet ic. - Plan: Encourage patient to maintain a healthy diet and consider weight loss options. Recheck A1c in the future. 5. Dyslipidemia: - Patient on atorvastatin, cholesterol levels were good in March. - Plan: Continue atorvastatin and monitor lipid profile periodically. 6. Bilateral Knee Pain and Left Knee Complications: - Patient reports ongoing pain in both knees, with left knee having more severe pain. CAT scan (following bone scan with ? loosening) did not show loosening of cement around the left kneecap. - Plan: Continue pain management and physical therapy. Consider further evaluation or referral to an audio specialist if pain persists or worsens. 7. Lightheadedness and Blood Pressure Monitoring: - Patient has a home blood pressure monitor but is unsure how to use it. - Plan: Encourage patient to bring the monitor to the clinic for a nurse visit or November 09 appointment for instruction on proper use. 8. Weight Management: - Patient expressed interest in losing weight through dietary changes. - Plan: Encourage healthy eating habits and consider discussing weight loss medications like Ozempic or Wegovy if needed in the future. She is not currently interested in the GLP-1's. 9. Social Support and Assistance: - Patient reports financial constraints and difficulty affording medications and copays. - Plan: Provide a bag of food items from [employer] and explore potential resources for medication assistance. She is aware to try and contact the [place] on Aging.. Elevated bilirubin - unclear etiology, has been elevated just this year. No abdominal pain. Will repeat at next visit and if remains elevated will need further w/u. Lisa declined flu/COVID shots. anamaria Not available 09/26/2024 17:29:40 Plan of Treatment Reminders Order Date Submit Date Provider Last Modified By Organization Details Last Modified Time Details Appointments Follow Up 2023 11:30A Yecenia AUGUSTIN Not available Not available Not available Follow Up 2024 10:40A Yecenia AUGUSTIN Not available Not available Not available Lab pathology , skin 2023 024 [facility] (Registration ), [address] [place] [address] [place], [address], 08/20/2024 14:39:53 HbA1c (hemoglob in A1c), blood 2023 024 [facility] (Registration ), [address] [place] [address] [place], [address], 08/10/2024 15:15:54 CMP, serum or plasma 2023 024 [facility] (Registration ), [address] [place] [address] [place], [address], 08/10/2024 16:15:50 Referral None recorded. Procedures None recorded. Surgeries None recorded. Imaging None recorded. Medication Orders hydrocodo ne 5 mg-acetam inophen 325 mg tablet 2023 024 [facility], [address] [place], [address], 08/10/2024 20:34:36 spironola ctone 25 mg tablet 2023 024 [facility], [address] [facility], [place], [address], 08/10/2024 12:08:29 Patient TargetsNo targets recorded. Patient InstructionsNo instructions recorded. Reason for Referral None Reported. Results Created Date Observation Date Name Description Value Unit Range Abnormal Flag Note LastModifiedBy Organization Detail LastModifiedTime 04/19/20 24 04/19/2024 BASIC METAB OLIC PANEL calcium 9.1 mg/dL 8.5-10 .1 normal Not Available [address] [place], [address] 04/19/2024 21:42:04 04/19/20 24 04/19/2024 BASIC METAB OLIC PANEL glucose 149 mg/dL 74-106 high Not Available Joellen [address] [place], [address] 04/19/2024 21:42:04 04/19/20 24 04/19/2024 BASIC METAB OLIC PANEL BUN 17 mg/dL 7-18 normal Not Available Joellen [address] [place], [address] 04/19/2024 21:42:04 04/19/20 24 04/19/2024 BASIC METAB OLIC PANEL creatinine 0.9 mg/dL 0.55-1 .02 normal Not Available [address] [place], [address] 04/19/2024 21:42:04 04/19/20 24 04/19/2024 BASIC METAB [...] young er-ag ed adult s. Not Available [address] [place], [address] 04/19/2024 21:42:04 04/19/20 24 04/19/2024 BASIC METAB OLIC PANEL sodium 142 mmol/ L 136-14 5 normal Not Available [address] [place], [address] 04/19/2024 21:42:04 04/19/20 24 04/19/2024 BASIC METAB OLIC PANEL potassium 4.4 mmol/ L 3.5-5. 1 normal Not Available [address] [place], [address] 04/19/2024 21:42:04 04/19/20 24 04/19/2024 BASIC METAB OLIC PANEL chloride 103 mmol/ L 98-107 normal Not Available [address] [place], [address] 04/19/2024 21:42:04 04/19/20 24 04/19/2024 BASIC METAB OLIC PANEL CO2 27.3 mmol/ L 21.0-3 2.0 normal Not Available [address] [place], [address] 04/19/2024 21:42:04 04/19/20 24 04/19/2024 BASIC METAB OLIC PANEL anion gap 11.7 mmol/ L 3-11 high Not Available [address] [place], [address] 04/19/2024 21:42:04 08/10/20 24 08/10/2024 COMPR EHENS JULIA METAB OLIC PANEL calcium 9.4 mg/dL 8.5-10 .1 normal Not Available [address] [place], [address] 08/10/2024 16:15:50 08/10/20 24 08/10/2024 COMPR EHENS JULIA METAB OLIC PANEL glucose 121 mg/dL 74-106 high Not Available Joellen bernstein [address] [place], [address] 08/10/2024 16:15:50 08/10/20 24 08/10/2024 COMPR EHENS JULIA METAB OLIC PANEL BUN 18 mg/dL 7-18 normal Not Available Joellen bernstein [address] [place], [address] 08/10/2024 16:15:50 08/10/20 24 08/10/2024 COMPR EHENS JULIA METAB OLIC PANEL creatinine 0.8 mg/dL 0.55-1 .02 normal Not Available [address] [place], [address] 08/10/2024 16:15:50 08/10/20 24 08/10/2024 COMPR EHENS JULIA METAB OLIC PANEL estimated GFR 74.90 mL/min /1.73M 2 The eGFR is calcu lated from [...] young er-ag ed adult s. Not Available [address] [place], [address] 08/10/2024 16:15:50 08/10/20 24 08/10/2024 COMPR EHENS JULIA METAB OLIC PANEL total protein 7.6 g/dL 6.4-8. 2 normal Not Available [address] [place], [address] 08/10/2024 16:15:50 08/10/20 24 08/10/2024 COMPR EHENS JULIA METAB OLIC PANEL albumin 4.1 g/dL 3.4-5. 0 normal Not Available [address] [place], [address] 08/10/2024 16:15:50 08/10/20 24 08/10/2024 COMPR EHENS JULIA METAB OLIC PANEL bilirubin, total 1.95 mg/dL 0.2-1. 0 high Not Available [address] [place], [address] 08/10/2024 16:15:50 08/10/20 24 08/10/2024 COMPR EHENS JULIA METAB OLIC PANEL alk phos 71 U/L 46-116 normal Not Available [address] [place], [address] 08/10/2024 16:15:50 08/10/20 24 08/10/2024 COMPR EHENS JULIA METAB OLIC PANEL sodium 141 mmol/ L 136-14 5 normal Not Available [address] [place], [address] 08/10/2024 16:15:50 08/10/20 24 08/10/2024 COMPR EHENS JULIA METAB OLIC PANEL potassium 5.1 mmol/ L 3.5-5. 1 normal Not Available [address] [place], [address] 08/10/2024 16:15:50 08/10/20 24 08/10/2024 COMPR EHENS JULIA METAB OLIC PANEL chloride 103 mmol/ L 98-107 normal Not Available [address] [place], [address] 08/10/2024 16:15:50 08/10/20 24 08/10/2024 COMPR EHENS JULIA METAB OLIC PANEL CO2 29.7 mmol/ L 21.0-3 2.0 normal Not Available [address] [place], [address] 08/10/2024 16:15:50 08/10/20 24 08/10/2024 COMPR EHENS JULIA METAB OLIC PANEL anion gap 8.3 mmol/ L 3-11 normal Not Available [address] [place], [address] 08/10/2024 16:15:50 08/10/20 24 08/10/2024 COMPR EHENS JULIA METAB OLIC PANEL AST 25 U/L 15-37 normal Not Available [address] [place], [address] 08/10/2024 16:15:50 09/20/08/10/2024 COMPR EHENS JULIA METAB OLIC PANEL ALT 35 U/L 14-59 normal Not Available Joellen [address] [place], [address] 08/10/2024 16:15:50 08/10/20 24 08/10/2024 HEMOG LOBIN A1C hemoglobin A1C 6.5 % <5.7 high Refer ence Range s <5.7 Roxana l 5.7-6 .4% Predi abete s 6.5% or great er Diagn ostic for diabe patricia (if confi rmed) Refer ences : 1. Ameri can Diabe patricia Assoc iatio n. Clas sific ation and Diagn osis of Diabe patricia. Diabe patricia Care 2019 Nov; 2(Sup pleme nt 1):S1 3-s28 . Not Available [address] [place], [address] 08/10/2024 17:04:00 08/06/20 24 01/31/2019 imagi ng/di agnos tic [...] Available 08/06 01:28:22 08/06/20 24 09/13/2019 MAMMO , scree michael No observ ation record ed. Not Available 08/06 01:28:23 08/06/20 24 10/08/2020 MAMMO , scree michael No observ ation record ed. Not Available [...] Details Recorded Time Mixed urinary incontin ence 552739207 Active 201806/27/20 23 - Comments only - Dank Augustin MD - , Needs to use pads chronic basis. Problem Code: N39.46; Problem Code Type: ICD-10; Not Available [facility] 4 01:25:21 Osteoart hritis 482615553 Active 2018 Problem Code: M19.90; Problem Code Type: ICD-10; Not Available [facility] 4 01:25:21 Essentia l hyperten luis 04769460 Active 2018 Problem Code: I10; Problem Code Type: ICD-10; Not Available [facility] 4 01:25:22 Dyspnea 234426024 Active 201806/27/20 23 - Comments only - Dank Augustin MD - Most likely cardiac related, known pulmonar y hyperten luis. PFTs historic ally showed a slightly low FVC, thought to be potentia lly related to obesity or chest wall muscle abnormal ity. There was no evidence of obstruct ion or restrict ion. Problem Code: R06.09; Problem Code Type: ICD-10; Not Available [facility] 4 01:25:20 Major depressi on, single episode 31551128 Active 2018 Problem Code: F32.9; Problem Code Type: ICD-10; Not Available [facility] 4 01:25:21 Onychomy cosis due to dermatop hyte 735862869 Active 2018 Problem Code: B35.1; Problem Code Type: ICD-10; Not Available [facility] 4 01:25:21 Neck pain 72819171 Active 2018 Problem Code: M54.2; Problem Code Type: ICD-10; Not Available [facility] 4 01:25:22 Low back pain 051327517 Active 2018 Problem Code: M54.5; Problem Code Type: ICD-10; Not Available [facility] 4 01:25:21 Hyperlip idemia 79569919 Active 2018 Problem Code: E78.5; Problem Code Type: ICD-10; Not Available [facility] 4 01:25:22 Shoulder joint pain 049747183 Active 2018 Problem Code: M25.519; Problem Code Type: ICD-10; Not Available [facility] 4 01:25:20 Sensorin eural hearing loss of bilatera l ears 099663180 Active 2018 Problem Code: H90.3; Problem Code Type: ICD-10; Not Available [facility] 4 01:25:20 Dizzines s and giddines s 735343120 Active 201812/03/19 23 - Comments only - Dank Augustin MD - will ask PT to work with her on this also. Problem Code: R42; Problem Code Type: ICD-10; Not Available [facility] 4 01:25:20 Insomnia 907545807 Active 2018 Problem Code: G47.00; Problem Code Type: ICD-10; Not Available [facility] 4 01:25:20 Electroc ardiogra m abnormal 316389902 Active 2018 Problem Code: R94.31; Problem Code Type: ICD-10; Not Available [facility] 4 01:25:19 Pain in right hip joint 87079058718 9102 Active 201801/18/20 19 - Comments only [...] M25.551; Problem Code Type: ICD-10; Not Available [facility] 4 01:25:21 Chronic pain syndrome 586051945 Active 201812/03/19 23 - Comments only - [...] G89.4; Problem Code Type: ICD-10; Not Available [facility] 4 01:25:21 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 Clinical ly this is remainin g stable. She continue s on diltiaze m, metoprol ol, Eliquis. Historic ally she has not tolerate d furosemi de. She has chlortha lidone that she uses as needed currentl y. Problem Code: I48.91; Problem Code Type: ICD-10; Not Available [facility] 4 01:25:21 Heart failure 41753610 Active 201806/07/20 19 - Comments only - [...] I50.9; Problem Code Type: ICD-10; Not Available [facility] 4 01:25:22 Counseli ng Completed 201801/21/2019 01/11/20 19 - Comments only [...] Z71.89; Problem Code Type: ICD-10; Not Available [facility] 3 04:12:29 Abdomina l distensi on, gaseous 843660915 Active 201812/03/19 23 - Comments only - Dank Augustin MD - , with a fairly unremark able abd/pelv ic CT in 2018. SHe has a rt renal stone and duplicat e collecti ng system on that side. No evidence of liver steatosi s or other abnormal ity besides diveritu lar dz. I assume this is obesity. Problem Code: R14.0; Problem Code Type: ICD-10; Not Available [facility] 4 01:25:20 Screenin g for cancer Active 2018 Problem Code: Z12.9; Problem Code Type: ICD-10; Not Available [facility] 4 01:25:20 Digestiv e system finding 242229177 Active 2018 Problem Code: R19.8; Problem Code Type: ICD-10; Not Available [facility] 4 01:25:21 Obesity 162488140 Active 201803/04/20 23 - Comments only - Dank Augustin MD - She is aware of the importan ce of weight loss. Discusse d some dietary changes she might be able to make. Again [facility] ed her to enroll in PT or cardiac rehab in the future. Problem Code: E66.9; Problem Code Type: ICD-10; Not Available [facility] 4 01:25:21 Screenin g mammogra phy Active 2018 Problem Code: Z12.31; Problem Code Type: ICD-10; Not Available [facility] 4 01:25:20 Acute upper respirat ory infectio n 55442059 Completed 201801/05/2020 10/05/20 19 - Comments only - Edilia Soria APRN - Due to duration , physical findings , comorbid ities suspect this is bacteria l in origin. Is penicill in allergic . Treat with doxycycl ine 100 mg twice a day for 10 days. Tessalon Perles for the cough. Reviewed common side effects of both medicati ons. [facility] ed symptom manageme nt with normal saline sprays, salt water gargles, Vicks VapoRub, vitamin C, good hydratio n, good hand hygiene, adequate rest. Problem Code: J06.9; Problem Code Type: ICD-10; Not Available [facility] 3 04:12:30 Prediabe patricia 665375902 Active 201906/27/20 23 - Comments only - Dank Augustin MD - Due for an A1c. Problem Code: R73.03; Problem Code Type: ICD-10; Not Available [facility] 4 01:25:22 Allergic rhinitis 30148411 Active 2019 Problem Code: J30.9; Problem Code Type: ICD-10; Not Available [facility] 4 01:25:22 Localize d edema 274108520 Active 201906/02/20 20 - Comments only - Edilia Soria MAHESH - suspect that this is a combinat ion of venous stasis, heart failure, possibly r/t previous knee surgery. Encoruag ed compress ion socks; moderate compress ion, knee high. If not improvin g, consider lac hydrin. After discussi on, she will consider referral to derm but not ready yet. Problem Code: R60.0; Problem Code Type: ICD-10; Not Available [facility] 4 01:25:20 Hypokale chandni 22502093 Active 201909/01/20 22 - Comments only - Dank Augustin MD - these were WNL in February with her 10mEq of KCl daily. Problem Code: E87.6; Problem Code Type: ICD-10; Not Available [facility] 4 01:25:21 Fatigue 57159154 Active 202009/01/20 22 - Comments only - Dank Augustin MD - which was partly stress related, juan manuel g. Hg in the spring was WNL. TSH was checked a few years ago and WNL. Problem Code: R53.83; Problem Code Type: ICD-10; Not Available [facility] 4 01:25:22 Pain of right shoulder joint 52079436646 402453 Active 2020 Problem Code: M25.511; Problem Code Type: ICD-10; Not Available [facility] 4 01:25:20 Lung field abnormal 068816041 Active 2021 Problem Code: R91.8; Problem Code Type: ICD-10; Not Available [facility] 4 01:25:20 Lymphede ma 607764003 Active 202103/28/20 23 - Comments only - Dank Augustin MD - Again, partly related to cardiac issues as above. I am not sure if there is a componen t of venous insuffic iency as well. As above we will consider trialing her on Lasix. Problem Code: I89.0; Problem Code Type: ICD-10; Not Available [facility] 4 01:25:20 Pulmonar y hyperten luis 50016059 Active 2022 Problem Code: I27.20; Problem Code Type: ICD-10; Not Available [facility] 4 01:25:22 Abnormal results of cardiova scular function studies 496542406 Active 2022 Problem Code: R94.39; Problem Code Type: ICD-10; Not Available [facility] 4 01:25:20 Atherosc lerosis of coronary artery without angina pectoris 71557516210 4103 Active 202206/27/20 23 - Comments only - Dank Augustin MD - /Atrial fibrilla tion/pul monary hyperten luis. She does follow with cardiolo gy at [facility]. [facility] y on metoprol ol, diltiaze m, Lipitor, [...] I25.10; Problem Code Type: ICD-10; Not Available [facility] 4 01:25:21 Reduced mobility 5772753 Active 202206/27/20 23 - Comments only - [...] Z74.09; Problem Code Type: ICD-10; Not Available [facility] 4 01:25:22 History of fall 537094912 Active 2022 Problem Code: Z91.81; Problem Code Type: ICD-10; Not Available [facility] 4 01:25:21 Disorder of skin and/or subcutan eous tissue 27917773 Active 202212/25/19 23 - Comments only - Dank Augustin MD - /Scab overlyin g area where she had a fluid blister. Concerne d that this could become an ulcer. She was amenable to placing an Unna boot today between the ankle and knee. We will have her come back at the [facility] the week to have it changed, reevalua tanika. [facility] ed her to use her chlortha lidone daily to try and have better improvem ent of fluid status. We may need to switch her to furosemi de. Problem Code: L98.9; Problem Code Type: ICD-10; Not Available [facility] 4 01:25:22 Dysuria 62683417 Active 2022 Problem Code: R30.9; Problem Code Type: ICD-10; Not Available [facility] 4 01:25:22 Acute cystitis 93530453 Active 202203/28/20 23 - Comments only - Dank Augustin MD - , Inadequa tely treated. Repeat urine culture done today. That did ended up showing Proteus again. I sent in Cipro for her, low-dose . She does have normal renal function currentl y. If she develops any side effects she will let me know. Problem Code: N30.01; Problem Code Type: ICD-10; Not Available [facility] 4 01:25:22 Pain of right knee joint 82055615195 4100 Active 2022 Problem Code: M25.561; Problem Code Type: ICD-10; Not Available [facility] 4 01:25:21 Pain of right thigh 70473978580 9107 Active 2022 Problem Code: M79.651; Problem Code Type: ICD-10; Not Available [facility] 4 01:25:21 Adult health examinat ion Active [...] Z00.00; Problem Code Type: ICD-10; Not Available [facility] 4 01:25:20 Aftercar e Active 2022 Problem Code: Z51.89; Problem Code Type: ICD-10; Not Available [facility] 4 01:25:21 Pain in lower limb 34199439 Active 2022 Problem Code: M79.606; Problem Code Type: ICD-10; Not Available [facility] 4 01:25:20 Impaired fasting glycemia 608130287 Completed 201908/17/2023 Problem Code: R73.01; Problem Code Type: ICD-10; Not Available [facility] 3 04:12:38 Hypergly cemia 88109320 Completed 202104/20/2022 Problem Code: R73.9; Problem Code Type: ICD-10; Not Available [facility] 3 04:12:39 Cat scratch Completed 202107/23/2022 Problem Code: W55.03xA ; Problem Code Type: ICD-10; Not Available [facility] 3 04:12:39 Dyspnea 029146046 Completed 201807/11/2020 Problem Code: R06.02; Problem Code Type: ICD-10; Not Available [facility] 3 04:12:39 Cellulit is of left lower limb 48139502581 058911 Completed 202107/23/2022 Problem Code: L03.116; Problem Code Type: ICD-10; Not Available [facility] 3 04:12:39 Conjunct ival hemorrha ge of right eye [id number] 9101 Completed 201907/11/2020 Problem Code: H11.31; Problem Code Type: ICD-10; Not Available Formerly [facility], 1928–1983 3 04:12:40 Bleeding from nose 000240903 Completed 201804/20/2022 Problem Code: R04.0; Problem Code Type: ICD-10; Not Available Formerly [facility], [facility]–1983 3 04:12:40 Exposure to communic able disease Completed 202002/12/2021 Problem Code: Z20.9; Problem Code Type: ICD-10; Not Available Formerly [facility], 1928–1983 3 04:12:40 Increase d frequenc y of urinatio n 377422665 Active 202209/15/20 23 - Comments only - Dank Augustin MD - We will follow-u p on urine micro. This is likely related to urge incontin ence. Discusse brandyn Eliegel exercise s today and provided her some instruct ions. Told her it can take up to a couple of months of doing the exercise s to notice improvem ent. Problem Code: R35.0; Problem Code Type: ICD-10; Not Available Formerly [facility], [facility]–1983 4 01:25:20 Acute upper respirat ory infectio n 20742112 Active 2022 Problem Code: J06.9; Problem Code Type: ICD-10; Not Available Formerly [facility], [facility]–1983 4 01:25:22 Chronic vertigo 75189847411 105 Active [address], [place], [address] , [facility] 4 06:24:27 Kandace neil 358175097 Active [address], [place], [address] , [facility] 4 05:35:08 Notes:Some problems listed i n Documents: #[id number], #[id number], #[id number] could not be added to this patient's chart. Please review these documents and add these problems to the patient's chart manually as needed. Problem Notes None recorded. Procedures Surgical History Date Name Laterality Status Provider Name and Address Organization Details Recorded Time 4 Suture/Staple removal completed Sekou Pillai MA [facility], [facility] 05/28/2024 10:23:38 Excision and closure completed MD [address], [place], [address], [facility] 05/21/2024 05:34:30 Imaging Results Imaging Date Name Status LastModified by [facility] Details LastModified Time 01/31/2019 imaging/diagno stic result [...] by oral route. active Rx managed [facility] Not Available Not Available Not Available DILT-XR 180 mg capsule, extended release Take 1 cap by mouth daily 2018 active [facility] Not Available Not Available Not [...] 50 mcg/actua tion nasal spray,mary beth pension [place] 1 spray into both nostrils twice a [...] Avai lable Vitals Date Recorded Body height Body mass index (BMI) Body weight Oxygen saturation Oxygen saturation in Arterial blood by Pulse oximetry Heart rate Systolic blood pressure Diastolic blood pressure Provider Name and Address Organization Details Last Updated DateTime 4 159.385 cm 38.6 kg/m2 89781.3 9 g 94 % 94 % 63 /min 100 mm[Hg] 60 mm[Hg] Sekou Pillai MA [facility] 4 11:01:21 Date Recorded Body height Oxygen saturation Oxygen saturation in Arterial blood by Pulse oximetry Heart rate Systolic blood pressure Diastolic blood pressure Provider Name and Address Organization Details Last Updated DateTime 4 159.385 cm 95 % 95 % 65 /min 110 mm[Hg] 54 mm[Hg] Sekou Pillai MA [facility] 4 11:53:20 Date Recorded Body height Body temperature Body mass index (BMI) Body weight Oxygen saturation Oxygen saturation in Arterial blood by Pulse oximetry Heart rate Systolic blood pressure Diastolic blood pressure Provider Name and Address Organization Details Last Updated DateTime 4 159.39 cm 97 [degF] 40.7 kg/m2 708148. 06 g 96 % 96 % 74 /min 108 mm[Hg] 60 mm[Hg] Diana Gordillo [facility] 4 09:43:21 Date Recorded Body height Body mass index (BMI) Body weight Oxygen saturation Oxygen saturation in Arterial blood by Pulse oximetry Heart rate Systolic blood pressure Diastolic blood pressure Provider Name and Address Organization Details Last Updated DateTime 4 159.39 cm 43 kg/m2 259741. 76 g 96 % 96 % 60 /min 106 mm[Hg] 58 mm[Hg] Sekou Pillai MA [facility] 4 11:49:16 Social History Question Answer Notes LastModified by Organizat ion Details LastModified Time Tobacco Smoking Status Never Smoker Sekou Pillai MA null, [facility] 01/06/2024 11:55:57 What Was The Date Of Your Most Recent Tobacco Screening? 01/06/2024 [email or web address] Information not available 01/06/2024 Has Tobacco Cessation Counseling Been Provided? No [email or web address] Information not available 01/06/2024 Do You Or Have You Ever Used Any Other Forms Of Tobacco Or Nicotine? No Information not available 01/06/2024 Sex: Female Functional Status None recorded. Mental Status None recorded. Family History Relationship Description Onset Age of this Age Resolved Age Notes LastModified by Organization Details LastModified Time Mother Family history of Hypertension [email or web address] Not available 08/2023 03:57:20 Mother Family history of acute medical disorder palpit ations [email or web address] Not available 09/30/2023 03:57:20 Sister Family history of malignant neoplasm unknow n type [email or web address] Not available 09/30/2023 03:57:20 Brother Family history of diabetes mellitus type 1 [email or web address] Not available 2022 03:57:20 Daughter Family history of breast cancer 1 gene mutation [email or web address] Not available 2022 03:57:20 Notes:*Problem: Mom in [...] Recorded Time Tdap 5 completed Not Available [facility] 12/15/2023 01:25:22 zoster live 0 completed Not Available [facility] 12/15/2023 01:25:22 zoster live 5 completed Not Available [facility] 12/15/2023 01:25:22 Pneumococcal conjugate PCV 13 9 completed Not Available [facility] 12/15/2023 01:25:22 Influenza, high-dose, trivalent, PF 9 completed Not Available [facility] 12/15/2023 01:25:22 Influenza, high-dose, trivalent, PF 9 completed Not Available [facility] 12/15/2023 01:25:23 Td(adult) unspecified formulation 5 completed Not Available [facility] 12/15/2023 01:25:22 zoster recombinant 9 completed Not Available [facility] 12/15/2023 01:25:22 Influenza, high-dose, quadrivalent, PF 1 completed Not Available [facility] 12/15/2023 01:25:22 Influenza, high-dose, quadrivalent, PF 0 completed Not Available [facility] 12/15/2023 01:25:22 COVID-19, mRNA, LNP-S, PF, 100 mcg/0.5mL dose or 50 mcg/0.25mL dose 1 completed Not Available [facility] 12/15/2023 01:25:22 COVID-19, mRNA, LNP-S, PF, 100 mcg/0.5mL dose or 50 mcg/0.25mL dose 1 completed Not Available [facility] 12/15/2023 01:25:22 pneumococcal polysaccharide PPV23 2 completed Not Available [facility] 12/15/2023 01:25:22 influenza, unspecified formulation 6 completed Not Available [facility] 12/15/2023 01:25:22 Past Encounters Encounter ID Performer Location Encounter Start Date Encounter Closed Date Diagnosis/Indication Diagnosis SNOMED-CT Code Diagnosis ICD10 Code [id number] DANK AUGUSTIN MD [address] [address] 01/06/2024 11:41:50 01/06/2024 12:53:43 Pulmonary hypertension 76244574 I48.20 Essential hypertension 24675168 I10 Lymphedema 788995272 I89 .0 Pain in ri ght hip joint 8161465528 94568 M25.551 Chronic vertigo 36894570 11 9105 R42 Prediabetes 523874443 R7 3.03 [id number] DANK AUGUSTIN MD [address] [address] 04/06/2024 10:19:47 04/06/2024 11:53:46 Pulmonary hypertension 59696628 I48.20 Essential hypertension 75631654 I10 Lymphedema 518111583 I89 .0 Prediabetes 456516814 R7 3.03 Hyperlipidemia 75724979 E78.5 [id number] Elvia Jin RN [address] [address] 04/19/2024 14:17:36 04/19/2024 14:52:48 Essential hypertension 11274910 I10 [id number] DANK AUGUSTIN MD [address] [address] 05/18/2024 10:46:00 05/18/2024 12:22:16 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 Localized edema 29225463 4 R60.0 Disorder o f skin and/or subcutaneous tissue 40533827 L98.9 [id number] Sekou Pillai MA [address] [address] 05/28/2024 09:48:28 05/28/2024 10:31:15 [id number] DANK AUGUSTIN MD [address] [address] 08/10/2024 11:02:10 08/10/2024 13:00:49 Disorder of skin and/or subcutaneous tissue 33004309 L98.9 Pulmonary hypertension 13951584 I48.20 Prediabetes 704507132 R7 3.03 Heart failure 21200555 I 50.9 Pain in lower limb 46776 006 M79.606 Pain in ri ght hip joint 8425783966 63849 M25.797 [id number] DANK AUGUSTIN MD [address] [address] 09/25/2024 09:31:28 09/25/2024 10:47:29 [id number] Vale Hong [address] [address] 11/09/2024 11:32:37 11/09/2024 12:56:44 Pulmonary hypertension 42857771 I48.20 Pain in ri ght hip joint 8434190253 43175 M25.551 Prediabetes 541572445 R7 3.03 Health Concerns Section Related Observation LastModified by Organization Detai ls LastModified Time None Recorded Concern Status LastModified by Organization Details LastModified Time None Recorded Advance Directives Directive None Recorded Payers Encounter Date Sequence Insurance Name Policy Number Policy Vazquez Covered Member ID Vazquez Member ID Guarantor Name 05/18/2024 1 [facility] (MEDICARE REPLACEMENT/A DVANTAGE - HMO) [id number] Lisa Worley [id number] Lisa Worley 05/28/2024 1 [facility] (MEDICARE REPLACEMENT/A DVANTAGE - HMO) [id number] Lisa Worley [id number] Lisa Romeroe 08/10/2024 1 [facility] (MEDICARE REPLACEMENT/A DVANTAGE - HMO) [id number] Lisa Worley [id number] Lisa Romeroe 09/25/2024 1 [facility] (MEDICARE REPLACEMENT/A DVANTAGE - HMO) [id number] Lisa Worley [id number] Lisa Worley Notes Date Note Type Note Provider Name and Address Organization Details Recorded Time 05/18/2024 text/html Lisa here today for excision of sebaceous cyst on scalp, following up regarding lower extremity edema MD Alfredo [address], [place], [address], [facility] 05/21/2024 05:41:09 08/10/2024 text/html Lisa here today for f/u of a-fib/CHF, lesion excision, LLE sciatica MD [address]o [address], [place], [address], [facility]. 08/10/2024 20:37:39 09/25/2024 text/html Lisa here today for f/u afib/h/o CHF, pulm HTN, recent lesion resection MD Alfredo [address], [place], [address], [facility]. 09/26/2024 17:29:59 OBGyn Episode No OBEpisode recorded.
--- OUTSIDE RECORDS SUMMARY | 2024-11-09 16:34 | XMS_ITS | Encounter Summary ---
Author Organization [facility] [place] [address] Care Team Providers Care Mill Roll Rewinder Name Role Phone Yana Turner MD Primary Care Provider [phone] Encounter Details Date Type Department Care Team (Late st Contact Info) Description 01/21/2021 Telephone Cardiology at [address] [phone] Rema Scott RN Social History Tobacco Use [...] help her get in touch with the [place] Dept of health and her PCP toarrange to get the vaccine. No further questions at this time. documented in this encounter Plan of Treatment Upcoming Encounters Date Type Department Care Team (Late st Contact Info) Description 12/19/2024 9:30 AM EST Appointment Non-Invasive [place] [address] Christiano Hamlin MD [facility] [place] [address] 12/19/2024 10:40 AM EST Office Visit Cardiology at [address] [address] Christiano Hamlin MD [facility] [place] [address] documented as of this encounter Visit Diagnoses Not on filedocumented in this encounter Care Teams Mill Roll Rewinder Relationship Specialty Start Date End Date Yana Turner MD [address] [place] [id number] PCP - General Family Medicine 12/26/18 documented as of this encounter
--- OUTSIDE RECORDS SUMMARY | 2024-11-09 16:34 | XMS_ITS | Encounter Summary ---
Author Organization [facility] Address [facility] [place] [address] Care Team Providers Care Manager Social Responsibility Name Role Phone Yana Turner MD Primary Care Provider [phone] Reason for Visit * Reason Onset Date Comments Advice Only 06/27/2019 Encounter Details Date Type Department Care Team (Late st Contact Info) Description 06/27/2019 Telephone Cardiology at [address] [phone] Christiano Hamlin MD [facility] [place] [address] Advice Only Social History Tobacco Use Types [...] week. She will await update from Cardiology escrow secretary re: moving up of appointment with Dr Hamlin . She is appreciative of this call,contact number for [facility] team here at [facility] given to patient . Update 07/13/19: Call to PCP office to obtain office visit note from week of 07/02/19,spoke to cut off sawyer log who states Lisa was not seen,states she [...] ECG was done,she was told tocall her Kiln Maintenance for appointment. Denies chest pain or pressure,no lightheadedness,has noted some shortness of breath with exertion and increased fatigue . States these symptoms have been present for weeks,not worse,states she is tired of feeling the fatigue. Advised her to seek urgent assessment in her local ED (not to drive herself)should her symptoms worsen,she voices good understanding . Requesting Cardiology escrow secretary follow up with her 06/28/19 to discuss moving her appointment up,she will discuss this w/Dr Hamlin. Forward to Nabila Davis and Dr Hamlin , * Telephone Encounter - Nabila Davis - 06/27/2019 11:[address] Hamlin, Lisa is back in a fib, she wants to know if its ok for her to wait till her 07/17 appointment to see you, or should she come in sooner? Please advise. Thanks documented in this encounter Plan of Treatment Upcoming Encounters Date Type Department Care Team (Late st Contact Info) Description 12/19/2024 9:30 AM EST Appointment Non-[place] [address] Christiano Hamlin MD [facility] [place] [address] 12/19/2024 10:40 AM EST Office Visit Cardiology at [address] [phone] Christiano Hamlin MD [facility] [place] [address] documented as of this encounter Visit Diagnoses Not on filedocumented in this encounter Care Teams Manager Social Responsibility Relationship Specialty Start Date End Date Yana Turner MD [address] [place] [address] PCP - General Family Medicine 12/26/18 documented as of this encounter
--- OUTSIDE RECORDS SUMMARY | 2024-11-09 16:34 | XMS_ITS | Encounter Summary ---
Author Organization [facility] [place] [address] Care Team Providers Care Mixer Tender Name Role Phone Yana Turner MD Primary Care Provider [phone] Encounter Details Date Type Department Care Team (Late st Contact Info) Description 2019 9:30 AM EDT Office Visit Cardiology at [address] [phone] Paroxysmal atrial fibrillation (Primary Dx) Social History [...] Nurse visit completed as requested by Dr Hamlin,this is a follow up from initiating diltiazem(dilacor [...] 9:30 AM EST Appointment Non-[place]vasive [place] [address] Christiano Hamlin MD [facility] [place] [address] 12/19/2024 10:40 AM EST Office Visit Cardiology at [address] [phone] Christiano Hamlin MD [facility] [place] [address] documented as of this encounter Procedures Procedure [...] (Bezet) 451 ms MUSE SYSTEM Calculated R [place] 0 degrees MUSE SYSTEM Calculated T [place] 117 degrees MUSE SYSTEM INTERPRETATION Atrial fibrillation [...] fibrillation documented in this encounter Care Teams Mixer Tender Relationship Specialty Start Date End Date Yana Turner MD [address] [place] [address] PCP - General Family Medicine 12/26/18 documented as of this encounter
--- OUTSIDE RECORDS SUMMARY | 2024-11-09 16:34 | XMS_ITS | Encounter Summary ---
Author Organization [facility] Address [facility] [place] [address] Care Team Providers Care Timers Inspector Name Role Phone Yana Turner MD Primary Care Provider [phone] Reason for Visit * Reason Onset Date Comments Medication Refill 08/20/2019 Encounter Details Date Type Department Care Team (Late st Contact Info) Description 08/20/2019 Refill Cardiology at [address] [phone] Christiano Hamlin MD [facility] [place] [address] Medication Refill Social History Tobacco Use Types [...] 9:30 AM EST Appointment Non-[place]vasive [place] [phone] Christiano Hamlin MD [facility] [address] [place], [place] [phone] 12/19/2024 10:40 AM EST Office Visit Cardiology at [address] [phone] Christiano Hamlin MD [facility] [place] [address] documented as of this encounter Visit Diagnoses Not on filedocumented in this encounter Care Teams Timers Inspector Relationship Specialty Start Date End Date Yana Turner MD [address] [place] [address] PCP - General Family Medicine 12/26/18 documented as of this encounter
--- OUTSIDE RECORDS SUMMARY | 2024-11-09 16:34 | XMS_ITS | Encounter Summary ---
Author Organization [facility] Address [facility] [place] [address] Care Team Providers Care Hand Welt Butter Name Role Phone Yana Turner MD Primary Care Provider [phone] Encounter Details Date Type Department Care Team (Late st Contact Info) Description 10/23/2021 Orders Only Cardiology at [address] [phone] Christiano Hamlin MD [facility] [place] [address] Atrial fibrillation, unspecified type; Hypertension, unspecified type [...] 9:30 AM EST Appointment Non-Invasive [place] [phone] Christiano Hamlin MD [facility] [place] [address] 12/19/2024 10:40 AM EST Office Visit Cardiology at [address] [phone] Christiano Hamlin MD [facility] [place] [address] documented as of this encounter Visit Diagnoses Diagnosis Atrial fibrillation, unspecified type Hypertension, unspecified type documented in this encounter Care Teams Hand Welt Butter Relationship Specialty Start Date End Date Yana Turner MD [address] [place] [address] PCP - General Family Medicine 12/26/18 documented as of this encounter
--- OUTSIDE RECORDS SUMMARY | 2024-11-09 16:34 | XMS_ITS | Encounter Summary ---
[place] [address] Care Team Providers Care Cook Short Order Name Role Phone Yana Turner MD Primary Care Provider [phone] Reason for Visit * Reason Onset Date Comments Atrial Fibrillation 12/13/2022 Encounter Details Date Type Department Care Team (Late st Contact Info) Description 12/13/2022 Telephone Cardiology at [address] [phone] Ana Rosa Hernandez, RN Atrial Fibrillation Social [...] EST Appointment Non-[place] [phone] Christiano Hamlin MD [facility] [place] [address] 12/19/2024 10:40 AM EST Office Visit Cardiology at [address] [phone] Christiano Hamlin MD [facility] [place] [address] documented as of this encounter Visit Diagnoses Not on filedocumented in this encounter Care Teams Cook Short Order Relationship Specialty Start Date End Date Yana Turner MD [address] [place] [address] PCP - General Family Medicine 12/26/18 documented as of this encounter
--- OUTSIDE RECORDS SUMMARY | 2024-11-09 16:34 | XMS_ITS | Encounter Summary ---
Author Organization [facility] Address [facility] [place] [address] Care Team Providers Care Director Of Casework Services Name Role Phone Yana Turner MD Primary Care Provider [phone] Encounter Details Date Type Department Care Team (Late st Contact Info) Description 09/18/2024 11:20 AM EDT Office Visit Cardiology at [address] [phone] Christiano Hamlin MD [facility] [place] [address] Chronic atrial fibrillation Social History Tobacco Use Types [...] Pulse 83 09/18/2024 11:25 AM EDT Temperature - - Respiratory Rate - - Oxygen Saturation 95% 09/18/2024 11:25 AM EDT Inhaled Oxygen Concentration - - Weight 103.4 kg (228 lb) 09/18/2024 11:25 AM EDT Height 162.6 cm (5' 4) 09/18/2024 11:25 AM EDT Body Mass Index 39.14 09/18/2024 11:25 AM EDT documented in this encounter Patient Instructions * Patient Instructions* Christiano Hamlin MD - 09/18/2024 11:20 AM EDT Start digoxin 0.125 mg daily (hoping to slow the atrial fibrillation) Continue other medications Echo as scheduled Follow-up in November after echo documented in this encounter Progress Notes * Christiano Hamlin MD - 09/18/2024 11:20 AM EDT Images from the original note were not included. [facility] [place] [address] [address] CARDIOLOGY OUTPATIENT FOLLOW-UP NOTE Lisa Worley [id number] PCP: Yana Turner MD 09/18/2024 PRIMARY CARE PROVIDER: Yana Turner MD PROBLEM LIST: Patient Active Problem List Diagnosis Atrial fibrillation Status post cardioversion February 19, 2009 Recurrent atrial fibrillation documented July 17, 2019 initially with rapid ventricular rate Rx with apixaban, diltiazem and metoprolol MADRIGAL (dyspnea on exertion) Onset about July, and accompanied by mild chest pain Echocardiogram through [facility] August 12, 2017 showing mild LVH with normal LV systolic function and ejection fraction of 60- 65%; normally sized and functioning right ventricle; severely dilated left atrium; moderate tricuspid regurgitation; moderate to severe pulmonary hypertension with PA systolic pressure 45-55 mmHg Nuclear stress test [facility] September 12, 2017 showing [...] mg by mouth daily., Disp: , Rfl: dilTIAZem (Tiazac) 120 mg ER 24 hr capsule, Take 1 capsule by mouth daily., Disp: 90 capsule, Rfl: 3 potassium chloride (MICRO-K) 10 mEq Capsule, Sustained [...] 6 hours as needed., Disp: , Rfl: digoxin (Lanoxin) 125 mcg (0.125 mg) tablet, Take 1 tablet by mouth daily., Disp: 90 tablet, Rfl: 3 chlorthalidone (Hygroten) 50 mg Tablet, TAKE 1 TABLET BY MOUTH DAILY, Disp: , Rfl: SUBJECTIVE: This 79-year-old woman was seen today in a follow-up encounter. She has been followed for many years. She has atrial fibrillation which dates back to 2009 and with her current rhythm being present continuously since 2019. She has exertional dyspnea. Rate control has been somewhat challenging but on her diltiazem and metoprolol it was eventually achieved although she was short of breath and developed a fair amount of edema so at her last visit we backed down on her diltiazem. Today she says that since the diltiazem was reduced she has been more tired and has been more awareof her heart racing. On the other hand, she does notice that her edema has been better. Otherwise, things are largely unchanged. She reports an occasional sharp fleeting chest discomfort in her left pectoral region. ROS: 07/17/2019 10:53 AM CardioVascular Pre Appointment Symptom Review Angina (chest discomfort) Frequency: None OBJECTIVE: Vital Signs: BP 107/67 Pulse 83 Ht 162.6 cm (5' 4) Wt 103.4 kg (228 lb) SpO2 95% BMI 39.14 kg/m?? Physical Exam: Her exam today is relatively unremarkable. She has normal jugular venous pressures. Her lungs were clear. Her heart exam revealed an irregularly irregular rhythm with rate in the 80s. She had no murmurs or gallops. She had 1+ to 2+ lower extremity edema. Twelve lead ECG: Her rhythm is assessed with a Kardia device was atrial fibrillation with a rate inthe mid 80s. ASSESSMENT: She remains challenging. Unfortunately, she continues to feel less than ideally. Although her edema has improved since the diltiazem was reduced, she notices an increased awareness of herheart rhythm and fatigue. She is already on a very high dose of metoprolol and I am reluctant to gofurther given that she is already tired. I recommended a trial of digoxin. We are still waiting forher echo to be done. PLAN: 1. Trial addition of digoxin without a load (0.125 mg daily) 2. Continue other medications 3. Cardiology follow-up in November, ideally coincident with her appointment for the echocardiogram documented in this encounter Plan of Treatment Upcoming Encounters Date Type Department Care Team (Late st Contact Info) Description 12/19/2024 9:30 AM EST Appointment Non-[place] [address] Christiano Hamlin MD [facility] [place] [address] 12/19/2024 10:40 AM EST Office Visit Cardiology at [address] [phone] Christiano Hamlin MD [facility] [place] [address] documented as of this encounter Visit Diagnoses Diagnosis Chronic atrial fibrillation Atrial fibrillation documented in this encounter Care Teams Director Of Casework Services Relationship Specialty Start Date End Date Yana Turner MD [address] [place] [address] PCP - General Family Medicine 12/26/18 documented as of this encounter
--- OUTSIDE RECORDS SUMMARY | 2024-11-09 16:34 | XMS_ITS | Continuity of Care Document ---
Author Organization [place] - [facility], [facility] Address [address] [place] [address] Assessment Encounter Date Assessment Date Assessment LastModified by Organization Details LastModified Time 09/25/2024 09/25/2024 Subjective: Patient consented to the use of Freed to record and transcribe notes during this visit. The patient, Lisa Martinez, presented for a follow-up visit concerning her [...] Consider further evaluation or referral to an branch service specialist if pain persists or worsens. 7. [...] is aware to try and contact the [place] [facility].. Elevated bilirubin - unclear etiology, has been elevated just this year. No abdominal pain. Will repeat at next visit and if remains elevated will need further w/u. Lisa declined flu/COVID shots. sberrian Not available 09/26/2024 17:29:40 Plan of Treatment Reminders Order Date Submit Date Provider Last Modified By Organization Details Last Modified Time Details Appointments Follow Up 2023 11:30A M DANK AUGUSTIN Not available Not available Not available Follow Up 2024 10:40A M DANK AUGUSTIN Not available Not available Not available Lab None recorded . Referral None recorded . Procedures None recorded . Surgeries None recorded . Imaging None recorded . Medication Orders None recorded . Patient TargetsNo targets recorded. Patient InstructionsNo instructions recorded. Reason for Referral None Reported. Problems Name Problem SNOMED Code Status Onset Date Resolution Date Notes Provider Name and Address Organization Details Recorded Time Mixed urinary incontin ence 443550064 Active 201806/27/20 23 - Comments only - Dank Augustin MD - , Needs to use pads chronic basis. Problem Code: N39.46; Problem Code Type: ICD-10; Not Available [facility] 4 01:25:21 Osteoart hritis 857844440 Active 2018 Problem Code: M19.90; Problem Code Type: ICD-10; Not Available [facility] 4 01:25:21 Essentia l hyperten luis 70893464 Active 2018 Problem Code: I10; Problem Code Type: ICD-10; Not Available [facility] 4 01:25:22 Dyspnea 147711217 Active 201806/27/20 23 - Comments only - Dank Augustin MD - Most likely cardiac related, known pulmonar y hyperten luis. PFTs historic ally showed a slightly low FVC, thought to be potentia lly related to obesity or chest wall muscle abnormal ity. There was no evidence of obstruct ion or restrict ion. Problem Code: R06.09; Problem Code Type: ICD-10; Not Available [facility] 4 01:25:20 Major depressi on, single episode 40097273 Active 2018 Problem Code: F32.9; Problem Code Type: ICD-10; Not Available [facility] 4 01:25:21 Onychomy cosis due to dermatop hyte 100705291 Active 2018 Problem Code: B35.1; Problem Code Type: ICD-10; Not Available [facility] 4 01:25:21 Neck pain 12678496 Active 2018 Problem Code: M54.2; Problem Code Type: ICD-10; Not Available [facility] 4 01:25:22 Low back pain 620860290 Active 2018 Problem Code: M54.5; Problem Code Type: ICD-10; Not Available [facility] 4 01:25:21 Hyperlip idemia 96245713 Active 2018 Problem Code: E78.5; Problem Code Type: ICD-10; Not Available [facility] 4 01:25:22 Shoulder joint pain 867197469 Active 2018 Problem Code: M25.519; Problem Code Type: ICD-10; Not Available [facility] 4 01:25:20 Sensorin eural hearing loss of bilatera l ears 191638865 Active 2018 Problem Code: H90.3; Problem Code Type: ICD-10; Not Available [facility] 4 01:25:20 Dizzines s and giddines s 642346677 Active 201812/03/19 23 - Comments only - Dank Augustin MD - will ask PT to work with her on this also. Problem Code: R42; Problem Code Type: ICD-10; Not Available [facility] 4 01:25:20 Insomnia 472005622 Active 2018 Problem Code: G47.00; Problem Code Type: ICD-10; Not Available [facility] 4 01:25:20 Casimiro apodaca 509063563 Active 2018 Problem Code: R94.31; Problem Code Type: ICD-10; Not Available [facility] 4 01:25:19 Pain in right hip joint 62333299868 9102 Active 201801/18/20 19 - Comments only [...] M25.551; Problem Code Type: ICD-10; Not Available [facility] 4 01:25:21 Chronic pain syndrome 574701989 Active 201812/03/19 23 - Comments only - [...] G89.4; Problem Code Type: ICD-10; Not Available [facility] 4 01:25:21 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 83726174 Active 2018 Problem Code: I07.9; Problem Code Type: ICD-10; Not Available [facility] 4 01:25:22 Femoral neuropat hy 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 Clinical ly this is remainin g stable. She continue s on diltiaze m, metoprol ol, Eliquis. Historic ally she has not tolerate d furosemi de. She has chlortha lidone that she uses as needed currentl y. Problem Code: I48.91; Problem Code Type: ICD-10; Not Available [facility] 4 01:25:21 Heart failure 49603750 Active 201806/07/20 19 - Comments only - [...] I50.9; Problem Code Type: ICD-10; Not Available [facility] 4 01:25:22 Counseli sudhir Completed [...] Z71.89; Problem Code Type: ICD-10; Not Available [facility] 3 04:12:29 Abdomina l distensi on, gaseous 336074647 Active 201812/03/19 23 - Comments only - [...] R14.0; Problem Code Type: ICD-10; Not Available [facility] 4 01:25:20 Screenin g for cancer Active 2018 Problem Code: Z12.9; Problem Code Type: ICD-10; Not Available [facility] 4 01:25:20 Digestiv e system finding 794327461 Active 2018 Problem Code: R19.8; Problem Code Type: ICD-10; Not Available [facility] 4 01:25:21 Obesity 940711386 Active 201803/04/20 23 - Comments only - Dank Augustin MD - She is aware of the importan ce of weight loss. Discusse d some dietary changes she might be able to make. Again I encourag ed her to enroll in PT or cardiac rehab in the future. Problem Code: E66.9; Problem Code Type: ICD-10; Not Available [facility] 4 01:25:21 Screenin luis rucker Active 2018 Problem Code: Z12.31; Problem Code Type: ICD-10; Not Available [facility] 4 01:25:20 Acute upper respirat ory infectio n 47481822 Completed 201801/05/2020 10/05/20 19 - Comments only - Edilia Soria TIPPLE ENGINEER - Due to duration , physical findings , comorbid ities suspect this is bacteria l in origin. Is penicill in allergic . Treat with doxycycl ine 100 mg twice a day for 10 days. Tessalon Perles for the cough. Reviewed common side effects of both medicati ons. [facility] ed symptom manageme nt with normal saline sprays, salt water gargles, Vicks VapoRub, vitamin C, good hydratio n, good hand hygiene, adequate rest. Problem Code: J06.9; Problem Code Type: ICD-10; Not Available [facility] 3 04:12:30 Prediabe patricia 816270711 Active 201906/27/20 23 - Comments only - Dank Augustin MD - Due for an A1c. Problem Code: R73.03; Problem Code Type: ICD-10; Not Available [facility] 4 01:25:22 Allergic rhinitis 93868325 Active 2019 Problem Code: J30.9; Problem Code Type: ICD-10; Not Available [facility] 4 01:25:22 Localize d edema 013849290 Active 201906/02/20 20 - Comments only - Edilia Soria TIPPLE ENGINEER - suspect that this is a combinat ion of venous stasis, heart failure, possibly r/t previous knee surgery. Encoruag ed compress ion socks; moderate compress ion, knee high. If not improvin g, consider lac hydrin. After discussi on, she will consider referral to derm but not ready yet. Problem Code: R60.0; Problem Code Type: ICD-10; Not Available [facility] 4 01:25:20 Hypokale chandni 42859601 Active 201909/01/20 22 - Comments only - Dank Augustin MD - these were WNL in February with her 10mEq of KCl daily. Problem Code: E87.6; Problem Code Type: ICD-10; Not Available [facility] 4 01:25:21 Fatigue 12803797 Active 202009/01/20 22 - Comments only - Dank Augustin MD - which was partly stress related, improvin g. Hg in the spring was WNL. TSH was checked a few years ago and WNL. Problem Code: R53.83; Problem Code Type: ICD-10; Not Available [facility] 4 01:25:22 Pain of right shoulder joint 83084032798 072196 Active 2020 Problem Code: M25.511; Problem Code Type: ICD-10; Not Available [facility] 4 01:25:20 Lung field abnormal 917100843 Active 2021 Problem Code: R91.8; Problem Code Type: ICD-10; Not Available [facility] 4 01:25:20 Lymphede ma 738649803 Active 202103/28/20 23 - Comments only - Dank Augustin MD - Again, partly related to cardiac issues as above. I am not sure if there is a componen t of venous insuffic iency as well. As above we will consider trialing her on Lasix. Problem Code: I89.0; Problem Code Type: ICD-10; Not Available [facility] 4 01:25:20 Pulmonar y hyperten luis 99383799 Active 2022 Problem Code: I27.20; Problem Code Type: ICD-10; Not Available [facility] 4 01:25:22 Abnormal results of cardiova scular function studies 919349770 Active 2022 Problem Code: R94.39; Problem Code Type: ICD-10; Not Available [facility] 4 01:25:20 Atherosc lerosis of coronary artery without angina pectoris 15066957657 4103 Active 202206/27/20 23 - Comments only - Dank Augustin MD - /Atrial fibrilla tion/pul monary hyperten luis. She does follow with cardiolo gy at [facility]. Currentl y on metoprol ol, diltiaze [...] I25.10; Problem Code Type: ICD-10; Not Available [facility] 4 01:25:21 Reduced mobility 8193680 Active 202206/27/20 23 - Comments only - [...] Z74.09; Problem Code Type: ICD-10; Not Available [facility] 4 01:25:22 History of fall 795055147 Active 2022 Problem Code: Z91.81; Problem Code Type: ICD-10; Not Available [facility] 4 01:25:21 Disorder of skin and/or subcutan eous tissue 47182869 Active 202212/25/19 23 - Comments only - Dank Augustin MD - /Scab overlyin g area where she had a fluid blister. Concerne d that this could become an ulcer. She was amenable to placing an Unna boot today between the ankle and knee. [facility], reevalua ted. Aragon ed her to use her chlortha lidone daily to try and have better improvem ent of fluid status. We may need to switch her to furosemi de. Problem Code: L98.9; Problem Code Type: ICD-10; Not Available [facility] 4 01:25:22 Dysuria 96458190 Active 2022 Problem Code: R30.9; Problem Code Type: ICD-10; Not Available [facility] 4 01:25:22 Acute cystitis 52688030 Active 202203/28/20 23 - Comments only - Dank Augustin MD - , Inadequa tely treated. Repeat urine culture done today. That did ended up showing Proteus again. I sent in Cipro for her, low-dose . She does have normal renal function currentl y. If she develops any side effects she will let me know. Problem Code: N30.01; Problem Code Type: ICD-10; Not Available [facility] 4 01:25:22 Pain of right knee joint 36532331244 4100 Active 2022 Problem Code: M25.561; Problem Code Type: ICD-10; Not Available [facility] 4 01:25:21 Pain of right thigh 63281689737 9107 Active 2022 Problem Code: M79.651; Problem Code Type: ICD-10; Not Available [facility] 4 01:25:21 Adult health examinat ion Active 202203/28/20 23 - Comments only - Dank Augustin MD [facility] is due for mammogra m, ordered. We discusse d the DEXA scan, she wants to hold off on that for the moment. She is not currentl y a good candidat e to undergo colonosc opy given her cardiac status. We will discuss Cologuar d with her at her next appointm ent. Problem Code: Z00.00; Problem Code Type: ICD-10; Not Available [facility] 4 01:25:20 Aftercar e Active 2022 Problem Code: Z51.89; Problem Code Type: ICD-10; Not Available [facility] 4 01:25:21 Pain in lower limb 31803629 Active 2022 Problem Code: M79.606; Problem Code Type: ICD-10; Not Available [facility] 4 01:25:20 Impaired fasting glycemia 027083798 Completed 201908/17/2023 Problem Code: R73.01; Problem Code Type: ICD-10; Not Available [facility] 3 04:12:38 Hypergly cemia 63598249 Completed 202104/20/2022 Problem Code: R73.9; Problem Code Type: ICD-10; Not Available [facility] 3 04:12:39 Cat scratch Completed 202107/23/2022 Problem Code: W55.03xA ; Problem Code Type: ICD-10; Not Available [facility] 3 04:12:39 Dyspnea 698241240 Completed 201807/11/2020 Problem Code: R06.02; Problem Code Type: ICD-10; Not Available [facility] 3 04:12:39 Cellulit is of left lower limb 09839782071 459658 Completed 202107/23/2022 Problem Code: L03.116; Problem Code Type: ICD-10; Not Available [facility] 3 04:12:39 Conjunct ival hemorrha ge of right eye 50263108494 9101 Completed 201907/11/2020 Problem Code: H11.31; Problem Code Type: ICD-10; Not Available [facility] 3 04:12:40 Bleeding from nose 692765739 Completed 201804/20/2022 Problem Code: R04.0; Problem Code Type: ICD-10; Not Available [facility] 3 04:12:40 Exposure to communic able disease Completed 202002/12/2021 Problem Code: Z20.9; Problem Code Type: ICD-10; Not Available [facility] 3 04:12:40 Increase d frequenc y of urinatio n 891903531 Active 202209/15/20 23 - Comments only - Dank Augustin MD - We will follow-u p on urine micro. This is likely related to urge incontin ence. Discussnathan brandyn Morales exercise s today and provided her some instruct ions. Told her it can take up to a couple of months of doing the exercise s to notice improvem ent. Problem Code: R35.0; Problem Code Type: ICD-10; Not Available [facility] 4 01:25:20 Acute upper respirat ory infectio n 19084453 Active 2022 Problem Code: J06.9; Problem Code Type: ICD-10; Not Available [facility] 4 01:25:22 Chronic vertigo 01219406941 105 Active [address], [place] [phone] , [facility] 4 06:24:27 Gomezyannajoselo a 964654727 Active [address], [place] [phone] , [facility] 4 05:35:08 Notes:Some problems listed i n Documents: #[id number], #[id number], #[id number] could not be added to this patient's chart. Please review these documents and add these problems to the patient's chart manually as needed. Problem Notes None recorded. Procedures Surgical History Date Name Laterality Status Provider Name and Address Organization Details Recorded Time 4 Suture/Staple removal completed Sekou Pillai MA [facility] 05/28/2024 10:23:38 4 Excision and closure completed MD Alfredo [address], [place] [id number], [facility] 05/21/2024 05:34:30 Imaging Results None [...] by oral route. active Rx [place] [facility] Not Available Not Available Not Available DILT-XR 180 mg capsule, extended release Take 1 cap by mouth daily 2018 active [facility] Not Available Not Available Not [...] 50 mcg/actua tion nasal spray,mary [employer] [place] 1 spray into both nostrils twice a [...] lable Vitals Date Recorded Body height Body temperature Body mass index (BMI) Body weight Oxygen saturation Oxygen saturation in Arterial blood by Pulse oximetry Heart rate Systolic blood pressure Diastolic blood pressure Provider Name and Address Organization Details Last Updated DateTime 4 159.39 cm 97 [degF] 40.7 kg/m2 168060. 06 g 96 % 96 % 74 /min 108 mm[Hg] 60 mm[Hg] Diana Gordillo [facility] 4 09:43:21 Social History Question Answer Notes LastModified by Organizat ion Details LastModified Time Tobacco Smoking Status Never Smoker DIONICIO Capellan, [facility] 01/06/2024 11:55:57 What Was The Date Of Your Most Recent Tobacco Screening? 01/06/2024 [email or web address] Information not available 01/06/2024 Has Tobacco Cessation Counseling Been Provided? No [email or web address] Information not available 01/06/2024 Do You Or Have You Ever Used Any Other Forms Of Tobacco Or Nicotine? No [email or web address] Information not available 01/06/2024 Sex: Female Functional [...] Recorded Time Tdap 5 completed Not Available [facility] 12/15/2023 01:25:22 zoster live 0 completed Not Available [facility] 12/15/2023 01:25:22 zoster live 5 completed Not Available [facility] 12/15/2023 01:25:22 Pneumococcal conjugate PCV 13 9 completed Not Available [facility] 12/15/2023 01:25:22 Influenza, high-dose, trivalent, PF 9 completed Not Available [facility] 12/15/2023 01:25:22 Influenza, high-dose, trivalent, PF 9 completed Not Available [facility] 12/15/2023 01:25:23 Td(adult) unspecified formulation 5 completed Not Available [facility] 12/15/2023 01:25:22 zoster recombinant 9 completed Not Available [facility] 12/15/2023 01:25:22 Influenza, high-dose, quadrivalent, PF 1 completed Not Available [facility] 12/15/2023 01:25:22 Influenza, high-dose, quadrivalent, PF 0 completed Not Available [facility] 12/15/2023 01:25:22 COVID-19, mRNA, LNP-S, PF, 100 mcg/0.5mL dose or 50 mcg/0.25mL dose 1 completed Not Available [facility] 12/15/2023 01:25:22 COVID-19, mRNA, LNP-S, PF, 100 mcg/0.5mL dose or 50 mcg/0.25mL dose 1 completed Not Available [facility] 12/15/2023 01:25:22 pneumococcal polysaccharide PPV23 2 completed Not Available [facility] 12/15/2023 01:25:22 influenza, unspecified formulation 6 completed Not Available [facility] 12/15/2023 01:25:22 Past Encounters Encounter ID Performer Location Encounter Start Date Encounter Closed Date Diagnosis/Indication Diagnosis SNOMED-CT Code Diagnosis ICD10 Code [id number] DANK AUGUSTIN MD [address] [address] 09/25/2024 09:31:28 09/25/2024 10:47:29 Health Concerns Section Related Observation LastModified by Organization Detai ls LastModified Time None Recorded Concern Status LastModified by Organization Details LastModified Time None Recorded Payers Encounter Date Sequence Insurance Name Policy Number Policy Vazquez Covered Member ID Vazquez Member ID Guarantor Name 09/25/2024 1 [facility] (MEDICARE REPLACEMENT/A DVANTAGE - HMO) [id number] Lisa Martinez [id number] Lisa Martinez Notes Date Note Type Note Provider Name and Address Organization Details Recorded Time 09/25/2024 text/html Lisa here today for f/u afib/h/o CHF, pulm HTN, recent lesion resection DANK AUGUSTIN MD [facility] [address], [place], [address], [facility]. 09/26/2024 17:29:59 OBGyn Episode No OBEpisode recorded.
--- OUTSIDE RECORDS SUMMARY | 2024-11-09 16:34 | XMS_ITS | Encounter Summary ---
Author Organization [facility] [place] [address] Care Team Providers Care Spring Clipper Name Role Phone Yana Turner MD Primary Care Provider [phone] Encounter Details Date Type Department Care Team (Late st Contact Info) Description 06/28/2019 Telephone Cardiology at [address] [phone] Nina Lyons, RN Social History Tobacco Use [...] called at home and she did not tack picker. Message was left that she could call team geological technical officer ( number provided) for an appt.though it [...] she had any further questions/concerns. Nina Lyons show horse driver [facility] General TeamBaileyDoddridge documented in this encounter Plan of Treatment Upcoming Encounters Date Type Department Care Team (Late st Contact Info) Description 12/19/2024 9:30 AM EST Appointment Non[place] [address] Christiano Hamlin MD [facility] [place] [address] 12/19/2024 10:40 AM EST Office Visit Cardiology at [address] [phone] Christiano Hamlin MD [facility] [place] [address] documented as of this encounter Visit Diagnoses Not on filedocumented in this encounter Care Teams Spring Clipper Relationship Specialty Start Date End Date Yana Turner MD [address] [place] [address] PCP - General Family Medicine 12/26/18 documented as of this encounter
--- OUTSIDE RECORDS SUMMARY | 2024-11-09 16:34 | XMS_ITS | Encounter Summary ---
[place] [address] Care Team Providers Care Inspector Watch Train Name Role Phone Yana Turner MD Primary Care Provider [phone] Reason for Visit * Reason Onset Date Comments Other 03/24/2020 requesting telep [place] visit Encounter Details Date Type Department Care Team (Late st Contact Info) Description 03/24/2020 Telephone Cardiology at [address] [phone] Hayley Colon, RN Other (requesting telephone visit [...] from Lisa,states she spoke to a Cardiology Logistics Program Manager earlier today cancelling a visit w/Dr Hamlin [...] shortness of breath. PCP Olivia Mei APRN [facility] [place] [phone] Forward above message to Latonya Davenport team Bait Tier,request PCP name and contact # be changed in EMR and PCP office notes and ECG be scanned into EMR. Telephone visit will also need to be arranged with Dr Hamlin ,hopefully for tomorrow 03/25/20. Request [facility] contact Lisa to confirm. documented in this encounter Plan of Treatment Upcoming Encounters Date Type Department Care Team (Late st Contact Info) Description 12/19/2024 9:30 AM EST Appointment Non[place] [address] Christiano Hamlin MD [facility] [place] [address] 12/19/2024 10:40 AM EST Office Visit Cardiology at [address] [phone] Christiano Hamlin MD [facility] [place] [address] documented as of this encounter Visit Diagnoses Not on filedocumented in this encounter Care Teams Inspector Watch Train Relationship Specialty Start Date End Date Yana Turner MD [address] [place] [address] PCP - General Family Medicine 12/26/18 documented as of this encounter
--- OUTSIDE RECORDS SUMMARY | 2024-11-09 16:34 | XMS_ITS | Encounter Summary ---
Author Organization [facility]ly [facility] Address [facility] [place] [address] Care Team Providers Care Outsole Tacker Name Role Phone Yana Turner MD Primary Care Provider [phone] Encounter Details Date Type Department Care Team (Latest Contact Info) Description 09/18/2024 Travel Social History Tobacco Use Types Packs/Day [...] 9:30 AM EST Appointment Non-Invasive [place] [phone] Christiano Hamlin MD [facility] [place] [address] 12/19/2024 10:40 AM EST Office Visit Cardiology at [address] [phone] Christiano Hamlin MD [facility] [place] [address] documented as of this encounter Visit Diagnoses Not on filedocumented in this encounter Care Teams Outsole Tacker Relationship Specialty Start Date End Date Yana Turner MD [address] [place] [address] PCP - General Family Medicine 12/26/18 documented as of this encounter
--- OUTSIDE RECORDS SUMMARY | 2024-11-09 16:34 | XMS_ITS | Encounter Summary ---
Author Organization [facility] Address [facility] [place] [address] Care Team Providers Care Lead Printer Name Role Phone Yana Turner MD Primary Care Provider [phone] Encounter Details Date Type Department Care Team (Latest Contact Info) Description 03/25/2020 1:40 PM EDT TH Visit (TeleHealth) Cardiology at [address] [address] Christiano Hamlin MD [facility] [place] [address] Chronic atrial fibrillation; Palpitations Social History Tobacco [...] CARDIOLOGY VIRTUAL VISIT NOTE Lisa Worley 03/25/20 [id number] PRIMARY CARE PROVIDER: Yana Turner MD VISIT [...] follow-up in 6 months Christiano Hamlin MD, [facility], [facility] Time Attestation: I spent a total of 15 minutes associated with this encounter, including chart review, the patient encounter, and documentation. documented in this encounter Plan of Treatment Upcoming Encounters Date Type Department Care Team (Late st Contact Info) Description 12/19/2024 9:30 AM EST Appointment Non[place] [address] Christiano Hamlin MD [facility] [place] [address] 12/19/2024 10:40 AM EST Office Visit Cardiology at [address] [address] Christiano Hamlin MD [facility] [place] [address] documented as of this encounter Visit Diagnoses Diagnosis Chronic atrial fibrillation Atrial fibrillation Palpitations documented in this encounter Care Teams Lead Printer Relationship Specialty Start Date End Date Yana Turner MD [address] [place] [address] PCP - General Family Medicine 12/26/18 documented as of this encounter
--- OUTSIDE RECORDS SUMMARY | 2024-11-09 16:34 | XMS_ITS | Encounter Summary ---
Author Organization [facility] Address [facility] [place] [address] Care Team Providers Care Paralegal Assistant Name Role Phone Yana Turner MD Primary Care Provider [phone] Encounter Details Date Type Department Care Team [...] 9:30 AM EST Appointment Non[place] [phone] Christiano Hamlin MD [facility] [place] [address] 12/19/2024 10:40 AM EST Office Visit Cardiology at [address] [phone] Christiano Hamlin MD [facility] [place] [address] documented as of this encounter Visit Diagnoses Not on filedocumented in this encounter Care Teams Paralegal Assistant Relationship Specialty Start Date End Date Yana Turner MD [address] [place] [address] PCP - General Family Medicine 12/26/18 documented as of this encounter
--- OUTSIDE RECORDS SUMMARY | 2024-11-09 16:35 | XMS_ITS | Encounter Summary ---
Author Organization [facility] Address [facility] [place] [address] Care Team Providers Care Milk House Worker Name Role Phone Alissa Baxter MD Primary Care Provider [phone] Reason for Visit * Reason Comments Shortness of Breath Chest Pain * Consultation (Urgent) - Closed Specialty Diagnoses / Procedures Referred By Contac t Referred To Contact Cardiology Diagnoses abnormal stress test, pulmonary HTN, tricuspid valve insufficiency Alissa Baxter MD [address] [place] [address] [address] [place] [address] Christiano Hamlin MD [facility] [place] [address] Referral ID Status Reason Start Date Expiration Date V isits Requested Visits Authorized [id number] Closed Consult, [facility] 09/14/2017 09/14/2018 1 1 Encounter Details Date Type Department Care Team (Late st Contact Info) Description 09/27/2017 11:00 AM EST Office Visit Cardiology at [address] [address] Christiano Hamlin MD [facility] [place] [address] Abnormal stress test; MADRIGAL (dyspnea on exertion); [...] water) 3. Arrive Same Day Program at [facility] at 8:00 am on 10/11/17 Procedure: Heart Catheterization Grinder Watch Parts: Greg Mason MD documented in this encounter Progress Notes * Christiano Hamlin MD - 09/27/2017 11:00 AM EST Images from the original note were not included. [facility] [place] [address] CARDIOLOGY OUTPATIENT CONSULTATION [facility] [place] Office Lisa Worley [id number] 09/27/2017 REFERRING PROVIDER: Alissa Baxter CHIEF COMPLAINT: Chief Complaint Patient presents with ??? Shortness of Breath ??? Chest Pain PROBLEM LIST Patient Active Problem List Diagnosis ??? MADRIGAL (dyspnea on exertion) ?? Onset about July, and accompanied by mild chest pain ?? Echocardiogram through [facility] August 12, 2017 showing mild LVH with normal LV systolic function and ejection fraction of 60-65%; normally sized and functioning right ventricle; severely dilated left atrium; moderate tricuspid regurgitation; moderate to severe pulmonary hypertension with PA systolic pressure 45-55 mmHg ?? Nuclear stress test [facility] September 12, 2017 showing small [...] A nuclear stress test was done at [facility] and showed inferolateral ischemia. Her medicines [...] former patient of mine). And lives in [place], [place]. 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 She [...] 2. Routine pre-heart catheterization labs today at [facility] 3. She is formally scheduled for right and left heart catheterization on October 11, 2017 with an 8 AM arrival time Thank you for requesting this consultation. For questions, please feel free to contact me via any of the following mechanisms: Email: [email or web address] documented in this encounter Miscellaneous Notes * Addendum Note - Kenyatta Ulloa - 09/27/2017 12:11 PM ESTAddended by: KENYATTA ULLOA on: 09/27/2017 12:11 PM Modules accepted: Orders documented in this encounter Plan of Treatment Upcoming Encounters Date Type Department Care Team (Late st Contact Info) Description 12/19/2024 9:30 AM EST Appointment Non[place] [address] Christiano Hamlin MD [facility] [place] [address] 12/19/2024 10:40 AM EST Office Visit Cardiology at [address] [place] [address] Christiano Hamlin MD [facility] [place] [address] documented as of this encounter Procedures Procedure [...] Modality Other Narrative 10/11/2017 11:53 AM EST ?[facility] ? Cardiac Catheterization/Intervention Report ? Patient Name: Worley, Lisa ? Procedure Date: 10/11/2017 ? A #: [id number] ? Primary Physician: Greg Mason ? Case #: [id number] ? File Name: [id number] ? Catheterization Order Number: [id number] ? [facility] ? Final Report [place], [place] ? Patient Name: ? Lisa Worley ? ID#: ?[id number] ? : ?1945 ? Procedure Date: ? October 11, 2017 ?Case #: ? [id number] ? Room: ? 5 ? Case Physician: [...] presented with: stable angina (w/i 42 days). Ramsey ?Cardiovascular Society angina class was III. This [...] heart catheterization ?was performed utilizing a 7Fr Denver-Scooby catheter. Left ventricular ?pressure was performed with [...] 197 ?PVR ?142 ? 127 ?Technique ?Estimated Orger ?Thermodilution ?Left Heart Pressures ? Resting: ? [...] right heart catheterization and oximetry. ? Greg Mason, M.D. ? Electronically Signed by: Greg Mason, M.D. ? Report Finalized: 10/11/2017 ??11:41 ? Procedure Note Greg Mason MD - 10/11/2017 [facility] Cardiac Catheterization/Intervention Report Patient Name: Lisa Worley Procedure Date: 10/11/2017 A #: [id number] Primary Physician: Greg Mason Case #: [id number] File Name: [id number] Catheterization Order Number: [id number] [facility] FinalReport [place], [place] Patient Name: Lisa Worley ID#:[id number] :1945 Procedure Date: October 11, 2017 Case [...] presented with: stable angina (w/i 42 days). Ramsey Cardiovascular Society angina class was III. This [...] Right heartcatheterization was performed utilizing a 7Fr Denver-Scooby catheter. Left ventricular pressure was performed with [...] the sedation nurse. Case time =00:43. Dr. Greg Mason M.D. performed the coronary angiography, left heart catheterization, right heart catheterization and oximetry. Greg Mason M.D. Electronically Signed by: Greg Mason M.D. Report Finalized: 10/11/2017 11:41 Christiano Hamlin MD CARDIAC CATH ORDERAB LES * Differential, Automated (09/27/2017 12:23 PM EST) Neutrophil % 69.3 % [facility] Neutrophil Absolute 4.72 1.70 - 6.10 x10(3)/[facility] Lymph % 19.9 % [facility] Lymphocytes Abs 1.4 0.9 - 3.2 x10(3)/[facility] Monocyte % 8.8 % [facility] Monocyte Abs 0.6 0.3 - 0.9 x10(3)/[facility] Eos % 1.3 % [facility] Eosinophils Abs 0.1 0.0 - 0.4 x10(3)/[facility] Basophil % 0.3 % [facility] Baso Absolute 0.0 0.0 - 0.1 x10(3)/[facility] Immature Gran % 0.40 % [facility] Comment: Immature granulocytes(IG's)percentage and absolute count will include metamyelocytes, myelocytes, and promyelocytes. Blood smears from CBCs yielding IG's will be scanned manually for concordance. If this scan disagrees with the automated IG or if promyelocytes are noted, a manual differential will be performed. Immature Gran Absolute 0.03 0.00 - 0.04 x10(3)/[facility] Blood specimen (specimen) 09/27/2017 12:23 PM EST 09/27/2017 12:32 PM EST Narrative Resulting Agency Comment Spec In Lab Christiano Hamlin MD HEMATOLOGY ORDERABLE S [facility] [place] [address] * Hemogram (09/27/2017 12:23 PM EST) White Blood Cell 6.8 4.0 - 9.5 x10(3)/[facility] Red Blood Cell 5.18 4.00 - 5.21 x10(6)/[facility] Hemoglobin 14.6 11.7 - 15.5 gm/dL [facility] Hematocrit 44.4 35.7 - 45.8 % [facility] Mean Cell Volume 85.7 82.6 - 94.4 fL [facility] Mean Cell Hemoglobin 28.2 27.1 - 32.0 pg [facility] Mean Cell Hemoglobin Concentration 32.9 31.7 - 35.0 gm/dL [facility] Platelet 204 145 - 357 x10(3)/[facility] RDW Standard Deviation 40.9 37.0 - 46.0 [facility] RDW coefficient of variation 13.0 11.5 - 14.1 % [facility] Mean Platelet Volume 9.6 7.6 - 12.9 [facility] NRBC% auto 0.0 % [facility] NRBC Absolute 0.000 0.000 - 0.000 x10(3)/[facility] Blood specimen (specimen) 09/27/2017 12:23 PM EST 09/27/2017 12:32 PM EST Narrative Resulting Agency Comment Spec In Lab Christiano Hamlin MD HEMATOLOGY ORDERABLE S Performing Organization Address [facility]/ZIP Co de Phone Number [facility] [place] [address] * Basic Metabolic Panel (non-fasting) (09/27/2017 12:23 PM EST) Glucose 101 65 - 199 mg/dL [facility] Comment:Diabetes: >=200 mg/d L plus symptoms Blood Urea Nitrogen 17 8 - 18 mg/dL [facility] Creatinine 0.74 0.70 - 1.20 mg/dL [facility] Sodium 139 135 - 145 mmol/L [facility] Potassium 4.2 3.5 - 5.0 mmol/L [facility] Comment: Please note: ??Patients with WBC >100,000 may have falsely elevated Potassium levels. ??For accurate Potassium quantification in these patients send serum separator tube (gold top) for subsequent determinations. ??Contact the Clinical Chemistry Laboratory if there are any questions. Chloride 99 98 - 107 mmol/L [facility] Carbon Dioxide 25 22 - 31 mmol/L [facility] Anion Gap 15 5 - 15 mmol/L [facility] Calcium 9.3 8.5 - 10.5 mg/dL [facility] Est Glomerular Filtration Rate >60 >=60 [facility] Comment: The reported eGFR should be multiplied by 1.2 for patients. The MDRD is not an appropriate measure of renal function for patients with body mass extremes or in patients with acute kidney failure. http://Jamclouds.jslyhl/DHnkdep http://Jamclouds.jslyhl/DHMCnkf Blood specimen (specimen) 09/27/2017 12:23 PM EST 09/27/2017 12:32 PM EST Narrative Resulting Agency Comment Spec In Lab Christiano Hamlin MD CHEMISTRY ORDERABLES Performing Organization Address City/[facility]/ZIP Co de Phone Number [facility] [place] [address] * Prothrombin Time (09/27/2017 12:23 PM EST) Prothrombin Time 14.0 11.8 - 14.0 sec [facility] International Normalization Ratio 1.1 0.9 - 1.1 [facility] Comment: An INR <2.0 indicates adequate [...] MD HEMATOLOGY ORDERABLE S Performing Organization Address City/[facility] Co de Phone Number [facility] [place] [address] * EKG 12 Lead (09/27/2017 11:10 AM EST) Ventricular rate 75 BPM MUSE SYSTEM Atrial Rate 75 BPM MUSE SYSTEM P-R Interval 178 ms MUSE SYSTEM QRS Duration 72 ms MUSE SYSTEM Q-T Interval 394 ms MUSE SYSTEM QTC Calculated (Bezet) 439 ms MUSE SYSTEM Calculated P South Range 57 degrees MUSE SYSTEM Calculated R South [place] -16 degrees MUSE SYSTEM Calculated T [place] Range 47 degrees MUSE SYSTEM INTERPRETATION Normal sinus rhythm Normal ECG No previous ECGs available Confirmed by MD ALEXANDRIA, WANG ([id number]) on 09/27/2017 5:08:42 PM MUSE SYSTEM 09/27/2017 11:1 0 AM EST 09/27/2017 5:08 PM EST Christiano Hamlin MD ECG ORDERABLES Performing Organization Address City/[facility]/ZIP Co de Phone Number MUSE SYSTEM documented [...] type documented in this encounter Care Teams Milk House Worker Relationship Specialty Start Date End Date Alissa Baxter MD [address] [place] [address] PCP - General 10/13/10 12/25/18 documented as of this encounter
--- OUTSIDE RECORDS SUMMARY | 2024-11-09 16:35 | XMS_ITS | Encounter Summary ---
Author Organization [facility] Address [facility] [place] [address] Care Team Providers Care Laser Print Operator Name Role Phone Yana Turner MD Primary Care Provider [phone] Reason for Referral * Diagnostic Test (Routine) - Closed Specialty Diagnoses / Procedures Referred By Contac t Referred To Contact Cardiology Diagnoses MADRIGAL (dyspnea on exertion) Hypertension, unspecified type Atrial fibrillation, unspecified type Procedures Echocardiogram Transthoracic(Leb) Christiano Hamlin MD [facility] [place] [address] [facility] [place] [address] Referral ID Status Reason Start Date Expiration Date V isits Requested Visits Authorized [id number] Closed Specialty Service Requested 12/26/2018 12/26/2019 1 1 Encounter Details Date Type Department Care Team (Late st Contact Info) Description 12/26/2018 1:00 PM EST Office Visit Cardiology at [address] [phone] Christiano Hamlin MD [facility] [place] [address] MADRIGAL (dyspnea on exertion); Hypertension, [...] not included. [facility] [address] [place], [place] [address] CARDIOLOGY OUTPATIENT FOLLOW-UP NOTE Lisa Worley [id number] PCP: Yana Turner MD 12/26/2018 PRIMARY CARE PROVIDER: Yana Turner MD PROBLEM LIST: Patient Active Problem List Diagnosis ??? MADRIGAL (dyspnea on exertion) ?? Onset about July, and accompanied by mild chest pain ?? Echocardiogram through [facility] August 12, 2017 showing mild LVH [...] not feel anydifferent on this. Just before Homero her breathing became acutely worsened and she [...] is not ideal. She has an elevated [id number] score. She needs better rate control, anticoagulation, [...] 9:30 AM EST Appointment Non-Invasive [place] [address] Christiano Hamlin MD [facility] [place] [address] 12/19/2024 10:40 AM EST Office Visit Cardiology at [address] [phone] Christiano Hamlin MD [facility] [place] [address] documented as of this encounter Procedures Procedure [...] ?MICHELLE RDZ ?(Age): 1945(73y) Med Rec#: ? [id number] ?Sex: ?F ? Site Loc: ? [facility] ?Ht / Wt: ??163(cm)/100(kg) Pt. Loc: ?Echo Lab ?BSA: ?2.04 Study Date: ?? 01/31/2019 ?Pt. Type: Outpatient Tape: ? Referring: FRED Reading: Kamari Wade ([id number]) Turkey Cleaner: Dafne Bradley [facility] Nurse: Jessica Ventura Diagnosis: *Other forms of [...] ? Mid-Inferior ?Normal ? Mid-Inferoseptal ?Normal ? [place]-Septal ? Normal ? [place]-Anterior ? Normal ? [place]-Lateral ?Normal ? [place]-Inferior ? Normal ? [place]-Tip ?Normal ? This report has been electronically signed by: Kamari Wade MD ? 01/31/2019 13:15:37 Images reviewed and interpretation verified [facility] Cardiac Ultrasound Laboratory Procedure Note Kamari Wade MD - 01/31/2019 Procedure: Transthoracic Echocardiogram Patient: MICHELLE MARY(Age): 1945(73y) Med Rec#: [id number] Sex: F Site Loc: [facility] Ht / Wt: 163(cm)/100(kg) Pt. Loc: Echo Lab BSA: 2.04 Study Date: 01/31/2019 Pt. Type: Outpatient Tape: Referring: FRED Reading: Kamari Wade ([id number]) Turkey Cleaner: Dafne Bradley [facility] Nurse: Jessica Ventura Diagnosis: *Other forms of [...] Normal Mid-Posterolateral Normal Mid-Inferior Normal Mid-Inferoseptal Normal [place]-Septal Normal [place]-Anterior Normal [place]-Lateral Normal [place]-Inferior Normal [place]-Tip Normal This report has been electronically signed by: Kamari Wade MD 01/31/2019 13:15:37 Images reviewed and interpretation verified [facility] Cardiac Ultrasound Laboratory Christiano Hamlin MD ECHO ORDERABLES * EKG 12 Lead (12/26/2018 12:49 PM EST) Ventricular rate 112 BPM MUSE SYSTEM Atrial Rate 102 BPM MUSE SYSTEM QRS Duration 80 ms MUSE SYSTEM Q-T Interval 342 ms MUSE SYSTEM QTC Calculated (Bezet) 466 ms MUSE SYSTEM Calculated R [place] 2 degrees MUSE SYSTEM Calculated T [place] 77 degrees MUSE SYSTEM INTERPRETATION Atrial fibrillation [...] type documented in this encounter Care Teams Laser Print Operator Relationship Specialty Start Date End Date Yana Turner MD [address] [place] [address] PCP - General Family Medicine 12/26/18 documented as of this encounter
--- OUTSIDE RECORDS SUMMARY | 2024-11-09 16:35 | XMS_ITS | Encounter Summary ---
Author Organization [facility] Address [address] [place] [address] Care Team Providers Care Farm Management Teacher Name Role Phone Unavailable Primary Care Provider Unavailabl e Encounter Details Date Type Department Care Team (Late st Contact Info) Description 08/29/2001 Results Only [address] [address] Leidy Agarwal MD Social History Tobacco Use Types Packs/Day Years Used Date Smoking Tobacco: Never Assessed Comments Unknown Sex and Gender Information Value Date Recorded Sex Assigned at Not on file Legal Sex Female 18:13 EST Gender Identity Not on file Sexual Orientation [...] ? LISA MARTINEZ ? Accession #: ? [id number] : ? 1945 (Age: 56) ??F ?Collect [...] End of Report RAFA[facility] HUANG 08/29/2001 08/31/2001 us Leidy Agarwal MD PATHOLOGY ORDERABLES Final Resul t [facility] [address] [place] [address] documented in this encounter Visit Diagnoses Not on filedocumented in this encounter
--- OUTSIDE RECORDS SUMMARY | 2024-11-09 16:35 | XMS_ITS | Encounter Summary ---
Author Organization [place] [address] Care Team Providers Care Programming Instructor Name Role Phone Yana Turner MD Primary Care Provider Encounter Details Date Type Department Care Team (Late st Contact Info) Description 02/01/2019 Telephone Cardiology at [address] [phone] Nina Lyons RN Social History Tobacco Use [...] have been put in chart. Nina Lyons crop consultant [facility] General Team-[place] * Telephone Encounter - Christiano Hamlin MD [...] was assured message would be sent to programming intern for review. Nina Lyons crop consultant [facility] General Team-[place] documented in this encounter Plan of Treatment Upcoming Encounters Date Type Department Care Team (Late st Contact Info) Description 12/19/2024 9:30 AM EST Appointment Non-[place] [address] Christiano Hamlin MD [facility] [place] [address] 12/19/2024 10:40 AM EST Office Visit Cardiology at [address] [address] Christiano Hamlin MD [facility] [place] [address] documented as of this encounter Results * (ABNORMAL) pro-Brain Natriuretic Peptide (02/19/2019 7:36 AM EDT) NT-proBNP 1,436(H) <=125 pg/mL [facility] Blood specimen (specimen) 02/19/2019 7:36 AM EDT 02/19/2019 7:43 AM EDT Narrative Resulting Agency Comment Spec In Lab Christiano Hamlin MD CHEMISTRY ORDERABLES [facility] [place] [address] documented in this encounter Visit Diagnoses Diagnosis MADRIGAL (dyspnea on exertion) Other dyspnea and respiratory abnormality documented in this encounter Care Teams Programming Instructor Relationship Specialty Start Date End Date Yana Turner MD [address] [place] [address] PCP - General Family Medicine 12/26/18 documented as of this encounter
--- OUTSIDE RECORDS SUMMARY | 2024-11-09 16:35 | XMS_ITS | Encounter Summary ---
Author Organization [facility] Address [facility] [place] [address] Care Team Providers Care Home Fire Alarm Installer Name Role Phone Alissa Baxter MD Primary Care Provider [phone] Encounter Details Date Type Department Care Team (Late st Contact Info) Description 11/02/2018 Orders Only Cardiology at [address] [phone] Christiano Hamlin MD [facility] [place] [address] Hypertension, unspecified type (Primary Dx) Social History [...] 9:30 AM EST Appointment Non-[place]vasive [place] [phone] Christiano Hamlin MD [facility] [place] [address] 12/19/2024 10:40 AM EST Office Visit Cardiology at [address] [phone] Christiano Hamlin MD [facility] [place] [address] documented as of this encounter Visit Diagnoses Diagnosis Hypertension, unspecified type- Primary documented in this encounter Care Teams Home Fire Alarm Installer Relationship Specialty Start Date End Date Alissa Baxter MD [address] [place] [address] PCP - General 10/13/10 12/25/18 documented as of this encounter
--- OUTSIDE RECORDS SUMMARY | 2024-11-09 16:35 | XMS_ITS | Encounter Summary ---
Author Organization [facility] Address [facility] [place] [address] Care Team Providers Care Wrapper Rewinder Name Role Phone Yana Turner MD Primary Care Provider [phone] Encounter Details Date Type Department Care Team (Late st Contact Info) Description 02/16/2019 Orders Only Cardiology at [address] [phone] [facility] [place] [place] [address] Atrial fibrillation, unspecified type Social History Tobacco [...] 9:30 AM EST Appointment Non-Invasive [place] [address] [facility] [address] [place], [place] [address] 12/19/2024 10:40 AM EST Office Visit Cardiology at [address] [phone] [facility] [place] [address] documented as of this encounter Results * EKG 12 Lead (02/19/2019 8:27 AM EDT) Ventricular rate 94 BPM MUSE SYSTEM Atrial Rate 94 BPM MUSE SYSTEM QRS Duration 78 ms MUSE SYSTEM Q-T Interval 366 ms MUSE SYSTEM QTC Calculated (Bezet) 457 ms MUSE SYSTEM Calculated R [place] 6 degrees MUSE SYSTEM Calculated T [place] 46 degrees MUSE SYSTEM INTERPRETATION Atrial fibrillation [...] Saman Honeycutt MD ECG ORDERABLES MUSE SYSTEM * Magnesium (02/19/2019 7:36 AM EDT) Pathologist [facility] Magnesium 0.85 0.69 - 1.07 mmol/L [facility] Blood specimen (specimen) 02/19/2019 7:36 AM EDT 02/19/2019 7:43 AM EDT Narrative Resulting Agency Comment Spec In Lab Saman Honeycutt MD CHEMISTRY ORDERABLES [facility] [address] * (ABNORMAL) Basic Metabolic Panel (non-fasting) (02/19/2019 7:36 AM EDT) Pathologist [facility] Glucose 128 65 - 199 mg/dL [facility] Comment:Diabetes: >=200 mg/d L plus symptoms Blood Urea Nitrogen 23(H) 8 - 18 mg/dL [facility] Creatinine 0.71 0.70 - 1.20 mg/dL [facility] Sodium 142 135 - 145 mmol/L [facility] Potassium 4.4 3.5 - 5.0 mmol/L [facility] Comment: Please note: ??Patients with WBC >100,000 may have falsely elevated Potassium levels. ??For accurate Potassium quantification in these patients send serum separator tube (gold top) for subsequent determinations. ??Contact the Clinical Chemistry Laboratory if there are any questions. Chloride 102 98 - 107 mmol/L [facility] Carbon Dioxide 28 22 - 31 mmol/L [facility] Anion Gap 12 5 - 15 mmol/L [facility] Calcium 8.8 8.5 - 10.5 mg/dL [facility] Est Glomerular Filtration Rate 84 >=60 mL/min/1. 73 m?? [facility] Comment: The eGFR was calculated using the CKD-EPI equation. As with all creatinine based estimates of kidney function, eGFR values calculated with the CKD-EPI equation are not accurate in patients with acute kidney failure, extremes of body mass or the acutely ill. http://[employer]/DHMCnkf eGFR 98 >=60 mL/min/1. 73 m?? [facility] Comment: The eGFR was calculated using the CKD-EPI equation. As with all creatinine based estimates of kidney function, eGFR values calculated with the CKD-EPI equation are not accurate in patients with acute kidney failure, extremes of body mass or the acutely ill. http://[employer]/DHMCnkf Blood specimen (specimen) 02/19/2019 7:36 AM EDT 02/19/2019 7:43 AM EDT Narrative Resulting Agency Comment Spec In Lab Saman Honeycutt MD CHEMISTRY ORDERABLES [facility] [place] [place] [address] documented in this encounter Visit Diagnoses Diagnosis Atrial fibrillation, unspecified type documented in this encounter Care Teams Wrapper Rewinder Relationship Specialty Start Date End Date Yana Turner MD [address] [place] [address] PCP - General Family Medicine 12/26/18 documented as of this encounter
--- OUTSIDE RECORDS SUMMARY | 2024-11-09 16:35 | XMS_ITS | Encounter Summary ---
Author Organization [facility] Address [address] [place] [address] Care Team Providers Care Lumber Yard Worker Name Role Phone Unavailable Primary Care Provider Unavailabl e Encounter Details Date Type Department Care Team (Late st Contact Info) Description 04/04/2003 Results Only [facility] conversion [address] [place] [address] Marshall Starks MD [address] [place] [address] Social History Tobacco Use Types Packs/Day Years [...] ? LISA MARTINEZ ? Accession #: ? [id number] ? : ? 1945 (Age: 57) ??F [...] [facility] 04/04/2003 04/05/2003 9:2 3 EDT us Marshall Starks MD PATHOLOGY ORDERABLES Final Result [facility] [address] [place] [address] documented in this encounter Visit Diagnoses Not on filedocumented in this encounter
--- OUTSIDE RECORDS SUMMARY | 2024-11-09 16:35 | XMS_ITS | Encounter Summary ---
Author Organization [facility] Address [facility] [place] [address] Care Team Providers Care Pulmonary Fellow Name Role Phone Alissa Baxter MD Primary Care Provider Encounter Details Date Type Department Care Team (Latest Contact Info) Description 10/11/2017 8:06 AM EST - 10/11/2017 2:33 PM EST Hospital Encounter [place] [address] Greg Mason MD [facility] [place] [address] Abnormal stress test; MADRIGAL (dyspnea on exertion); [...] by your doctor, do not take any hiij-zuk-eilpdcd medicines or herbal preparations without first discussing this with your doctor or pharmacist. There is the possibility of side effect and interactions when these are combined. Follow up Care Who to Call with Questions or Problems If there are any questions or problems that you think might be related to your cardiac cath or angioplasty, contact the recreational therapy aide environmental professional by calling [facility] at . POST ANESTHESIA INSTRUCTIONS Go home, [...] Birthdate: 1945 Admit date: 10/11/2017 Attending Physician: Grge Mason MD Skin: documented in this encounter [...] 9:30 AM EST Appointment Non-Invasive [place] [address] Christiano Hamlin MD [facility] [place] [address] 12/19/2024 10:40 AM EST Office Visit Cardiology at [address] [phone] Christiano Hamlin MD [facility] [place] [address] documented as of this encounter Visit Diagnoses [...] Routine 0900 (Given - Provid er: Neema Leon, PETER) Continuous Medication Order 10/09/2017 10/10/2017 10/11/2017 sodium chloride 0.9% infusion 200 mL/hr, Intravenous, CONTINUOUS, Starting on Tue10/11/17 at 0900, Until Tue10/11/17 at 1633, Cath (Day of Procedure) 0900 (New Bag - Prov ider: Neema Leon, PETER)1215 (Rate/Dose Change - Provider: Heidy Robertson RN)1319 [...] MD) documented in this encounter Care Teams Pulmonary Fellow Relationship Specialty Start Date End Date Alissa Baxter MD [address] [place] [address] [address] [place] [address] PCP - General 10/13/10 12/25/18 documented as of this encounter
--- OUTSIDE RECORDS SUMMARY | 2024-11-09 16:35 | XMS_ITS | Encounter Summary ---
Author Organization [facility] Address [facility] [place] [address] Care Team Providers Care Jockey Agent Name Role Phone Alissa Baxter MD Primary Care Provider [phone] Encounter Details Date Type Department Care Team (Late st Contact Info) Description 11/20/2018 Orders Only Cardiology at [address] [phone] Christiano Hamlin MD [facility] [place] [address] Hypertension, unspecified type (Primary Dx); MADRIGAL (dyspnea [...] 9:30 AM EST Appointment Non-[place] [phone] Christiano Hamlin MD [facility] [place] [address] 12/19/2024 10:40 AM EST Office Visit Cardiology at [address] [phone] Christiano Hamlin MD [facility] [place] [address] documented as of this encounter Visit Diagnoses Diagnosis Hypertension, unspecified type- Primary MADRIGAL (dyspnea on exertion) Other dyspnea and respiratory abnormality documented in this encounter Care Teams Jockey Agent Relationship Specialty Start Date End Date Alissa Baxter MD [address] [place] [address] PCP - General 10/13/10 12/25/18 documented as of this encounter
--- OUTSIDE RECORDS SUMMARY | 2024-11-09 16:35 | XMS_ITS | Encounter Summary ---
Author Organization [facility] Address [facility] [place] [address] Care Team Providers Care Supervisor Correspondence Section Name Role Phone Yana Turner MD Primary Care Provider [phone] Encounter Details Date Type Department Care Team (Late st Contact Info) Description 12/21/2018 Orders Only Cardiology at [address] [phone] Christiano Hamlin MD [facility] [place] [place] [address] MADRIGAL (dyspnea on exertion) (Primary Dx); Hypertension, [...] EST Appointment [place] [phone] Christiano Hamlin MD [facility] [place] [place] [address] 12/19/2024 10:40 AM EST Office Visit Cardiology at [address] [phone] Christiano Hamlin MD [facility] [place] [place] [address] documented as of this encounter Results * EKG 12 Lead (12/26/2018 12:49 PM EST) Ventricular rate 112 BPM MUSE SYSTEM Atrial Rate 102 BPM MUSE SYSTEM QRS Duration 80 ms MUSE SYSTEM Q-T Interval 342 ms MUSE SYSTEM QTC Calculated (Bezet) 466 ms MUSE SYSTEM Calculated R [place] 2 degrees MUSE SYSTEM Calculated T [place] 77 degrees MUSE SYSTEM INTERPRETATION Atrial fibrillation [...] type documented in this encounter Care Teams Supervisor Correspondence Section Relationship Specialty Start Date End Date Yana Turner MD [address] [place] [address] PCP - General Family Medicine 12/26/18 documented as of this encounter
--- OUTSIDE RECORDS SUMMARY | 2024-11-09 16:35 | XMS_ITS | Encounter Summary ---
Author Organization [facility] Address [address] [place] [address] Care Team Providers Care It Network Administrator Name Role Phone Unavailable Primary Care Provider Unavailabl e Encounter Details Date Type Department Care Team (Late st Contact Info) Description 09/07/2011 Results Only [facility] Laboratory Services - [facility] ([facility]) [address] [place] [address] Anju Yip MD [address] [place] [address] Social History Tobacco Use Types Packs/Day Years [...] ? LISA MARTINEZ ? Accession #: ? [id number] ? : ? 1945 (Age: 66) ??F [...] Description: ? Received in formalin labelled Martinez Lisa and mass left wrist are four espinoza-white fibrous unoriented soft tissues ranging from 0.2 x 0.2 x 0.2 cm to 0.7 x 0.5 x 0.3 cm. ??The specimen is inked and entirely submitted in one cassette. ??(Sonia Allen)/[facility] End of Report [facility] 09/07/2011 09/08/2011 8:5 2 EDT us Anju Yip MD PATHOLOGY ORDERABLES Final Resul t [facility] [address] [place] [address] documented in this encounter Visit Diagnoses Not on filedocumented in this encounter
--- OUTSIDE RECORDS SUMMARY | 2024-11-09 16:35 | XMS_ITS | Encounter Summary ---
Author Organization [facility] [place] [address] Care Team Providers Care Dredgemaster Name Role Phone Alissa Baxter MD Primary Care Provider [phone] Encounter Details Date Type Department Care Team (Late st Contact Info) Description 11/02/2018 External Results Cardiology at [address] [phone] Social History Tobacco Use Types Packs/Day Years [...] 9:30 AM EST Appointment Non-Invasive [place] [phone] Christiano Hamlin MD [facility] [place] [address] 12/19/2024 10:40 AM EST Office Visit Cardiology at [address] [phone] Christiano Hamlin MD [facility] [place] [address] documented as of this encounter Procedures Procedure [...] on filedocumented in this encounter Care Teams Dredgemaster Relationship Specialty Start Date End Date Alissa Baxter MD [address] [place] [address] PCP - General 10/13/10 12/25/18 documented as of this encounter
--- OUTSIDE RECORDS SUMMARY | 2024-11-09 16:35 | XMS_ITS | Encounter Summary ---
Author Organization [facility] Address [address] [place] [address] Care Team Providers Care Retail Commission Sales Associate Name Role Phone Unknown, Provider Primary Care Provider Unava ilable Encounter Details Date Type Department Care Team (Latest Contact Info) Description 02/25/2014 15:25 EDT - 02/25/2014 23:59 EDT Hospital Encounter [address] [address] Unknown, Provider, Discharge Disposition: Home or Self [...] Code Departure Means Destination Home or Self Fdc documented in this encounter Plan of Treatment Not on file documented as of this encounter Visit Diagnoses Not on filedocumented in this encounter Care Teams Retail Commission Sales Associate Relationship Specialty Start Date End Date Unknown, Provider, PCP - General 09/10/11 02/26/14 documented as of this encounter
--- OUTSIDE RECORDS SUMMARY | 2024-11-09 16:35 | XMS_ITS | Encounter Summary ---
Author Organization [facility] Address [facility] [place] [address] Care Team Providers Care Plastic Parts Fabricator Trimmer Name Role Phone Alissa Baxter MD Primary Care Provider Encounter Details Date Type Department Care Team (Late st Contact Info) Description 03/08/2012 2:00 PM EDT Office [place] [phone] Iris Parry, PT Alissa Baxter MD [address] [place] [address] Incontinence (Primary Dx) Discharge Disposition: Home Social History Tobacco Use Types Packs/Day Years Used Date Smoking Tobacco: Never Sex and Gender Information Value Date Recorded Sex Assigned at Not on file Gender Identity Not on file Sexual Orientation Not on file documented as of this encounter Progress Notes * Iris Parry PT - 03/08/2012 2:44 PM EDT Physical [...] complete 48 hour bladder diary. 4. Goals: technician terminal and repeater goals (3 months) 1. Patient to be [...] ex Total Timed Code Treatment: 30 minutes IRIS PARRY PT Subjective: Patient ID: Lisa Worley is a 66 y.o. female. Objective: Ortho Exam Neurologic Exam Assessment and Plan: No problem-specific visit notes found for this encounter. * Iris Parry PT - 03/08/2012 2:06 PM EDT PHYSICAL THERAPY EVALUATION Objective: Ortho Exam Neurologic Exam Assessment and Plan: No problem-specific visit notes found for this encounter. documented in this encounter Miscellaneous Notes * Miscellaneous - Donnie Supervisor Accounting Clerks - 04/11/2012 5:42 PM EDT documented in this encounter Plan of Treatment Upcoming Encounters Date Type Department Care Team (Late st Contact Info) Description 12/19/2024 9:30 AM EST Appointment Non-[place]vasive [place] [address] Christiano Hamlin MD [facility] [place] [place] [address] 12/19/2024 10:40 AM EST Office Visit Cardiology at [address] [phone] Christiano Hamlin MD [facility] [place] [address] documented as of this encounter Visit Diagnoses Diagnosis Incontinence- Primary Unspecified urinary incontinence documented in this encounter Care Teams Plastic Parts Fabricator Trimmer Relationship Specialty Start Date End Date Alissa Baxter MD [address] [place] [address] PCP - General 10/13/10 12/25/18 documented as of this encounter
--- OUTSIDE RECORDS SUMMARY | 2024-11-09 16:35 | XMS_ITS | Encounter Summary ---
Author Organization [facility] [place] [address] Care Team Providers Care Spotter Driver Name Role Phone Alissa Baxter MD Primary Care Provider [phone] Encounter Details Date Type Department Care Team (Late st Contact Info) Description 07/20/2017 - 07/20/2017 11:59 PM EDT Hospital Encounter Radiology Library at [facility] [place] [phone] Severiano Lopes MD [facility] [place] [address] Discharge Disposition: Home Social History Tobacco Use [...] 9:30 AM EST Appointment [place] [phone] Christiano Hamlin MD [facility] [place] [address] 12/19/2024 10:40 AM EST Office Visit Cardiology at [address] [address] Christiano Hamlin MD [facility] [place] [address] documented as of this encounter Procedures Procedure Name Priority Date/Time Associated Diagnosis Comments FILM LIBRARY STORAGE ONLY CT CHEST Routine 07/20/2017 12:00 AM EDT documented in this encounter Results * Film Library- Storage Only CT Chest (07/20/2017 12:00 AM EDT) Narrative [facility] - 09/13/2017 8:37 PM EDT This exam is for storage only and is auto-finalizing. Severiano Lopes MD IMG FILM LIBRARY OR DERABLES [place], [place] documented in this encounter Visit Diagnoses Not on filedocumented in this encounter Care Teams Spotter Driver Relationship Specialty Start Date End Date Alissa Baxter MD [address] [place] [address] PCP - General 10/13/10 12/25/18 documented as of this encounter
--- OUTSIDE RECORDS SUMMARY | 2024-11-09 16:35 | XMS_ITS | Encounter Summary ---
Author Organization [facility] Address [address] [place] [address] Care Team Providers Care Advertising Assistant Name Role Phone Unknown, Provider Primary Care Provider Unava ilable Encounter Details Date Type Department Care Team (Late st Contact Info) Description 02/25/2014 Results Only [facility] Laboratory Services - [facility] ([facility]) [address] [place], [place] [address] Alissa Baxter MD [address] [place] [address] [address] [place] [address] Social History Tobacco Use Types [...] ? LISA MARTINEZ ? Accession #: ? [id number] ? : ? 1945 (Age: 68) ??F [...] case was shown in intradepartmental consultation. (Dr. Calabrese)/[facility] Microscopic Description: Sections are of a [...] symmetric.. Deeper levels have been examined. (Dr. Calabrese)/[facility] Document reviewed and electronically signed by: [...] in thickness). ??Submitted intact in 1. Courtney Noe 02/26/2014 09:12 AM End of Report [facility] 02/25/2014 8:36 EDT 02/26/2014 8:36 EDT us Alissa Baxter MD PATHOLOGY ORDERABLES Final Result Performing Organization Address City/State/[facility] Co de Phone Number [facility] [address] [place] [address] documented in this encounter Visit Diagnoses Not on filedocumented in this encounter Care Teams Advertising Assistant Relationship Specialty Start Date End Date Unknown, Provider, PCP - General 09/10/11 02/26/14 documented as of this encounter
--- OUTSIDE RECORDS SUMMARY | 2024-11-09 16:35 | XMS_ITS | Encounter Summary ---
Author Organization [facility] Address [address] [place] [address] Care Team Providers Care Envelope Machine Operator Name Role Phone Unavailable Primary Care Provider Unavailabl e Encounter Details Date Type Department Care Team (Late st Contact Info) Description 03/07/2003 Results Only [facility] conversion [address] [place] [address] Marshall Starks MD [address] [place] [address] Social History Tobacco Use Types Packs/Day Years [...] ? LISA MARTINEZ ? Accession #: ? [id number] : ? 1945 (Age: 57) ??F ?Collect [...] recommended. ??See also the concurrent core biopsy ([id number]) (Dr. Urbina)/[facility] Document reviewed and electronically signed by: ? [...] [facility] 03/07/2003 03/08/2003 15: 17 EDT us Marshall Starks MD PATHOLOGY ORDERABLES Final Result [facility] [address] [place] [address] * SURGICAL PATHOLOGY (03/07/2003 0:00 EDT) Pathology Report: SURGICAL PATHOLOGY REPORT Reports generated via electronic interface contain original data; however they are lacking the format of the original report. Caution should be taken when reading/interpreting unformatted reports. Name: ? LISA MARTINEZ ? Accession #: ? [id number] ? : ? 1945 (Age: 57) ??F [...] reviewed at the intradepartmental consultation conference. ??(Dr. Lezama)/[facility] Document reviewed and electronically signed by: [place] [...] fragmented. ??Entirely submitted in one cassette. ??(Ailyn Webster)/[facility] End of Report [facility] 03/07/2003 03/08/2003 14: 58 EDT us Marshall Starks MD PATHOLOGY ORDERABLES Final Result [facility] [address] [place] [address] documented in this encounter Visit Diagnoses Not on filedocumented in this encounter
--- OUTSIDE RECORDS SUMMARY | 2024-11-09 16:35 | XMS_ITS | Encounter Summary ---
Author Organization [facility] [place] [address] Care Team Providers Care Truck Car And Bus Cleaner Name Role Phone Yana Turner MD Primary Care Provider [phone] Encounter Details Date Type Department Care Team (Latest Contact Info) Description 02/19/2019 7:35 AM EDT Laboratory Appointment Lab [address] [place] [address] MADRIGAL (dyspnea on exertion); Atrial fibrillation, unspecified [...] 9:30 AM EST Appointment Non-[place] [phone] Christiano Hamlin MD [facility] [place] [address] 12/19/2024 10:40 AM EST Office Visit Cardiology at [address] [address] Christiano Hamlin MD [facility] [place] [address] documented as of this encounter Procedures Procedure [...] EDT) Glucose 128 65 - 199 mg/dL [facility] Comment:Diabetes: >=200 mg/d L plus symptoms Blood Urea Nitrogen 23(H) 8 - 18 mg/dL [facility] Creatinine 0.71 0.70 - 1.20 mg/dL [facility] Sodium 142 135 - 145 mmol/L [facility] Potassium 4.4 3.5 - 5.0 mmol/L [facility] Comment: Please note: ??Patients with WBC >100,000 may have falsely elevated Potassium levels. ??For accurate Potassium quantification in these patients send serum separator tube (gold top) for subsequent determinations. ??Contact the Clinical Chemistry Laboratory if there are any questions. Chloride 102 98 - 107 mmol/L [facility] Carbon Dioxide 28 22 - 31 mmol/L [facility] Anion Gap 12 5 - 15 mmol/L [facility] Calcium 8.8 8.5 - 10.5 mg/dL [facility] Est Glomerular Filtration Rate 84 >=60 mL/min/1. 73 m?? [facility] Comment: The eGFR was calculated using the CKD-EPI equation. As with all creatinine based estimates of kidney function, eGFR values calculated with the CKD-EPI equation are not accurate in patients with acute kidney failure, extremes of body mass or the acutely ill. [email or web address]/[facility] eGFR 98 >=60 mL/min/1. 73 m?? [facility] Comment: The eGFR was calculated using the CKD-EPI equation. As with all creatinine based estimates of kidney function, eGFR values calculated with the CKD-EPI equation are not accurate in patients with acute kidney failure, extremes of body mass or the acutely ill. [email or web address]/[facility] Blood specimen (specimen) 02/19/2019 7:36 AM EDT 02/19/2019 7:43 AM EDT Narrative Resulting Agency Comment Spec In Lab Saman Honeycutt MD CHEMISTRY ORDERABLES Performing Organization Address City/[facility]/ZIP Co de Phone Number [facility] [place] [address] * Magnesium (02/19/2019 7:36 AM EDT) Magnesium 0.85 0.69 - 1.07 mmol/L [facility] Blood specimen (specimen) 02/19/2019 7:36 AM EDT 02/19/2019 7:43 AM EDT Narrative Resulting Agency Comment Spec In Lab Saman Honeycutt MD CHEMISTRY ORDERABLES Performing Organization Address City/[facility]/ZIP Co de Phone Number [facility] [place] [address] * (ABNORMAL) pro-Brain Natriuretic Peptide (02/19/2019 7:36 AM EDT) NT-proBNP 1,436(H) <=125 pg/mL [facility] Blood specimen (specimen) 02/19/2019 7:36 AM EDT 02/19/2019 7:43 AM EDT Narrative Resulting Agency Comment Spec In Lab Christiano Hamlin MD CHEMISTRY ORDERABLES Performing Organization Address City/[facility]/ZIP Co de Phone Number [facility] [place] [address] documented in this encounter Visit Diagnoses Diagnosis MADRIGAL (dyspnea on exertion) Other dyspnea and respiratory abnormality Atrial fibrillation, unspecified type documented in this encounter Care Teams Truck Car And Bus Cleaner Relationship Specialty Start Date End Date Yana Turner MD [address] [place] [address] PCP - General Family Medicine 12/26/18 documented as of this encounter
--- OUTSIDE RECORDS SUMMARY | 2024-11-09 16:35 | XMS_ITS | Referral Summary ---
Author Organization [facility] Address [address] [place] [address] Care Team Providers Care Technician Support Association Name Role Phone Alissa Baxter MD Primary Care Provider [phone] Encounters Date Type Department Care Team Description 08/11/2024 Lab Requisition [facility] Pathology & Laboratory Medicine - [facility] [address] [place] [address] Elena Lora MD Encounter for other general examination from Last 3 Months Social History Tobacco Use Types Packs/Day Years Used Date Smoking Tobacco: Never Assessed Comments Unknown Sex and Gender Information Value Date Recorded Sex Assigned at Not on file Legal Sex Female 18:13 EST Gender Identity Not on file Sexual Orientation Not on file Plan of Treatment Not on file Procedures Procedure Name Priority Date/Time Associated Diagnosis Comments SURGICAL PATHOLOGY Today 08/10/2024 12 :40 EDT Encounter for other general examination from Last 3 Months Results * SURGICAL PATHOLOGY (08/10/2024 12:40 EDT) Note to Patient The following pathology results have been interpreted by your pathologist and may be available to you before your health provider has had the opportunity to review them. Please allow time for your provider to receive these results and explore management options, if applicable. 08/13/2024 14:36 EDT [facility] Final Diagnosis A. SKIN OF BACK, MID, SHAVE BIOPSY: - Melanocytic nevus, compound type, with unusual architectural features and mild cytologic atypia. - Lesion does not extend to biopsy edges in the plane of sections examined. - Lesion measures approximately 0.2 mm to the biopsy base. - Lesion measures approximately 0.4 mm to the biopsy edge. 08/13/2024 14:36 [facility] Attestation By the signature below, the attending physician certifies that they have 1) personally conducted a gross and/or microscopic examination of the described specimen(s), and/or personally interpreted the results of laboratory testing of the described specimen(s), and 2) personally rendered or confirmed the above diagnosis. 08/13/2024 14:36 [facility] at 1436 Clinical History Lesion midback that itches periodically, patient can't see it, unsure if (sp?), approximately 6 mm flat, 2 toned irregular brown lesion:? Atypical nevus vs seborrheic keratosis 08/13/2024 14:36 [facility] Gross Description A. Received in formalin labelled with proper patient identification (initials H, E) and lesion, mid back is a shave biopsy of espinoza skin (0.8 x 0.8 x 0.1 cm). On the central skin surface is a dark brown irregular macule (0.5 x 0.4 cm). The specimen is inked, trisected and submitted entirely in A1. DICK MACHADO(ASCP) 08/13/2024 7:50 08/13/2024 14:36 [facility] Performing Lab [facility] 08/13/2024 14:36 [facility] Scanned Images 08/13/2024 14:36 [facility] Tissue SPECIMEN FROM SKIN / Unknown 08/10/2024 12:40 EDT 08/11/2024 15:07 EDT us Elena Lora MD PATHOLOGY ORDERABLES Final Resu lt [facility] [address] [place], [place] [phone] from Last 3 Months Insurance MEDICARE Care Teams Technician Support Association Relationship Specialty Start Date End Date Alissa Baxter MD [address] [place] [address] [address] [place] [phone] PCP - General 02/27/14
--- OUTSIDE RECORDS SUMMARY | 2024-11-09 16:35 | XMS_ITS | Encounter Summary ---
Author Organization [facility] Address [facility] [place] [address] Care Team Providers Care Opera Singer Name Role Phone Yana Turner MD Primary Care Provider [phone] Encounter Details Date Type Department Care Team (Late st Contact Info) Description 03/14/2019 11:40 AM EDT Office Visit Cardiology at [address] [address] Christiano Hamlin MD [facility] [place] [address] PAF (paroxysmal atrial fibrillation) Social History Tobacco [...] [facility] [place] [address] CARDIOLOGY OUTPATIENT FOLLOW-UP NOTE Lisa Worley [id number] PCP: Yana Turner MD 03/14/2019 PRIMARY CARE [...] pressure 45-55 mmHg ?? Nuclear stress test [facility] September 12, 2017 showing small in [...] abnormal in August 2017, heart catheterization at [facility] in September 2017 showed normal coronary arteries. [...] 9:30 AM EST Appointment Non-[place]vasive [place] [address] Christiano Hamlin MD [facility] [place] [address] 12/19/2024 10:40 AM EST Office Visit Cardiology at [address] [address] Christiano Hamlin MD [facility] [place] [address] documented as of this encounter Procedures Procedure [...] (Bezet) 430 ms MUSE SYSTEM Calculated P [place] 63 degrees MUSE SYSTEM Calculated R [place] 0 degrees MUSE SYSTEM Calculated T [place] 43 degrees MUSE SYSTEM INTERPRETATION Marked sinus [...] fibrillation documented in this encounter Care Teams Opera Singer Relationship Specialty Start Date End Date Yana Turner MD [address] [place] [address] PCP - General Family Medicine 12/26/18 documented as of this encounter
--- OUTSIDE RECORDS SUMMARY | 2024-11-09 16:35 | XMS_ITS | Encounter Summary ---
Author Organization [facility] Address [facility] [place] [address] Care Team Providers Care Waitstaff Name Role Phone Yana Turner MD Primary Care Provider [phone] Encounter Details Date Type Department Care Team (Late st Contact Info) Description 02/19/2019 8:30 AM EDT Office Visit Cardiology at [address] [address] Blanca Copeland PA [facility] [place] [address] Atrial fibrillation, unspecified type Social History Tobacco [...] by mild chest pain ?? Echocardiogram through [facility] August 12, 2017 showing mild LVH [...] contact EP with any further questions (pager [phone]). DICK Rutledge Pager: [phone] documented in this encounter Plan of Treatment Upcoming Encounters Date Type Department Care Team (Late st Contact Info) Description 12/19/2024 9:30 AM EST Appointment Non-[place]vasive [place] [phone] Christiano Hamlin MD [facility] [place] [address] 12/19/2024 10:40 AM EST Office Visit Cardiology at [address] [address] Christiano Hamlin MD [facility] [place] [address] documented as of this encounter [...] (Bezet) 457 ms MUSE SYSTEM Calculated R [place] 6 degrees MUSE SYSTEM Calculated T [place] 46 degrees MUSE SYSTEM INTERPRETATION Atrial fibrillation [...] type documented in this encounter Care Teams Waitstaff Relationship Specialty Start Date End Date Yana Turner MD [address] [place] [address] PCP - General Family Medicine 12/26/18 documented as of this encounter
--- OUTSIDE RECORDS SUMMARY | 2024-11-09 16:35 | XMS_ITS | Encounter Summary ---
Author Organization [facility] [place] [address] Care Team Providers Care Bowling Alley Operator Name Role Phone Alissa Baxter MD Primary Care Provider [phone] Reason for Visit * Reason Onset Date Comments Medication Refill 12/13/2018 Encounter Details Date Type Department Care Team (Late st Contact Info) Description 12/13/2018 Refill Cardiology at [address] [phone] Christiano Hamlin MD [facility] [place] [address] Medication Refill Social History Tobacco Use Types [...] 9:30 AM EST Appointment Non-Invasive [place] [phone] Christiano Hamlin MD [facility] [place] [address] 12/19/2024 10:40 AM EST Office Visit Cardiology at [address] [phone] Christiano Hamlin MD [facility] [place] [address] documented as of this encounter Visit Diagnoses Not on filedocumented in this encounter Care Teams Bowling Alley Operator Relationship Specialty Start Date End Date Alissa Baxter MD [address] [place] [address] PCP - General 10/13/10 12/25/18 documented as of this encounter
--- OUTSIDE RECORDS SUMMARY | 2024-11-09 16:35 | XMS_ITS | Encounter Summary ---
Author Organization [facility] Address [address] [place] [address] Care Team Providers Care Ems Helicopter Pilot Name Role Phone Unavailable Primary Care Provider Unavailabl e Encounter Details Date Type Department Care Team (Late st Contact Info) Description 04/17/2009 Orders Only [facility] Laboratory Services - [facility] ([facility] [address] [place] [address] Alissa Baxter MD [address] [place] [address] Social History Tobacco Use Types [...] LAB 04/17/2009 8:40 EDT 04/23/2009 8:40 EDT us Alissa Baxter MD MICROBIOLOGY - GENERAL KRISSY LAGUERRE Final Result [facility] [address] [place] [address] * CYTOPATHOLOGY (04/17/2009 0:00 EDT) Pathology Report: CYTOPATHOLOGY REPORT ? Reports generated via electronic interface contain original data; ? however they are lacking the format of the original report. ? Caution should be taken when reading/interpreti ng unformatted reports. ? Name: ? LISA MARTINEZ ? Accession #: ? [id number] ? : ? 1945 (Age: 63) ??F [...] 13:09 ? End of Report ? [facility] 04/17/2009 04/21/2009 us Alissa Baxter MD PATHOLOGY ORDERABLES Final Result [facility] [address] [place] [address] documented in this encounter Visit Diagnoses Not on filedocumented in this encounter
--- OUTSIDE RECORDS SUMMARY | 2024-11-09 16:35 | XMS_ITS | Encounter Summary ---
Author Organization [facility] Address [facility] [place] [address] Care Team Providers Care House Calls Nurse Name Role Phone Alissa Baxter MD Primary Care Provider [phone] Encounter Details Date Type Department Care Team (Late st Contact Info) Description 12/06/2017 11:20 AM EST Office Visit Cardiology at [address] [address] Christiano Hamlin MD [facility] [place] [address] MADRIGAL (dyspnea on exertion) Social History Tobacco [...] [facility] [place] [address] CARDIOLOGY OUTPATIENT FOLLOW-UP NOTE Lisa Worley [id number] PCP: Alissa Baxter MD 12/06/2017 PRIMARY CARE [...] for heart catheterization which took place at [facility] on October 11, 2017. This was surprisingly [...] 9:30 AM EST Appointment Non-Invasive Cardiology Lab [facility] [place] [address] Christiano Hamlin MD [facility] [place] [place] [address] 12/19/2024 10:40 AM EST Office Visit Cardiology at [address] [address] Christiano Hamlin MD [facility] [place] [address] documented as of this encounter Visit Diagnoses Diagnosis MADRIGAL (dyspnea on exertion) Other dyspnea and respiratory abnormality documented in this encounter Care Teams House Calls Nurse Relationship Specialty Start Date End Date Alissa Baxter MD [address] [facility] [address] [place] [address] PCP - General 10/13/10 12/25/18 documented as of this encounter
--- OUTSIDE RECORDS SUMMARY | 2024-11-09 16:35 | XMS_ITS | Encounter Summary ---
Author Organization [facility] Address [address] [place] [address] Care Team Providers Care Hair Worker Name Role Phone Unavailable Primary Care Provider Unavailabl e Encounter Details Date Type Department Care Team (Late st Contact Info) Description 04/04/2008 Results Only [facility] conversion [address] [place] [address] Alissa Baxter MD [address] [place] [phone] Social History Tobacco Use Types Packs/Day Years [...] sufficient. [facility] Report Status Final [id number] [facility] 04/04/2008 10:3 1 EDT 04/10/2008 10:31 EDT us Alissa Baxter MD MICROBIOLOGY - GENERAL ORDE RABLES Final Result [facility] [address] [place] [address] * CYTOPATHOLOGY (04/04/2008 0:00 EDT) Pathology Report: CYTOPATHOLOGY REPORT Reports generated via electronic interface contain original data; however they are lacking the format of the original report. Caution should be taken when reading/interpreti ng unformatted reports. Name: ? LISA MARTINEZ ? Accession #: ? [id number] : ? 1945 (Age: 62) ??F ?Collect Date: ? 04/04/2008 Location: ? [facility] ? Receive Date: ? 04/08/2008 Provider: ?LAISSA BAXTER MD Copy to: ? [facility] ?[place], [place] [address] ? Specimen/Source: ?ThinPrep Pap Test, Vagina, processed on [employer] ThinPrep Imaging System, with manual evaluation Last [...] End of Report [facility] 04/04/2008 04/08/2008 us Alissa Baxter MD PATHOLOGY ORDERABLES Final Result [facility] [address] [place] [address] documented in this encounter Visit Diagnoses Not on filedocumented in this encounter
--- OUTSIDE RECORDS SUMMARY | 2024-11-09 16:35 | XMS_ITS | Encounter Summary ---
Author Organization [facility] Address [facility] [place] [address] Care Team Providers Care Crawler Dragline Operator Name Role Phone Yana Turner MD Primary Care Provider Encounter Details Date Type Department Care Team (Late st Contact Info) Description 02/19/2019 9:55 AM EDT - 02/19/2019 10:46 AM EDT Surgery [place] [phone] Michael Babin PA [facility] [place] [address] CARDIOVERSION-ELECTIVE (WRVU 2) Social History Tobacco Use [...] the adhesive pads were placed, call the school photographs detailer flagstone layer at . ? We will schedule a follow-up appointment with the school photographs detailer here, or you will be scheduled to [...] Saman Honeycutt MD PA: Blanca Copeland PA-C; Mihcael Babin PA-C Indication: Atrial fibrillation, paroxysmal Patient [...] pressure 45-55 mmHg ?? Nuclear stress test [facility] September 12, 2017 showing small in [...] 9:30 AM EST Appointment Non-[place] [phone] Christiano Hamlin MD [facility] [place] [address] 12/19/2024 10:40 AM EST Office Visit Cardiology at [address] [phone] Christiano Hamlin MD [facility] [place] [address] Scheduled Orders Name Type Priority Associated Diagnoses [...] (Bezet) 476 ms MUSE SYSTEM Calculated P [place] 85 degrees MUSE SYSTEM Calculated R [place] -7 degrees MUSE SYSTEM Calculated T [place] -3 degrees MUSE SYSTEM INTERPRETATION Electronic artifact present Sinus bradycardia with Premature supraventricular complexes Nonspecific T wave abnormality Abnormal ECG When compared with ECG of 19-FEB-2019 08:27, (unconfirmed) Sinus rhythm has replaced Atrial fibrillation Vent. rate has decreased BY ??40 BPM I personally reviewed the tracing and edited the fellows interpretation Confirmed by fellow MD Price, Belén ([id number]) on 02/19/2019 12:15:19 PM Confirmed by MD Kb, Donovan ([id number]) on 02/19/2019 5:19:54 PM MUSE SYSTEM 02/19/2019 10:3 8 AM EDT 02/19/2019 5:19 PM EDT Saman Honeycutt MD ECG ORDERABLES MUSE SYSTEM documented in this encounter Visit Diagnoses Not on filedocumented in this encounter Active and Recently Administered Medications Care Teams Crawler Dragline Operator Relationship Specialty Start Date End Date Yana Turner MD [address] [place] [address] PCP - General Family Medicine 12/26/18 documented as of this encounter
--- OUTSIDE RECORDS SUMMARY | 2024-11-09 16:35 | XMS_ITS | Encounter Summary ---
Author Organization [facility] Address [address] [place] [address] Care Team Providers Care Boiler Operator Name Role Phone Alissa Baxter MD Primary Care Provider [phone] Encounter Details Date Type Department Care Team (Late st Contact Info) Description 08/11/2024 Lab Requisition [facility] Pathology & Laboratory Medicine - [facility] [address] [place] [address] Elena Lora MD [address] [place] [id number] Encounter for other general examination Social History Tobacco Use Types Packs/Day Years [...] :40 EDT Encounter for other general examination documented in this encounter Results * SURGICAL PATHOLOGY (08/10/2024 12:40 EDT) Note to Patient The following pathology results have been interpreted by your pathologist and may be available to you before your health provider has had the opportunity to review them. Please allow time for your provider to receive these results and explore management options, if applicable. 08/13/2024 14:36 EDT [facility] Final Diagnosis A. SKIN OF BACK, MID, SHAVE BIOPSY: - Melanocytic nevus, compound type, with unusual architectural features and mild cytologic atypia. - Lesion does not extend to biopsy edges in the plane of sections examined. - Lesion measures approximately 0.2 mm to the biopsy base. - Lesion measures approximately 0.4 mm to the biopsy edge. 08/13/2024 14:36 [facility] Attestation By the signature below, the attending physician certifies that they have 1) personally conducted a gross and/or microscopic examination of the described specimen(s), and/or personally interpreted the results of laboratory testing of the described specimen(s), and 2) personally rendered or confirmed the above diagnosis. 08/13/2024 14:36 [facility] at 1436 Clinical History Lesion midback that itches periodically, patient can't see it, unsure if (sp?), approximately 6 mm flat, 2 toned irregular brown lesion:? Atypical nevus vs seborrheic keratosis 08/13/2024 14:36 [facility] Gross Description A. Received in [...] A1. DICK MACHADO(ASCP) 08/13/2024 7:50 08/13/2024 14:36 [facility] Performing Lab [facility] 08/13/2024 14:36 [facility] Scanned Images 08/13/2024 14:36 [facility] Tissue SPECIMEN FROM SKIN / Unknown 08/10/2024 12:40 EDT 08/11/2024 15:07 EDT us Elena Lora MD PATHOLOGY ORDERABLES Final Resu lt [facility] [address] [place] [address] documented in this encounter Visit Diagnoses Diagnosis Encounter for other general examination documented in this encounter Care Teams Boiler Operator Relationship Specialty Start Date End Date Alissa Baxter MD [address] [facility] [address] [place] [address] PCP - General 02/27/14 documented as of this encounter
--- OUTSIDE RECORDS SUMMARY | 2024-11-09 16:35 | XMS_ITS | Encounter Summary ---
Author Organization [facility] Address [facility] [place] [address] Care Team Providers Care Oracle Database Developer Name Role Phone Yana Turner MD Primary Care Provider Reason for Referral * Diagnostic Test (Routine) - Closed Specialty Diagnoses / Procedures Referred By Contac t Referred To Contact Cardiology Diagnoses MADRIGAL (dyspnea on exertion) Hypertension, unspecified type Atrial fibrillation, unspecified type Procedures Echocardiogram Transthoracic(Leb) Christiano Hamlin MD [facility] [place] [address] [facility] [place] [address] Referral ID Status Reason Start Date Expiration Date V isits Requested Visits Authorized [id number] Closed Specialty Service Requested 12/26/2018 12/26/2019 1 1 Reason for Visit * Diagnostic Test (Routine) - Closed Specialty Diagnoses / Procedures Referred By Contac t Referred To Contact Cardiology Diagnoses MADRIGAL (dyspnea on exertion) Hypertension, unspecified type Atrial fibrillation, unspecified type Procedures Echocardiogram Transthoracic(Leb) Christiano Hamlin MD [facility] [place] [address] [facility] [place] [address] Referral ID Status Reason Start Date Expiration Date V isits Requested Visits Authorized [id number] Closed Specialty Service Requested 12/26/2018 12/26/2019 1 1 Encounter Details Date Type Department Care Team (Latest Contact Info) Description 01/31/2019 11:25 AM EDT - 01/31/2019 11:59 PM EDT Hospital Encounter Non-Invasive Cardiology Lab [facility] [place] [address] Christiano Hamlin MD [facility] [place] [address] MADRIGAL (dyspnea on exertion); Hypertension, unspecified type; [...] 9:30 AM EST Appointment Non-[place] [address] Christiano Hamlin MD [facility] [place] [address] 12/19/2024 10:40 AM EST Office Visit Cardiology at [address] [address] Christiano Hamlin MD [facility] [place] [address] documented as of this encounter [...] 1:16 PM EDT Procedure: ?Transthoracic Echocardiogram Patient: ?MARTINEZ LISA ?(Age): 1945(73y) Med Rec#: ? [id number] ?Sex: ?F ? Site Loc: ? [facility] ?Ht / Wt: ??163(cm)/100(kg) Pt. Loc: ?Echo Lab ?BSA: ?2.04 Study Date: ?? 01/31/2019 ?Pt. Type: Outpatient Tape: ? Referring: FRED Reading: Kamari Wade ([id number]) Wharf Attendant: Dafne Bradley [facility] Nurse: Jessica Ventura Diagnosis: *Other forms [...] ? Mid-Inferior ?Normal ? Mid-Inferoseptal ?Normal ? [place]-Septal ? Normal ? [place]-Anterior ? Normal ? [place]-Lateral ?Normal ? [place]-Inferior ? Normal ? [place]-Tip ?Normal ? This report has been electronically signed by: Kamari Wade MD ? 01/31/2019 13:15:37 Images reviewed and interpretation verified [facility] Cardiac Ultrasound Laboratory Procedure Note Kamari Wade MD - 01/31/2019 Procedure: Transthoracic Echocardiogram Patient: MICHELLE MARY(Age): 1945(73y) Med Rec#: [id number] Sex: F Site Loc: [facility] Ht / Wt: 163(cm)/100(kg) Pt. Loc: Echo Lab BSA: 2.04 Study Date: 01/31/2019 Pt. Type: Outpatient Tape: Referring: FRED Reading: Kamari Wade ([id number]) Wharf Attendant: Dafne Bradley [facility] Nurse: Jessica Ventura Diagnosis: *Other forms [...] Normal Mid-Posterolateral Normal Mid-Inferior Normal Mid-Inferoseptal Normal [place]-Septal Normal [place]-Anterior Normal [place]-Lateral Normal [place]-Inferior Normal [place]-Tip Normal This report has been electronically signed by: Kamari Wade MD 01/31/2019 13:15:37 Images reviewed and interpretation verified [facility] Cardiac Ultrasound Laboratory Christiano Hamlin MD [...] mLs documented in this encounter Care Teams Oracle Database Developer Relationship Specialty Start Date End Date Yana Turner MD [address] [place] [address] PCP - General Family Medicine 12/26/18 documented as of this encounter
--- OUTSIDE RECORDS SUMMARY | 2024-11-09 16:35 | XMS_ITS | Encounter Summary ---
Author Organization [facility] Address [facility] [place] [address] Care Team Providers Care Self Defense Instructor Name Role Phone Alissa Baxter MD Primary Care Provider [phone] Reason for Referral * Physical Therapy (Routine) - Closed Specialty Diagnoses / Procedures Referred By Feng colindres Referred To Contact Physical Therapy Diagnoses Urinary incontinence Myla Laguerre MD [facility] [place] [place] [address] [facility] [place] [address] Referral ID Status Reason Start Date Expiration Date V isits Requested Visits Authorized [id number] Closed Evaluate and Treat 02/22/2012 08/20/2012 1 1 Reason for Visit * Reason Comments Urinary Incontinence Encounter Details Date Type Department Care Team (Late st Contact Info) Description 02/22/2012 1:30 PM EDT [place] [address] Myla Laguerre MD [facility] [place] [place] [address] Urinary incontinence (Primary Dx); Mixed incontinence Discharge [...] her last delivery [address] [facility] by Dr[address] Abreu. She has been wet [...] night. Review of Systems: General Health: fair. HEART DOCTOR - No headaches or loss of consciousness. [...] 9:30 AM EST Appointment [place] [address] Christiano Hamlin MD [facility] [place] [place] [address] 12/19/2024 10:40 AM EST Office Visit Cardiology at [address] [phone] Christiano Hamlin MD [facility] [place] [address] Scheduled Referrals Name Type Priority Associated Diagnoses Orde r Schedule REFERRAL TO PHYSICAL THERAPY Outpatient Referral Routine Urinary incontinence Ordered: 02/22/2012 documented as of this encounter Visit Diagnoses Diagnosis Urinary incontinence- Primary Unspecified urinary incontinence Mixed incontinence Mixed incontinence urge and stress (male)(female) documented in this encounter Care Teams Self Defense Instructor Relationship Specialty Start Date End Date Alissa Baxter MD [address] [address] PCP - General 10/13/10 12/25/18 documented as of this encounter
--- OUTSIDE RECORDS SUMMARY | 2024-11-09 16:35 | XMS_ITS | Clinical Summary ---
Author Organization [facility] Address [address] [place] [address] Care Team Providers Care Data Assistant Name Role Phone Alissa Baxter MD Primary Care Provider [phone] Encounters Date Type Department Care Team Description 08/11/2024 Lab Requisition [facility] Pathology & Laboratory Medicine - [facility] [address] [place] [address] Elena Lora MD Encounter for other general [...] Last Done Comments Hepatitis C Screen 1945 Fall Risk Screening 2010 RSV Immunization ( o r 60+ Years) (1 - 1-dose 75+ series) 2020 COVID-19 Vaccine ( season) 2024 Procedures Procedure Name Priority Date/Time Associated Diagnosis [...] management options, if applicable. 08/13/2024 14:36 EDT [facility] Final Diagnosis A. SKIN OF BACK, MID, SHAVE BIOPSY: - Melanocytic nevus, compound type, with unusual architectural features and mild cytologic atypia. - Lesion does not extend to biopsy edges in the plane of sections examined. - Lesion measures approximately 0.2 mm to the biopsy base. - Lesion measures approximately 0.4 mm to the biopsy edge. 08/13/2024 14:36 [facility] Attestation By the signature below, the attending physician certifies that they have 1) personally conducted a gross and/or microscopic examination of the described specimen(s), and/or personally interpreted the results of laboratory testing of the described specimen(s), and 2) personally rendered or confirmed the above diagnosis. 08/13/2024 14:36 [facility] at 1436 Clinical History Lesion midback that itches periodically, patient can't see it, unsure if (sp?), approximately 6 mm flat, 2 toned irregular brown lesion:? Atypical nevus vs seborrheic keratosis 08/13/2024 14:36 [facility] Gross Description A. Received [...] A1. DICK MACHADO(ASCP) 08/13/2024 7:50 08/13/2024 14:36 [facility] Performing Lab [facility] 08/13/2024 14:36 [facility] Scanned Images 08/13/2024 14:36 [facility] Tissue SPECIMEN FROM SKIN / Unknown 08/10/2024 12:40 EDT 08/11/2024 15:07 EDT us Elena Lora MD PATHOLOGY ORDERABLES Final Resu lt [facility] [address] [place] [id number] from Last 3 Months Insurance [employer] MEDICARE Care Teams Data Assistant Relationship Specialty Start Date End Date Alissa Baxter MD [address] [place] [address] [address] [place] [address] PCP - General 02/27/14
--- OUTSIDE RECORDS SUMMARY | 2024-11-09 16:35 | XMS_ITS | Encounter Summary ---
Author Organization [facility] [place] [address] Care Team Providers Care Electroplater Helper Name Role Phone Yana Turner MD Primary Care Provider [phone] Encounter Details Date Type Department Care Team (Late st Contact Info) Description 02/19/2019 9:59 AM EDT Anesthesia Event [place] [phone] Donovan Ventura MD Mancini, Amy L [facility] [place] [address] Anesthesia Record Procedure Summary Procedure Name Responsible [...] 0943; median cubital vein (antecubital fossa), right; cheu-fpq-hrfakc catheter system; 18 gauge, 1 in length; [...] Ventura MD - 02/19/2019 10:39 AM EDT [facility] Department of Anesthesiology Post-procedure Note Patient: Lisa Worley Procedure Summary Date: 02/19/19 Room / Location: [facility] MINOR SURGERY / [facility] MAIN OR Anesthesia Start: 958 Anesthesia Stop: 1016 Procedure: CARDIOVERSION-ELECTIVE (WRVU 2.25) (N/A ) Diagnosis: (atrial fibrillation) Surgeon: Stephanie Babin PA Responsible Provider: Donovan Ventura MD Anesthesia Type: general ASA Status: 3 All Anesthesia Providers: Anesthesiologist: Donovan Ventura MD HEATER TENDER: Pauline Mosley CRNA Vitals Value Taken Time BP 104/83 02/19/2019 10:30 AM Temp Pulse 55 02/19/2019 10:36 AM Resp 18 02/19/2019 10:30 AM SpO2 97 % 02/19/2019 10:36 AM Pain Level 0 02/19/2019 10:30 AM Vitals shown include unvalidated device data. Patient Location: PACU/[facility] Level of Consciousness: Awake and Alert Pain [...] Note Copy from 2016 ?? Echocardiogram through [facility] August [...] and increased metoprolol No lytes here since 2017. Scanned labs in October K=3.8 and normal hgb documented in this encounter Plan of Treatment Upcoming Encounters Date Type Department Care Team (Late st Contact Info) Description 12/19/2024 9:30 AM EST Appointment Non-Invasive [place] [phone] Christiano Hamlin MD [facility] [place] [address] 12/19/2024 10:40 AM EST Office Visit Cardiology at [address] [phone] Christiano Hamlin MD [facility] [place] [address] documented as of this encounter Visit Diagnoses [...] mg documented in this encounter Care Teams Electroplater Helper Relationship Specialty Start Date End Date Yana Turner MD [address] [place] [address] PCP - General Family Medicine 12/26/18 documented as of this encounter
--- OUTSIDE RECORDS SUMMARY | 2024-11-09 16:35 | XMS_ITS | Encounter Summary ---
Author Organization [facility] [place] [address] Care Team Providers Care Commercial Real Estate Underwriter Name Role Phone Alissa Baxter MD Primary Care Provider [phone] Encounter Details Date Type Department Care Team (Late st Contact Info) Description 07/19/2017 - 07/19/2017 11:59 PM EDT Hospital Encounter Radiology Library at [facility] [place] [phone] Severiano Lopes MD [facility] [place] [address] Discharge Disposition: Home Social History Tobacco Use [...] 9:30 AM EST Appointment Non-Invasive [place] [phone] Christiano Hamlin MD [facility] [place] [address] 12/19/2024 10:40 AM EST Office Visit Cardiology at [address] [address] Christiano Hamlin MD [facility] [place] [address] documented as of this encounter Procedures Procedure Name Priority Date/Time Associated Diagnosis Comments FILM LIBRARY STORAGE ONLY DX CHEST Routine 07/19/2017 12:00 AM EDT documented in this encounter Results * Film Library- Storage Only DX Chest (07/19/2017 12:00 AM EDT) Narrative [facility] - 09/13/2017 8:38 PM EDT This exam is for storage only and is auto-finalizing. Severiano Lopes MD IMG FILM LIBRARY OR DERABLES [place], [place] documented in this encounter Visit Diagnoses Not on filedocumented in this encounter Care Teams Commercial Real Estate Underwriter Relationship Specialty Start Date End Date Alissa Baxter MD [address] [place] [address] PCP - General 10/13/10 12/25/18 documented as of this encounter
--- OUTSIDE RECORDS SUMMARY | 2024-11-09 16:35 | XMS_ITS | Encounter Summary ---
Author Organization [facility] Address [facility] [place] [address] Care Team Providers Care Yarn Finisher Name Role Phone Yana Turner MD Primary Care Provider [phone] Encounter Details Date Type Department Care Team (Late st Contact Info) Description 01/31/2019 2:20 PM EDT Office Visit Cardiology at [address] [address] Christiano Hamlin MD [facility] [place] [address] Atrial fibrillation, unspecified type (Primary Dx); Hypertension, [...] from the original note were [place] [address] CARDIOLOGY OUTPATIENT FOLLOW-UP NOTE Lisa Worley [id number] PCP: Yana Turner MD 01/31/2019 PRIMARY CARE PROVIDER: Yana Turner MD PROBLEM LIST: Patient Active Problem List Diagnosis ??? Atrial fibrillation ??? MADRIGAL (dyspnea on exertion) ?? Onset about July, and accompanied by mild chest pain ?? Echocardiogram through [facility] August 12, 2017 showing [...] 9:30 AM EST Appointment Non-Invasive [place] [address] Christiano Hamlin MD [facility] [place] [address] 12/19/2024 10:40 AM EST Office Visit Cardiology at [address] [phone] Christiano Hamlin MD [facility] [place] [address] documented as of this encounter Procedures Procedure Name Priority Date/Time Associated Diagnosis Comments EKG 12-LEAD Routine 01/31/2019 2:27 PM EDT Hypertension, unspecified type MADRIGAL (dyspnea on exertion) Atrial fibrillation, unspecified type documented in this encounter Results * CARDIOVERSION-OR (02/19/2019 10:17 AM EDT) Narrative Blanca Copeland PA - 02/19/2019 10:17 AM EDT Blanca Copeland PA ? 02/19/2019 10:19 AM Direct Current Cardioversion Procedure Note: Date of Procedure: 02/19/2019 Attending: Saman Honeycutt MD PA: Blanca Copeland PA-C; Michael Babin PA-C Indication: Atrial fibrillation, paroxysmal Patient Active Problem List Diagnosis ? ? Atrial fibrillation ? ? MADRIGAL (dyspnea on exertion) ? Onset about July, and accompanied by mild chest pain ?? Echocardiogram through [facility] August 12, 2017 showing [...] (Bezet) 451 ms MUSE SYSTEM Calculated R Silt 3 degrees MUSE SYSTEM Calculated T Silt 59 degrees MUSE SYSTEM INTERPRETATION Atrial fibrillation [...] abnormality documented in this encounter Care Teams Yarn Finisher Relationship Specialty Start Date End Date Yana Turner MD [address] [place] [address] PCP - General Family Medicine 12/26/18 documented as of this encounter
--- OUTSIDE RECORDS SUMMARY | 2024-11-09 16:35 | XMS_ITS | Encounter Summary ---
Author Organization [facility] Address [facility] [address] Care Team Providers Care President Trust Company Name Role Phone Alissa Baxter MD Primary Care Provider [phone] Encounter Details Date Type Department Care Team (Late st Contact Info) Description 10/11/2017 9:00 AM EST - 10/11/2017 10:00 AM EST Surgery [place] [phone] Greg Mason MD [facility] [place] [address] CARDIAC CATHETERIZATION Social History Tobacco Use Types [...] by your doctor, do not take any rzhg-ide-xfpceix medicines or herbal preparations without first discussing this with your doctor or pharmacist. There is the possibility of side effect and interactions when these are combined. Follow up Care Who to Call with Questions or Problems If there are any questions or problems that you think might be related to your cardiac cath or angioplasty, contact the salesforce specialist montessori preschool teacher by calling [facility] at . POST ANESTHESIA INSTRUCTIONS Go [...] 9:30 AM EST Appointment Non-Invasive [place] [phone] Christiano Hamlin MD [facility] [place] [address] 12/19/2024 10:40 AM EST Office Visit Cardiology at [address] [phone] Christiano Hamlin MD [facility] [place] [address] documented as of this encounter Visit Diagnoses [...] MD) documented in this encounter Care Teams President Trust Company Relationship Specialty Start Date End Date Alissa Baxter MD [address] [place] [address] [address] [place] [address] PCP - General 10/13/10 12/25/18 documented as of this encounter
--- OUTSIDE RECORDS SUMMARY | 2024-11-09 16:35 | XMS_ITS | Encounter Summary ---
Author Organization [facility] [place] [address] Care Team Providers Care Curing Press Maintainer Name Role Phone Yana Turner MD Primary Care Provider [phone] Encounter Details Date Type Department Care Team (Latest Contact Info) Description 02/19/2019 8:59 AM EDT - 02/19/2019 11:35 AM EDT Hospital Encounter [place] [phone] Christiano Hamlin MD [facility] [place] [address] Paroxysmal atrial fibrillation; Atrial fibrillation, unspecified type [...] the adhesive pads were placed, call the superintendent maintenance personnel coordinator at . ? We will schedule a follow-up appointment with the superintendent maintenance here, or you will be scheduled to [...] 9:30 AM EST Appointment Non-[place]vasive [place] [address] Christiano Hamlin MD [facility] [place] [address] 12/19/2024 10:40 AM EST Office Visit Cardiology at [address] [phone] Christiano Hamlin MD [facility] [place] [address] Scheduled Orders Name Type Priority Associated Diagnoses [...] (Bezet) 476 ms MUSE SYSTEM Calculated P [place] 85 degrees MUSE SYSTEM Calculated R [place] -7 degrees MUSE SYSTEM Calculated T [place] -3 degrees MUSE SYSTEM INTERPRETATION Electronic artifact present Sinus bradycardia with Premature supraventricular complexes Nonspecific T wave abnormality Abnormal ECG When compared with ECG of 19-FEB-2019 08:27, (unconfirmed) Sinus rhythm has replaced Atrial fibrillation Vent. rate has decreased BY ??40 BPM I personally reviewed the tracing and edited the fellows interpretation Confirmed by fellow MD Price, Belén ([id number]) on 02/19/2019 12:15:19 PM Confirmed by MD Kb, Donovan ([id number]) on 02/19/2019 5:19:54 PM MUSE SYSTEM 02/19/2019 10:3 8 AM EDT 02/19/2019 5:19 PM EDT Saman Honeycutt MD ECG ORDERABLES MUSE SYSTEM documented in this encounter Visit Diagnoses Diagnosis Paroxysmal atrial fibrillation Atrial fibrillation Atrial fibrillation, unspecified type documented in this encounter Active and Recently Administered Medications Care Teams Curing Press Maintainer Relationship Specialty Start Date End Date Yana Turner MD [address] [place] [address] PCP - General Family Medicine 12/26/18 documented as of this encounter
--- OUTSIDE RECORDS SUMMARY | 2024-11-09 16:35 | XMS_ITS | Encounter Summary ---
Author Organization [facility] [place] [address] Care Team Providers Care Toll Service Observer Name Role Phone Alissa Baxter MD Primary Care Provider [phone] Encounter Details Date Type Department Care Team (Late st Contact Info) Description 09/26/2017 Orders Only Cardiology at [address] [phone] Christiano Hamlin MD [facility] [place] [address] Abnormal stress test Social History Tobacco Use [...] 9:30 AM EST Appointment Non-[place]vasive [place] [phone] Christiano Hamlin MD [facility] [place] [address] 12/19/2024 10:40 AM EST Office Visit Cardiology at [address] [phone] Christiano Hamlin MD [facility] [place] [address] documented as of this encounter Results * EKG 12 Lead (09/27/2017 11:10 AM EST) Ventricular rate 75 BPM MUSE SYSTEM Atrial Rate 75 BPM MUSE SYSTEM P-R Interval 178 ms MUSE SYSTEM QRS Duration 72 ms MUSE SYSTEM Q-T Interval 394 ms MUSE SYSTEM QTC Calculated (Bezet) 439 ms MUSE SYSTEM Calculated P [place] 57 degrees MUSE SYSTEM Calculated R [place] -16 degrees MUSE SYSTEM Calculated T [place] 47 degrees MUSE SYSTEM INTERPRETATION Normal sinus [...] study documented in this encounter Care Teams Toll Service Observer Relationship Specialty Start Date End Date Alissa Baxter MD [address] [place] [address] PCP - General 10/13/10 12/25/18 documented as of this encounter
[2024-11-09 17:00] LABS: Anion Gap 8.2 mmol/L (3-11); BUN 16 mg/dL (7-18); CO2 28.8 mmol/L (21.0-32.0); CREATININE 0.8 mg/dL (0.55-1.02); Calcium 8.8 mg/dL (8.5-10.1); Chloride 106 mmol/L (98-107); Glucose 130 mg/dL (74-106); Potassium 4.5 mmol/L (3.5-5.1); Sodium 143 mmol/L (136-145)
[2024-11-09 17:01] LABS: Digoxin 0.67 ng/mL (0.90-2.00)
== END 2024-11-09 16:31 | disposition home or self-care (01) ==
LOC: NCHCN 16:30
PROVIDERS: PCP Family Medicine; Visit Provider Family Medicine
DX: I48.20 Chronic atrial fibrillation, unspecified (principal); R73.03 Prediabetes
CPT/HCPCS: 80048; 80162; 83036

== ENCOUNTER → 2024-12-03 10:34 | Outpatient (BNVA) | payer MEDICARE, SELFPAY | PROVIDERS: PCP Family Medicine; Referring Provider Family Medicine; Visit Provider Podiatrist | DX: L60.3 Nail dystrophy (principal); L84 Corns and callosities; M79.671 Pain in right foot; M79.672 Pain in left foot; R60.0 Localized edema; I87.2 Venous insufficiency (chronic) (peripheral); B35.1 Tinea unguium; I73.89 Other specified peripheral vascular diseases; R09.89 Other specified symptoms and signs involving the circulatory and respiratory systems; L65.9 Nonscarring hair loss, unspecified; R23.8 Other skin changes; L60.8 Other nail disorders; R20.8 Other disturbances of skin sensation | CPT/HCPCS: 11721 ==

== ENCOUNTER 2025-02-07 16:43 | Outpatient (REF) | payer MEDICARE, SELFPAY ==
[2025-02-07 15:48] LABS: Anion Gap 8.3 mmol/L (3-11); BUN 17 mg/dL (7-18); CO2 29.7 mmol/L (21.0-32.0); CREATININE 0.9 mg/dL (0.55-1.02); Calcium 9.2 mg/dL (8.5-10.1); Chloride 105 mmol/L (98-107); Estimated GFR 65.03 (mL/min/1.73m2); Glucose 249 mg/dL (74-106); Potassium 4.2 mmol/L (3.5-5.1); Sodium 143 mmol/L (136-145)
== END 2025-02-07 16:44 | disposition home or self-care (01) ==
LOC: NCHCN 16:43
PROVIDERS: PCP Family Medicine; Visit Provider Family Medicine
DX: Z00.00 Encounter for general adult medical examination without abnormal findings (principal)
CPT/HCPCS: 80048

== ENCOUNTER → 2025-03-06 12:59 | Outpatient (BNVA) | payer MEDICARE, SELFPAY | PROVIDERS: PCP Family Medicine; Referring Provider Family Medicine; Visit Provider Podiatrist | DX: L60.3 Nail dystrophy (principal); B35.1 Tinea unguium; L84 Corns and callosities; M79.674 Pain in right toe(s); M79.675 Pain in left toe(s); I87.2 Venous insufficiency (chronic) (peripheral); E11.9 Type 2 diabetes mellitus without complications; I89.0 Lymphedema, not elsewhere classified; R20.2 Paresthesia of skin; L65.9 Nonscarring hair loss, unspecified; R20.8 Other disturbances of skin sensation; R23.8 Other skin changes; L60.8 Other nail disorders; L60.2 Onychogryphosis; L85.8 Other specified epidermal thickening; D17.24 Benign lipomatous neoplasm of skin and subcutaneous tissue of left leg; D17.23 Benign lipomatous neoplasm of skin and subcutaneous tissue of right leg | CPT/HCPCS: 11721 ==

== ENCOUNTER → 2025-06-18 11:23 | Outpatient (BNVA) | payer MEDICARE, SELFPAY | PROVIDERS: PCP Family Medicine; Referring Provider Family Medicine; Visit Provider Podiatrist | DX: L60.3 Nail dystrophy (principal); B35.1 Tinea unguium; L84 Corns and callosities; M79.674 Pain in right toe(s); R60.0 Localized edema; I87.2 Venous insufficiency (chronic) (peripheral); E11.9 Type 2 diabetes mellitus without complications; I89.0 Lymphedema, not elsewhere classified; I73.89 Other specified peripheral vascular diseases; R09.89 Other specified symptoms and signs involving the circulatory and respiratory systems; L65.9 Nonscarring hair loss, unspecified; R20.8 Other disturbances of skin sensation; R23.4 Changes in skin texture; L60.2 Onychogryphosis; R23.8 Other skin changes; L85.8 Other specified epidermal thickening | CPT/HCPCS: 11721 ==

== ENCOUNTER 2025-07-05 18:08 | Outpatient (REF) | payer MEDICARE, SELFPAY ==
[2025-07-05 15:46] LABS: HCT 46.4 % (36.0-46.0); HGB 14.9 g/dL (11.2-15.7)
[2025-07-05 16:16] LABS: Digoxin 0.69 ng/mL (0.90-2.00)
[2025-07-05 16:28] LABS: ALT 29 U/L (14-59); AST 24 U/L (15-37); Albumin 3.8 g/dL (3.4-5.0); Alkaline Phosphatase 71 U/L (46-116); Anion Gap 10.6 mmol/L (3-11); BUN 19 mg/dL (7-18); Bilirubin, Total 1.6 mg/dL (0.2-1.0); CO2 28.4 mmol/L (21.0-32.0); Calcium 9.2 mg/dL (8.5-10.1); Chloride 103 mmol/L (98-107); Estimated GFR 91.25 (mL/min/1.73m2); Glucose 191 mg/dL (74-106); Potassium 4.3 mmol/L (3.5-5.1); Sodium 142 mmol/L (136-145); Total Protein 7.4 g/dL (6.4-8.2)
[2025-07-05 16:50] LABS: Hemoglobin A1C 7.1 % (<5.7)
== END 2025-07-05 18:09 | disposition home or self-care (01) ==
LOC: NCHCN 18:08
PROVIDERS: PCP Family Medicine; Visit Provider Family Medicine
DX: I50.9 Heart failure, unspecified (principal); E11.69 Type 2 diabetes mellitus with other specified complication
CPT/HCPCS: 80053; 80162; 83036; 85014; 85018

== ENCOUNTER → 2025-08-19 13:17 | Outpatient (BNVA) | payer MEDICARE, SELFPAY | PROVIDERS: PCP Family Medicine; Referring Provider Family Medicine; Visit Provider Student in an Organized Health Care Education/Training Program | DX: M70.61 Trochanteric bursitis, right hip (principal); R29.898 Other symptoms and signs involving the musculoskeletal system; M54.50 Low back pain, unspecified; R42 Dizziness and giddiness; Z96.653 Presence of artificial knee joint, bilateral | CPT/HCPCS: 99214 ==

== ENCOUNTER 2025-09-09 02:17 | Outpatient (CLI) | payer MEDICARE, SELFPAY ==
--- NOTE | 2025-09-09 07:00 | DI.MRI_ITS ---
Exam(s) MR LUMBAR SPINE WO EXAM: MR LUMBAR SPINE WO CLINICAL HISTORY: low back pain, weakness rt lower ext,m54.5,r29.898. TECHNIQUE: Multiplanar multisequence MRI of the Lumbar spine was performed. COMPARISON: CR LUMBAR SPINE AP, LAT from 03/29/[address] ABDOMEN PELVIS W from 02/27/2019 FINDINGS: Bones: The last intervertebral disc space is designated the L5/S1 level for the numbering purpose of this examination. The vertebral body heights are well maintained. There is a right convex lumbar scoliosis. There are degenerative endplate signal changes present throughout the lumbar spine. Hemangioma or fatty rests are present in the lumbar and lower thoracic spine. Cord: It is of normal size and signal intensity. T12-L1: There is a small left paracentral disc herniation. No central spinal canal or neural foraminal stenosis. L1-2: There are degenerative changes of the facets. There is no significant central spinal canal or right neural foraminal stenosis. There is [id number]-rn-[id number] left neural foraminal stenosis. L2-3: There is a mild diffuse disc bulge. Degenerative changes of the facets are seen. There is mild narrowing of the central spinal canal. There is mild right and moderate left neural foraminal stenosis. L3-4: There is a mild diffuse disc bulge. There are degenerative changes of the facets and hypertrophy of the ligamentum flavum. The findings cause [id number] central spinal canal stenosis. There is moderate right and mild left neural foraminal stenosis. L4-5: There are degenerative changes of the facets and hypertrophy of the ligamentum flavum. The findings result in moderate narrowing of the central spinal canal. There is moderate right and mild left neural foraminal stenosis.There is a mild diffuse disc bulge. L5-S1: No disc herniations or bulges are present. There are degenerative changes of the facets. There is mild narrowing of the right neural foramen. No significant central spinal canal or left neural foraminal stenosis is seen. Soft tissues: The visualized SI joints and sacrum are well maintained. The paraspinal soft tissues are unremarkable. IMPRESSION: 1. 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 2. Findings are most marked at L3-4 and L4-L5. DATA REPOSITORY:
== END 2025-09-09 02:37 ==
LOC: DI 02:17
PROVIDERS: PCP Family Medicine; Visit Provider Student in an Organized Health Care Education/Training Program
DX: M51.360 Other intervertebral disc degeneration, lumbar region with discogenic back pain only (principal); M99.63 Osseous and subluxation stenosis of intervertebral foramina of lumbar region
CPT/HCPCS: 72148

== ENCOUNTER → 2025-09-16 10:24 | Outpatient (BNVA) | payer MEDICARE, SELFPAY | PROVIDERS: PCP Family Medicine; Referring Provider Family Medicine; Visit Provider Podiatrist | DX: L60.3 Nail dystrophy (principal); B35.1 Tinea unguium; L84 Corns and callosities; I87.2 Venous insufficiency (chronic) (peripheral); E11.9 Type 2 diabetes mellitus without complications; R60.0 Localized edema; L85.8 Other specified epidermal thickening; M79.674 Pain in right toe(s); R09.89 Other specified symptoms and signs involving the circulatory and respiratory systems; L65.9 Nonscarring hair loss, unspecified; R20.8 Other disturbances of skin sensation; R23.4 Changes in skin texture; L60.8 Other nail disorders; R23.8 Other skin changes; L60.2 Onychogryphosis; D17.24 Benign lipomatous neoplasm of skin and subcutaneous tissue of left leg | CPT/HCPCS: 11056; 11721 ==

== ENCOUNTER → 2025-09-16 13:01 | Outpatient (BNVA) | payer MEDICARE, SELFPAY | PROVIDERS: PCP Family Medicine; Referring Provider Family Medicine; Visit Provider Student in an Organized Health Care Education/Training Program | DX: M48.062 Spinal stenosis, lumbar region with neurogenic claudication (principal) | CPT/HCPCS: 99213 ==